=== PATIENT | female | born 1990 | race Caucasian/White ===

== ENCOUNTER → 2017-04-24 | Outpatient (REF) | payer OTHER, SELFPAY ==
[2017-04-24 17:37] LABS: FREE T4 0.83 NG/DL (0.76-1.46)
== END ==
LOC: M SFHCPLAZ 15:22
PROVIDERS: ATTEND Nurse Practitioner Family
DX: F41.8 Other specified anxiety disorders (principal); E03.9 Hypothyroidism, unspecified

== ENCOUNTER → 2017-11-07 | Outpatient (REF) | payer OTHER, SELFPAY ==
[2017-11-07 12:05] LABS: FREE T4 0.71 NG/DL (0.76-1.46)
[2017-11-08 08:26] LABS: THYROGLOBULIN ANTIBODY 42.6 U/ML (<60.0); THYROID PEROXIDASE ANTIBODY > 1300.0 U/ML (<60.0)
[2017-11-09 00:06] LABS: THYROID STIMULATING IMMUNOGLOB <0.10 IU/L (0.00-0.55)
== END ==
LOC: M SFHCPLAZ 09:37
DX: E03.9 Hypothyroidism, unspecified (principal)
CPT/HCPCS: 84443

== ENCOUNTER → 2017-12-05 | Outpatient (REF) | payer OTHER ==
[2017-12-05 11:44] LABS: BASO # 0.1 10^3/uL (0.0-0.2); BASO % 1.1 % (0.0-1.0); EOS # 0.5 10^3/uL (0.0-0.50); EOS % 10.1 % (0.0-3.0); HEMATOCRIT 34.4 % (36.0-47.0); HEMOGLOBIN 10.6 g/dl (12.0-15.5); IMMATURE GRANULOCYTE % 0.4 % (0-3.0); LYMPH # 1.3 10^3/uL (1.5-6.5); LYMPH % 24.6 % (24.0-44.0); MEAN CORPUSCULAR HEMOGLOBIN 24.7 pg (27.0-33.0); MEAN CORPUSCULAR HGB CONC 30.8 g/dl (32.0-36.5); MONO # 0.5 10^3/uL (0.0-0.8); MONO % 8.8 % (0.0-5.0); NEUTROPHILS # 2.9 10^3/uL (1.8-7.7); PLATELET COUNT, AUTOMATED 253 10^3/uL (150-450); WHITE BLOOD COUNT 5.2 10^3/uL (4.0-10.0)
[2017-12-05 12:43] LABS: CHOLESTEROL LEVEL 182 MG/DL (<200); CHOLESTEROL RISK RATIO 4.666 (<5); FERRITIN 5 NG/ML (8-252); FREE T4 0.81 NG/DL (0.76-1.46); HDL CHOLESTEROL 39 MG/DL (>40); IRON (FE) 29 UG/DL (50-170); NON-HDL-C 143 MG/DL; PERCENT SATURATION 7.7 % (13.2-45.0); TOTAL IRON BINDING CAPACITY 377 UG/DL (250-450); TRIGLYCERIDES LEVEL 95 MG/DL (<150)
[2017-12-05 14:26] LABS: ESTIMATED AVERAGE GLUCOSE 114 MG/DL (60-110); HEMOGLOBIN A1c 5.6 %
== END ==
LOC: M SFHCPLAZ 10:17
DX: D50.9 Iron deficiency anemia, unspecified (principal); E03.9 Hypothyroidism, unspecified; E66.9 Obesity, unspecified
CPT/HCPCS: 83550

== ENCOUNTER 2018-07-19 08:00 | Emergency (ER) | payer SELFPAY, OTHER ==
[2018-07-19] MEDS: ALBUTEROL SULFATE 2.5 MG/0.5 ML INH NEB SOLN INH (08:44)
== END 2018-07-19 09:27 | disposition home or self-care (01) ==
LOC: M ED 08:00
DX: J18.9 Pneumonia, unspecified organism (principal)
CPT/HCPCS: 71046

== ENCOUNTER → 2019-03-14 | Outpatient (REF) | payer OTHER ==
[~2019-03-14] MED LIST: MUCI600T37 PO; VENTAER INH; ZITHTAB PO
[2019-03-14 17:59] LABS: APPEARANCE, URINE CLEAR (CLEAR); BACTERIA, URINE AUTO NEGATIVE (NEGATIVE); BILIRUBIN, URINE AUTO NEGATIVE (NEGATIVE); BLOOD, URINE BLOOD 3+ (NEGATIVE); COLOR, URINE YELLOW (YELLOW); GLUCOSE, URINE (UA) AUTO NEGATIVE (NEGATIVE); KETONE, URINE AUTO NEGATIVE (NEGATIVE); LEUKOCYTE ESTERASE, URINE AUTO NEGATIVE (NEGATIVE); MUCUS, URINE SMALL (NEGATIVE); NITRITE, URINE AUTO NEGATIVE (NEGATIVE); PROTEIN, URINE AUTO NEGATIVE (NEGATIVE); RBC, URINE AUTO 4 /HPF (0-3); SPECIFIC GRAVITY URINE AUTO 1.021 (1.002-1.035); SQUAMOUS EPITHELIAL CELL UR AU 0 /HPF (0-6); UROBILINOGEN, URINE AUTO 0.2 mg/dL (0.0-2.0); WBC, URINE AUTO 2 /HPF (0-3)
== END ==
LOC: M SFHCPLAZ 16:49
PROVIDERS: ATTEND Physician Assistant Medical
DX: R10.9 Unspecified abdominal pain (principal)

== ENCOUNTER → 2019-04-22 | Outpatient (REF) | payer OTHER ==
[2019-04-22 13:36] LABS: APPEARANCE, URINE HAZY (CLEAR); BACTERIA, URINE AUTO NEGATIVE (NEGATIVE); BILIRUBIN, URINE AUTO NEGATIVE (NEGATIVE); BLOOD, URINE BLOOD NEGATIVE (NEGATIVE); COLOR, URINE YELLOW (YELLOW); GLUCOSE, URINE (UA) AUTO NEGATIVE (NEGATIVE); KETONE, URINE AUTO NEGATIVE (NEGATIVE); LEUKOCYTE ESTERASE, URINE AUTO NEGATIVE (NEGATIVE); MUCUS, URINE LARGE (NEGATIVE); NITRITE, URINE AUTO NEGATIVE (NEGATIVE); PROTEIN, URINE AUTO 1+ mg/dL (NEGATIVE); RBC, URINE AUTO 3 /HPF (0-3); SPECIFIC GRAVITY URINE AUTO 1.031 (1.002-1.035); SQUAMOUS EPITHELIAL CELL UR AU 6 /HPF (0-6); WBC, URINE AUTO 1 /HPF (0-3)
== END ==
LOC: M SFHCPLAZ 11:55
PROVIDERS: ATTEND Physician Assistant Medical
DX: R39.15 Urgency of urination (principal)

== ENCOUNTER → 2019-06-19 | Outpatient (REF) | payer OTHER ==
[2019-06-19 17:27] LABS: BASO # 0.1 10^3/uL (0.0-0.2); BASO % 1.2 % (0.0-1.0); EOS # 0.2 10^3/uL (0.0-0.5); EOS % 4.8 % (0.0-3.0); HEMATOCRIT 34.4 % (36.0-47.0); HEMOGLOBIN 10.6 g/dl (12.0-15.5); LYMPH # 1.2 10^3/uL (1.5-5.0); LYMPH % 24.2 % (24.0-44.0); MEAN CORPUSCULAR HEMOGLOBIN 24.9 pg (27.0-33.0); MEAN CORPUSCULAR HGB CONC 30.8 g/dl (32.0-36.5); MEAN CORPUSCULAR VOLUME 80.8 fl (80.0-96.0); MONO # 0.4 10^3/uL (0.0-0.8); MONO % 7.9 % (0.0-5.0); NEUTROPHILS # 3.1 10^3/uL (1.5-8.5); NEUTROPHILS % 61.7 % (36.0-66.0); PLATELET COUNT, AUTOMATED 327 10^3/uL (150-450); RED BLOOD COUNT 4.26 10^6/uL (4.00-5.40)
[2019-06-19 17:39] LABS: ALBUMIN 3.9 GM/DL (3.2-5.2); ALT/SGPT 23 U/L (12-78); BILIRUBIN,TOTAL 0.3 MG/DL (0.2-1.0); BLOOD UREA NITROGEN 9 MG/DL (7-18); CALCIUM LEVEL 9.7 MG/DL (8.5-10.1); CARBON DIOXIDE LEVEL 25 MEQ/L (21-32); CHLORIDE LEVEL 111 MEQ/L (98-107); CHOLESTEROL LEVEL 221 MG/DL (<200); CREATININE FOR GFR 0.89 MG/DL (0.55-1.30); FERRITIN 4 NG/ML (8-252); FREE T4 0.88 NG/DL (0.76-1.46); GLOMERULAR FILTRATION RATE > 60.0 (>60); GLUCOSE, FASTING 90 MG/DL (70-100); HDL CHOLESTEROL 41 MG/DL (>40); IRON (FE) 19 UG/DL (50-170); LDL CHOLESTEROL 156 MG/DL (<100); NON-HDL-C 180 MG/DL; PERCENT SATURATION 4.9 % (13.2-45.0); POTASSIUM SERUM 4.2 MEQ/L (3.5-5.1); SODIUM LEVEL 142 MEQ/L (136-145); TOTAL IRON BINDING CAPACITY 387 UG/DL (250-450); TOTAL PROTEIN 7.2 GM/DL (6.4-8.2); TRIGLYCERIDES LEVEL 118 MG/DL (<150)
== END ==
LOC: M SFHCPLAZ 15:13
PROVIDERS: ATTEND Physician Assistant Medical
DX: Z13.220 Encounter for screening for lipoid disorders (principal); E03.9 Hypothyroidism, unspecified; D50.9 Iron deficiency anemia, unspecified

== ENCOUNTER → 2020-08-31 | Outpatient (REF) | payer OTHER ==
[2020-08-31 18:28] LABS: BASO # 0.1 10^3/uL (0.0-0.2); BASO % 1.3 % (0.0-1.0); EOS # 0.2 10^3/uL (0.0-0.5); EOS % 3.4 % (0.0-3.0); HEMATOCRIT 31.4 % (36.0-47.0); LYMPH # 1.5 10^3/uL (1.5-5.0); LYMPH % 32.1 % (24.0-44.0); MEAN CORPUSCULAR HEMOGLOBIN 22.8 pg (27.0-33.0); MEAN CORPUSCULAR HGB CONC 28.7 g/dl (32.0-36.5); MEAN CORPUSCULAR VOLUME 79.7 fl (80.0-96.0); MONO # 0.5 10^3/uL (0.0-0.8); MONO % 11.2 % (0.0-5.0); NEUTROPHILS # 2.4 10^3/uL (1.5-8.5); NEUTROPHILS % 51.8 % (36.0-66.0); PLATELET COUNT, AUTOMATED 246 10^3/uL (150-450); RED BLOOD COUNT 3.94 10^6/uL (4.00-5.40); WHITE BLOOD COUNT 4.6 10^3/uL (4.0-10.0)
[2020-08-31 18:41] LABS: HEMOGLOBIN A1c 5.2 %
[2020-08-31 19:04] LABS: ALBUMIN 3.8 GM/DL (3.2-5.2); ALT/SGPT 39 U/L (12-78); BILIRUBIN,TOTAL 0.3 MG/DL (0.2-1.0); BLOOD UREA NITROGEN 17 MG/DL (7-18); CALCIUM LEVEL 9.1 MG/DL (8.5-10.1); CARBON DIOXIDE LEVEL 29 MEQ/L (21-32); CHLORIDE LEVEL 110 MEQ/L (98-107); CHOLESTEROL LEVEL 176 MG/DL (<200); CREATININE FOR GFR 0.83 MG/DL (0.55-1.30); FERRITIN 4 NG/ML (8-252); FREE T4 0.74 NG/DL (0.76-1.46); GLOMERULAR FILTRATION RATE > 60.0 (>60); GLUCOSE, FASTING 49 MG/DL (70-100); HDL CHOLESTEROL 80 MG/DL (>40); IRON (FE) 30 UG/DL (50-170); LDL CHOLESTEROL 78 MG/DL (<100); NON-HDL-C 96 MG/DL; POTASSIUM SERUM 3.8 MEQ/L (3.5-5.1); SODIUM LEVEL 144 MEQ/L (136-145); TOTAL 25(OH) VITAMIN D 24.2 NG/ML (30.0-100.0); TOTAL PROTEIN 6.8 GM/DL (6.4-8.2); TRIGLYCERIDES LEVEL 89 MG/DL (<150); VITAMIN B12 LEVEL > 2000 PG/ML (247-911)
== END ==
LOC: M SFHCPLAZ 14:46 → M SFHCADAM 14:48
PROVIDERS: ATTEND Physician Assistant Medical
DX: E03.9 Hypothyroidism, unspecified (principal); Z13.220 Encounter for screening for lipoid disorders; D50.9 Iron deficiency anemia, unspecified; E66.9 Obesity, unspecified; Z98.84 Bariatric surgery status

== ENCOUNTER → 2020-09-03 | Outpatient (REF) | payer OTHER ==
[~2020-09-03] MED LIST changes: +B-12100T2 PO; +BUSP5TA PO; +CALC250T PO; +FLINCHW2 PO; +LEVO50TA5 PO
[2020-09-03 18:02] LABS: BASO # 0.1 10^3/uL (0.0-0.2); BASO % 1.4 % (0.0-1.0); EOS # 0.2 10^3/uL (0.0-0.5); EOS % 3.5 % (0.0-3.0); HEMATOCRIT 32.1 % (36.0-47.0); HEMOGLOBIN 9.4 g/dl (12.0-15.5); LYMPH # 1.1 10^3/uL (1.5-5.0); LYMPH % 26.6 % (24.0-44.0); MEAN CORPUSCULAR HEMOGLOBIN 23.2 pg (27.0-33.0); MEAN CORPUSCULAR HGB CONC 29.3 g/dl (32.0-36.5); MEAN CORPUSCULAR VOLUME 79.1 fl (80.0-96.0); MONO # 0.5 10^3/uL (0.0-0.8); MONO % 10.6 % (0.0-5.0); NEUTROPHILS # 2.5 10^3/uL (1.5-8.5); NEUTROPHILS % 57.7 % (36.0-66.0); PLATELET COUNT, AUTOMATED 227 10^3/uL (150-450); RED BLOOD COUNT 4.06 10^6/uL (4.00-5.40); WHITE BLOOD COUNT 4.3 10^3/uL (4.0-10.0)
[2020-09-03 18:12] LABS: BLOOD UREA NITROGEN 15 MG/DL (7-18); CALCIUM LEVEL 9.3 MG/DL (8.5-10.1); CARBON DIOXIDE LEVEL 27 MEQ/L (21-32); CHLORIDE LEVEL 111 MEQ/L (98-107); CREATININE FOR GFR 0.78 MG/DL (0.55-1.30); FERRITIN < 3 NG/ML (8-252); GLOMERULAR FILTRATION RATE > 60.0 (>60); GLUCOSE, FASTING 96 MG/DL (70-100); IRON (FE) 10 UG/DL (50-170); MAGNESIUM LEVEL 2.4 MG/DL (1.8-2.4); POTASSIUM SERUM 4.2 MEQ/L (3.5-5.1); SODIUM LEVEL 144 MEQ/L (136-145)
== END ==
LOC: M PLALAB 14:49
PROVIDERS: ATTEND Physician Assistant Medical
DX: D50.9 Iron deficiency anemia, unspecified (principal); E03.9 Hypothyroidism, unspecified; Z98.84 Bariatric surgery status

== ENCOUNTER 2020-09-08 08:11 | Outpatient (CLI) | payer OTHER ==
[~2020-09-08] VITALS: Ht 167.6 cm; Wt 76.8 kg
[2020-09-08 08:00] VITALS: BP 124/59
[~2020-09-08 08:11] MED LIST changes: -B-12100T2 PO; -BUSP5TA PO; -CALC250T PO; -FLINCHW2 PO; +IRON SUCROSE 25 MG in NS 25 ML IV ONE; -LEVO50TA5 PO
[2020-09-08] MEDS ORDERED: FLINCHW2 PO (08:29)
[2020-09-08] MEDS ORDERED: CALC250T PO (08:29)
[2020-09-08] MEDS ORDERED: B-12100T2 PO (08:29)
[2020-09-08] MEDS ORDERED: BUSP5TA PO (08:29)
[2020-09-08] MEDS ORDERED: LEVO50TA5 PO (08:29)
[2020-09-08] MEDS ORDERED: IRON SUCROSE 225 MG in NS 225 ML IV ONE (09:00)
[2020-09-08 09:15] VITALS: BP 110/56
[2020-09-08 10:17] VITALS: BP 95/50
[2020-09-08 12:00] VITALS: BP 104/58
[2020-09-08 13:00] VITALS: BP 104/66
== END 2020-09-08 13:00 | disposition home or self-care (01) ==
LOC: M INFU 08:11
PROVIDERS: ATTEND Physician Assistant Medical
DX: D50.9 Iron deficiency anemia, unspecified (principal); Z88.1 Allergy status to other antibiotic agents
CPT/HCPCS: 96365; 96366; J1756

== ENCOUNTER 2020-09-25 13:47 | Emergency (ER) | payer OTHER ==
[~2020-09-25] VITALS: Ht 167.6 cm; Wt 79.6 kg
[~2020-09-25 13:47] MED LIST changes: +B-12100T2 PO; +BUSP5TA PO; +CALC250T PO; +FLINCHW2 PO; -IRON SUCROSE 25 MG in NS 25 ML IV ONE; +LEVO50TA5 PO
[2020-09-25] MEDS ORDERED: FERR325T3 PO (13:53)
[2020-09-25] MEDS ORDERED: NOXI1TAB PO (13:53)
[2020-09-25] MEDS ORDERED: LORazepam 2 MG/ML VIAL IV STA (14:25)
--- OUTSIDE RECORDS SUMMARY | 2020-09-25 14:27 | CCD ---
Author Author [facility] Organization [facility] Address Unknown Phone Unavailable Care Team Providers Care Sheet Tailer Name Role Phone AmaliaLuz toledo Unavailable PROBLEMS Type Condition ICD9-CM Code [id number] Code Onset Dates Condition S tatus W/U Status Risk SNOMED Code Notes Problem Acquired hypothyroidism E03.9 Active confirmed 132539485 Problem Iron deficiency anemia, unspecified iron deficiency an emia type D50.9 Active confirmed 70540614 Problem Breast cancer screening Z12.39 Active confirmed 550480402 Problem Anxiety F41.9 Active confirmed 90696448 Problem Allergic rhinitis, unspecifi ed allergic rhinitis trigger, unspecified rhinitis seasonality J30.9 Active confirmed 06295300 Problem Obesity, unspecified E66.9 Active confirmed 32943275999958 Problem Menorrhagia with regular cycle N92.0 Active confir med 864716480 Problem Cervical cancer screening Z12.4 Active confirmed 221439365 Problem Obesity, morbid E66.01 Active confirmed 2381 03496 Problem S/P gastric bypass Z98.84 Active confirmed 6 06084144 Problem Lipid screening Z13.220 Active confirmed 305 227999 ALLERGIES Allergen (clinical drug ingredient) Drug/Non Drug Allergy do cumented on EMR Reaction Allergy Type Onset Date Status amoxicillin Amoxicillin([facility] Code:[address]-16) Hives Drug Aller gy Active ENCOUNTERS from 1989 to 2020-09-04 Encounter Location Date Provider Diagnosis [address] [address] Aug, Luz Burgess IMMUNIZATIONS Vaccine Route Administration Date Status Influenza (6mo & up) Fluzone Unknown Jun 08, 2016 Ref used SOCIAL HISTORY Tobacco Use: Social History Observation Description Date Details (start date - stop date) Never Smoker Sex Assigned At : Social History Observation Description Sex Assigned At Unknown Education: Question Answer Notes Level of Education: Finished High School Judaism: Question Answer Notes Judaism 21 Yazidism Sexual Hx: Question Answer Notes Had sex in the last 12 months (vaginal, oral, or anal)? Yes LMP: 03/2017 Have you ever had an STD? No Prevention Strategies discussed: Other with Men only Use protection? No Alcohol Screening: Question Answer Notes Did you have a drink containing alcohol in the past year? Ye s Points 1 Interpretation Negative How often did you have six or more drinks on one occas ion in the past year? Never (0 points) How many drinks did you have on a typica l day when you were drinking in the past year? 1 or 2 (0 points) How often did you have a drink containing alcohol in t he past year? Monthly or less (1 point) BMI Care Goal Follow-Up Question Answer Notes Above Normal BMI Follow-Up Dietary needs education Tobacco Use: Question Answer Notes Are you a: never smoker never smoker REASON FOR REFERRAL No Information VITAL SIGNS No information MEDICATIONS Medication SIG (Take, Route, Frequency, Duration) Notes Start Da te End Date Status Loryna 3-0.02 MG 1 tablet Orally Once a day for 28 day(s) Aug, Active Levothyroxine Sodium 50 MCG 1 tablet in the morning on an empty stomach Orally Once a day for 30 day(s) Active Ferrous Fumarate 324 (106 Fe) MG 2 tablets Orally every other da y for 30 Days Active Levothyroxine Sodium 100 MCG 1 tablet in the morning o n an empty stomach Orally Once a day Jun, Not-Taking BusPIRone HCl 5 MG 1 tablet Orally Twice a day for 30 Days Aug, Active Slow Iron 160 (50 Fe) MG 1 tablet Orally Every other day Active PROCEDURES No Information RESULTS No Results REASON FOR VISIT Symptomatic anemia MEDICAL (GENERAL) HISTORY Type Description Date Medical History Pneumonia in 06/2018, bronch itis after in 08/2018, Still SOB, prod. phlegm cordero, white since Surgical History 3 ([id number]) Surgical History Tubal ligation c 3rd C section Surgical History Wisdome teeth extracted Hospitalization History vaginal of baby boy/[facility] Hospitalization History C section baby boy/Harsha 01/09/2010 Hospitalization History C section baby boy/ Mike 08/03/201 2 Hospitalization History C section baby girl/Yissel Yonny 015 Goals Section No Information Health Concerns No Information MEDICAL EQUIPMENT No Information MENTAL STATUS No Information FUNCTIONAL STATUS No Information ASSESSMENTS No Information PLAN OF TREATMENT Medication Medication Name Sig Start Date Stop Date Loryna 3-0.02 MG 1 tablet Orally Once a day for 28 day(s) Aug BusPIRone HCl 5 MG 1 tablet Orally Twice a day for 30 Days 2020 Levothyroxine Sodium 50 MCG 1 tablet in the morning on an empty stomach Orally Once a day for 30 day(s) Ferrous Fumarate 324 (106 Fe) MG 2 tablets Orally every other da y for 30 Days Next Appt Details Provider Name:Luz Herlinda Burgess, 11-30 10:45:00 AM, [facility] [place], [address], Insurance Providers Payer Name Payer Address Payer Phone Insured Name Patient Relati onship to Insured Coverage Start Date Coverage End Date [facility] COMMUNITY [facility]AN [facility] [address] [facility] [address] DHEERAJ COSTA
--- OUTSIDE RECORDS SUMMARY | 2020-09-25 14:27 | CCD ---
Author Author [facility] Organization [facility] Address Unknown Phone Unavailable Care Team Providers Care Rn Immunology Name Role Phone AmaliaLuz toledo Unavailable PROBLEMS Type Condition ICD9-CM Code [id number] Code Onset Dates Condition S tatus W/U Status Risk SNOMED Code Notes Problem Acquired hypothyroidism E03.9 Active confirmed 286825566 Problem Iron deficiency anemia, unspecified iron deficiency an emia type D50.9 Active confirmed 64526896 Problem Breast cancer screening Z12.39 Active confirmed 205354583 Problem Anxiety F41.9 Active confirmed 76798917 Problem Allergic rhinitis, unspecifi ed allergic rhinitis trigger, unspecified rhinitis seasonality J30.9 Active confirmed 23710120 Problem Obesity, unspecified E66.9 Active confirmed 87194222926391 Problem Menorrhagia with regular cycle N92.0 Active confir med 871001752 Problem Cervical cancer screening Z12.4 Active confirmed 160402780 Problem Obesity, morbid E66.01 Active confirmed 2381 88861 Problem S/P gastric bypass Z98.84 Active confirmed 6 97855126 Problem Lipid screening Z13.220 Active confirmed 305 381948 ALLERGIES Allergen (clinical drug ingredient) Drug/Non Drug Allergy do cumented on EMR Reaction Allergy Type Onset Date Status amoxicillin Amoxicillin([facility] Code:[address]-64) Hives Drug Aller gy Active ENCOUNTERS from 1989 to 2020-09-10 Encounter Location Date Provider Diagnosis [address] [address] 04 Aug, 2020 Luz Burgess Iron deficiency anemia, unspecified iron deficiency anemia type D50.9 ; Acquired hypothyroidism E03.9 ; S/P gastric bypass Z98.84 ; Lipid screening Z13.220 and Overweight (BMI 25.0-29.9) E66.3 IMMUNIZATIONS Vaccine Route Administration Date Status Influenza (6mo & up) Fluzone Unknown Jun 08, 2016 Ref used SOCIAL HISTORY Tobacco Use: Social History Observation Description Date Details (start date - stop date) Never Smoker Sex Assigned At : Social History Observation Description Sex Assigned At Unknown Education: Question Answer Notes Level of Education: Finished High School Bahai: Question Answer Notes Bahai 21 Taoism Sexual Hx: Question Answer Notes Had sex [...] REASON FOR REFERRAL No Information VITAL SIGNS Weight 176 lbs Aug, Height 67 in Aug, BMI 27.56 kg/m2 Aug, Heart Rate 115 /min Aug, Respiratory Rate 18 /min Aug, Temperature 98.2 degrees Fahrenheit Aug, Oximetry 100 Aug, Blood pressure systolic 102 mm Hg Aug, Blood pressure diastolic 64 mm Hg Aug, MEDICATIONS Medication SIG (Take, Route, Frequency, Duration) Notes Start Da te End Date Status BusPIRone HCl 5 MG 1 tablet Orally Twice a day for 30 Days Aug, Active Ferrous Fumarate 324 (106 Fe) MG 2 tablets Orally every other da y for 30 Days Active Loryna 3-0.02 MG 1 tablet Orally Once a day for 28 day(s) Aug, Active Levothyroxine Sodium 100 MCG 1 tablet in the morning o n an empty stomach Orally Once a day for 30 Days 05 Dec, 2019 Active Slow Iron 160 (50 Fe) MG 1 tablet Orally Every other day Active PROCEDURES No Information RESULTS No Results REASON FOR VISIT anemia/depression/ MEDICAL (GENERAL) HISTORY Type Description Date Medical History Pneumonia in 06/2018, bronch itis after in 08/2018, Still SOB, prod. phlegm cordero, white since Surgical History 3 ([id number]) Surgical History Tubal ligation c 3rd C section Surgical History Wisdome teeth extracted Hospitalization History vaginal of baby boy/[facility] Hospitalization History C section baby boy/Harsha 01/09/2010 Hospitalization History C section baby boy/ Mike 2 Hospitalization History C section baby girl/Yissel Blancas 015 Goals Section No Information Health Concerns No Information MEDICAL EQUIPMENT No Information MENTAL STATUS No Information FUNCTIONAL STATUS No Information ASSESSMENTS Encounter Date Diagnosis Assessment Notes Treatment Notes Treatm ent Clinical Notes Aug, Iron deficiency anemia, unsp ecified iron deficiency anemia type (ICD-10 - D50.9) Still having menorrhagia, will repeat labs. in [place], no hematochezia, melena or dizziness. Will also do 3 stool cards will mail to her. Pt. was set up for VENofer infusion @ Infusion center. Plans EGD prior to Gastric Bypass in [facility] 08/2020 10,<3, 9.432.1,227k 07/2020 30, ferr 4, 4.6, H&H 9.0 & 31.4, 246k 06/2019 iron 19, ferr 4, wbc 5.0, H&H 10.6&34.4, 327k 04 Aug, 2020 Acquired hypothyroidism (ICD-10 - E03.9) Will recheck levels ran out of med. & couldn't get back in to be seen & get refills s insur. 08/2020 [id number] qam 06/2019 levothyr 100mcg qam 08/2020 3.720, 0.90 07/2020 2.330,0.74 06/2019 TSH 4.330, FT 4 0.88 04 Aug, 2020 S/P gastric bypass (ICD-10 - Z98.84) Low vit.levels vit. D 24.2 L, b12 >2000H 08/2020 Mag. 2.4, Na 144, K3.88, bun/cr 17/0.83, gluc 49, calc. 9.1, ast 26, alt 39 04 Aug, 2020 Lipid screening (ICD-10 - Z13.220) Cont. diet rx & exer. 08/2020 LDL 78/HDL 80/TG 89 04 Aug, 2020 Overweight (BMI 25.0-29.9) (ICD-10 - E66.3) 08/2020 a1c 5.2 04 Aug, 2020 Other Warm compresses & cover to prevent friction until fully healed PLAN OF TREATMENT Medication Medication Name Sig Start Date Stop Date BusPIRone HCl 5 MG 1 tablet Orally Twice a day for 30 Days 2020 Levothyroxine Sodium 100 MCG 1 tablet in the morning o n an empty stomach Orally Once a day for 30 Days Jun, Ferrous Fumarate 324 (106 Fe) MG 2 tablets Orally every other da y for 30 Days Loryna 3-0.02 MG 1 tablet Orally Once a day for 28 day(s) Aug Treatment Notes Assessment Notes Clinical Notes Iron deficiency anemia, unspecified iron deficiency anemia t ype Still having menorrhagia, will repeat labs. in [place], no hematochezia, melena or dizziness. Will also do 3 stool cards will mail to her. Pt. was set up for VENofer infusion @ Infusion center.Plans EGD prior to Gastric Bypass in 10,<3, 9.432.1,227k1 30, ferr 4, 4.6, H&H 9.0 & 31.4, 246k108/2018 iron 19, ferr 4, wbc 5.0, H&H 10.6&34.4, 327k Acquired hypothyroidism Will recheck natalee mcpherson ran out of med. & couldn't get back in to be seen & get refills s insur.08/2020 [id number] qam108/2018 levothyr 100mcg qa 3.720, 0.9007/2020 2.330,0.7412 TSH 4.330, FT 4 0.88 S/P gastric bypass Low vit.levels08/2021 1 vit. D 24.2 L, b12 >2000H2 Mag. 2.4, Na 144, K3.88, bun/cr 17/0.83, gluc 49, calc. 9.1, ast 26, alt 39 Lipid screening Cont. diet rx & exer .08/2020 LDL 78/HDL 80/TG 89 Overweight (BMI 25.0-29.9) 08/2020 a1c 5. 2 Future Test Test Name Order Date CBC with Differential [id number] IRON (FE) [id number] FERRITIN [id number] Next Appt Details 4 Weeks c SS Reason: Provider Name:Luz Burgess, 11-30 10:45:00 AM, [address] [place], [address], Insurance Providers Payer Name Payer Address Payer Phone Insured Name Patient Relati onship to Insured Coverage Start Date Coverage End Date [facility] COMMUNITY PLAN [facility] [address] [facility] [address] [phone] DHEERAJ JAMISON self
--- OUTSIDE RECORDS SUMMARY | 2020-09-25 14:27 | CCD ---
Author Author [facility] Organization [facility] Address Unknown Phone Unavailable Care Team Providers Care Floor Worker [place] Name Role Phone JeniferChayitoan Unavailable PROBLEMS Type Condition ICD9-CM Code [id number] Code Onset Dates Condition S tatus W/U Status Risk SNOMED Code Notes Problem Allergic rhinitis, unspecifi ed allergic rhinitis trigger, unspecified rhinitis seasonality J30.9 Active confirmed 57950401 Problem Acquired hypothyroidism E03.9 Active confirmed 895434470 Problem Iron deficiency anemia, unspecified iron deficiency an emia type D50.9 Active confirmed 69953092 Problem Lipid screening Z13.220 Active confirmed 305 546744 Problem Menorrhagia with regular cycle N92.0 Active confir med 172059609 Problem Obesity, unspecified E66.9 Active confirmed 36068894896382 Problem Breast cancer screening Z12.39 Active confirmed 240854873 Problem Cervical cancer screening Z12.4 Active confirmed 678026708 Problem Obesity, morbid E66.01 Active confirmed 2381 74710 Problem S/P gastric bypass Z98.84 Active confirmed 6 98681769 ALLERGIES Allergen (clinical drug ingredient) Drug/Non Drug Allergy do cumented on EMR Reaction Allergy Type Onset Date Status amoxicillin Amoxicillin([facility] Code:[address]-80) Hives Drug Aller gy Active ENCOUNTERS from 1989 to 2020-08-31 Encounter Location Date Provider Diagnosis [facility] [place] [address] [place] [address] Aug, Luz Burgess IMMUNIZATIONS Vaccine Route Administration Date Status Influenza (6mo & up) Fluzone Unknown Jun 08, 2016 Ref used SOCIAL HISTORY Tobacco Use: Social History Observation Description Date Details (start date - stop date) Never Smoker Sex Assigned At : Social History Observation Description Sex Assigned At Unknown Education: Question Answer Notes Level of Education: Finished High School Baptism: Question Answer Notes Baptism 21 Sabianism Sexual Hx: Question Answer Notes Had sex [...] Notes Start Da te End Date Status Levothyroxine Sodium 100 MCG 1 tablet in the morning o n an empty stomach Orally Once a day Jun, Not-Taking Slow Iron 160 (50 Fe) MG 1 tablet Orally Every other day Active Levothyroxine Sodium 50 MCG 1 tablet in the morning on an empty stomach Orally Once a day for 30 day(s) Aug, Active Ferrous Fumarate 324 (106 Fe) MG 2 tablets Orally every other da y for 30 Days Active PROCEDURES No Information RESULTS No Results REASON FOR VISIT Increased HR MEDICAL (GENERAL) HISTORY Type Description Date Medical History Pneumonia in 06/2018, bronch itis after in 08/2018, Still SOB, prod. phlegm cordero, white since Surgical History 3 ([id number]) Surgical History Tubal ligation c 3rd C [...] Medication Name Sig Start Date Stop Date Ferrous Fumarate 324 (106 Fe) MG 2 tablets Orally every other da y for 30 Days Levothyroxine Sodium 50 MCG 1 tablet in the morning on an empty stomach Orally Once a day for 30 day(s) Aug, Next Appt Details Provider Name:Luz Burgess, 11-30 10:45:00 AM, [facility] [place], [address], Insurance Providers Payer Name Payer Address Payer Phone Insured Name Patient Relati onship to Insured Coverage Start Date Coverage End Date [facility] COMMUNITY PLAN [facility] [address] [facility] [phone] DHEERAJ JAMISON self
--- OUTSIDE RECORDS SUMMARY | 2020-09-25 14:27 | CCD ---
Author Author [facility] Organization [facility] Address Unknown Phone Unavailable Care Team Providers Care Horticultural Services Supervisor Name Role Phone Luz Burgess Unavailable PROBLEMS Type Condition ICD9-CM Code [id number] Code Onset Dates Condition S tatus W/U Status Risk SNOMED Code Notes Problem Acquired hypothyroidism E03.9 Active confirmed 997876574 Problem Iron deficiency anemia, unspecified iron deficiency an emia type D50.9 Active confirmed 99156876 Problem Breast cancer screening Z12.39 Active confirmed 828580927 Problem Anxiety F41.9 Active confirmed 12844232 Problem Allergic rhinitis, unspecifi ed allergic rhinitis trigger, unspecified rhinitis seasonality J30.9 Active confirmed 51320848 Problem Obesity, unspecified E66.9 Active confirmed 00742221121351 Problem Menorrhagia with regular cycle N92.0 Active confir med 566128882 Problem Cervical cancer screening Z12.4 Active confirmed 628330166 Problem Obesity, morbid E66.01 Active confirmed 2381 55021 Problem S/P gastric bypass Z98.84 Active confirmed 6 36090174 Problem Lipid screening Z13.220 Active confirmed 305 396585 ALLERGIES Allergen (clinical drug ingredient) Drug/Non Drug Allergy do cumented on EMR Reaction Allergy Type Onset Date Status amoxicillin Amoxicillin([facility] Code:[address]-44) Hives Drug Aller gy Active ENCOUNTERS from 1989 to 2020-09-05 Encounter Location Date Provider Diagnosis [address] [address] Aug, Luz Burgess Acquired hypothyroidism E03.9 ; Chronic otitis media of right ear with effusion H65.491 ; Lipid screening Z13.220 ; Obesity, unspecified E66.9 ; Iron deficiency anemia, unspecified iron deficiency anemia type D50.9 ; S/P gastric bypass Z98.84 ; Menorrhagia with regular cycle N92.0 and Anxiety F41.9 IMMUNIZATIONS Vaccine Route Administration Date Status Influenza (6mo & up) Fluzone Unknown Jun 08, 2016 Ref used SOCIAL HISTORY Tobacco Use: Social History Observation Description Date Details (start date - stop date) Never Smoker Sex Assigned At : Social History Observation Description Sex Assigned At Unknown Education: Question Answer Notes Level of Education: Finished High School Religious: Question Answer Notes Religious 21 Sikhism Sexual Hx: Question Answer Notes Had sex [...] FOR REFERRAL No Information VITAL SIGNS Weight 175 lbs Aug, Height 67 in Aug, BMI 27.41 kg/m2 Aug, Heart Rate 94 /min Aug, Respiratory Rate 18 /min Aug, Temperature 97.8 degrees Fahrenheit Aug, Oximetry 100 Aug, Blood pressure systolic 128 mm Hg Aug, Blood pressure diastolic 78 mm Hg Aug, MEDICATIONS Medication SIG (Take, [...] Once a day for 30 Days Jun, Active Slow Iron 160 (50 Fe) MG 1 tablet Orally Every other day Active PROCEDURES No Information RESULTS REASON FOR VISIT Increased HR MEDICAL (GENERAL) HISTORY Type Description Date Medical History Pneumonia in 06/2018, bronch itis after in 08/2018, Still SOB, prod. phlegm cordero, white since Surgical History 3 ([id number]) Surgical History Tubal ligation c 3rd C [...] Treatment Notes Treatm ent Clinical Notes Aug, Acquired hypothyroidism (ICD-10 - E03.9) Will recheck levels again was nl so didn't e-rx med. 06/2019 levothyr 100mcg qam 06/2019 TSH 4.330, FT 4 0.88 Aug, Chronic otitis media of right ear with e ffusion (ICD-10 - H65.491) ASymp Aug, Lipid screening (ICD-10 - Z13.220) Jeremiah risk calc. 1.6% so encouraged wt. loss 06/2019 LDL 156/hdl 41/tg 118; nl lfts 11,23 Aug, Obesity, unspecified (ICD-10 - E66.9) 175lbs. now 124lbs. down from 300 in 09/2018 Thyroid not corrected Aug, Iron deficiency anemia, unsp ecified iron deficiency anemia type (ICD-10 - D50.9) Still having menorrhagia, will repeat labs. in [place], no hematochezia, melena or dizziness. Will also do 3 stool cards will mail to her. Plans EGD prior to Gastric Bypass in [facility] 07/2020 30, ferr 4, 4.6, H&H 9.0 & 31.4, 246k 06/2019 iron 19, ferr 4, wbc 5.0, H&H 10.6&34.4, 327k Aug, S/P gastric bypass (ICD-10 - Z98.84) Low vit.levels Aug, Menorrhagia with regular cycle (ICD-10 - N92.0) Will start OCP for discomfort & heavy menses. Is s/p tubal ligation 5Y ago 2014Aug, Anxiety (ICD-10 - F41.9) Aug, Other Warm compresses & cover to prevent [...] Aug Treatment Notes Assessment Notes Clinical Notes Acquired hypothyroidism Will recheck lev els again was nl so didn't e-rx med.06/2019 levothyr 100mcg qam108/2018 TSH 4.330, FT 4 0.88 Chronic otitis media of right ear with effusion ASymp Lipid screening Jeremiah risk calc . 1.6% so encouraged wt. loss06/2019 LDL 156/hdl 41/tg 118; nl lfts 11,23 Obesity, unspecified 175lbs. now 124lbs. down from 300 in 09/2018Thyroid not corrected Iron deficiency anemia, unspecified iron deficiency anemia t ype Still having menorrhagia, will repeat labs. in [place], no hematochezia, melena or dizziness. Will also do 3 stool cards will mail to her.Plans EGD prior to Gastric Bypass in 30, ferr 4, 4.6, H&H 9.0 & 31.4, 246k108/2018 iron 19, ferr 4, wbc 5.0, H&H 10.6&34.4, 327k S/P gastric bypass Low vit.levels Menorrhagia with regular cycle Will star t OCP for discomfort & heavy menses. Is s/p tubal ligation 5Y ago 2014 Future Test Test Name Order Date FREE T4 & TSH PANEL [id number] Occult Blood, Stool, Immunoassay (iFOB) [id number] Occult Blood, Stool, Guaiac [id number] FERRITIN [id number] Next Appt Details 3 Monthsf/u c SS, Cancel Fri. Reason: Provider Name:Luz Burgess, 11-30 10:45:00 AM, [address] [place], [address], Insurance Providers Payer Name Payer Address Payer Phone Insured Name Patient Relati onship to Insured Coverage Start Date Coverage End Date [facility] COMMUNITY PLAN [facility] [address] [facility] [phone] DHEERAJ COSTA self
--- OUTSIDE RECORDS SUMMARY | 2020-09-25 14:27 | CCD ---
Author Author [facility] Organization [facility] Address Unknown Phone Unavailable Care Team Providers Care Chaser Helper Name Role Phone Luz Burgess Unavailable PROBLEMS Type Condition ICD9-CM Code [id number] Code Onset Dates Condition S tatus W/U Status Risk SNOMED Code Notes Problem Acquired hypothyroidism E03.9 Active confirmed 764015149 Problem Iron deficiency anemia, unspecified iron deficiency an emia type D50.9 Active confirmed 42644664 Problem Breast cancer screening Z12.39 Active confirmed 334916473 Problem Anxiety F41.9 Active confirmed 17638057 Problem Allergic rhinitis, unspecifi ed allergic rhinitis trigger, unspecified rhinitis seasonality J30.9 Active confirmed 36760770 Problem Obesity, unspecified E66.9 Active confirmed 80249828804052 Problem Menorrhagia with regular cycle N92.0 Active confir med 039508331 Problem Cervical cancer screening Z12.4 Active confirmed 278247569 Problem Obesity, morbid E66.01 Active confirmed 2381 35376 Problem S/P gastric bypass Z98.84 Active confirmed 6 70709554 Problem Lipid screening Z13.220 Active confirmed 305 809751 ALLERGIES Allergen (clinical drug ingredient) Drug/Non Drug Allergy do cumented on EMR Reaction Allergy Type Onset Date Status amoxicillin Amoxicillin([facility] Code:[address]-01) Hives Drug Aller gy Active ENCOUNTERS from 1989 to 2020-09-19 Encounter Location Date Provider Diagnosis [address] [address] 16 Aug, 2020 Luz Burgess Menorrhagia with regular cycle N92.0 IMMUNIZATIONS Vaccine Route Administration Date Status Influenza 6mo & up Fluzone Unknown Jun 08, 2016 Refus ed SOCIAL HISTORY Tobacco Use: Social History Observation Description Date Details (start date - stop date) Never Smoker Sex Assigned At : Social History Observation Description Sex Assigned At Unknown Education: Question Answer Notes Level of Education: Finished High School Caodaism: Question Answer Notes Caodaism 21 Hinduism Sexual Hx: Question Answer Notes Had sex [...] other da y for 30 Days Active Slow Iron 160 (50 Fe) MG 1 tablet Orally Every other day Active Norethindrone Acet-Ethinyl Est 1-20 MG-MCG 1 tablet Or ally Once a day for 21 day(s) Aug, Active Levothyroxine Sodium 100 MCG 1 tablet in the morning o n an empty stomach Orally Once a day for 30 Days Jun, Active Loryna 3-0.02 MG 1 tablet Orally Once a day for 28 day(s) Aug, Active PROCEDURES No Information RESULTS No Results REASON FOR VISIT PA Loryna 3-0.02mg tab MEDICAL (GENERAL) HISTORY Type Description Date Medical History Pneumonia in 06/2018, bronch itis after in 08/2018, Still SOB, prod. phlegm cordero, white since Surgical History 3 ([id number]) Surgical History Tubal ligation c 3rd C section Surgical History [place] teeth extracted Hospitalization History vaginal of baby boy/[facility] [id number] Hospitalization History C section baby boy/Harsha 01/09/2010 Hospitalization History C section baby boy/ Mike 2 Hospitalization History C section baby girl/Yissel Blancas 015 Goals Section No Information Health Concerns No Information MEDICAL EQUIPMENT No Information MENTAL STATUS No Information FUNCTIONAL STATUS No Information ASSESSMENTS Encounter Date Diagnosis Assessment Notes Treatment Notes Treatm ent Clinical Notes Aug, Menorrhagia with regular cycle (ICD-10 - N92.0) PLAN OF TREATMENT Medication Medication Name Sig Start Date Stop Date BusPIRone HCl 5 MG 1 tablet Orally Twice a day for 30 Days 2020 Levothyroxine Sodium 100 MCG 1 tablet in the morning o n an empty stomach Orally Once a day for 30 Days Jun, Loryna 3-0.02 MG 1 tablet Orally Once a day for 28 day(s) Aug Norethindrone Acet-Ethinyl Est 1-20 MG-MCG 1 tablet Or ally Once a day for 21 day(s) Aug, Ferrous Fumarate 324 (106 Fe) MG 2 tablets Orally every other da y for 30 Days Next Appt Details Provider Name:Luz Burgess, 11-30 10:45:00 AM, [address] [place], [address], Insurance Providers Payer Name Payer Address Payer Phone Insured Name Patient Relati onship to Insured Coverage Start Date Coverage End Date [facility] [address] [facility] [phone] DHEERAJ COSTA
--- OUTSIDE RECORDS SUMMARY | 2020-09-25 14:27 | CCD ---
Author Author [facility] Organization [facility] Address Unknown Phone Unavailable Care Team Providers Care Team Facilitator Name Role Phone AmaliaLuz toledo Unavailable PROBLEMS Type Condition ICD9-CM Code [id number] Code Onset Dates Condition S tatus W/U Status Risk SNOMED Code Notes Problem Acquired hypothyroidism E03.9 Active confirmed 328588618 Problem Iron deficiency anemia, unspecified iron deficiency an emia type D50.9 Active confirmed 47774109 Problem Breast cancer screening Z12.39 Active confirmed 826325886 Problem Anxiety F41.9 Active confirmed 46031685 Problem Allergic rhinitis, unspecifi ed allergic rhinitis trigger, unspecified rhinitis seasonality J30.9 Active confirmed 17283731 Problem Obesity, unspecified E66.9 Active confirmed 74621438354642 Problem Menorrhagia with regular cycle N92.0 Active confir med 050770127 Problem Cervical cancer screening Z12.4 Active confirmed 065329903 Problem Obesity, morbid E66.01 Active confirmed 2381 99186 Problem S/P gastric bypass Z98.84 Active confirmed 6 54901343 Problem Lipid screening Z13.220 Active confirmed 305 769509 ALLERGIES Allergen (clinical drug ingredient) Drug/Non Drug Allergy do cumented on EMR Reaction Allergy Type Onset Date Status amoxicillin Amoxicillin([facility] Code:[address]-55) Hives Drug Aller gy Active ENCOUNTERS from 1989 to 2020-09-05 Encounter Location Date Provider Diagnosis [address] [address] Aug, Luz Burgess IMMUNIZATIONS Vaccine Route Administration Date Status Influenza (6mo & up) Fluzone Unknown Jun 08, 2016 Ref used SOCIAL HISTORY Tobacco Use: Social History Observation Description Date Details (start date - stop date) Never Smoker Sex Assigned At : Social History Observation Description Sex Assigned At Unknown Education: Question Answer Notes Level of Education: Finished High School Buddhist: Question Answer Notes Buddhist 21 Hinduism Sexual Hx: Question Answer Notes [...] Information RESULTS No Results REASON FOR VISIT Low iron MEDICAL (GENERAL) HISTORY Type Description Date Medical History Pneumonia in 06/2018, bronch itis after in 08/2018, Still SOB, prod. phlegm cordero, white since Surgical History 3 ([id number]) Surgical History Tubal ligation c 3rd C section Surgical History [place] teeth extracted Hospitalization History vaginal of baby boy/[facility] 008 Hospitalization History C section baby boy/Harsha 01/09/2010 Hospitalization History C section baby boy/ Mike 08/03/ 2 Hospitalization History C section baby girl/Yissel [...] Once a day for 28 day(s) Aug Next Appt Details Provider Name:Luzmaurilio Burgess, 11-30 10:45:00 AM, [address] [place], [address], Insurance Providers Payer Name Payer Address Payer Phone Insured Name Patient Relati onship to Insured Coverage Start Date Coverage End Date [facility] COMMUNITY PLAN [facility] [address] [facility] [address] DHEERAJ COSTA self
--- OUTSIDE RECORDS SUMMARY | 2020-09-25 14:27 | CCD ---
Author Author [facility] Organization [facility] Address Unknown Phone Unavailable Care Team Providers Care And Taxi Instructor Bus Trolley Name Role Phone AmaliaLuz toledo Unavailable PROBLEMS Type Condition ICD9-CM Code [id number] Code Onset Dates Condition S tatus W/U Status Risk SNOMED Code Notes Problem Allergic rhinitis, unspecifi ed allergic rhinitis trigger, unspecified rhinitis seasonality J30.9 Active confirmed 96764779 Problem Acquired hypothyroidism E03.9 Active confirmed 976605863 Problem Iron deficiency anemia, unspecified iron deficiency an emia type D50.9 Active confirmed 09907316 Problem Lipid screening Z13.220 Active confirmed 305 217077 Problem Menorrhagia with regular cycle N92.0 Active confir med 907675638 Problem Obesity, unspecified E66.9 Active confirmed 22799577690919 Problem Breast cancer screening Z12.39 Active confirmed 471496257 Problem Cervical cancer screening Z12.4 Active confirmed 304643474 Problem Obesity, morbid E66.01 Active confirmed 2381 03488 Problem S/P gastric bypass Z98.84 Active confirmed 6 84291887 ALLERGIES Allergen (clinical drug ingredient) Drug/Non Drug Allergy do cumented on EMR Reaction Allergy Type Onset Date Status amoxicillin Amoxicillin([facility] Code:[address]-33) Hives Drug Aller gy Active ENCOUNTERS from 1989 to 2020-09-01 Encounter Location Date Provider Diagnosis [facility] Pa[place] [address] [place] [address] Aug, Luz Burgess Acquired hypothyroidism E03.9 IMMUNIZATIONS Vaccine Route Administration Date Status Influenza (6mo & up) Fluzone Unknown Jun 08, 2016 Ref used SOCIAL HISTORY Tobacco Use: Social History Observation Description Date Details (start date - stop date) Never Smoker Sex Assigned At : Social History Observation Description Sex Assigned At Unknown Education: Question Answer Notes Level of Education: Finished High School Denominational: Question Answer Notes Denominational 21 Nondenominational Sexual Hx: Question Answer Notes Had sex [...] Information RESULTS No Results REASON FOR VISIT Levothyroxine Sodium 50 MCG Tablet MEDICAL (GENERAL) HISTORY Type Description Date Medical History Pneumonia in 06/2018, bronch itis after in 08/2018, Still SOB, prod. phlegm cordero, white since Surgical History 3 ([id number]) Surgical History Tubal ligation c 3rd C [...] Notes Aug, Acquired hypothyroidism (ICD-10 - E03.9) PLAN OF TREATMENT Medication Medication Name Sig Start Date Stop Date Ferrous Fumarate 324 (106 Fe) MG 2 tablets Orally every other da y for 30 Days Levothyroxine Sodium 50 MCG 1 tablet in the morning on an empty stomach Orally Once a day for 30 day(s) Aug, Next Appt Details Provider Name:Luz Burgess, 11-30 10:45:00 AM, [address] [place], [address], Insurance Providers Payer Name Payer Address Payer Phone Insured Name Patient Relati onship to Insured Coverage Start Date Coverage End Date [facility] COMMUNITY PLAN [facility] [address] [facility] [phone] DHEERAJ JAMISON self
--- OUTSIDE RECORDS SUMMARY | 2020-09-25 14:27 | CCD ---
Author Author [facility] Organization [facility] Address Unknown Phone Unavailable Care Team Providers Care Mechanical Design Engineer Name Role Phone AmaliaLuz toledo Unavailable PROBLEMS Type Condition ICD9-CM Code [id number] Code Onset Dates Condition S tatus W/U Status Risk SNOMED Code Notes Problem Acquired hypothyroidism E03.9 Active confirmed 564224984 Problem Iron deficiency anemia, unspecified iron deficiency an emia type D50.9 Active confirmed 18221673 Problem Breast cancer screening Z12.39 Active confirmed 270541074 Problem Anxiety F41.9 Active confirmed 53747714 Problem Allergic rhinitis, unspecifi ed allergic rhinitis trigger, unspecified rhinitis seasonality J30.9 Active confirmed 07109956 Problem Obesity, unspecified E66.9 Active confirmed 80273176242044 Problem Menorrhagia with regular cycle N92.0 Active confir med 524024808 Problem Cervical cancer screening Z12.4 Active confirmed 052619079 Problem Obesity, morbid E66.01 Active confirmed 2381 47024 Problem S/P gastric bypass Z98.84 Active confirmed 6 08510160 Problem Lipid screening Z13.220 Active confirmed 305 181516 ALLERGIES Allergen (clinical drug ingredient) Drug/Non Drug Allergy do cumented on EMR Reaction Allergy Type Onset Date Status amoxicillin Amoxicillin([facility] Code:[address]-81) Hives Drug Aller gy Active ENCOUNTERS from 1989 to 2020-09-04 Encounter Location Date Provider Diagnosis [address] [address] 04 Aug, 2020 Luz Burgess IMMUNIZATIONS Vaccine Route Administration Date Status Influenza (6mo & up) Fluzone Unknown Jun 08, 2016 Ref used SOCIAL HISTORY Tobacco Use: Social History Observation Description Date Details (start date - stop date) Never Smoker Sex Assigned At : Social History Observation Description Sex Assigned At Unknown Education: Question Answer Notes Level of Education: Finished High School Jain: Question Answer Notes Jain 21 [employer] Sexual Hx: Question Answer Notes Had sex [...] Information RESULTS No Results REASON FOR VISIT anemia/depression/chest soreness MEDICAL (GENERAL) HISTORY Type Description Date Medical History Pneumonia in 06/2018, bronch itis after in 08/2018, Still SOB, prod. phlegm cordero, white since Surgical History 3 ([id number]) Surgical History Tubal ligation c 3rd C [...] 28 day(s) Aug Next Appt Details Provider Name:Luz Burgess, 2020-0 11-30 10:45:00 AM, [address] [place], [address], Insurance Providers Payer Name Payer Address Payer Phone Insured Name Patient Relati onship to Insured Coverage Start Date Coverage End Date [facility] [address] [facility] [address] DHEERAJ COSTA
--- OUTSIDE RECORDS SUMMARY | 2020-09-25 14:27 | CCD ---
Author Author [facility] Organization [facility] Address Unknown Phone Unavailable Care Team Providers Care Customer Order Clerk Name Role Phone AmaliaLuz toledo Unavailable PROBLEMS Type Condition ICD9-CM Code [id number] Code Onset Dates Condition S tatus W/U Status Risk SNOMED Code Notes Problem Acquired hypothyroidism E03.9 Active confirmed 791494269 Problem Iron deficiency anemia, unspecified iron deficiency an emia type D50.9 Active confirmed 82037825 Problem Breast cancer screening Z12.39 Active confirmed 203694242 Problem Anxiety F41.9 Active confirmed 54786408 Problem Allergic rhinitis, unspecifi ed allergic rhinitis trigger, unspecified rhinitis seasonality J30.9 Active confirmed 94321368 Problem Obesity, unspecified E66.9 Active confirmed 23014451474896 Problem Menorrhagia with regular cycle N92.0 Active confir med 038395256 Problem Cervical cancer screening Z12.4 Active confirmed 431983733 Problem Obesity, morbid E66.01 Active confirmed 2381 45202 Problem S/P gastric bypass Z98.84 Active confirmed 6 80142953 Problem Lipid screening Z13.220 Active confirmed 305 221437 ALLERGIES Allergen (clinical drug ingredient) Drug/Non Drug Allergy do cumented on EMR Reaction Allergy Type Onset Date Status amoxicillin Amoxicillin([facility] Code:[address]-96) Hives Drug Aller gy Active ENCOUNTERS from 1989 to 2020-09-07 Encounter Location Date Provider Diagnosis [address] [address] 08 Aug, 2020 Luz Burgess IMMUNIZATIONS Vaccine Route Administration Date Status Influenza (6mo & up) Fluzone Unknown Jun 08, 2016 Ref used SOCIAL HISTORY Tobacco Use: Social History Observation Description Date Details (start date - stop date) Never Smoker Sex Assigned At : Social History Observation Description Sex Assigned At Unknown Education: Question Answer Notes Level of Education: Finished High School Christianity: Question Answer Notes Christianity 21 Denominational Sexual Hx: Question Answer Notes Had sex [...] Information RESULTS No Results REASON FOR VISIT infusion tiime MEDICAL (GENERAL) HISTORY Type Description Date Medical History Pneumonia in 06/2018, bronch itis after in 08/2018, Still SOB, prod. phlegm cordero, white since Surgical History 3 ([id number]) Surgical History Tubal ligation c 3rd C [...] Aug Next Appt Details Provider Name:Luz Burgess, 03 10:45:00 AM, [address] [place], [address], Insurance Providers Payer Name Payer Address Payer Phone Insured Name Patient Relati onship to Insured Coverage Start Date Coverage End Date [facility] [address] [facility] [address] DHEERAJ COSTA self
--- OUTSIDE RECORDS SUMMARY | 2020-09-25 14:27 | CCD ---
Author Author [facility] Organization [facility] Address Unknown Phone Unavailable Care Team Providers Care Process Steward Name Role Phone Luz Burgess Unavailable PROBLEMS Type Condition ICD9-CM Code [id number] Code Onset Dates Condition S tatus W/U Status Risk SNOMED Code Notes Problem Acquired hypothyroidism E03.9 Active confirmed 598390008 Problem Iron deficiency anemia, unspecified iron deficiency an emia type D50.9 Active confirmed 84290224 Problem Breast cancer screening Z12.39 Active confirmed 578193233 Problem Anxiety F41.9 Active confirmed 90537779 Problem Allergic rhinitis, unspecifi ed allergic rhinitis trigger, unspecified rhinitis seasonality J30.9 Active confirmed 00975168 Problem Obesity, unspecified E66.9 Active confirmed 67703600441501 Problem Menorrhagia with regular cycle N92.0 Active confir med 015145803 Problem Cervical cancer screening Z12.4 Active confirmed 824462141 Problem Obesity, morbid E66.01 Active confirmed 2381 43763 Problem S/P gastric bypass Z98.84 Active confirmed 6 22644701 Problem Lipid screening Z13.220 Active confirmed 305 988713 ALLERGIES Allergen (clinical drug ingredient) Drug/Non Drug Allergy do cumented on EMR Reaction Allergy Type Onset Date Status amoxicillin Amoxicillin([facility] Code:[address]-76) Hives Drug Aller gy Active ENCOUNTERS from 1989 to 2020-09-07 Encounter Location Date Provider Diagnosis [address] [address] 05 Aug, 2020 Luz Burgess Acquired hypothyroidism E03.9 IMMUNIZATIONS Vaccine Route Administration Date Status Influenza (6mo & up) Fluzone Unknown Jun 08, 2016 Ref used SOCIAL HISTORY Tobacco Use: Social History Observation Description Date Details (start date - stop date) Never Smoker Sex Assigned At : Social History Observation Description Sex Assigned At Unknown Education: Question Answer Notes Level of Education: Finished High School Druze: Question Answer Notes Druze 21 Latter-Day Sexual Hx: Question Answer Notes Had sex [...] Information RESULTS No Results REASON FOR VISIT Venofer Infusion MEDICAL (GENERAL) HISTORY Type Description Date Medical History Pneumonia in 06/2018, bronch itis after in 08/2018, Still SOB, prod. phlegm cordero, white since Surgical History 3 ([id number]) Surgical History Tubal ligation c 3rd C [...] Aug Next Appt Details Provider Name:Luz Burgess, 11-30 10:45:00 AM, [address] [place] [address], [address], Insurance Providers Payer Name Payer Address Payer Phone Insured Name Patient Relati onship to Insured Coverage Start Date Coverage End Date [facility] [address] [facility] [id number] DHEERAJ COSTA self
--- OUTSIDE RECORDS SUMMARY | 2020-09-25 14:28 | CCD ---
Author Author [facility] Address Unknown Phone Unavailable Care Team Providers Care Police Magistrate Name Role Phone Jacqueline Jiang DO Unavailable Unavailable Jacqueline Jiang DO Unavailable Unavailable Jacqueline Jiangian DO Unavailable Unavailable Jacqueline Jiangian DO Unavailable Unavailable Jacqueline Jiangian DO Unavailable Unavailable Jacqueline Jiangian DO Unavailable Unavailable Jacqueline Jiangian DO Unavailable Unavailable Jacqueline Jiangian DO Unavailable Unavailable PREETI SCHMITZ Unavailable Unavailable Jacqueline MARCIAL Unavailable Unavailable Angie Blancas MD Unavailable Unavailable Angie Blancas MD Unavailable Unavailable Angie Blancas MD Unavailable Unavailable Angie Blancas MD Unavailable Unavailable Angie Blancas MD Unavailable Unavailable Angie Blancas MD Unavailable Unavailable Angie Blancas MD Unavailable Unavailable Angie Blancas MD Unavailable Unavailable Angie Blancas MD Unavailable Unavailable Angie Blancas MD Unavailable Unavailable Angie Blancas MD Unavailable Unavailable Angie Blancas MD Unavailable Unavailable Angie Blancas MD Unavailable Unavailable Angie Blancas MD Unavailable Unavailable Angie Blancas MD Unavailable Unavailable Angie Blancas MD Unavailable Unavailable Angie Blancas MD Unavailable Unavailable Angie Blancas MD Unavailable Unavailable Angie Blancas MD Unavailable Unavailable Angie Blancas MD Unavailable Unavailable Angie Blancas MD Unavailable Unavailable Angie Blancas MD Unavailable Unavailable Angie Blancas MD Unavailable Unavailable Angie Blancas MD Unavailable Unavailable Angie Blancas MD Unavailable Unavailable Angie Blancas MD Unavailable Unavailable Angie Blancas MD Unavailable Unavailable Angie Blancas MD Unavailable Unavailable Angie Blancas MD Unavailable Unavailable Angie Blancas MD Unavailable Unavailable Angie Blancas MD Unavailable Unavailable Angie Blancas MD Unavailable Unavailable Angie Blancas MD Unavailable Unavailable Angie Blancas MD Unavailable Unavailable Angie Blancas MD Unavailable Unavailable Angie Blancas MD Unavailable Unavailable Angie Blancas MD Unavailable Unavailable Angie Blancas MD Unavailable Unavailable Angie Blancas MD Unavailable Unavailable Angie Blancas MD Unavailable Unavailable Angie Blancas MD Unavailable Unavailable Angie Blancas MD Unavailable Unavailable Angie Blancas MD Unavailable Unavailable Angie Blancas MD Unavailable Unavailable Angie Blancas MD Unavailable Unavailable Angie Blancas MD Unavailable Unavailable Angie Blancas MD Unavailable Unavailable Angie Blancas MD Unavailable Unavailable Angie Blancas MD Unavailable Unavailable Angie Blancas MD Unavailable Unavailable Angie Blancas MD Unavailable Unavailable Angie Blancas MD Unavailable Unavailable Angie Blancas MD Unavailable Unavailable Angie Blancas MD Unavailable Unavailable Angie Blancas MD Unavailable Unavailable Angie Blancas MD Unavailable Unavailable Angie Blancas MD Unavailable Unavailable Angie Blancas MD Unavailable Unavailable Angie Blancas MD Unavailable Unavailable Angie Blancas MD Unavailable Unavailable Dille, E Alejandra DDS Unavailable Unavailable Dille, E Alejandra DDS Unavailable Unavailable Dille, E Alejandra DDS Unavailable Unavailable Dille, E Alejandra DDS Unavailable Unavailable Castaneda, Maryann Lucina PA Unavailable Unavailable Castaneda, Maryann Lucina PA Unavailable Unavailable Castaneda, Maryann Lucina PA Unavailable Unavailable Castaneda, Marynan Lucina PA Unavailable Unavailable Castaneda, Maryann Lucina PA Unavailable Unavailable Castaneda, Maryann Lucina PA Unavailable Unavailable Castaneda, Maryann Lucina PA Unavailable Unavailable Castaneda, Maryann Lucina PA Unavailable Unavailable Castaneda, Maryann Lucina PA Unavailable Unavailable Castaneda, Maryann Lucina PA Unavailable Unavailable PREETI SCHMITZ Unavailable Unavailable Re-disclosure Warning The records that you are about to access may contain information from federally-assisted alcohol or drug abuse programs. If such information is present, then the following federally mandated warning applies: This information has been disclosed to you from records protected by federal confidentiality rules (42 CFR part 2). The federal rules prohibit you from making any further disclosure of this information unless further disclosure is expressly permitted by the written consent of the person to whom it pertains or as otherwise permitted by 42 CFR part 2. A general authorization for the release of medical or other information is NOT sufficient for this purpose. The Federal rules restrict any use of the information to criminally investigate or prosecute any alcohol or drug abuse patient.The records that you are about to access may contain highly sensitive health information, the redisclosure of which is protected by Article 27-F of the [facility] Public Health law. If you continue you may have access to information: Regarding HIV / AIDS; Provided by facilities licensed or operated by the [facility] Office of Mental Health; or Provided by the [facility] Office for People With Developmental Disabilities. If such information is present, then the following [facility] mandated warning applies: This information has been disclosed to you from confidential records which are protected by state law. State law prohibits you from making any further disclosure of this information without the specific written consent of the person to whom it pertains, or as otherwise permitted by law. Any unauthorized further disclosure in violation of state law may result in a fine or long term sentence or both. A general authorization for the release of medical or other information is NOT sufficient authorization for further disc losure. Allergies and Adverse Reactions Type Description Substance Reaction Status Data Source(s ) Drug allergy amoxicillin Amoxicillin RASH/HIVES U [facility] Drug allergy Amoxicillin Amoxicillin Hives Active eCW1 ([facility]) Propensity to adverse reactions AMOXICILLIN Amoxicillin Ac tive [facility] Propensity to adverse reactions ADHESIVE TAPE Adhesive Tape Rash Low Itching Low Active [facility] Low Low Family History Family Member Name Family Member Gender Family Member Status Date o f Status Description Data Source(s) [facility] Encounters Encounter Providers Location Date Indications Data Source(s ) Unknown [address] [facility] [address] 09/15/2020 12:00:00 AM EST eCW1 ([facility]) [place] [address] [facility] [address] 09/07/2020 12:00:00 AM EST eCW1 ([facility]) [place] [address] [facility] [address] 09/04/2020 12:00:00 AM EST eCW1 ([facility]) [place] [address] [facility] [address] 09/04/2020 12:00:00 AM EST eCW1 ([facility]) Outpatient [address] [facility] [address] 09/03/2020 12:00:00 AM EST eCW1 ([facility]) Unknown [address] [facility] [address] 09/03/2020 12:00:00 AM EST eCW1 ([facility]) Unknown [address] [facility] [address] 09/01/2020 12:00:00 AM EST eCW1 ([facility]) Outpatient [address] [facility] [address] 08/31/2020 12:00:00 AM EST eCW1 ([facility]) [place] [address] [facility] [address] 08/31/2020 12:00:00 AM EST eCW1 ([facility]) Unknown [address] [facility] [address] 08/31/2020 12:00:00 AM EST eCW1 ([facility]) Emergency Attender: Froylan Jiang DO 021 05:36:00 PM EST - 08/15/2020 06:18:00 PM EST [facility] [place] uc/fever body aches [facility] uc/fever body aches Patient discharged. Outpatient Attender: Alejandra Cavazos DDS [facility] 01/07/2020 07:31:42 P M EDT [facility] [address] [facility] [address] 08/28/2019 12:00:00 AM EST eCW1 ([facility]) [facility] [place] [address] [facility] [address] 08/28/2019 12:00:00 AM EST eCW1 ([facility]) Outpatient Attender: Meir Blancas MDAdmit ter: Meir Blancas MDReferrer: MARISELA MARCIAL [id number] 08/22/2019 11:02:00 AM EST - 08/23/2019 12:24:00 PM EST [facility] Patient discharged. [facility] [place] [address] [facility] [address] 08/20/2019 12:00:00 AM EST eCW1 ([facility]) [facility] [address] [facility] [address] 08/20/2019 12:00:00 AM EST eCW1 ([facility]) Outpatient Attender: PREETI SCHMITZReferrer: PREETI BELLO [id number] 08/15/2019 11:13:14 AM EST - 08/15/2019 12:50:10 PM EST [facility] Outpatient Attender: Lucina delgado 08/14/2019 08:45:00 AM EST MEDENT ([facility] Outpatient Attender: Meir Blancas MDAdmit ter: Meir Blancas MDReferrer: Meir Blancas MD [id number] 06/25/2019 02:15:19 PM EST - 08/19/2019 12:05:00 PM EST [facility] Patient discharged. Inpatient Attender: PREETI Harrell colt: PREETI COMMEUGENIAAdmitter: PREETI SCHMITZ [id number] 06/22/2019 08:23:35 AM EST - 09/03/2019 02:58:00 PM EST [facility] Patient discharged. Medications Medication Brand Name Start Date Product Form Dose Route Admi nistrative Instructions Pharmacy Instructions Status Indications Reaction Description Data Source(s) Norethindrone Acet-Ethinyl Est 1-20 MG-MCG Norethindro ne Acet-Ethinyl Est 1-20 MG-MCG 09/16/2020 12:00:00 AM EST 1.0 {tablet} activ e Norethindrone Acet-Ethinyl Est 1-20 MG-MCG eCW1 ([facility]) Loryna 3-0.02 MG Loryna 3-0.02 MG 09/03/2020 12:00:00 AM EST 1.0 {tablet} active Loryna 3-0.02 MG eCW1 ([facility]) buspirone hydrochloride 5 MG Oral Tablet BusPIRone HCl 5 MG BusPIRone HCl 5 MG 09/03/2020 12:00:00 AM EST 1.0 {tablet} active BusPIRone HCl 5 MG eCW1 ([facility]) Loryna 3-0.02 MG Loryna 3-0.02 MG 09/03/2020 12:00:00 AM EST 1.0 {tablet} active Loryna 3-0.02 MG eCW1 ([facility]) Loryna 3-0.02 MG Loryna 3-0.02 MG 09/03/2020 12:00:00 AM EST 1.0 {tablet} active Loryna 3-0.02 MG eCW1 ([facility]) buspirone hydrochloride 5 MG Oral Tablet BusPIRone HCl 5 MG BusPIRone HCl 5 MG 09/03/2020 12:00:00 AM EST 1.0 {tablet} active BusPIRone HCl 5 MG eCW1 ([facility]) buspirone hydrochloride 5 MG Oral Tablet BusPIRone HCl 5 MG BusPIRone HCl 5 MG 09/03/2020 12:00:00 AM EST 1.0 {tablet} active BusPIRone HCl 5 MG eCW1 ([facility]) buspirone hydrochloride 5 MG Oral Tablet BusPIRone HCl 5 MG BusPIRone HCl 5 MG 09/03/2020 12:00:00 AM EST 1.0 {tablet} active BusPIRone HCl 5 MG eCW1 ([facility]) Loryna 3-0.02 MG Loryna 3-0.02 MG 09/03/2020 12:00:00 AM EST 1.0 {tablet} active Loryna 3-0.02 MG eCW1 ([facility]) Loryna 3-0.02 MG Loryna 3-0.02 MG 09/03/2020 12:00:00 AM EST 1.0 {tablet} active Loryna 3-0.02 MG eCW1 ([facility]) Loryna 3-0.02 MG Loryna 3-0.02 MG 09/03/2020 12:00:00 AM EST 1.0 {tablet} active Loryna 3-0.02 MG eCW1 ([facility]) buspirone hydrochloride 5 MG Oral Tablet BusPIRone HCl 5 MG BusPIRone HCl 5 MG 09/03/2020 12:00:00 AM EST 1.0 {tablet} active BusPIRone HCl 5 MG eCW1 ([facility]) buspirone hydrochloride 5 MG Oral Tablet BusPIRone HCl 5 MG BusPIRone HCl 5 MG 09/03/2020 12:00:00 AM EST 1.0 {tablet} active BusPIRone HCl 5 MG eCW1 ([facility]) Loryna 3-0.02 MG Loryna 3-0.02 MG 09/03/2020 12:00:00 AM EST 1.0 {tablet} active Loryna 3-0.02 MG eCW1 ([facility]) buspirone hydrochloride 5 MG Oral Tablet BusPIRone HCl 5 MG BusPIRone HCl 5 MG 09/03/2020 12:00:00 AM EST 1.0 {tablet} active BusPIRone HCl 5 MG eCW1 ([facility]) Loryna 3-0.02 MG Loryna 3-0.02 MG 09/03/2020 12:00:00 AM EST 1.0 {tablet} active Loryna 3-0.02 MG eCW1 ([facility]) buspirone hydrochloride 5 MG Oral Tablet BusPIRone HCl 5 MG BusPIRone HCl 5 MG 09/03/2020 12:00:00 AM EST 1.0 {tablet} active BusPIRone HCl 5 MG eCW1 ([facility]) Levothyroxine Sodium 0.05 MG Oral Tablet Levothyroxine Sodium 50 MCG Levothyroxine Sodium 50 MCG 08/31/2020 12:00:00 AM EST active Levothyroxine Sodium 50 MCG eCW1 ([facility]) Levothyroxine Sodium 0.05 MG Oral Tablet Levothyroxine Sodium 50 MCG Levothyroxine Sodium 50 MCG 08/31/2020 12:00:00 AM EST active Levothyroxine Sodium 50 MCG eCW1 ([facility]) 1 ML Ketorolac Tromethamine 30 MG/ML Car tridge ketorolac (TORADOL) injection 30 mg ketorolac (TORADOL) injection 30 mg 09/03/2019 01:59:22 PM EST 30 mg Intravenous completed 30 mg, Intrav enous, Once as needed, severe pain (7-10), Starting Tu09/03/19 at 1359, For 1 dose [facility] Medication administered onsite Levothyroxine Sodium 0.1 MG Oral Tablet levothyroxine (SYNTHROID, LEVOTHROID) tablet 100 mcg levothyroxine (SYNTHROID, LEVOTHROID) tablet 100 mcg 0 09/03/2019 06:00:00 AM EST 100 ug Oral active 100 mcg, Oral, Daily (0600), First dose on Mon09/03/19 at 0600
hold for 1 hour before and 1 hour after tube feeds if patient is on tube feed
[facility] Medication administered onsite ondansetron (ZOFRAN-ODT) disintegrating tablet 8 mg 09/03/2019 06:00:00 AM EST 8 mg Oral active [Order 1 Start] Name: ondansetron (ZOFRAN-ODT) disintegrating tablet 8 mg Signed Summary: 8 mg, Oral, Every 6 hours PRN, nausea, Starting Tu09/03/19 at 0600, Post-op [Order 1 End] [Order 2 Start] Name: ondansetron (ZOFRAN) injection 8 mg Signed Summary: 8 mg, Intravenous, Every 6 hours PRN, nausea, severe nausea, Starting Mon09/03/19 at 0600, Post-op [Order 2 End] [facility] Medication administered onsite Ondansetron 4 MG Disintegrating Oral Tab let ondansetron (ZOFRAN-ODT) 4 MG disintegrating tablet ondansetron (ZOFRAN-ODT) 4 MG disintegrating tablet 09/03/2019 12:00:00 AM EST 4 mg Oral active Take 1 tablet (4 mg total) by mouth every 6 (six) hours as needed for nausea [facility] Acetaminophen 325 MG Oral Tablet acetaminophen (TYLENO L) 325 MG tablet acetaminophen (TYLENOL) 325 MG tablet 09/03/2019 12:00:00 AM EST 65 0 mg Oral active Take 2 tablets (650 mg total) by mouth every 6 (six) hours as needed for pain [facility] Vitamin B 12 0.5 MG Oral Tablet cyanocob alamin ([facility] VITAMIN B-12) 500 MCG tablet cyanocobalamin ([facility] VITAMIN B-12) 500 MCG tablet 09/03/2019 12:0 0:00 AM EST 1000 ug Oral active Take 2 tablets (1,000 mc g total) by mouth daily [facility] Simethicone 80 MG Chewable Tablet simethicone (MYLICON ) 80 MG chewable tablet simethicone (MYLICON) 80 MG chewable tablet 09/03/2019 12:00:00 AM EST 80 mg Oral active Chew 1 tablet (80 mg total) every 6 (six) hours as needed for flatulence [facility] 0.4 ML Enoxaparin sodium 100 MG/ML Prefi lled Syringe enoxaparin (LOVENOX) 40 MG/0.4ML SOLN enoxaparin (LOVENOX) 40 MG/0.4ML SOLN 09/03/2019 12:00:00 AM EST 40 mg Subcutaneous active Inject 0.4 mL (40 mg total) under the skin daily for 10 days [facility] Multiple Vitamins-Minerals (MULTIVITAMIN WITH MINERALS) [place] [id number] 09/03/2019 12:00:00 AM EST 2 {tbl} Oral active Take 2 tablets by mouth daily [facility] Omeprazole 40 MG Delayed Release Oral Ca psule omeprazole (PRILOSEC) 40 MG capsule omeprazole (PRILOSEC) 40 MG capsule 09/03/2019 12:00:00 AM EST 40 mg Oral active Take 1 capsule (40 m g total) by mouth daily [facility] Acetaminophen 325 MG Oral Tablet acetaminophen (TYLENO L) 325 MG tablet 650 mg acetaminophen (TYLENOL) 325 MG tablet 650 mg 09/03/2019 12:00:00 AM EST 650 mg Oral active 650 mg, Or al, Every 4 hours PRN, mild pain (1-3), for mild pain, headache, or temperature > 101, Starting Mon09/03/19 at 0000, Post-op
To begin after routine doses of tylenol.
[facility] Medication administered onsite Metoprolol Tartrate 25 MG Oral Tablet me toprolol tartrate (LOPRESSOR) tablet 25 mg metoprolol tartrate (LOPRESSOR) tablet 25 mg 09/02/2019 09:00:00 PM EST 25 mg Oral active 25 mg, Ora l, 2 times daily, First dose on Mon09/02/19 at 2100, Post-op
Hold Lopressor for SBP < 100 mmHg or HR < 60.
[facility] Medication administered onsite heparin (porcine) injection 5,000 Units [id number] 09/02/19 06:00:00 PM EST 5000 U Subcutaneous active 5,000 Units , Subcutaneous, Every 8 hours (relative), First dose on Mon09/02/19 at 1800, Post-op
If platelet count is less than 100,000 or hematocrit is less than 25, or if there is a 5 point decrea se in hematocrit, do not give the dose and call physician/designee.
[facility] Medication administered onsite Acetaminophen 500 MG Oral Tablet acetaminophen (TYLENO L) tablet 1,000 mg acetaminophen (TYLENOL) tablet 1,000 mg 09/02/2019 03:00:00 PM EST 1000 mg Oral active 1,000 mg, Oral , Every 8 hours, First dose on Mon09/02/19 at 1500, For 48 hours, Post-op [facility] Medication administered onsite gabapentin 300 MG Oral Capsule gabapentin (NEURONTIN) capsule 300 mg gabapentin (NEURONTIN) capsule 300 mg 09/02/2019 02:00:00 PM EST 300 mg Oral active 300 mg, Oral, 3 times daily, First dose on Mon09/02/19 at 1400, Post-op [facility] Medication administered onsite normal saline flush 0.9 % injection 3 mL [id number] 09/02/2019 02:00:00 PM EST 3 mL Intravenous active 3 mL , Intravenous, QSHIFT, First dose on Mon09/02/19 at 1400, Post-op
Convert to saline lock after discontinuing D5LR IV.
[facility] Medication administered onsite Ondansetron 4 MG Disintegrating Oral Tab let ondansetron (ZOFRAN-ODT) disintegrating tablet 8 mg ondansetron (ZOFRAN-ODT) disintegrating tablet 8 mg 09/02/2019 12:00:00 PM EST 8 mg Oral completed 8 mg, Oral, Every 6 hours (scheduled), First dose on Mon09/02/19 at 1200, For 24 hours, Post-op [facility] Medication administered onsite pantoprazole 40 MG Delayed Release Oral Tablet pantoprazole (PROTONIX) EC tablet 40 mg pantoprazole (PROTONIX) EC tablet 40 mg 09/02/2019 12:00:[address] 40 mg Oral active Stress Ulcer Prophylaxis 40 mg, Oral, Daily, Indications: Stress Ulcer Prophylaxis, First dose on Mon09/02/19 at 1200, Post-op [facility] Stress Ulcer Prophylaxis Medication administered onsite Simethicone 80 MG Chewable Tablet simethicone (MYLICON ) chewable tablet 80 mg simethicone (MYLICON) chewable tablet 80 mg 09/02/2019 12:00:00 PM EST 80 mg Oral active 80 mg, Oral, E very 4 hours (scheduled), First dose on Mon09/02/19 at 1200, Post-op [facility] Medication administered onsite Insulin Lispro 100 UNT/ML Injectable Ashanti ution insulin lispro (HumaLOG) injection 4-16 Units insulin lispro (HumaLOG) injection 4-16 Units 09/02/19 12:00:00 PM EST Subcutaneous active 4-1 6 Units, Subcutaneous, Q6HSS, First dose on Mon09/02/19 at 1200, Post-op
Blood Sugar Units of [id number] 4 [id number] 6 [id number] 8 [id number] 10 units 321-370 12 units 371-420 14 units>420 16 units, Call MD
[facility] Medication administered onsite Calcium Chloride 0.001 MEQ/ML / Glucose 50 MG/ML / Potassium Chloride 0.004 MEQ/ML / Sodium Chloride 0.103 MEQ/ML / Sodium Lactate 0.028 MEQ/ML Injectable Solution dextrose 5 % in lactated ringers infusion dextrose 5 % in lactated ringers infusion 09/02/2019 12:00:00 PM EST 150 mL/h Intravenous active at 150 mL/hr, 150 mL/hr, Intravenous, Co ntinuous, Starting Mon09/02/19 at 1200, Post-op
Discontinue IV with adequate PO & convert to saline lock
[facility] Medication administered onsite 1 ML Ketorolac Tromethamine 30 MG/ML Car tridge ketorolac (TORADOL) injection 30 mg ketorolac (TORADOL) injection 30 mg 09/02/2019 11:58:00 AM EST 30 mg Intravenous completed 30 mg, Intrav enous, Every 6 hours PRN, severe pain (7-10), Starting Mon09/02/19 at 1158, For 4 doses, Post-op [facility] Medication administered onsite Prochlorperazine 10 MG Oral Tablet prochlorperazine (C OMPAZINE) tablet 10 mg prochlorperazine (COMPAZINE) tablet 10 mg 09/02/2019 11:09:15 AM EST 10 mg Oral active 10 mg, Oral, E very 6 hours PRN, nausea, not relieved by metoclopramide, Starting Mon09/02/19 at 1109, Post-op [facility] Medication administered onsite Promethazine Hydrochloride 25 MG Oral Ta blet promethazine (PHENERGAN) tablet 12.5 mg promethazine (PHENERGAN) tablet 12.5 mg 09/02/2019 11:09:[address] 12.5 mg Oral active 12.5 mg, O ral, Every 4 hours PRN, nausea, not relieved by prochlorperazine, Starting Mon09/02/19 at 1109, Post-op [facility] Medication administered onsite enalaprilat (VASOTEC) injection 1.25 mg [id number] 09/02/19 11:09:14 AM EST 1.25 mg Intravenous active 1.25 mg, Int ravenous, Every 6 hours PRN, for SBP > 140 mmHg and/or DBP > 90 mmHg, Starting Mon09/02/19 at 1109, Post-op
Mix in 50 mL NS, infuse over 30 minutes via infusion pump.For IVMB on NON-ICU units.
[facility] Medication administered onsite Clonidine Hydrochloride 0.1 MG Oral Tablet cloNIDine ( CATAPRES) tablet 0.1 mg cloNIDine (CATAPRES) tablet 0.1 mg 09/02/2019 11:09:14 AM EST 0.1 mg Oral active 0.1 mg, Oral, Every 4 hours PRN, high blood pressure, for SBP > 140 mmHg and/or DBP > 90 mmHg, Starting Mon09/02/19 at 1109, Post-op [facility] Medication administered onsite 0.4 ML Enoxaparin sodium 100 MG/ML Prefi lled Syringe enoxaparin (LOVENOX) syringe 40 mg enoxaparin (LOVENOX) syringe 40 mg 09/02/2019 11:09:14 AM EST 40 mg Subcutaneous completed 40 mg, Subcutaneous, Before Discharge, for prophylaxis, Starting Mon09/02/19 at 1109, For 1 dose, Post-op
At discharge. To be administered by patient or significant other.
[facility] Medication administered onsite Metoprolol Tartrate 25 MG Oral Tablet me toprolol tartrate (LOPRESSOR) tablet 25 mg metoprolol tartrate (LOPRESSOR) tablet 25 mg 09/02/2019 11:00:00 AM EST 25 mg Oral completed 25 mg, Ora l, Once, Mon09/02/19 at 1100, For 1 dose, PACU (only)
For 1 dose in PACU.Hold for SBP < 100 or HR < 60
[facility] Medication administered onsite metoclopramide (REGLAN) injection 10 mg 09/02/2019 10:31:5 6 AM EST 10 mg Intravenous active [Order 1 Star t] Name: metoclopramide (REGLAN) injection 10 mg Signed Summary: 10 mg, Intravenous, Every 6 hours PRN, nausea, not relieved by ondansetron, Starting Mon09/02/19 at 1031, Post-op
Once in PACU then every 6 hours PRN for nausea
[Order 1 End] [Order 2 Start] Name: metoclopramide (REGLAN) tablet 10 mg Signed Summary: 10 mg, Oral, Every 6 hours PRN, nausea, not relieved by ondansetron, Starting Mon09/02/19 at 1031, Post- op
Once in PACU then every 6 hours PRN for nausea
[Order 2 End] [facility] Medication administered onsite fentaNYL Citrate (PF) (SUBLIMAZE) injection 25 mcg [id number] 09/02/2019 10:10:16 AM EST 25 ug Intravenous aborted 25 mcg, Intravenous, Every 5 min PRN, moderate pain (4 to 6), Starting Mon09/02/19 at 1010, For 1 day, PACU (only) [facility] Medication administered onsite 4 ML Labetalol hydrochloride 5 MG/ML Car tridge labetalol (NORMODYNE,TRANDATE) injection 5-20 mg labetalol (NORMODYNE,TRANDATE) injection 5-20 mg 09/02 10:10:15 AM EST Intravenous aborted 5-20 mg, Intravenous, Every 10 min PRN, high blood pressure, Starting Mon09/02/19 at 1010, PACU (only)
For SBP 140-149 give:Initial dose: [id number] ivp over 2 minutes May repeat in 10 minutes with:Labetalol 10 mg ivp over 2 minutesMay repeat in 10 minutes with:Labetalol 20 mg ivp over 2 minutes MAXIMUM DOSE 300 MGHOLD FOR HR LESS THAN 60
[facility] Medication administered onsite Albuterol 0.83 MG/ML Inhalant Solution a lbuterol (PROVENTIL) nebulizer solution 2.5 mg albuterol (PROVENTIL) nebulizer solution 2.5 mg 2019 06:00:00 AM EST 2.5 mg completed 2.5 mg , Nebulization, scallop cutter, Mon09/02/19 at 0600, For 1 dose, Pre-op
To be started by pre-op unit
[facility] Medication administered onsite Acetaminophen 325 MG Oral Tablet acetaminophen (TYLENO L) 325 MG tablet 975 mg acetaminophen (TYLENOL) 325 MG tablet 975 mg 09/02/2019 06:00:00 AM EST 975 mg Oral completed 975 mg, Or al, scallop cutter, Mon09/02/19 at 0600, For 1 dose, Pre-op
"Maximum dose of acetaminophen is 4,000 mg from all sources in 24 hours."
[facility] Medication administered onsite Clonidine Hydrochloride 0.1 MG Oral Tablet cloNIDine ( CATAPRES) tablet 0.1 mg cloNIDine (CATAPRES) tablet 0.1 mg 09/02/2019 06:00:00 AM EST 0.1 mg Oral completed 0.1 mg, Oral, scallop cutter, Mon 0 at 0600, For 1 dose, Pre-op [facility] Medication administered onsite Alprazolam 0.25 MG Oral Tablet ALPRAZolam (XANAX) tabl et 0.25 mg ALPRAZolam (XANAX) tablet 0.25 mg 09/02/2019 06:00:00 AM EST 0.25 mg Oral completed 0.25 mg, Oral, scallop cutter, Mon09/02/19 at 06 00, For 1 dose, Pre-op [facility] Medication administered onsite Tetrahydrocannabinol 2.5 MG Oral Capsule dronabinol (M ARINOL) capsule 5 mg dronabinol (MARINOL) capsule 5 mg 09/02/2019 06:00:00 AM EST 5 mg Oral completed 5 mg, Oral, scallop cutter, Mon09/02/19 at 0600, For 1 dose, Pre-op [facility] Medication administered onsite Prochlorperazine 10 MG Oral Tablet prochlorperazine (C OMPAZINE) tablet 10 mg prochlorperazine (COMPAZINE) tablet 10 mg 09/02/2019 06:00:00 AM EST 10 mg Oral completed 10 mg, Oral, O n call, Mon09/02/19 at 0600, For 1 dose, Pre-op [facility] Medication administered onsite heparin (porcine) injection 5,000 Units [id number] 09/02/19 06:00:00 AM EST 5000 U Subcutaneous completed 5,000 Uni ts, Subcutaneous, scallop cutter, Mon09/02/19 at 0600, For 1 dose, Pre-op
If platelet count is less than 100,000 or hematocrit is less than 25, or if there is a 5 point decrease in hematocrit, do not give the dose and call physician/designee.
[facility] Medication administered onsite Calcium Chloride 0.0014 MEQ/ML / Potassi um Chloride 0.004 MEQ/ML / Sodium Chloride 0.103 MEQ/ML / Sodium Lactate 0.028 MEQ/ML Injectable Solution lactated ringers infusion lactated ringers infusion 09/02/2019 06:00:00 AM EST 100 mL/h Intravenous aborted at 100 m L/hr, 100 mL/hr, Intravenous, Continuous, Starting Mon09/02/19 at 0600, Pre-op
Please place IV on left side if able
[facility] Medication administered onsite Dexamethasone 4 MG Oral Tablet dexamethasone (DECADRON ) tablet 4 mg dexamethasone (DECADRON) tablet 4 mg 09/02/2019 06:00:00 AM EST 4 mg Oral completed 4 mg, Oral, scallop cutter, Mon09/02/19 at 0600, For 1 dose, Pre-op [facility] Medication administered onsite gabapentin 600 MG Oral Tablet gabapentin (NEURONTIN) t ablet 600 mg gabapentin (NEURONTIN) tablet 600 mg 09/02/2019 06:00:00 AM EST 600 mg Oral completed 600 mg, Oral, On darci l, Mon09/02/19 at 0600, For 1 dose, Pre-op
Hold if age greater than 70 or chronic renal failure/insufficiency
[facility] Medication administered onsite celecoxib 100 MG Oral Capsule celecoxib (CeleBREX) cap shailesh 200 mg celecoxib (CeleBREX) capsule 200 mg 09/02/2019 06:00:00 AM EST 200 mg Oral completed 200 mg, Oral, scallop cutter, Mon 0 at 0600, For 1 dose, Pre-op [facility] Medication administered onsite 72 HR Scopolamine 0.0139 MG/HR Transderm al Patch [Transderm Scop] scopolamine (TRANSDERM-SCOP) 1.5 MG (Bariatric only) 1 patch scopolamine (TRANSDERM-SCOP) 1.5 MG (Bariatric only) 1 patch 09/02/2019 05:29:27 AM EST 1 {pa tch} Transdermal aborted 1 patch, Waters sdermal, Administer over 24 Hours, Every 24 hours (relative), First dose on Mon09/02/19 at 0600, For 1 dose, Pre- op
Scopolamine patch applied behind ear. Hold for any of the followin+ yrs old, hx of glaucoma, hx of vertigo, dementia.
[facility] Medication administered onsite Magnesium Chloride 0.11865 MEQ/ML / Pota ssium Chloride 0.0497 MEQ/ML / Sodium Acetate 0.0163 MEQ/ML / Sodium Chloride 0.0899 MEQ/ML / Sodium gluconate 5.02 MG/ML Injectable Solution [Normosol-R] electrolyte-R (NORMOSOL-R/PLASMALYTE-R) solution electrolyte-R (NORMOSOL-R/PLASMALYTE-R) solution 08/23 12:00:00 PM EST Intravenous active at 1 00 mL/hr, Intravenous, Continuous, Starting Mon08/23/19 at 1200, Pre-op [facility] Medication administered onsite 72 HR Scopolamine 0.0139 MG/HR Transderm al Patch scopolamine (TRANSDERM-SCOP) 1.5 MG 1 patch scopolamine (TRANSDERM-SCOP) 1.5 MG 1 patch 08/23/2019 11:00:00 AM EST 1 {patch} Transdermal active 1 patch, Transdermal, Administer over 24 Hours, Every 72 hours, First dose on Mon08/23/19 at 1100, For 1 dose, Pre-op [facility] Medication administered onsite Magnesium Chloride 0.10812 MEQ/ML / Pota ssium Chloride 0.0497 MEQ/ML / Sodium Acetate 0.0163 MEQ/ML / Sodium Chloride 0.0899 MEQ/ML / Sodium gluconate 5.02 MG/ML Injectable Solution [Normosol-R] electrolyte-R (NORMOSOL-R/PLASMALYTE-R) solution electrolyte-R (NORMOSOL-R/PLASMALYTE-R) solution 08/23 11:00:00 AM EST Intravenous active at 1 20 mL/hr, Intravenous, Continuous, Starting Mon08/23/19 at 1100, PACU (only) [facility] Medication administered onsite 40 mg/0.4 mL 08/20/2019 12:00:00 AM EST syringe 4 INJECT 1 SYRINGE (0.4 ML) UNDER THE SKIN ONCE DAILY FOR 10 DAYS AFTER SURGERY INJECT 1 SYRINGE (0.4 ML) UNDER THE SKIN ONCE DAILY FOR 10 DAYS AFTER SURGERY SOLD: 09/03/2019 [facility] 40 mg 08/20/2019 12:00:00 AM EST capsule,delayed release (DR/EC) 30 TAKE ONE CAPSULE BY MOUTH EVERY DAY 30 MINUTES BEFORE MORNING MEAL FOR 3 MONTHS AFTER SURGERY TAKE ONE CAPSULE BY MOUTH EVERY DAY 30 M INUTES BEFORE MORNING MEAL FOR 3 MONTHS AFTER SURGERY SOLD: 10/15/2019 [facility] 4 mg 08/20/2019 12:00:00 AM EST tablet,disintegrating 2 0 DISSOLVE ONE TABLET ON THE TONGUE AND ALLOW TO DISSOLVE EVERY 6 HOURS NEEDED DISSOLVE ONE TABLET ON THE TONGUE AND ALLOW TO DISSOLVE EVERY 6 HOURS NEEDED SOLD: 09/03/2019 [facility] 40 mg 08/20/2019 12:00:00 AM EST capsule,delayed release (DR/EC) 30 TAKE ONE CAPSULE BY MOUTH EVERY DAY 30 MINUTES BEFORE MORNING MEAL FOR 3 MONTHS AFTER SURGERY TAKE ONE CAPSULE BY MOUTH EVERY DAY 30 M INUTES BEFORE MORNING MEAL FOR 3 MONTHS AFTER SURGERY SOLD: 09/03/2019 [facility] 72 HR Scopolamine 0.0139 MG/HR Transderm al Patch scopolamine (TRANSDERM-SCOP) 1.5 MG 1 patch scopolamine (TRANSDERM-SCOP) 1.5 MG 1 patch 08/19/2019 11:00:00 AM EST 1 {patch} Transdermal active 1 patch, Transdermal, Administer over 24 Hours, Every 72 hours, First dose on Mon08/19/19 at 1100, For 1 dose, Pre-op [facility] Medication administered onsite Magnesium Chloride 0.60472 MEQ/ML / Pota ssium Chloride 0.0497 MEQ/ML / Sodium Acetate 0.0163 MEQ/ML / Sodium Chloride 0.0899 MEQ/ML / Sodium gluconate 5.02 MG/ML Injectable Solution [Normosol-R] electrolyte-R (NORMOSOL-R/PLASMALYTE-R) solution electrolyte-R (NORMOSOL-R/PLASMALYTE-R) solution 08/19 11:00:00 AM EST Intravenous active at 1 00 mL/hr, Intravenous, Continuous, Starting 08/19/19 at 1100, Pre-op [facility] Medication administered onsite No Active Medications 08/14/2019 12:00:00 AM EST completed [facility] ([facility]) Albuterol 0.83 MG/ML Inhalant Solution Albuterol Sulfate 0 08/14/2019 12:00:00 AM EST active [facility] ([facility]) Prednisone 20 MG Oral Tablet Prednisone 08/14/2019 12:00:00 AM EST active [facility] ([facility]) 20 mg 08/14/2019 12:00:00 AM EST tablet 10 TAKE ONE TABLET BY MOUTH TWICE A DAY FOR 5 DAYS TAKE ONE TABLET BY MOUTH TWICE A DAY FOR 5 DAYS SOLD: 2019 [facility] 2.5 mg /3 mL (0.083 %) 08/14/2019 12:00:00 AM EST solu tion for nebulization 75 INHALE ONE AMPULE EVERY 6 HOURS NEEDE D INHALE ONE AMPULE EVERY 6 HOURS NEEDED SOLD: 09/03/2019 [facility] 100 mcg 07/04/2019 12:00:00 AM EST tablet 30 TAKE 1 TABLET BY MOUTH ON EMPTY STOMACH ONCE DAILY TAKE 1 TABLET BY MOUTH ON EMPTY STOMACH ONCE DAILY ASHANTI [facility] 100 mcg 07/04/2019 12:00:00 AM EST tablet 30 TAKE 1 TABLET BY MOUTH ON EMPTY STOMACH ONCE DAILY TAKE 1 TABLET BY MOUTH ON EMPTY STOMACH ONCE DAILY ASHANTI [facility] 324 mg (106 mg iron) 07/04/2019 12:00:00 AM EST tablet 30 TAKE TWO TABLETS BY MOUTH EVERY OTHER DAY TAKE TWO TABLETS BY MOUTH EVERY OTHER DAY SOLD: 10/15/2019 [facility] 37.5 mg 06/18/2019 12:00:00 AM EST tablet 30 TAKE ONE TABLET BY MOUTH EVERY MORNING MAXIMUM DAILY DOSE = 1 TABLET TAKE ONE TABLET BY MOUTH EVERY MORNING MAXIMUM DAILY DOSE = 1 TABLET SOLD: 09/05/2019 [facility] 37.5 mg 06/18/2019 12:00:00 AM EST tablet 30 TAKE ONE TABLET BY MOUTH EVERY MORNING MAXIMUM DAILY DOSE = 1 TABLET TAKE ONE TABLET BY MOUTH EVERY MORNING MAXIMUM DAILY DOSE = 1 TABLET SOLD: 10/15/2019 [facility] Prednisone 20 MG Oral Tablet predniSONE (DELTASONE) 20 MG tablet predniSONE (DELTASONE) 20 MG tablet 20 mg Oral aborted Take 20 mg by mouth 2 (two) times a day for 5 days [facility] Insurance Providers Payer name Policy type / Coverage type Policy ID Covered constitution party ID Covered constitution party's relationship to shell Policy Shell Plan Information FORMERLY [facility] COMMUNITY PLAN [facility] [id number] SP [id number] FORMERLY [facility] COMMUNITY PLAN [facility] [id number] SP [id number] SELF PAY [facility] COMMUNITY PLAN [id number] SP [id number] Medicaid Dental P [id number] [facility] MED[facility] [id number] Ioana [id number] [facility] MEDICAID [id number] [facility] Health Maintenance Organization ([facility]) [id number] Self [id number] O UNAVAILABLE UNAVAILA BLE SELF PAY ONLY [id number] SP [id number] SELF PAY ONLY UNAVAILABLE SP UNAV AILABLE SELF PAY ONLY - SP1 SP [facility] Health Maintenance Organization ([facility]) [id number] Self [id number] MEDICAID [id number] SP [id number] SELF PAY UNAVAILABLE SP UNAVAILA BLE [id number] SP [id number] SP [id number] INSURANCE-C O [id number] S [id number] [employer] UNHC XIX HMO -I/P [id number] 18 [id number] [employer] UNHC XIX HMO -I/P [id number] MEDICAID-I/P [id number] UNHC AMERICHOICE XIX -HMO [id number] 18 [id number] [facility] P [id number] S [id number] FORMERLY [facility] COMMUNITY PLAN [facility] [id number] [place] [id number] O BLUE [id number] SP [id number] HMO BLUE [id number] SP [id number] Problems, Conditions, and Diagnoses Code Display Name Description Problem Type Effective Dates Data Source(s) F41.9 [id number] Anxiety Problem 09/03/2020 12:00:00 AM [place] [address] ([facility]) Z13.220 [id number] Lipid screening Problem 08/31/2020 12:00:00 AM [place] [address] ([facility]) Z98.84 [id number] S/P gastric bypass Problem 08/31/2020 12:00: 00 AM [place] [address] ([facility]) E66.9 [id number] Obesity, unspecified Problem 08/31/2020 12:00:00 AM [place] [address] ([facility]) Z98.84 S/P gastric bypass S/P gastric bypass [id number] 10/2019 12:00:00 AM [facility] F41.9 Anxiety Anxiety [id number] 09/02/2019 12:00:00 AM [facility] K21.9 GERD (gastroesophageal reflux disease) G ERD (gastroesophageal reflux disease) [id number] 09/02/2019 12:00:00 AM [facility] E66.01 Morbid obesity Morbid obesity [id number] 09/02/2019 12:00: 00 AM [facility] E03.9 Hypothyroidism Hypothyroidism [id number] 09/02/2019 12:00: 00 AM [facility] E66.01 [id number] Obesity, morbid Problem 08/20/2019 12:00:00 AM [place] [address] ([facility]) E66.01 [id number] Obesity, morbid Problem 08/20/2019 12:00:00 AM [place] [address] ([facility]) R50.9 Fever, unspecified R50.9 - Fever, unspecified Diagnosi s 08/15/2020 05:36:00 PM [facility] M79.10 M79.10 - Myalgia, unspecified site M79.10 - Myal fei, unspecified site Diagnosis 08/15/2020 05:36:00 PM [facility] E66.01 Morbid (severe) obesity due to excess ca lories Morbid (severe) obesity due to excess ca Diagnosis 09/02/2019 05:21:00 AM [facility] K21.9 Gastro-esophageal reflux disease without esophagitis Gastro-esophageal reflux disease without Diagnosis 08/19/2019 09:29:00 AM [facility] Surgeries/Procedures Procedure Description Date Indications Data Source(s) GLUC BLD GLUC MNTR DEV CLEARED FDA SPEC HOME USE POCT GLUCOSE Routine 09/03/2019 12:52 PM EST 09/03/2019 05:52:00 PM EST [facility] GLUC BLD GLUC MNTR DEV CLEARED FDA SPEC HOME USE POCT GLUCOSE Routine 09/03/2019 5:51 AM EST 09/03/2019 10:51:00 AM [facility] GLUC BLD GLUC MNTR DEV CLEARED FDA SPEC HOME USE POCT GLUCOSE Routine 09/02/2019 11:52 PM EST 09/03/2019 04:52:00 AM [facility] GLUC BLD GLUC MNTR DEV CLEARED FDA SPEC HOME USE POCT GLUCOSE Routine 09/02/2019 6:26 PM EST 09/02/2019 11:26:00 PM [facility] GLUC BLD GLUC MNTR DEV CLEARED FDA SPEC HOME USE POCT GLUCOSE Routine 09/02/2019 11:50 AM EST 09/02/2019 04:50:00 PM [facility] GLUC BLD GLUC MNTR DEV CLEARED FDA SPEC HOME USE POCT GLUCOSE Routine 09/02/2019 10:12 AM EST 09/02/2019 03:12:00 PM EST [facility] LAPS GSTR RSTCV PX W/BYP DONTAE-EN-Y LIMB <150 CM CREAT ION, GASTRIC BYPASS, DONTAE-EN-Y, LAPAROSCOPIC, WITH SLEEVE GASTRECTOMY IF INDICATED, WITH LIVER BIOPSY IF INDICATED, WITH HIATAL HERNIA REPAIR IF INDICATED, WITH LAPAROTOMY IF INDICATED 09/02/2019 7:30 AM EST Morbid obesity 09/02/2019 12:30:00 PM EST - 09/02/2019 03:32:00 PM EST Morbid obesity [facility] Morbid obesity POCT I-STAT BETA HCG POCT I-STAT BETA HCG Routine 09/02/2019 6:22 AM EST 09/02/2019 11:22:00 AM EST [facility] GLUC BLD GLUC MNTR DEV CLEARED FDA SPEC HOME USE POCT GLUCOSE Routine 09/02/2019 6:20 AM EST 09/02/2019 11:20:00 AM EST [facility] POCT I-STAT BETA HCG POCT I-STAT BETA HCG Routine 08/19/2019 9:58 AM EST 08/19/2019 02:58:00 PM EST [facility] BLOOD COUNT COMPLETE AUTOMATED CBC Routine 0 12:20 PM EST Morbid obesity 08/15/2019 05:20:00 PM EST Morbid obesity [facility] Morbid obesity BLOOD TYPING ABO TYPE AND SCREEN Routine 08/15/2019 12:20 PM EST Morbid obesity 08/15/2019 05:20:00 PM EST Morbid obesity [facility] Morbid obesity THYROID STIMULATING HORMONE TSH TSH Routine 08/15/19 20 12:20 PM EST Morbid obesity 08/15/2019 05:20:00 PM EST Morbid obesity [facility] Morbid obesity HEMOGLOBIN GLYCOSYLATED A1C HEMOGLOBIN A1C Routine 08/15/2019 12:20 PM EST Morbid obesity 08/15/2019 05:20:00 PM EST Morbid obesity [facility] Morbid obesity COMPREHENSIVE METABOLIC PANEL COMPREHENSIVE METABOLIC PANEL Rou anthoyn 08/15/2019 12:20 PM EST Morbid obesity 08/15/2019 05:20:00 PM EST Morbid obesity [facility] Morbid obesity ECG ROUTINE ECG W/LEAST 12 LDS TRCG ONLY W/O I&R ECG 12-LEAD Routine 08/15/2019 12:17 PM EST Morbid obesity 08/15/2019 05:17:32 PM EST Morbid obesity [facility] Morbid obesity Results ID Date Data Source VITAMIN D 25-HYDROXY 08/31/2020 12:00:00 AM EST eCW1 ([facility]) Name Value Range Interpretation Code Description Data Carlie rce(s) Supporting Document(s) 24.2 30.0-100.0 eCW1 ([facility]) ID Date Data Source VITAMIN B12 LEVEL 08/31/2020 12:00:00 AM EST eCW1 ([facility]) Name Value Range Interpretation Code Description Data Carlie rce(s) Supporting Document(s) > 2000 757-365 eCW1 (Pending sale to [facility]) ID Date Data Source FERRITIN 08/31/2020 12:00:00 AM EST eCW1 ([facility]) Name Value Range Interpretation Code Description Data Carlie rce(s) Supporting Document(s) 4 8-252 FERRITIN eCW1 (Pending sale to [facility]) ID Date Data Source LIPID PANEL (CARDIAC RISK) 08/31/2020 12:00:00 AM EST eCW1 ( [facility]) Name Value Range Interpretation Code Description Data Carlie rce(s) Supporting Document(s) Cholesterol in HDL [Moles/volume] in Serum or Plasma 80 >40 HDL CHOLESTEROL eCW1 ([facility]) Cholesterol [Moles/volume] in Serum or Plasma 176 <200 CHOLESTEROL LEVEL eCW1 ([facility]) Triglyceride [Mass/volume] in Serum or Plasma by calculation 89 <150 TRIGLYCERIDES LEVEL eCW1 ([facility]) 2.200 <5 CHOLESTEROL RISK RATIO eCW1 (On license of [facility]) Cholesterol in LDL [Mass/volume] in Serum or Plasma by calculation 78 <100 LDL CHOLESTEROL eCW1 ([facility]) 96 NON-HDL-C eCW1 (Pending sale to [facility]) ID Date Data Source [id number] 08/31/2020 12:00:00 AM EST eCW1 ([facility]) Name Value Range Interpretation Code Description Data Carlie rce(s) Supporting Document(s) Hemoglobin A1c/Hemoglobin.total in Blood 5.2 HEMOGLOBIN A1c eCW1 ([facility]) ID Date Data Source FREE T4 & TSH PANEL 08/31/2020 12:00:00 AM EST eCW1 ([facility]) Name Value Range Interpretation Code Description Data Carlie rce(s) Supporting Document(s) 0.74 0.76-1.46 FREE T4 eCW1 (Pending sale to [facility]) 2.330 0.358-3.740 THYROID STIMULATING HORM ONE eCW1 ([facility]) ID Date Data Source IRON (FE) 08/31/2020 12:00:00 AM EST eCW1 ([facility]) Name Value Range Interpretation Code Description Data Carlie rce(s) Supporting Document(s) 30 50-170 eCW1 (Pending sale to [facility]) ID Date Data Source Comprehensive Metabolic Profile (CMP) 08/31/2020 12:00:00 AM EST eCW1 ([facility]) Name Value Range Interpretation Code Description Data Carlie rce(s) Supporting Document(s) 17 7-18 eCW1 (Pending sale to [facility]) 49 70-100 eCW1 (Pending sale to [facility]) 3.8 3.5-5.1 eCW1 (Pending sale to [facility]) 144 136-145 eCW1 (Pending sale to [facility]) > 60.0 >60 eCW1 (Pending sale to [facility]) 0.83 0.55-1.30 eCW1 (Pending sale to [facility]) 26 7-37 eCW1 (Pending sale to [facility]) 9.1 8.5-10.1 eCW1 (Pending sale to [facility]) 110 98-107 eCW1 (Pending sale to [facility]) 29 21-32 eCW1 (Pending sale to [facility]) 39 12-78 eCW1 (Pending sale to [facility]) 0.3 0.2-1.0 eCW1 (Pending sale to [facility]) 6.8 6.4-8.2 eCW1 (Pending sale to [facility]) 3.8 3.2-5.2 eCW1 (Pending sale to [facility]) 46 45-117 eCW1 (Pending sale to [facility]) 1.3 1.2-2.2 eCW1 (Pending sale to [facility]) ID Date Data Source CBC with Differential 08/31/2020 12:00:00 AM EST eCW1 ([facility]) Name Value Range Interpretation Code Description Data Carlie rce(s) Supporting Document(s) 3.94 4.00-5.40 RED BLOOD COUNT eCW1 ([facility]) 4.6 4.0-10.0 WHITE BLOOD COUNT eCW1 ([facility]) 31.4 36.0-47.0 HEMATOCRIT eCW1 ([facility]) 9.0 12.0-15.5 HEMOGLOBIN eCW1 ([facility]) 79.7 80.0-96.0 MEAN CORPUSCULAR VOLUME e CW1 ([facility]) 22.8 27.0-33.0 MEAN CORPUSCULAR HEMOGLOB IN eCW1 ([facility]) 51.8 36.0-66.0 NEUTROPHILS % eCW1 ([facility]) 32.1 24.0-44.0 LYMPH % eCW1 (Pending sale to [facility]) 246 150-450 PLATELET COUNT, AUTOMATED eCW1 ([facility]) 28.7 32.0-36.5 MEAN CORPUSCULAR HGB CONC eCW1 ([facility]) 15.9 11.5-14.5 RED CELL DISTRIBUTION WID TH eCW1 ([facility]) 11.2 0.0-5.0 MONO % eCW1 (Pending sale to [facility]) 3.4 0.0-3.0 EOS % eCW1 (Pending sale to [facility]) 2.4 1.5-8.5 NEUTROPHILS # eCW1 ([facility]) 1.3 0.0-1.0 BASO % eCW1 (Pending sale to [facility]) 0.5 0.0-0.8 MONO # eCW1 (Pending sale to [facility]) 0.2 0.0-0.5 EOS # eCW1 (Pending sale to [facility]) 1.5 1.5-5.0 LYMPH # eCW1 (Pending sale to [facility]) 0.1 0.0-0.2 BASO # eCW1 (Pending sale to [facility]) ID Date Data Source [id number] 08/15/2020 06:10:[address] [address] HEALTH INFORMATION MANAGEMENT ED/UC Physician Report : [id number] Signed Patient: Dheeraj Jamison Acct:[id number] Unit: [facility] [id number] : 1990 Arrival Date: 08/15/20 Age/Sex: 30 / F Arrival Time: 1736 Copies to: Maura Carter FUR OPERATOR General Adult HPI/ROS General Chief Complaint: Complex/Multi-System Present Stated Complaint: [facility] uc/fever body aches Stated Complaint: [facility] uc/fever body aches Source: Patient and I have reviewed available Ancillary/nursing staff documentation Mode of arrival: Ambulatory Limitations: Reports No limitations History of Present Illness Initial Comments: 30-year-old female patient presenting with complaints of fever, chills, dry cough,body aches and fatigue that started 2 days ago. Patient reports that she has intermittent nausea when she has a fever. She states that she has been taking Tylenol/Motrin as needed with mild relief of her symptoms. Denies any other alleviating measures. She denies any aggravating characteristicsfor symptoms. Denies any known exposure to COVID positive person's. Denies any sore throat, congestion, vomiting or diarrhea, loss of taste or smell. Related Data Home Medications Medication Instructions Recorded NK [No Known Home Meds] 08/15/20 Allergies amoxicillin Allergy (Verified 08/15/20 17:58) RASH/HIVES Review of Systems Review of Systems All systems: Reviewed and negative except as stated in HPI. Social History History of Smoking/Tobacco Use: Never Smoker Alcohol use: Reports None Drug use: Reports None Lives with: Reports Family PMH/PSH PMH/PSH Medical History No pertinent past medical history Surgical History History of 3 sections (Surgical) Family History Other Patient denies significant medical history Physical Exam Physical Exam General appearance: Alert and In no apparent distress ENT ENT Exam: External ear normal, Nose normal, Throat normal and Tonsil normal (+2) Nose exam: negative rhinorrhea, sinus frontal tenderness and maxillary sinus tendernes Nec k Neck: No lymphadenopathy Neck Exam: Full ROM, Supple and Trachea Midline Cardiac Cardiac: Present: Regular rate and rhythm Murmur: Present: None Heart Sounds: Present: S1 and S2; Absent: Gallops and Rubs Lung/Chest Lung/Chest Exam: Clear, Normal Exchange and No chest wall tenderness Neuro Neuro Normal: Alert, Oriented x 3, CN 2-12 normal, Fluent speech, Gait normal and Strength 5/5 all extremities Psych Psych Normal: Normal Affect Skin Skin exam: Dry, Intact, [place] and Warm Course Vital Signs Vital signs: Vital Signs 08/15/20 17:59 Temperature 99.1 F Pulse Rate 80 Respiratory Rate 18 Blood Pressure 117/73 O2 Sat by Pulse Oximetry 100 Medical Decision Making/CCT Medical Decision Making Medical Decision Makin-year-old female patient presenting with complaints of fever, chills, drycough, body aches and fatigue that started 2 days ago. Patient reports that she has intermittent nausea when she has a fever. On exam the patient has clear and equal breath sounds, dry cough, no sinus tenderness, afebrile. Will swab for COVID today due to symptoms. Patient understands that she is under strict quarantine until COVID results. Continue using gmpf-vhh-umziqsw therapies to manage her symptoms at this time. Discharge Plan Disposition Clinical Impression: COVID-19 virus test result unknown, Body aches, Viral illness, Fever and chills Provider stated Dispo: Discharged Condition: Stable Instructions: COVID-19 (Coronavirus Disease 2019) (ED) Activity Restrictions/Additional Instructions: Please self quarantine until your COVID results. Use [id number] therapies for symptom management as needed. Increase rest and fluids. [place] diet as needed for upset stomach. Tylenol/Motrin as needed for pain and fever. Prescriptions: No Action No Known Home Meds RF: 0 Referrals: Maura Carter FNP [Primary Care Provider] - Stand Alone Forms: No Work/Physical Activity, Portal Instructions Provider in triage note Vital Signs Vital Signs: Vital Signs (Last 8 Hours) Temp Pulse Resp BP Pulse Ox 08/15/20 17:59 99.1 F 80 18 117/73 100 Date/Time <<Signature on File>> Initializing User: Dalila Canales NP 08/15/201809 Signed by: Dalila Canales NP 08/15/201818 Froylan Jiang DO 08/15/20 1855 Name Value Range Interpretation Code Description Data Carlie rce(s) Supporting Document(s) ID Date Data Source [id number] 08/15/2020 11:51:00 PM EST [facility] Name Value Range Interpretation Code Description Data Carlie rce(s) Supporting Document(s) INFLUENZA A RAPID NEGATIVE NEGATIVE [facility] will be held for 1 week. If subsequent Viral Culture is requested by provider, please notify Laboratory at . Test Performed by Rapid Immunochromatographic Assay INFLUENZA B RAPID NEGATIVE NEGATIVE [facility] Specim[facility] will be held for 1 week. If subsequent Viral Culture is requested by provider, please notify Laboratory at . Test Performed by Rapid Immunochromatographic Assay ID Date Data Source [id number] 08/16/2020 07:31:00 AM EST [facility] COVID Reason UC patient Priority Name Value Range Interpretation Code Description Data Carlie rce(s) Supporting Document(s) COVID 19 (RHEONIX) NOT-DETECTED NOTDETECTED [facility] The [employer] COVID-19 MDx Assay is an en dpoint RT-PCR assay ([employer])intended for the qualitative detection of nucleic acid from SARS-CoV-2 in nasopharyngeal swabs. COVID testing using the [employer] analyzer was developed for the purpose of diagnostic testing during a declared public health emergency and has Emergency Use Authorization (EUA) from the FDA. The possibility of a false negative result should be considered if the patient's recent exposures or clinical presentation indicate that COVID-19 is likely, and diagnostic tests for other causes of illness (e.g., other respiratory illness) are negative. If COVID-19 is still suspected based on exposure history together with other clinical findings, re-testing should be considered by healthcare providers in consultation with public health authorities. ID Date Data Source [id number] 08/15/2020 06:00:00 PM EST [facility] Name Value Range Interpretation Code Description Data Carlie rce(s) Supporting Document(s) SARS-CoV-2 (COVID-19) N gene [Presence] in Nasopharynx by NANCY with probe detection NOT-DETECTED [facility] This lab was ordered by [facility] and reported by [facility]. ID Date Data Source [id number] 10/09/2019 08:07:06 PM EDT [facility] Name Value Range Interpretation Code Description Data Carlie rce(s) Supporting Document(s) WBC 3.2 10*3/uL (4.1-11.0) L [facility] RBC 4.48 10*6/uL (4.00-5.40) [facility] HGB 11.8 g/dL (12.0-16.0) L [facility] HCT 35.9 % (36.0-47.0) L [facility] MCV 80.2 fL (80.0-95.0) [facility] MCH 26.3 pg (27.0-32.0) L [facility] MCHC 32.9 g/dL (32.0-36.0) [facility] RDW 20.0 % (10.5-14.5) H [facility] PLT 152 10*3/uL (150-450) [facility] MPV 10.6 fL (7.1-10.7) [facility] NEUT % 54.1 % (35.0-75.0) [facility] LYMPH % 29.7 % (16.0-52.0) [facility] MONO % 8.8 % (0.0-8.0) H [facility] EOS % 6.5 % (0.0-5.0) H [facility] BASO % 0.9 % (0.0-4.0) [facility] NEUT # 1.7 10*3/uL (1.8-7.7) L [facility] LYMPH # 1.0 10*3/uL (1.2-4.8) L [facility] MONO # 0.3 10*3/uL (0.0-0.8) [facility] Eosinophils [#/volume] in Blood by Automated count 0.2 10*3/uL (0.0-0 .5) Laboratory [facility] BASO # 0.0 10*3/uL (0.0-0.2) [facility] ID Date Data Source [id number] 10/09/2019 08:54:09 PM EDT [facility] Name Value Range Interpretation Code Description Data Carlie rce(s) Supporting Document(s) 25 HYDROXY VIT D @ 23 ng/mL (31-100) L Laboratory [facility] A REVIEW OF THE LITERATURE SUGGESTS THEF OLLOWING RANGES FOR THE CLASSIFICATIONOF 25-OH VITAMIN D STATUS: VITAMIN D STATUS 25-OH VITAMIN D DEFICIENCY <20 NG/MLINSUFFICIENCY 20-30 NG/MLSUFFICIENCY 31 - 100 NG/MLTOXICITY > 100 NG/ML A PEDIATRIC REFERENCE RANGE HAS NOT BEENESTABLISHED USING THIS METHOD. ID Date Data Source [id number] 10/09/2019 08:58:54 PM EDT [facility] Name Value Range Interpretation Code Description Data Carlie rce(s) Supporting Document(s) VITAMIN B12 @ 950 pg/mL (193-986) [facility] ID Date Data Source [id number] 10/09/2019 08:58:54 PM EDT [facility] Name Value Range Interpretation Code Description Data Carlie rce(s) Supporting Document(s) SODIUM 144 mmol/L (136-145) Laboratory [facility] POTASSIUM 3.9 mmol/L (3.6-5.2) Laboratory [facility] CHLORIDE 110 mmol/L (100-108) H Laboratory [facility] CO2 25 mmol/L (22-31) Laboratory [facility] ANION GAP 9 mmol/L (7-16) Laboratory [facility] UREA NITROGEN 12 mg/dL (7-24) [facility] CREATININE 0.64 mg/dL (0.60-1.00) [facility] BUN/CREAT RATIO 18.8 RATIO (10.0-20.0) [facility] [employer] [facility] GLUCOSE 65 mg/dL (70-99) L [facility] [employer] - [facility] CALCIUM 9.0 mg/dL (8.4-10.2) [facility] [employer] [facility] TOTAL PROTEIN 6.6 g/dL (6.4-8.2) Laboratory [facility] [employer] - C[facility] ALBUMIN 3.7 g/dL (3.5-4.6) [facility] [employer] - C[facility] GLOBULIN 2.9 g/dL (2.7-4.3) [facility] [employer] - CORE ALB/GLOB RATIO 1.3 RATIO Laboratory [facility] [employer] [facility] ALKALINE PHOSPHATASE 50 U/L (45-117) Laborator [facility] [employer] - [facility] BILIRUBIN,TOTAL 0.4 mg/dL (0.0-1.0) Laboratory [facility] [employer] PLEASE NOTE:Total bilirubin results may be falselyelevated in patients taking Eltrombopag. AST (SGOT) 10 U/L (11-39) L [facility] [employer] - [facility] ALT (SGPT) 21 U/L (12-78) [facility] [employer] [facility] GFR >60 ml/min/1.73m2 (>59) Laboratory [facility] [employer] - 5 CUPS and some sugar GFR ( AMER) >60 ml/min/1.73m2 (>59) [facility] [employer] - 5 CUPS and some sugar GFR INTERPRETATION [facility] [employer] CORE --NORMAL KIDNEY FUNCTION OR MILD DISEASE - GFR >OR= 60CHRONIC KIDNEY DISEASE - GFR 15 - 59RENAL FAILURE - GFR <15 Est. GFR calculation based on the MDRDstudy equation, which assumes a steadystate for creatinine. Est. GFR should notbe used for medication dosing. ID Date Data Source [id number] 10/09/2019 08:58:54 PM EDT [facility] Name Value Range Interpretation Code Description Data Carlie rce(s) Supporting Document(s) FERRITIN @ 23 ng/mL (8-252) [facility] ID Date Data Source [id number] 10/09/2019 08:58:54 PM EDT [facility] Name Value Range Interpretation Code Description Data Carlie rce(s) Supporting Document(s) MAGNESIUM 2.1 mg/dL (1.7-2.4) [facility] ID Date Data Source [id number] 10/09/2019 08:58:54 PM EDT [facility] Name Value Range Interpretation Code Description Data Carlie rce(s) Supporting Document(s) IRON,TOTAL @ 70 ug/dL (35-150) [facility] UIBC @ 198 ug/dL (130-375) [facility] TIBC @ 268 ug/dL (250-450) [facility] % SATURATION 26 % (12-50) [facility] ID Date Data Source [id number] 10/09/2019 08:58:54 PM EDT [facility] Name Value Range Interpretation Code Description Data Carlie rce(s) Supporting Document(s) PHOSPHORUS 2.9 mg/dL (2.5-4.5) [facility] Date Data Source [id number] 10/09/2019 09:19:52 PM EDT [facility] Name Value Range Interpretation Code Description Data Carlie rce(s) Supporting Document(s) HEMOGLOBIN A1C @ 5.3 % (4.0-6.0) [facility] Performed using [employer] [place] immunoassa y.Care must be taken when interpreting [id number] in patients with a hemoglobin variantor decreased erythrocyte lifespan. Values 5.7 - 6.4% suggest prediabetes.Values >=6.5% are diagnostic for diabetes.REFERENCE: DIABETES CARE 2018: 41(S13-S27). EST AVERAGE GLUCOSE 105 mg/dL [facility] ID Date Data Source [id number] 10/11/2019 10:54:51 PM EDT [facility] Name Value Range Interpretation Code Description Data Carlie rce(s) Supporting Document(s) SR HCT 35.9 % [facility] FOLATE RBC 740 ng/mL [facility] Reference range: >=366 Performed by [facility], [address] [place] [id number] www.[employer], Yobany Salinas MD, Lab. Director ID Date Data Source [id number] 10/13/2019 08:41:06 PM EDT [facility] Name Value Range Interpretation Code Description Data Carlie rce(s) Supporting Document(s) VITAMIN B1 63 nmol/L L [facility] Reference range: 70 to 180 INTERPRETIVE INFORMATION: Vitamin B1, Whole Blood This assay measures the concentration of thiamine diphosphate (TDP), the primary active form of vitamin B1. Approximately 90 percent of vitamin B1 present in whole blood is TDP. Thiamine and thiamine monophosphate, which comprise the remaining 10 percent, are not measured. Test developed and characteristics determined by [facility]. See Compliance Statement B: [employer]/ Performed by [facility], [address] [place] [id number] www[employer], Yobany Salinas MD, Lab. Director ID Date Data Source [id number] 09/03/2019 12:57:57 PM EST [facility] Name Value Range Interpretation Code Description Data Carlie rce(s) Supporting Document(s) POC NOVA GLU 84 mg/dL (70-99) [facility] [place] PERFORMED BY [facility] CLINICAL STAFF ID Date Data Source [id number] 09/03/2019 05:53:00 AM EST [facility] Name Value Range Interpretation Code Description Data Carlie rce(s) Supporting Document(s) POC NOVA GLU 89 mg/dL (70-99) [facility] [place] PERFOR[facility] BY [facility] CLINICAL STAFF ID Date Data Source [id number] 09/02/2019 11:53:38 PM EST [facility] Name Value Range Interpretation Code Description Data Carlie rce(s) Supporting Document(s) POC NOVA GLU 117 mg/dL (70-99) H [facility] [place] [facility]FOR[facility] CLINICAL STAFF ID Date Data Source [id number] 09/02/2019 06:28:34 PM EST Lab [facility] Name Value Range Interpretation Code Description Data Carlie rce(s) Supporting Document(s) POC NOVA GLU 155 mg/dL (70-99) H Lab [facility] PERFORMED BY [facility] CLINICAL STAFF ID Date Data Source [id number] 09/05/2019 08:04:37 PM EST Madonna Shepard [facility] [place] [address]Oxi# Surgical Pathology ReportAccession #:[id number](s) ReceivedA: Liver biopsyClinical Diagnosis and HistoryMorbid obesity DIAGNOSISLIVER, WEDGE BIOPSY: MINIMAL STEATOSIS. SEE COMMENT. CommentsThe biopsy consists of a wedge of hepatocellular parenchyma with preservedlobular architecture. Scattered small foci of macrovesicular steatosisare present. The portal areas contain a mild infiltrate of chronicinflammatory cells. Bile ducts appear preserved. Cholestasis is notseen. A trichrome stain does not show fibrosis. A reticulin stain showsa preserved reticulin framework. No Ashlyn bodies or granulomas areidentified. An iron stain is negative. A PAS stain is unremarkable. Gross DescriptionReceived in formalin labeled "liver biopsy" is a 2.5 x 1.2 x 0.5 cmtan-red wedge shaped fragment of liver tissue. Serially sectioned andentirely submitted as A1. Modified liver biopsy protocol. Processed at [facility], Histopathology, [address] [place] [address], [id number].[email or web address] Reported: 09/05/2019Electronically Signed Out By Elijah Ordoñez MD [facility]emg This report may include immunohistochemical or in-situ hybridizationresults. Testing was developed and the performance characteristicsdetermined by [facility] as required by CLIA '88. The FDAhas determined that approval for specific use is not necessary forclinical use. The quality of Hematoxylin and Eosin stains and asapplicable, for all immunohistochemical and/or special stains, includingpositive and negative controls, were reviewed and considered appropriate.ICD codes E66.01CPT codesA: 89708E, 56766R, 89053V, 48075J, 70881O Name Value Range Interpretation Code Description Data Carlie rce(s) Supporting Document(s) ID Date Data Source [id number] 09/02/2019 11:51:09 AM EST [facility] Name Value Range Interpretation Code Description Data Carlie rce(s) Supporting Document(s) POC NOVA GLU 120 mg/dL (70-99) H [facility] [place] [facility] [place] [facility]FOR[facility] CLINICAL STAFF ID Date Data Source [id number] 09/02/2019 10:18:55 AM EST [facility] CorporationPATIE NT INFORMATIONPatient MRN Name Date of Age Gend*PT [id number] Dheeraj Jamison 1990 29 years F IPPT Location Admission Date/Time [facility] --- Preeti Schmitz MD([id number]) EPI ID CSN Admitting Provider [id number] Preeti Schmitz MD([id number])CREATION, GASTRIC BYPASS, DONTAE-EN-Y, LAPAROSCOPIC, WITH LIVER BIOPSYESOPHAGOGOGASTROJEJUNOSCOPY Procedure NoteFelicia Igor CSN:[id number]/3/2020Surgeon(s):CHLOE Kasperurgical Assist: Ludmila Ramiresaff:OR Tugboat Operator: PATRICIA Johnsonurgical Assist: CARLIE Ramires Relief Tugboat Operator: Lucille Hayden RNOR Scrub Person: Madisyn SuarezProcedure(s):CREATION, GASTRIC BYPASS, DONTAE-EN-Y, LAPAROSCOPIC, WITH LIVER BIOPSYESOPHAGOGOGASTROJEJUNOSCOPYLaparoscopic Dontae Y Gastric Bypass, antecolic, antegastric, 50 cm PancreaticoBiliary Limb, 150 cm Dontae Limb,Wedge liver biopsyEsophagogastrojejunoscopyAnesthesia: GeneralPre-op Diagnosis:Morbid obesity [E66.01]Post-Op Diagnosis Codes: * Morbid obesity [E66.01]Drains: NoneGrafts/Implants:NoneSpecimens:ID Type Source Tests Collected by [facility] : Liver Biopsy Tissue Tissue SURGICAL PATHOLOGY EXAM Preeti Schmitz MD09/02/2019 0812Estimated Blood Loss: less than 50 mLBlood Administered: See Anesthesia RecordComplications: NoneFindings: Consistent with the Operative Diagnosis , central visceral obesity,fatty liver, delayed JJ enterotomy closure, negative leak test, umbilical portsite fascial closure.Indication for Procedure(s):Dheeraj Jamison is a 29 years year old female who suffers from severe obesity.Dheeraj Jamison has attempted multiple diets over the years, and has been ableto lose modest amounts of weight, however the weight loss has never beensustained. She is 66 in, 265lb and BMI of 42.77. Her weight impacts heractivities of daily living. Her associated comorbidities include joint pain andhypothyroidism. She meets the criteria for bariatric surgery as defined in theNIH consensus statement, surgery is medically necessary. We explained theoperation, potential complications, what can be expected after surgery, and whatto expect for the rest of their life. An informed consent discussion was held.The operations I offer and their potential complications were discussed. Afterdiscussion, patient and I agreed to proceed with a laparoscopic Qicm-ru-YYykejsj Bypass, possible Sleeve Gastrectomy if hostile abdomen is encountered.Botox education given to patient. This may include repair of a Hiatal Hernia iffound and a Wedge Liver Biopsy if there is a fatty liver. We coveredcomplications including: , IL, DVT, PE, leaks, sepsis, gallbladder disease,anastomotic ulcers, bleeding, failure of weight loss, malnutrition, need foropen surgery, internal and external hernias, and the need for repeat surgery,among others.DESCRIPTION OF PROCEDURE: The patient was taken to the operating room and placedon the operating table in supine position. Next, general anesthesia was inducedand patient was intubated. The abdomen was prepped and draped in the usualsterile fashion. A time-out was performed with all OR personnel inparticipation. The patient's identity, procedure, preoperative antibiotics,subcutaneous heparin and SCDs were all confirmed.Access into the intraabdominal cavity was gained through a 12- mm RUQ incisionusing a 12-mm Optiview port with a 10-mm 0- degree scope. Once inside,pneumoperitoneum was established and additional ports were placed in thefollowing configuration: one 12-mm in supraumbilical area and one 12-mm rightlower quadrant port, two 12-mm left sided flank ports and one 5-mm epigastricport. Next, the liver was evaluated, which looked fatty infiltrated, and a wedgeliver biopsy was taken from the left lobe with Harmonic device. Afterwards, theroot of the mesentery was identified by retracting the mesocolon and transversecolon in a cephalad d irection. A 3-0 V-Loc suture was placed at the root of themesentery. This would be used later for closure of the Retro-Dontae space. Theligament of Treitz was identified and the small bowel was ran distally 50 cm forthe pancreaticobiliary limb and this was pushed to the patient's left. Anadditional 150 cm was measured distally for the Dontae limb. The small bowel wastransected with a blue load on a power [place] stapler at the 50 cm point. Thebiliopancreatic limb and the Dontae limb were positioned [id number]-hknf. Theintermesenteric defect between the two limbs was closed with a running 3-0 V-Locsuture. Once this was closed, an enterotomy was made in the biliopancreatic limband then in the Dontae limb. The 60-mm [place] stapler with a blue load wasinserted into both enterotomies and fired creating the jejunojejunostomy. Next,the greater omentum was transected with the Harmonic device from the colon up tothe stomach. Attention was re- directed at the jejunojejunostomy to perform adelayed closure. The internal staple line of the jejunojejunostomy wasinspectedwith wavy graspers; Hemostasis was achieved with bipolar cauter. Next,the remaining enterotomy defect was closed with a 3-0 V-loc suture in a standardrunning fashion and double-layer closure technique was done. The proximal end ofthe Dontae limb was anchored to the stomach using a 3-0 silk suture.The patient was then placed in steep reverse Trendelenburg and the NG tube wasremoved. The scope was changed to a long bariatric 45 degree scope. The angle ofHis was dissected out with a [place] grasper behind the hiatus, exposing theleft andre. There was no significant hiatal hernia appreciatedThe gastric pouch was then created. Using the wavy graspers and Harmonic device,a perigastric dissection was performed 10 cm distal to the GE junction along thelesser curvature. Once inside the lesser sac, a 60- mm stapler with the greenload cartridge was fired transversely across the lesser curve 50 mm. A 30-Frenchbougie was used up to help size the pouch. The pouch was completed usingmultiple firings of green loads up towards the angle of His and parallel to thelesser curve. Afterwards, a gastrotomy was made at the distal end of the pouch.The silk suture anchoring the Dontae to the stomach was removed. An enterotomywas made at the 11 o'clock position. The linear stapler with a blue loadcartridge was inserted at 40 mm into the gastrotomy and enterotomy and firedcreating the gastrojejunostomy. An anti-tension stitch was placed at the crotchof the anastomosis using a 3-0 V-Loc suture. 3-0 silk anchoring sutures wereplaced at the proximal and distal end of the gastrojejunostomy opening. Theremaining defect of the anastomosis was closed with a 3-0 V-loc suture in arunning fashion. A double-layer closure technique was performed. The staplelines of the pouch and remnant stomach were inspected for bleeding. Hemostasiswas obtained with bipolar cautery.Next, the patient was laid flat. The retro-Dontae space was closed with thepreviously placed 3-0 V- Loc suture. After this was done, the anastomosis wastested for leaks. My dental assistant instructor clamped across the Dontae limb with the bowel clampwhile I passed the endoscope into the esophagus, into the pouch, and into theRoux limb. I insufflated with air and my dental assistant instructor irrigated over theanastomosis with normal saline. There were no bubbles seen emanating from theanastomosis; therefore, the test was negative and complete. The insufflated airwas evacuated and the scope was retrieved. Next, all staple lines werereinspected and hemostasis was obtained with bipolar cautery. All port siteswere inspected for bleeding and hemostasis was excellent. Umbilical port sitefascial closure was done. The pneumoperitoneum was evacuated and the skinincisions were closed with 4-0 Vicryl. 0.25% Marcaine was used to infiltrate theskin incisions and dermabond was applied. Sponge, needle, and instrument countswere accurate at the end of the case.The patient tolerated the procedure well. They were extubated and taken torecovery room in stable condition.All significant tasks completed under the direction of the primary surgeon withthe exception of:RAMONITA Madisonate: 09/02/2019 Time: 10:11 AM Name Value Range Interpretation Code Description Data Carlie rce(s) Supporting Document(s) ID Date Data Source [id number] 09/02/2019 10:14:16 AM EST [facility] Name Value Range Interpretation Code Description Data Carlie rce(s) Supporting Document(s) POC NOVA GLU 140 mg/dL (70-99) H [facility] [facility] [place] [facility]FOR[facility] CLINICAL STAFF ID Date Data Source [id number] 09/02/2019 08:18:56 AM EST [facility] CorporationPATIE NT INFORMATIONPatient MRN Name Date of Age Gend*PT [id number] Dheeraj Jamison 1990 29 years F IPPT Location Admission Date/Time Visit ID Attending Provider --- --- --- --- EPI ID CSN Admitting Provider [id number] ---AirwayPatient location during procedure: ORUrgency: electiveDifficult airway: noAdvanced airway equipment used: noStaffingPerformed by: Greg Sahni CRNAAnesthesiologist: Joey Milan MDIndications and Patient ConditionIndications for airway management: anesthesiaPreoxygenated: yesPatient position: supineIn-line stabilization: noMask ventilation: 1 - vent by maskFinal Airway/ApproachesFinal airway type: ETTNumber of attempts at final approach: 1Number of other approaches attempted: 0Final Airway DetailsFinal ETT airway: ETT - singleCuffed: yesTechnique used for successful ETT placement: direct laryngoscopyCricoid pressure: noRSI: noInsertion site: oralBlade type/size: MAC 4ETT size: 7.5 mmMeasured from: lipsETT to lips: 20 cmPlacement verified by: chest auscultation and + [id number]: equal breath sounds bilateralGrade view: grade I - full view of glottis Name Value Range Interpretation Code Description Data Carlie rce(s) Supporting Document(s) ID Date Data Source [id number] 09/02/2019 07:07:25 AM EST [facility] CorporationPATIE NT INFORMATIONPatient MRN Name Date of Age Gend*PT [id number] Dheeraj Jamison 1990 29 years F IPPT Location Admission Date/[facility] --- Preeti Schmitz MD([id number]) EPI ID CSN Admitting Provider [id number] Preeti Schmitz MD([id number])H&P reviewed. The patient was examined and there are no changes to the H&P. TheH&P was brought in for scanningPreeti Schmitz MD7:06 AM Name Value Range Interpretation Code Description Data Carlie rce(s) Supporting Document(s) ID Date Data Source [id number] 09/02/2019 06:37:34 AM EST [facility] Name Value Range Interpretation Code Description Data Carlie rce(s) Supporting Document(s) POC BHCG [facility] <5.0 IU/L [facility] [place] INTERPRETATION:<5.0 NEGATIVE5.0- 25.0 INDETERMINATE>25.0 POSITIVELEVELS BETWEEN 5 AND 25 IU/L MAY INDICATEEARLY AND SHOULD BE REPEATED CASSIDY BLOOD SAMPLE AFTER 48 HOURS.PERFORMED BY [facility] CLINICAL STAFF ID Date Data Source [id number] 09/02/2019 06:23:23 AM EST [facility] Name Value Range Interpretation Code Description Data Carlie rce(s) Supporting Document(s) POC NOVA GLU 97 mg/dL (70-99) [facility] [place] PERFORMED BY [facility] CLINICAL STAFF ID Date Data Source [id number] 08/28/2019 01:20:48 PM EST [facility] [address]Fzv# Surgical Pathology ReportAccession #:[id number](s) ReceivedA: Antral rest focus on metaplasia from prior bxB: Antrum random bxC: Gastric body bxsD: Cardia bxsClinical Diagnosis and HistoryGastric intestinal metaplasia DIAGNOSISA. STOMACH, ANTRAL REST, BIOPSY: CHEMICAL/REACTIVE GASTROPATHY. NO INTESTINAL METAPLASIA SEEN.B. STOMACH, ANTRUM, BIOPSY: CHRONIC INACTIVE GASTRITIS. NEGATIVE H. PYLORI IMMUNOSTAIN.C. STOMACH, BODY, BIOPSY: OXYNTIC MUCOSA WITH NO PATHOLOGIC DIAGNOSIS.D. ESOPHAGUS, CARDIA, BIOPSY: OXYNTIC MUCOSA WITH NO PATHOLOGIC DIAGNOSIS. NO INTESTINAL METAPLASIA SEEN. Gross DescriptionPart A. Received in formalin labeled "antral rest focus on metaplasia fromprior biopsy" are three belle-pink irregular fragments of tissue measuring0.4 cm each. Entirely submitted as A1, (4 levels). Part B. Received in formalin labeled "antrum random" are multiple belle-pinkirregular fragments of tissue ranging from 0.3 to 0.5 cm. Entirelysubmitted as B1, 1 + 1. Part C. Received in formalin labeled "gastric body biopsies" are multipletan-pink irregular fragments of tissue ranging from 0.3 to 0.7 cm.Entirely submitted as C1, 1 + 1. Part D. Received in formalin labeled "cardia biopsies" are two belle-pinkirregular fragments of tissue measuring 0.4 cm each. Entirely submitted asD1, (4 levels). Processed at [facility], Histopathology, [address] [place] [address], [id number].jgllmr/gmm Reported: 08/28/2019Electronically Signed Out By Howard Hernandez M.D. [facility] [place] This report may include immunohistochemical or in-situ hybridizationresults. Sabrina ting was developed and the performance characteristicsdetermined by [facility] as required by CLIA '88. The FDAhas determined that approval for specific use is not necessary forclinical use. The quality of Hematoxylin and Eosin stains and asapplicable, for all immunohistochemical and/or special stains, includingpositive and negative controls, were reviewed and considered appropriate.ICD codes K31.9 K29.30CPT codesA: 29979SA: 26272P, 45273yW: 80093CC: 82480Q Name Value Range Interpretation Code Description Data Carlie rce(s) Supporting Document(s) ID Date Data Source [id number] 08/23/2019 12:04:55 PM EST [facility] CorporationPATIE NT INFORMATIONPatient MRN Name Date of Age Gend*PT [id number] Dheeraj Jamison 1990 29 years F OPPT Location Admission Date/Time Visit ID [facility] [place] 08[facility] 1014 --- Meri Blancas MD([id number]) EPI ID CSN Admitting Provider [id number] Meir Blancas MD([id number])Endoscopic Gastroduodenoscopy Procedure NotePatient: Dheeraj Kaufmanurgery Date: August 23, 2019Surgeon(s):LUDIVINA Georgere-Operative Diagnosis:Gastric intestinal metaplasiaRefluxPost-Operative Diagnosis:Gastric intestinal metaplasiaRefluxPancreatic RestRecommendations:1. Will send biopsy results to Dr. Ordoñez's officeSedation: Monitored Anesthesia Care (MAC) (see anesthesia report).ASA Class: IIIOther Equipment Type Equipment Setting Setting Low Setting High Applied By Endoscope Meir Blancas MD Endoscope Pediatric (ENDO)Indications: Esophageal reflux [K21.9], gastric intestinal metaplasiaConsent:After obtaining history and performing the physical examination, the procedure,indications, potential complications, including but not limited to bleeding,perforation, infection, adverse medication reaction, and alternatives wereexplained to the patient. Patient appeared to understand the benefits and risksof this procedure. Informed consent was obtained from the patient afterproviding opportunity for questions.Procedure Details:The patient was placed in the left lateral decubitus position and monitored perendoscopy protocol. The gastroscope was inserted into the mouth and advancedunder direct visualization to Duodenum 3rd portion. A careful inspection wasmade as the gastroscope was withdrawn, including a retroflexed view of theproximal stomach; findings and interventions are described below. Aftercompletion of the examination, the patient was transferred to the recovery room.* No implants in log *Findings:Oropharynx: NormalEsophagus: NormalEG Junction: Normal at 39 cmCardia: Normal. Biopsy.Fundus: NormalBody: Normal. Biopsy.Antrum: 5mm submucosal lesion further biopsy taken given concern for intestinalmetaplasia. 10 sets of biopsy taken of random antrum.Pylorus: NormalDuodenum Bulb: NormalDuodenum 2nd Portion: NormalDuodenum 3rd Portion: NormalSpecimens:ID Type Source Tests Collected by Time DestinationA : antral rest focus on metaplasia from prior bx Tissue Biopsy SURGICALPATHOLOGY EXAM Meir Blancas MD 08/23/2019 1113B : antrum random bxs Tissue Biopsy SURGICAL PATHOLOGY EXAM Meir Blancas MD08/23/2019 1113C : gastric body bxs Tissue Biopsy SURGICAL PATHOLOGY EXAM Meir Blancas MD08/23/2019 1114D : cardia bxs Tissue Biopsy SURGICAL PATHOLOGY EXAM Meir Blancas MD 08/23/20191116E : Tissue Biopsy SURGICAL PATHOLOGY EXAM Meir Blancas MD 08/23/2019 1117Complications: None; patient tolerated the procedure well.Estimated Blood Loss: minimalThraegan Blancas MD08/23/201912:01 PM Name Value Range Interpretation Code Description Data [facility] rce(s) Supporting Document(s) ID Date Data Source [id number] 08/23/2019 10:50:50 AM EST [facility] NT INFORMATIONPatient MRN Name Date of Age Gend*PT [id number] Dheeraj Jamison 1990 29 years F OPPT Location Admission Date/Time Visit [facility] --- Meir Blancas MD([id number]) EPI ID CSN Admitting Provider [id number] Meir Blancas MD([id number])H&P reviewed. The patient was examined and there are no changes to the H&P.Meir Blancas MD10:50 AM Name Value Range Interpretation Code Description Data Herrick Campuse(s) Supporting Document(s) ID Date Data Source [id number] 08/23/2019 10:50:39 AM EST [facility] NT INFORMATIONPatient MRN Name Date of Age Gend*PT [id number] Dheeraj Jamison 1990 29 years F OPPT Location Admission Date/Time Visit ID [facility] --- Meir Blancas MD([id number]) EPI ID CSN Admitting Provider [id number] Meir Blancas MD([id number])Pre-Procedure History and Physical:Past Medical History:Diagnosis Date Anemia Anxiety GERD (gastroesophageal reflux disease) Hypothyroidism Morbid obesity Panic disorder depressionPast Surgical History:Procedure Laterality Date SECTION x3 PANENDOSCOPY N/A 08/19/2019 Procedure: ENDOSCOPY, UPPER GASTROINTESTINAL (GI) TRACT W BIOPSY ANDANESTHESIA; Surgeon: Meir Blancas MD; Laterality: N/A; TUBAL LIGATIONAllergiesAllergen Reactions Amoxil [Amoxicillin] Hives and Other (See Comments) Fever Adhesive Tape Itching and RashMedications Prior to AdmissionMedication Sig Dispense Refill Last Dose ferrous sulfate 325 (65 FE) MG tablet Take 650 mg by mouth every other day08/22/2019 at Unknown time levothyroxine (SYNTHROID, LEVOTHROID) 100 MCG tablet Take 100 mcg by mouthdaily 08/22/2019 at Unknown timeBP 137/82 (BP Location: Left upper arm, Patient Position: Sitting) | Pulse 85| Temp 97.6 F (Tympanic) | Resp 18 | Ht 1.676 m (5' 6") | Wt (!) 116.6 kg(257 lb) | LMP 08/05/2019 (Exact Date) | SpO2 97% | BMI 41.48 kg/m The scanned [02/13/19] history and physical were reviewed and the patient wasexamined.The following changes were noted: - EGD 08/19/19 showed a antral sub mucosallesion with biopsy showing pancreatic rest but also focus of intestinalmetaplasia. Will require further biopsies.Meir Blancas MD08/23/19 10:49 AM Name Value Range Interpretation Code Description Data Carlie rce(s) Supporting Document(s) ID Date Data Source [id number] 08/21/2019 06:34:34 AM EST [facility] [place], [place] [address]Tel# Surgical Pathology ReportAccession #:[id number](s) ReceivedA: Antral submucosal nodule - STATB: Antrum random - STATClinical Diagnosis and HistoryReflux DIAGNOSISA. STOMACH, BIOPSIES: FOCAL CHANGES CONSISTENT WITH PANCREATIC REST MILD CHRONIC GASTRITIS WITH FOCAL INTESTINAL METAPLASIA NO EVIDENCE OF DYSPLASIA OR MALIGNANCYB. STOMACH, BIOPSIES: CONGESTION AND MILD CHRONIC INFLAMMATION IMMUNOHISTOCHEMICAL STAIN FOR HELICOBACTER PYLORI IS NEGATIVECommentsAccording to the Hospital Information System, the patient was found tohave a 5 mm submucosal lesion: polyp vs a pancreatic rest.In the specimen submitted as "submucosal nodule", focal changes consistentwith a pancreatic rest are identified within the mucosa. This isconsistent with a nodule, however, submucosal tissue is not identified toevaluate for a submucosal nodule. There is also focal intestinalmetaplasia. There is no evidence of dysplasia or malignancy. Slides arereviewed by one other pathologist who concurs with this impression. Gross DescriptionPart A. Received in formalin labeled "antral submucosal nodule STAT" aremultiple belle-pink to red irregular fragments of tissue ranging from 0.1 to0.4 cm. Entirely submitted as A1. 1 + 1. Additional levels times two.Part B. Received in formalin labeled "antrum random STAT" are twotan-pink irregular fragments of tissue measuring 0.4 and 0.6 cm. Entirelysubmitted as B1. 1 + 1. Note that the specimen is designated as STAT per the clinician. Processed at [facility], Histopathology, [address] [place] [address], [id number].jgllmr/pms Reported: 08/21/2019Electronically Signed Out By Kristin Mercedes M.D. [facility] This report may include immunohistochemical or in-situ hybridizationresults. Testing was developed and the performance characteristicsdetermined by [facility] as required by CLIA '88. The FDAhas determined that approval for specific use is not necessary forclinical use. The quality of Hematoxylin and Eosin stains and asapplicable, for all immunohistochemical and/or special stains, includingpositive and negative controls, were reviewed and considered appropriate.ICD codes K21.9CPT codesA: 75202IV: 06754I, 73993t Name Value Range Interpretation Code Description Data Carlie rce(s) Supporting Document(s) ID Date Data Source [id number] 08/19/2019 10:52:01 AM EST [facility] CorporationPATIE NT INFORMATIONPatient MRN Name Date of Age Gend*PT [id number] Dheeraj Jamison 1990 29 years F OPPT Location Admission Date/Time Visit ID Attending [facility] [place] 08/19/19 0929 --- Meir Blancas MD([id number]) EPI ID [facility] Admitting Provider [id number] Meir Blancas MD([id number])Endoscopic Gastroduodenoscopy Procedure NotePatient: Dhereaj Kaufmanurgery Date: August 19, 2019Surgeon(s):LUDIVINA Georgere-Operative Diagnosis:Esophageal reflux [K21.9],Post-Operative Diagnosis:Esophageal reflux [K21.9],Antral submucosal lesionRecommendations:1. Will send biopsy results to Dr. Ordoñez's officeSedation: Monitored Anesthesia Care (MAC) (see anesthesia report).ASA Class: IIIOther Equipment Type Equipment Setting Setting Low Setting High Applied By Endoscope Meir Blancas MD Endoscope Pediatric (ENDO)Indications: Esophageal reflux [K21.9],Consent:After obtaining history and performing the physical examination, the procedure,indications, potential complications, including but not limited to bleeding,perforation, infection, adverse medication reaction, and alternatives wereexplained to the patient. Patient appeared to understand the benefits and risksof this procedure. Informed consent was obtained from the patient afterproviding opportunity for questions.Procedure Details:The patient was placed in the left lateral decubitus position and monitored perendoscopy protoco l. The gastroscope was inserted into the mouth and advancedunder direct visualization to Duodenum 3rd portion. A careful inspection wasmade as the gastroscope was withdrawn, including a retroflexed view of theproximal stomach; findings and interventions are described below. Aftercompletion of the examination, the patient was transferred to the recovery room.* No implants in log *Findings:Oropharynx: NormalEsophagus: NormalEG Junction: Normal at 39 cmCardia: NormalFundus: NormalBody: NormalAntrum: 5mm submucosal lesion- polyp vs pancreatic rest- biopsy taken. Biopsyfor H pylori taken.Pylorus: Normal Duodenum Bulb: NormalDuodenum 2nd Portion: NormalDuodenum 3rd Portion: NormalSpecimens:ID Type Source Tests Collected by Time DestinationA : antral submucosal nodule STAT Tissue Biopsy SURGICAL PATHOLOGY EXAM Meir Higgins MD 08/19/2019 1048B : antrum random Tissue Biopsy SURGICAL PATHOLOGY EXAM Meir Blancas MD08/19/2019 1048Complications: None; patient tolerated the procedure well.Estimated Blood Loss: minimalThomas Angie Blancas MD08/19/201910:50 AM Name Value Range Interpretation Code Description Data Carlie rce(s) Supporting Document(s) ID Date Data Source [id number] 08/19/2019 10:13:51 AM EST [facility] [place] Name Value Range Interpretation Code Description Data Carlie rce(s) Supporting Document(s) POC BHCG [facility] <5.0 IU/L [facility] [place] INTERPRETATION:<5.0 NEGATIVE5.0- 25.0 INDETERMINATE>25.0 POSITIVELEVELS BETWEEN 5 AND 25 IU/L MAY INDICATEEARLY AND SHOULD BE REPEATED CASSIDY BLOOD SAMPLE AFTER 48 HOURS.PERFORMED BY [facility] CLINICAL STAFF ID Date Data Source [id number] 08/19/2019 09:53:55 AM EST [facility] NT INFORMATIONPatient MRN Name Date of Age Gend*PT [id number] Dheeraj Jamison 1990 29 years F OPPT Location Admission Date/Time Visit ID Attending [facility] 08/19/19928 --- Meir Blancas MD([id number]) EPI ID CSN Admitting Provider [id number] Meir Blancas MD([id number])H&P reviewed. The patient was examined and there are no changes to the H&P.Meir Blancas MD9:53 AM Name Value Range Interpretation Code Description Data Carlie rce(s) Supporting Document(s) ID Date Data Source [id number] 08/19/2019 09:53:49 AM EST [facility] NT INFORMATIONPatient MRN Name Date of Age Gend*PT [id number] Dheeraj Jamison 1990 29 years F OPPT Location Admission Date/Time Visit ID Attending [facility] 08/19/19928 --- Meir Blancas MD([id number]) EPI ID CSN Admitting Provider [id number] Meir Blancas MD([id number])Pre-Procedure History and Physical:Past Medical History:Diagnosis Date Anemia Anxiety GERD (gastroesophageal reflux disease) Hypothyroidism Morbid obesity Panic disorder depressionPast Surgical History:Procedure Laterality Date SECTION x3 TUBAL LIGATIONAllergiesAllergen Reactions Amoxil [Amoxicillin] Hives and Other (See Comments) Fever Adhesive Tape Itching and RashMedications Prior to AdmissionMedication Sig Dispense Refill Last Dose ferrous sulfate 325 (65 FE) MG tablet Take 650 mg by mouth every other day08/18/2019 at Unknown time levothyroxine (SYNTHROID, LEVOTHROID) 100 MCG tablet Take 100 mcg by mouthdaily 08/18/2019 at Unknown timeBP (!) 135/92 (BP Location: Left lower arm, Patient Position: Sitting) | Pulse79 | Temp 98.6 F (Oral) | Resp 18 | Ht 1.676 m (5' 6") | Wt (!) 116.6 kg(257 lb) | LMP 08/05/2019 (Exact Date) | SpO2 99% | No | BMI41.48 kg/m The scanned [02/13/19] history and physical were reviewed and the patient wasexamined.There are no changes to the H&P.Meir Blancas MD08/19/19 9:53 AM Name Value Range Interpretation Code Description Data Carlie rce(s) Supporting Document(s) ID Date Data Source [id number] 08/15/2019 01:00:42 PM EST [facility] Name Value Range Interpretation Code Description Data Carlie rce(s) Supporting Document(s) EKG [facility] MCUUIb9uEpLIIaAhc2HpIqSwOBDeZB2bpyd1W3O3cSReV2XdjWUop5kbJ5VfW9SdWAWpTHITYB5SdZWn jb2 [file] +8jgPIC1q3kz+p/Gry1hWRt+iLKr2H13oXk53 /fLhh330nXjg8buQaSdrNisDmGl9V5ZanxuT71U3dWJqkCBxgIJl+T7pY9fQeK1WKRfMj7jJnHun+8 [file] RBB+ffs0yY09neN9zJw9u7LY8lx798XjK/Matt/WqP9 uvm0KwGxF8ay/XDsaq64NyyW1vtpQ7oopV92pvVE7Gt7Ohhb4nlIeJ3tmP/0UyiqbMVTJ+nN7KnY25Hu zsfl257/+fd4/wChWkYGiSxJ0M/ai5Qf333eDp6aYk7nMa/q75aH7/Vq8iy9gY+1VvtzVuqrnPfV+9C1 Qq5kj1h1VP1xyB2m0V7RJm374vTUWkHeqQ/H/Ka+Kl tV900ecTN6XUqw1N2HY/ztK9p+QpuAArBelUcVg7YgVczYzaub1IyId4x/1p+1i0952ytYiruvnlAdzJ 22yrd77p+rail technician/20kwfwHS4ik//HSG281kunh2kja4a3u6IAS0f+3V+x01sqEpL16N422wndq7zpQ4/66K vTd3ZNb4lmc2KC+JDEtlngbW7ZE5P/st8Arg4c8/7Y F1ob7cAxG9hArXl5GWan3+LEhev1p+m2ri36LX9ks3v+yjFJfbXz7+3F6vVM546g2Llu+0HH+aDjfNBx PuhzgXbQ/e704HaB91jCFK107Em42fE7/KhF81JSp72xXavzN0c00ov/C77aX+dAw1hVH/dCO9cb8Nk+ zM7O5mMl6636L1eQY1yDi3k23qCvIUuZUn/s0B238j [file] w4UlLpYWibCIMFWr== ID Date Data Source [id number] 08/15/2019 10:00:07 PM EST [facility] Name Value Range Interpretation Code Description Data Carlie rce(s) Supporting Document(s) TSH,ULTRASENSITIVE @ 2.910 mIU/L (0.360-4.170) [facility] ID Date Data Source [id number] 08/15/2019 10:00:07 PM EST [facility] Name Value Range Interpretation Code Description Data Carlie rce(s) Supporting Document(s) SODIUM 144 mmol/L (136-145) [facility] POTASSIUM 4.6 mmol/L (3.6-5.2) [facility] CHLORIDE 112 mmol/L (100-108) H [facility] CO2 26 mmol/L (22-31) [facility] ANION GAP 6 mmol/L (7-16) L [facility] UREA NITROGEN 8 mg/dL (7-24) [facility] CREATININE 0.71 mg/dL (0.60-1.00) [facility] BUN/CREAT RATIO 11.3 RATIO (10.0-20.0) [facility] GLUCOSE 90 mg/dL (70-99) [facility] CALCIUM 9.0 mg/dL (8.4-10.2) [facility] TOTAL PROTEIN 6.8 g/dL (6.4-8.2) [facility] ALBUMIN 3.5 g/dL (3.5-4.6) [facility] GLOBULIN 3.3 g/dL (2.7-4.3) [facility] ALB/GLOB RATIO 1.1 RATIO [facility] ALKALINE PHOSPHATASE 70 U/L (45-117) [facility] BILIRUBIN,TOTAL 0.3 mg/dL (0.0-1.0) [facility] AST (SGOT) 15 U/L (11-39) [facility] ALT (SGPT) 33 U/L (12-78) [facility] GFR >60 ml/min/1.73m2 (>59) [facility] GFR ( AMER) >60 ml/min/1.73m2 (>59) [facility] GFR INTERPRETATION [facility] --NORMAL KIDNEY FUNCTION OR MILD DISEASE - GFR >OR= 60CHRONIC KIDNEY DISEASE - GFR 15 - 59RENAL FAILURE - GFR <15 Est. GFR calculation based on the MDRDstudy equation, which assumes a steadystate for creatinine. Est. GFR should notbe used for medication dosing. ID Date Data Source [id number] 08/15/2019 09:55:02 PM EST [facility] Name Value Range Interpretation Code Description Data Carlie rce(s) Supporting Document(s) HEMOGLOBIN A1C @ 5.5 % (4.0-6.0) [facility] Performed using [employer] y.Care must be taken when interpreting TsI3bmettssd in patients with a hemoglobin variantor decreased erythrocyte lifespan. Values 5.7 - 6.4% suggest prediabetes.Values >=6.5% are diagnostic for diabetes.REFERENCE: DIABETES CARE 2018: 41(S13-S27). EST AVERAGE GLUCOSE 111 mg/dL [facility] ID Date Data Source [id number] 08/15/2019 09:23:57 PM EST [facility] Name Value Range Interpretation Code Description Data Carlie rce(s) Supporting Document(s) WBC 4.1 10*3/uL (4.1-11.0) [facility] [place] RBC 4.46 10*6/uL (4.00-5.40) [facility] HGB 11.2 g/dL (12.0-16.0) L [facility] HCT 35.3 % (36.0-47.0) L [facility] MCV 79.0 fL (80.0-95.0) L [facility] MCH 25.1 pg (27.0-32.0) L [facility] MCHC 31.8 g/dL (32.0-36.0) L [facility] RDW 21.4 % (10.5-14.5) H [facility] PLT 252 10*3/uL (150-450) [facility] MPV 9.3 fL (7.1-10.7) [facility] ID Date Data Source [id number] 08/15/2019 08:29:21 PM EST [facility] SPEC EXP DATE 09/03/2019PATI ENT ABO/Rh A POSITIVEANTIBODY SCREEN NEGATIVETESTING SITE PERFORMED AT [address] [place] [address] Name Value Range Interpretation Code Description Data Carlie rce(s) Supporting Document(s) TYPE AND SCREEN [facility] ANTIBODY SCREEN NEGATIVE ID Date Data Source [id number] 08/15/2019 12:18:31 PM EST [facility] CorporationPAT[facility] NT INFORMATIONPatient MRN Name Date of Age Gend*PT [id number] Dheeraj Jamison 1990 29 years F OPPT Location Admission Date/Time Visit ID Attending Provider --- --- --- Preeti Schmitz MD([id number]) EPI ID CSN Admitting Provider [id number] ---HISTORY PHYSICALName: Dheeraj Jamison : 1990 Sex: female Care Provider: No primary care provider on file.Attending Physician: Dr. SchmitzInformant: The patient who is reliable.Chief Complaint: OverweightHISTORY OF PRESENT ILLNESS: 29 years old white female with a history of beingoverweight all her life that has been more significant over the last 4 year. Shehas tried multiple weight loss methods but has been unable to lose significantweight or sustain the weight loss. She is now ready for surgical intervention.The patient met with Dr. Schmitz, options were discussed and they have elected tounder go laparoscopic gastric Dontae-en-Y bypass, possible gastrectomy sleeve,possible hiatal hernia repair, possible liver wedge biopsy, possible laparotomyon 09/02/19.PAST MEDICAL HISTORY:Past Medical History:Diagnosis Date Anemia Anxiety GERD (gastroesophageal reflux disease) Hypothyroidism Morbid obesity Panic disorder depressionPAST SURGICAL HISTORY:Past Surgical History:Procedure L aterality Date SECTION x3 TUBAL LIGATIONALLERGIES:AllergiesAllergen Reactions Amoxil [Amoxicillin] Hives and Other (See Comments) Fever Adhesive Tape Itching and RashMEDICATIONS:Prior to Admission medicationsMedication Sig Start Date End Date Taking? Authorizing Providerferrous sulfate 325 (65 FE) MG tablet Take 650 mg by mouth every other dayHistorical Provider, MDlevothyroxine (SYNTHROID, LEVOTHROID) 100 MCG tablet Take 100 mcg by mouth dailyHistorical Provider, MDpredniSONE (DELTASONE) 20 MG tablet Take 20 mg by mouth 2 (two) times a day for5 days 08/15/19 Historical Provider, MDSocial HistoryTobacco Use Smoking status: Never Smoker Smokeless tobacco: Never UsedSubstance Use Topics Alcohol use: Yes Comment: 2/year Drug use: NeverFamily HistoryProblem Relation Age of Onset Malig Hyperthermia Neg HxREVIEW OF SYSTEMS:Constitution: Weight stable, Denies fatigue, fever or chills. Caffeine intake: 2cups/day.HEENT: Denies any blurred vision, double vision, dizziness, tinnitus, dysphagiaor headaches.Respiratory: Denies any shortness of breath, cough, yellow sputum production orwheezing.Cardiovascular: Denies any chest pain, pressure or tightness. Denies anyproximal nocturnal dyspnea or orthopnea.Muscle/Skeletal System: Denies any muscle ache, joint ache or weakness.Neurologic: Denies any numbness, tingling, tremors or syncope.GI: Denies any nausea, vomiting, diarrhea, constipation or melena.: Denies any dysuria, hematuria or nocturia. She has heavy bleeding withperiods that started following her last .Endocrine: Denies polyuria, polydipsia or polyphagia. Denies any heat or coldintolerance, fatigue or night sweats.Hematology: Denies any bleeding or bruising tendencies.CSHA Frailty Scale :: 3/10 Managing Well (medical problems are well controlled,but are not regularly active beyond routine walking).Stop Bang Questionnaire - Total Score:Anesthesia complications: NoneSteroid use: She denies any oral steroid therapy for three weeks or greaterwithin the last 3 months.DNR Status: Full Code per the patient.HCP: None per patient.PHYSICAL EXAM:General: She is a 29 years old, pleasant white female, in no acute distress attime of examination. Vitals on arrival to the office are BP 118/76 (BP Location:Left upper arm, Patient Position: Sitting) | Pulse 71 | Ht 1.676 m (5' 6") |Wt (!) 121.6 kg (268 lb) | SpO2 99% | BMI 43.26 kg/m Body mass index is43.26 kg/m ..Skin is pink warm and dry.HEENT: She is normocephalic, atraumatic. [place] conjunctivae. Anicteric sclerae.Pupils are equal, round, reactive to light and accommodation. Extraocularmovements are intact. Ears: Without drainage or lesion. Mouth: Dentition is ingood repair. She has a grade 1 airway. Neck is supple midline without cervicaladenopathy. There is no tonsillo pharyngeal congestion. Mucous membranes aremoist. There are no oral lesions. No jugular distention. No carotid bruit.CHEST/BREAST: A/P less than transverse. Breast exam declined.LUNGS: Clear to auscultation. No wheezes, rhonchi or crackles.HEART: Rate rhythm regular. S1, S2. No murmur, rub or gallop.ABDOMEN: Bowel sounds positive times four. Soft, non tender. No reboundtenderness. No hepatosplenomegaly. Negative CVAT.GENITAL/RECTAL: Deferred.MUSCLE/SKELETAL: Strength is 5/5. [employer] are equal.NEUROLOGICALLY: Cranial nerves II through XII are grossly intact.VASCULAR: Pulses are symmetrical. No edema.IMPRESSION:1. Morbid obesity .2. Medical co morbidities as listed above.3. ALLERGIES:Amoxil [amoxicillin] and Adhesive tapePLAN:1. Surgery as per Dr. Schmitz.2. Anticipated length of stay as per guidelines, barring any operativecomplications or exacerbations of medical co morbidities.3. Discharge plan is to return home with the assistance of family.4. Instructions for Surgery:- You may take Tylenol (Acetaminophen) for pain as needed the morning of surgery *STOP*Stop all Multivitamins and all Herbal drugs including Green Teas and Fish OilNSAID's - which include Ibuprofen (i.e. Motrin, Advil), Naproxen (i.e. Aleve)Seven days prior to surgery.Instructions for patient's medicationsCurrent Outpatient MedicationsMedication Instructions ferrous sulfate 325 (65 FE) MG tablet CONTINUE as prescribed levothyroxine (SYNTHROID, LEVOTHROID) 100 MCG tablet CONTINUE as prescribedNo current facility-administered medications for this visit.08/15/2019 12:18 PMMarsushma Smith NP*This document or parts of this document, were dictated using [employer] speaking software. A reasonable attempt at proofreading has beenmade to minimize errors. Please call with any questions or corrections. Name Value Range Interpretation Code Description Data Carlie rce(s) Supporting Document(s) Procedure Social History Code Duration Value Status Description Data Source(s ) Smoking 09/03/2020 12:00:00 AM EST Never Smoker completed Never S moker eCW1 ([facility]) Smoking 09/03/2020 12:00:00 AM EST Never Smoker completed Never S moker eCW1 ([facility]) Smoking 09/03/2020 12:00:00 AM EST Never Smoker completed Never S moker eCW1 ([facility]) Smoking 09/03/2020 12:00:00 AM EST Never Smoker completed Never S moker eCW1 ([facility]) Smoking 09/03/2020 12:00:00 AM EST Never Smoker completed Never S moker eCW1 ([facility]) Smoking 09/03/2020 12:00:00 AM EST Never Smoker completed Never S moker eCW1 ([facility]) Smoking 09/03/2020 12:00:00 AM EST Never Smoker completed Never S moker eCW1 ([facility]) Smoking 09/03/2020 12:00:00 AM EST Never Smoker completed Never S moker eCW1 ([facility]) Smoking 08/31/2020 12:00:00 AM EST Never Smoker completed Never S moker eCW1 ([facility]) Smoking 08/31/2020 12:00:00 AM EST Never Smoker completed Never S moker eCW1 ([facility]) 08/15/2020 06:12:08 PM EST Never Smoker completed Never S moker [facility] Smoking 08/15/2020 06:12:00 PM EST Never smoked tobacco (findi ng) completed Never smoked tobacco (finding) [facility] Alcohol intake 09/03/2019 12:00:00 AM EST Yes completed [facility] Smoking 09/03/2019 12:00:00 AM EST Never smoker completed Never s moker [facility] Alcohol intake 08/23/2019 12:00:00 AM EST Yes completed [facility] Smoking 08/23/2019 12:00:00 AM EST Never smoker completed Never s moker [facility] Alcohol intake 08/19/2019 12:00:00 AM EST Yes completed [facility] Smoking 08/19/2019 12:00:00 AM EST Never smoker completed Never s moker [facility] Alcohol intake 08/15/2019 12:00:00 AM EST Yes completed [facility] Smoking 08/15/2019 12:00:00 AM EST Never smoker completed Never s moker [facility] Vital Signs ID Date Data Source UNK Name Value Range Interpretation Code Description Data Source(s) Diastolic blood pressure 64 mm[Hg] 64 mm[Hg] eCW1 ([facility]) Systolic blood pressure 102 mm[Hg] 102 mm[Hg] e CW1 ([facility]) Body temperature 98.2 [degF] 98.2 [degF] eCW1 ( [facility]) Respiratory rate 18 /min 18 /min eCW1 ([facility]) Heart rate 115 /min 115 /min eCW1 ([facility]) Body mass index (BMI) [Ratio] 27.56 kg/m2 27.56 kg/m2 eCW1 ([facility]) Body height 67 [in_i] 67 [in_i] eCW1 ([facility]) Body weight 176 [lb_av] 176 [lb_av] eCW1 ([facility]) Diastolic blood pressure 78 mm[Hg] 78 mm[Hg] eCW1 ([facility]) Systolic blood pressure 128 mm[Hg] 128 mm[Hg] e CW1 ([facility]) Body temperature 97.8 [degF] 97.8 [degF] eCW1 ( [facility]) Respiratory rate 18 /min 18 /min eCW1 ([facility]) Heart rate 94 /min 94 /min eCW1 ([facility]) Body mass index (BMI) [Ratio] 27.41 kg/m2 27.41 kg/m2 eCW1 ([facility]) Body height 67 [in_i] 67 [in_i] eCW1 ([facility]) Body weight 175 [lb_av] 175 [lb_av] eCW1 ([facility]) Body temperature 99.1 [degF] 99.1 [degF] [facility] Heart rate 80 /min 80 /min [facility] Respiratory rate 18 /min 18 /min [facility] Oxygen saturation in Arterial blood by Pulse oximetry 100 % 100 % [facility] Systolic blood pressure 117 mm[Hg] 117 mm[Hg] [facility] Diastolic blood pressure 73 mm[Hg] 73 mm[Hg] [facility] Oxygen saturation in Arterial blood by Pulse oximetry 98 % 98 % [facility] Respiratory rate 18 /min 18 /min [facility] Body temperature 36.67 Lucero 36.67 Lucero [facility] Heart rate 67 /min 67 /min [facility] Diastolic blood pressure 76 mm[Hg] 76 mm[Hg] [facility] Systolic blood pressure 109 mm[Hg] 109 mm[Hg] [facility] Body mass index (BMI) [Ratio] 40.75 kg/m2 40.75 kg/m2 [facility] Body weight 114.533 kg 114.533 kg [facility] Body height 167.6 cm 167.6 cm [facility] Oxygen saturation in Arterial blood by Pulse oximetry 98 % 98 % [facility] Respiratory rate 16 /min 16 /min [facility] Diastolic blood pressure 79 mm[Hg] 79 mm[Hg] [facility] Systolic blood pressure 126 mm[Hg] 126 mm[Hg] [facility] Heart rate 78 /min 78 /min [facility] Body temperature 36.33 Lucero 36.33 Lucero [facility] Body mass index (BMI) [Ratio] 41.48 kg/m2 41.48 kg/m2 [facility] Body weight 116.574 kg 116.574 kg [facility] Body height 167.6 cm 167.6 cm [facility] Diastolic blood pressure 72 mm[Hg] 72 mm[Hg] eCW1 ([facility]) Systolic blood pressure 130 mm[Hg] 130 mm[Hg] e CW1 ([facility]) Body temperature 97.7 [degF] 97.7 [degF] eCW1 ( [facility]) Respiratory rate 18 /min 18 /min eCW1 ([facility]) Heart rate 99 /min 99 /min eCW1 ([facility]) Body mass index (BMI) [Ratio] 41.22 kg/m2 41.22 kg/m2 [facility] ([facility]) Body height 67 [in_us] 67 [in_us] eCW1 ([facility]) Body weight Measured 263.2 [lb_av] 263.2 [lb_av ] eCW1 ([facility]) Oxygen saturation in Arterial blood by Pulse oximetry 99 % 99 % [facility] Respiratory rate 16 /min 16 /min [facility] Body temperature 36.5 Lucero 36.5 Lucero [facility] Heart rate 65 /min 65 /min [facility] Diastolic blood pressure 64 mm[Hg] 64 mm[Hg] [facility] Systolic blood pressure 109 mm[Hg] 109 mm[Hg] [facility] Body mass index (BMI) [Ratio] 41.48 kg/m2 41.48 kg/m2 [facility] Body weight 116.574 kg 116.574 kg [facility] Body height 167.6 cm 167.6 cm [facility] Oxygen saturation in Arterial blood by Pulse oximetry 99 % 99 % [facility] Body mass index (BMI) [Ratio] 43.26 kg/m2 43.26 kg/m2 [facility] Body weight 121.564 kg 121.564 kg [facility] Body height 167.6 cm 167.6 cm [facility] Heart rate 71 /min 71 /min [facility] Diastolic blood pressure 76 mm[Hg] 76 mm[Hg] [facility] Systolic blood pressure 118 mm[Hg] 118 mm[Hg] [facility] Body mass index (BMI) [Ratio] 42.3 kg/m2 42.3 k g/m2 [facility] ([facility]) Body height 67 [in_i] 67 [in_i] [facility] ([facility]) 5'7" Body weight 270.00 [lb_av] 270.00 [lb_av] MEDEN T ([facility]) Body temperature 98.7 [degF] 98.7 [degF] [facility] ([facility]) Oxygen saturation in Arterial blood by Pulse oximetry 99 % 99 % [facility] ([facility]) Respiratory rate 20 /min 20 /min [facility] ( [facility]) Heart rate 100 /min 100 /min [facility] ([facility]) Diastolic blood pressure 74 mm[Hg] 74 mm[Hg] [facility] ([facility]) Systolic blood pressure 120 mm[Hg] 120 mm[Hg] M EDENT ([facility], [facility]) Patient Treatment Plan of Care Planned Activity Planned Date Details Description Data Source (s) Norethindrone Acet-Ethinyl Est 1-20 MG-MCG 09/16/2020 12:00:[address] eCW1 ([facility]) Loryna 3-0.02 MG 09/03/2020 12:00:00 AM EST eCW1 ([facility]) buspirone hydrochloride 5 MG Oral Tablet 09/03/2020 12:00:00 AM EST eCW1 ([facility]) Loryna 3-0.02 MG 09/03/2020 12:00:00 AM EST eCW1 ([facility]) buspirone hydrochloride 5 MG Oral Tablet 09/03/2020 12:00:00 AM EST eCW1 ([facility]) Loryna 3-0.02 MG 09/03/2020 12:00:00 AM EST eCW1 ([facility]) buspirone hydrochloride 5 MG Oral Tablet 09/03/2020 12:00:00 AM EST eCW1 ([facility]) Loryna 3-0.02 MG 09/03/2020 12:00:00 AM EST eCW1 ([facility]) buspirone hydrochloride 5 MG Oral Tablet 09/03/2020 12:00:00 AM EST eCW1 ([facility]) Loryna 3-0.02 MG 09/03/2020 12:00:00 AM EST eCW1 ([facility]) buspirone hydrochloride 5 MG Oral Tablet 09/03/2020 12:00:00 AM EST eCW1 ([facility]) Loryna 3-0.02 MG 09/03/2020 12:00:00 AM EST eCW1 ([facility]) buspirone hydrochloride 5 MG Oral Tablet 09/03/2020 12:00:00 AM EST eCW1 ([facility]) Loryna 3-0.02 MG 09/03/2020 12:00:00 AM EST eCW1 ([facility]) buspirone hydrochloride 5 MG Oral Tablet 09/03/2020 12:00:00 AM EST eCW1 ([facility]) buspirone hydrochloride 5 MG Oral Tablet 09/03/2020 12:00:00 AM EST eCW1 ([facility]) Loryna 3-0.02 MG 09/03/2020 12:00:00 AM EST eCW1 ([facility]) Levothyroxine Sodium 0.05 MG Oral Tablet 08/31/2020 12:00:00 AM EST eCW1 ([facility]) Levothyroxine Sodium 0.05 MG Oral Tablet 08/31/2020 12:00:00 AM EST eCW1 ([facility]) Ondansetron 4 MG Disintegrating Oral Tablet 09/03/2019 12:00:00 AM EST [facility] Acetaminophen 325 MG Oral Tablet 09/03/2019 12:00:00 AM [facility] Omeprazole 40 MG Delayed Release Oral Capsule 09/03/2019 12:00:00 A M [facility] Multiple Vitamins-Minerals (MULTIVITAMIN WITH MINERALS ) tablet 09/03/2019 12:00:00 AM EST [facility] 0.4 ML Enoxaparin sodium 100 MG/ML Prefilled Syringe 020 12:00:00 AM EST [facility] Simethicone 80 MG Chewable Tablet 09/03/2019 12:00:00 AM EST [facility] Vitamin B 12 0.5 MG Oral Tablet 09/03/2019 12:00:00 AM EST [facility] Prednisone 20 MG Oral Tablet [facility]
--- NOTE | 2020-09-25 14:40 | REP ---
INDICATION: chest tightness. COMPARISON: 07/19/2018, 10/09/2015. TECHNIQUE: Two views FINDINGS: The lung howard are well inflated. There is no pleural effusion or acute infiltrate. There is a stable nodular density overlying the anterior 5th intercostal space peripherally and unchanged for several years. The heart, mediastinal hilar contours are normal. The aorta and airway were intact. No free air under the diaphragm. No pneumothorax or pneumomediastinum. Lateral view shows increased AP diameter of the chest as before. No acute bony finding. IMPRESSION: 1. No acute cardiopulmonary change. Stable chest. <Electronically signed by Killian Roberts > 09/25/20 [id number]
--- OUTSIDE RECORDS SUMMARY | 2020-09-25 14:54 | CCD ---
Author Author [facility] Organization [facility] Address Unknown Phone Unavailable Care Team Providers Care Military Administrative Technician Name Role Phone Jacqueline Jiang DO Unavailable [...] is protected by Article 27-F of the [facility] Public Health law. If you continue you may have access to information: Regarding HIV / AIDS; Provided by facilities licensed or operated by the [facility] Office of Mental Health; or Provided by the [facility] Office for People With Developmental Disabilities. If such information is present, then the following [facility] mandated warning applies: This information has [...] law may result in a fine or long-term sentence or both. A general authorization for the release of medical or other information is NOT sufficient authorization for further disc losure. Allergies and Adverse Reactions Type Description Substance Reaction Status Data Source(s ) Drug allergy amoxicillin Amoxicillin RASH/HIVES U [facility] Drug allergy Amoxicillin Amoxicillin Hives Active eCW1 ([facility]) Propensity to adverse reactions AMOXICILLIN Amoxicillin Ac tive [facility] Propensity to adverse reactions ADHESIVE TAPE Adhesive Tape Rash Low Itching Low Active [facility] Low Low Family History Family Member Name Family Member Gender Family Member Status Date o f Status Description Data Source(s) [facility] Problem MED[facility] ([facility] Encounters Encounter Providers Location Date Indications Data Source(s ) [place] [address] [facility] [address] 09/15/2020 12:00:00 AM EST eCW1 ([facility]) [place] [address] [facility] [address] 09/07/2020 12:00:00 AM EST eCW1 ([facility]) [place] [address] [facility] [address] 09/04/2020 12:00:00 AM EST eCW1 ([facility]) [place] [address] [facility] [address] 09/04/2020 12:00:00 AM EST eCW1 ([facility]) Out[place] [address] [facility] [address] 09/03/2020 12:00:00 AM EST eCW1 ([facility]) [place] [address] [facility] [address] 09/03/2020 12:00:00 AM EST eCW1 ([facility]) Unknown [address] [facility] [address] 09/01/2020 12:00:00 AM EST eCW1 ([facility]) [place] [address] [facility] [address] 08/31/2020 12:00:00 AM EST eCW1 ([facility]) [place] [address] [facility] [address] 08/31/2020 12:00:00 AM EST eCW1 ([facility]) [place] [address] [facility] [address] 08/31/2020 12:00:00 AM EST eCW1 ([facility]) Emergency Attender: Froylan Jiang DO 021 05:36:00 PM EST - 08/15/2020 06:18:00 PM EST [facility] uc/fever body aches [facility] uc/fever body aches Patient discharged. Outpatient Attender: Alejandra Cavazos DDS [facility] 01/07/2020 07:31:42 P M EDT [facility] [address] [facility] [address] 08/28/2019 12:00:00 AM EST eCW1 ([facility]) [facility] [address] [facility] [address] 08/28/2019 12:00:00 AM EST eCW1 ([facility]) Outpatient Attender: Meir Blancas MDAdmit ter: Meir Blancas MDReferrer: MARISELA MARCIAL [id number] 08/22/2019 11:02:00 AM EST - 08/23/2019 12:24:00 PM EST [facility] Patient discharged. [facility] [address] [facility] [address] 08/20/2019 12:00:00 AM EST eCW1 ([facility]) [facility] [address] [facility] [address] 08/20/2019 12:00:00 AM EST eCW1 ([facility]) Outpatient Attender: PREETI SCHMITZReferrer: PREETI BELLO [email or web address] 08/15/2019 11:13:14 AM EST - 08/15/2019 12:50:10 PM EST [facility] Outpatient Attender: Lucina delgado 08/14/2019 08:45:00 AM EST MEDENT ([facility]) Outpatient Attender: Meir Blancas MDAdmit ter: Meir Blancas MDReferrer: Meir Blancas MD [id number] 06/25/2019 02:15:19 PM EST - 08/19/2019 12:05:00 PM EST [facility] Patient discharged. Inpatient Attender: PREETI Harrell colt: PREETI SCHMITZAdmitter: PREETI SCHMITZ [id number] 06/22/2019 08:23:35 AM EST - 09/03/2019 02:58:00 PM EST [facility] Patient discharged. Medications Medication Brand Name Start Date Product Form Dose Route Admi nistrative Instructions Pharmacy Instructions Status Indications Reaction Description Data Source(s) Norethindrone Acet-Ethinyl Est 1-20 MG-MCG Norethindro ne Acet-Ethinyl Est 1-20 MG-MCG 09/16/2020 12:00:00 AM EST 1.0 {tablet} activ e Norethindrone Acet-Ethinyl Est 1-20 MG-MCG eCW1 ([facility]) Loryna 3-0.02 MG Loryna 3-0.02 MG 09/03/2020 12:00:00 AM EST 1.0 {tablet} active Loryna 3-0.02 MG eCW1 ([facility]) buspirone hydrochloride 5 MG Oral Tablet BusPIRone HCl 5 MG BusPIRone HCl 5 MG 09/03/2020 12:00:00 AM EST 1.0 {tablet} active BusPIRone HCl 5 MG eCW1 ([facility]) Loryna 3-0.02 MG Loryna 3-0.02 MG 09/03/2020 12:00:00 AM EST 1.0 {tablet} active Loryna 3-0.02 MG eCW1 ([facility]) Loryna 3-0.02 MG Loryna 3-0.02 MG 09/03/2020 12:00:00 AM EST 1.0 {tablet} active Loryna 3-0.02 MG eCW1 ([facility]) buspirone hydrochloride 5 MG Oral Tablet BusPIRone HCl 5 MG BusPIRone HCl 5 MG 09/03/2020 12:00:00 AM EST 1.0 {tablet} active BusPIRone HCl 5 MG eCW1 ([facility]) buspirone hydrochloride 5 MG Oral Tablet BusPIRone HCl 5 MG BusPIRone HCl 5 MG 09/03/2020 12:00:00 AM EST 1.0 {tablet} active BusPIRone HCl 5 MG eCW1 ([facility]) buspirone hydrochloride 5 MG Oral Tablet BusPIRone HCl 5 MG BusPIRone HCl 5 MG 09/03/2020 12:00:00 AM EST 1.0 {tablet} active BusPIRone HCl 5 MG eCW1 ([facility]) Loryna 3-0.02 MG Loryna 3-0.02 MG 09/03/2020 12:00:00 AM EST 1.0 {tablet} active Loryna 3-0.02 MG eCW1 ([facility]) Loryna 3-0.02 MG Loryna 3-0.02 MG 09/03/2020 12:00:00 AM EST 1.0 {tablet} active Loryna 3-0.02 MG eCW1 ([facility]) Loryna 3-0.02 MG Loryna 3-0.02 MG 09/03/2020 12:00:00 AM EST 1.0 {tablet} active Loryna 3-0.02 MG eCW1 ([facility]) buspirone hydrochloride 5 MG Oral Tablet BusPIRone HCl 5 MG BusPIRone HCl 5 MG 09/03/2020 12:00:00 AM EST 1.0 {tablet} active BusPIRone HCl 5 MG eCW1 ([facility]) buspirone hydrochloride 5 MG Oral Tablet BusPIRone HCl 5 MG BusPIRone HCl 5 MG 09/03/2020 12:00:00 AM EST 1.0 {tablet} active BusPIRone HCl 5 MG eCW1 ([facility]) Loryna 3-0.02 MG Loryna 3-0.02 MG 09/03/2020 12:00:00 AM EST 1.0 {tablet} active Loryna 3-0.02 MG eCW1 ([facility]) buspirone hydrochloride 5 MG Oral Tablet BusPIRone HCl 5 MG BusPIRone HCl 5 MG 09/03/2020 12:00:00 AM EST 1.0 {tablet} active BusPIRone HCl 5 MG eCW1 ([facility]) Loryna 3-0.02 MG Loryna 3-0.02 MG 09/03/2020 12:00:00 AM EST 1.0 {tablet} active Loryna 3-0.02 MG eCW1 ([facility]) buspirone hydrochloride 5 MG Oral Tablet BusPIRone HCl 5 MG BusPIRone HCl 5 MG 09/03/2020 12:00:00 AM EST 1.0 {tablet} active BusPIRone HCl 5 MG eCW1 ([facility]) Levothyroxine Sodium 0.05 MG Oral Tablet Levothyroxine Sodium 50 MCG Levothyroxine Sodium 50 MCG 08/31/2020 12:00:00 AM EST active Levothyroxine Sodium 50 MCG eCW1 ([facility]) Levothyroxine Sodium 0.05 MG Oral Tablet Levothyroxine Sodium 50 MCG Levothyroxine Sodium 50 MCG 08/31/2020 12:00:00 AM EST active Levothyroxine Sodium 50 MCG eCW1 ([facility]) 1 ML Ketorolac Tromethamine 30 MG/ML Car tridge ketorolac (TORADOL) injection 30 mg ketorolac (TORADOL) injection 30 mg 09/03/2019 01:59:22 PM EST 30 mg Intravenous completed 30 mg, Intrav enous, Once as needed, severe pain (7-10), Starting 09/03/19 at 1359, For 1 dose [facility] Medication administered onsite Levothyroxine Sodium 0.1 MG Oral Tablet levothyroxine (SYNTHROID, LEVOTHROID) tablet 100 mcg levothyroxine (SYNTHROID, LEVOTHROID) tablet 100 mcg 0 09/03/2019 06:00:00 AM EST 100 ug Oral active 100 mcg, Oral, Daily (0600), First dose on Mon09/03/19 at 0600
hold for 1 hour before and 1 hour after tube feeds if patient is on tube feed
[facility] Medication administered onsite ondansetron (ZOFRAN-ODT) disintegrating tablet 8 mg 09/03/2019 06:00:00 AM EST 8 mg Oral active [Order 1 Start] Name: ondansetron (ZOFRAN-ODT) disintegrating tablet 8 mg Signed Summary: 8 mg, Oral, Every 6 hours PRN, nausea, Starting 09/03/19 at 0600, Post-op [Order 1 End] [Order 2 Start] Name: ondansetron (ZOFRAN) injection 8 mg Signed Summary: 8 mg, Intravenous, Every 6 hours PRN, nausea, severe nausea, Starting 09/03/19 at 0600, Post-op [Order 2 End] [facility] Medication administered onsite Ondansetron 4 MG Disintegrating Oral Tab let ondansetron (ZOFRAN-ODT) 4 MG disintegrating tablet ondansetron (ZOFRAN-ODT) 4 MG disintegrating tablet 09/03/2019 12:00:00 AM EST 4 mg Oral active Take 1 tablet (4 mg total) by mouth every 6 (six) hours as needed for nausea [facility] Acetaminophen 325 MG Oral Tablet acetaminophen (TYLENO L) 325 MG tablet acetaminophen (TYLENOL) 325 MG tablet 09/03/2019 12:00:00 AM EST 65 0 mg Oral active Take 2 tablets (650 mg total) by mouth every 6 (six) hours as needed for pain [facility] Vitamin B 12 0.5 MG Oral Tablet cyanocob alamin ([facility] VITAMIN B-12) 500 MCG tablet cyanocobalamin ([facility] VITAMIN B-12) 500 MCG tablet 09/03/2019 12:0 0:00 AM EST 1000 ug Oral active Take 2 tablets (1,000 mc g total) by mouth daily [facility] Simethicone 80 MG Chewable Tablet simethicone (MYLICON ) 80 MG chewable tablet simethicone (MYLICON) 80 MG chewable tablet 09/03/2019 12:00:00 AM EST 80 mg Oral active Chew 1 tablet (80 mg total) every 6 (six) hours as needed for flatulence [facility] 0.4 ML Enoxaparin sodium 100 MG/ML Prefi lled Syringe enoxaparin (LOVENOX) 40 MG/0.4ML SOLN enoxaparin (LOVENOX) 40 MG/0.4ML SOLN 09/03/2019 12:00:00 AM EST 40 mg Subcutaneous active Inject 0.4 mL (40 mg total) under the skin daily for 10 days [facility] Multiple Vitamins-Minerals (MULTIVITAMIN WITH MINERALS) tabl [place] [id number] 09/03/2019 12:00:00 AM EST 2 {tbl} Oral active Take 2 tablets by mouth daily [facility] Omeprazole 40 MG Delayed Release Oral Ca psule omeprazole (PRILOSEC) 40 MG capsule omeprazole (PRILOSEC) 40 MG capsule 09/03/2019 12:00:00 AM EST 40 mg Oral active Take 1 capsule (40 m g total) by mouth daily [facility] Acetaminophen 325 MG Oral Tablet acetaminophen (TYLENO L) 325 MG tablet 650 mg acetaminophen (TYLENOL) 325 MG tablet 650 mg 09/03/2019 12:00:00 AM EST 650 mg Oral active 650 mg, Or al, Every 4 hours PRN, mild pain (1-3), for mild pain, headache, or temperature > 101, Starting Mon09/03/19 at 0000, Post-op
To begin after routine doses of tylenol.
[facility] Medication administered onsite Metoprolol Tartrate 25 MG Oral Tablet me toprolol tartrate (LOPRESSOR) tablet 25 mg metoprolol tartrate (LOPRESSOR) tablet 25 mg 09/02/2019 09:00:00 PM EST 25 mg Oral active 25 mg, Ora l, 2 times daily, First dose on Mon09/02/19 at 2100, Post-op
Hold Lopressor for SBP < 100 mmHg or HR < 60.
[facility] Medication administered onsite heparin (porcine) injection 5,000 Units [id number] 09/02/19 06:00:00 PM EST 5000 U Subcutaneous active 5,000 Units , Subcutaneous, Every 8 hours (relative), First dose on Mon09/02/19 at 1800, Post-op
If platelet count is less than 100,000 or hematocrit is less than 25, or if there is a 5 point decrea se in hematocrit, do not give the dose and call physician/designee.
[facility] Medication administered onsite Acetaminophen 500 MG Oral Tablet acetaminophen (TYLENO L) tablet 1,000 mg acetaminophen (TYLENOL) tablet 1,000 mg 09/02/2019 03:00:00 PM EST 1000 mg Oral active 1,000 mg, Oral , Every 8 hours, First dose on Mon09/02/19 at 1500, For 48 hours, Post-op [facility] Medication administered onsite gabapentin 300 MG Oral Capsule gabapentin (NEURONTIN) capsule 300 mg gabapentin (NEURONTIN) capsule 300 mg 09/02/2019 02:00:00 PM EST 300 mg Oral active 300 mg, Oral, 3 times daily, First dose on Mon09/02/19 at 1400, Post-op [facility] Medication administered onsite normal saline flush 0.9 % injection 3 mL [id number] 09/02/2019 02:00:00 PM EST 3 mL Intravenous active 3 mL , Intravenous, QSHIFT, First dose on Mon09/02/19 at 1400, Post-op
Convert to saline lock after discontinuing D5LR IV.
[facility] Medication administered onsite Ondansetron 4 MG Disintegrating Oral Tab let ondansetron (ZOFRAN-ODT) disintegrating tablet 8 mg ondansetron (ZOFRAN-ODT) disintegrating tablet 8 mg 09/02/2019 12:00:00 PM EST 8 mg Oral completed 8 mg, Oral, Every 6 hours (scheduled), First dose on Mon09/02/19 at 1200, For 24 hours, Post-op [facility] Medication administered onsite pantoprazole 40 MG Delayed Release Oral Tablet pantoprazole (PROTONIX) EC tablet 40 mg pantoprazole (PROTONIX) EC tablet 40 mg 09/02/2019 12:00:[address] 40 mg Oral active Stress Ulcer Prophylaxis 40 mg, Oral, Daily, Indications: Stress Ulcer Prophylaxis, First dose on Mon09/02/19 at 1200, Post-op [facility] Stress Ulcer Prophylaxis Medication administered onsite Simethicone 80 MG Chewable Tablet simethicone (MYLICON ) chewable tablet 80 mg simethicone (MYLICON) chewable tablet 80 mg 09/02/2019 12:00:00 PM EST 80 mg Oral active 80 mg, Oral, E very 4 hours (scheduled), First dose on Mon09/02/19 at 1200, Post-op [facility] Medication administered onsite Insulin Lispro 100 UNT/ML Injectable Ashanti ution insulin lispro (HumaLOG) injection 4-16 Units insulin lispro (HumaLOG) injection 4-16 Units 09/02/19 12:00:00 PM EST Subcutaneous active 4-1 6 Units, Subcutaneous, Q6HSS, First dose on Mon09/02/19 at 1200, Post-op
Blood Sugar Units of [id number] 4 [id number] 8 [id number] 10 units 321-370 12 units 371-420 14 units>420 16 units, Call MD
[facility] Medication administered onsite Calcium Chloride 0.001 [...] adequate PO & convert to saline lock
[facility] Medication administered onsite 1 ML Ketorolac Tromethamine 30 MG/ML Car tridge ketorolac (TORADOL) injection 30 mg ketorolac (TORADOL) injection 30 mg 09/02/2019 11:58:00 AM EST 30 mg Intravenous completed 30 mg, Intrav enous, Every 6 hours PRN, severe pain (7-10), Starting Mon09/02/19 at 1158, For 4 doses, Post-op [facility] Medication administered onsite Prochlorperazine 10 MG Oral Tablet prochlorperazine (C OMPAZINE) tablet 10 mg prochlorperazine (COMPAZINE) tablet 10 mg 09/02/2019 11:09:15 AM EST 10 mg Oral active 10 mg, Oral, E very 6 hours PRN, nausea, not relieved by metoclopramide, Starting Mon09/02/19 at 1109, Post-op [facility] Medication administered onsite Promethazine Hydrochloride 25 MG Oral Ta blet promethazine (PHENERGAN) tablet 12.5 mg promethazine (PHENERGAN) tablet 12.5 mg 09/02/2019 11:09:[address] 12.5 mg Oral active 12.5 mg, O ral, Every 4 hours PRN, nausea, not relieved by prochlorperazine, Starting Mon09/02/19 at 1109, Post-op [facility] Medication administered onsite enalaprilat (VASOTEC) injection 1.25 mg [id number] 09/02/19 11:09:14 AM EST 1.25 mg Intravenous active 1.25 mg, Int ravenous, Every 6 hours PRN, for SBP > 140 mmHg and/or DBP > 90 mmHg, Starting Mon09/02/19 at 1109, Post-op
Mix in 50 mL NS, infuse over 30 minutes via infusion pump.For IVMB on NON-ICU units.
[facility] Medication administered onsite Clonidine Hydrochloride 0.1 MG Oral Tablet cloNIDine ( CATAPRES) tablet 0.1 mg cloNIDine (CATAPRES) tablet 0.1 mg 09/02/2019 11:09:14 AM EST 0.1 mg Oral active 0.1 mg, Oral, Every 4 hours PRN, high blood pressure, for SBP > 140 mmHg and/or DBP > 90 mmHg, Starting Mon09/02/19 at 1109, Post-op [facility] Medication administered onsite 0.4 ML Enoxaparin sodium 100 MG/ML Prefi lled Syringe enoxaparin (LOVENOX) syringe 40 mg enoxaparin (LOVENOX) syringe 40 mg 09/02/2019 11:09:14 AM EST 40 mg Subcutaneous completed 40 mg, Subcutaneous, Before Discharge, for prophylaxis, Starting Mon09/02/19 at 1109, For 1 dose, Post-op
At discharge. To be administered by patient or significant other.
[facility] Medication administered onsite Metoprolol Tartrate 25 MG Oral Tablet me toprolol tartrate (LOPRESSOR) tablet 25 mg metoprolol tartrate (LOPRESSOR) tablet 25 mg 09/02/2019 11:00:00 AM EST 25 mg Oral completed 25 mg, Ora l, Once, Mon09/02/19 at 1100, For 1 dose, PACU (only)
For 1 dose in PACU.Hold for SBP < 100 or HR < 60
[facility] Medication administered onsite metoclopramide (REGLAN) injection [...] hours PRN for nausea
[Order 2 End] [facility] Medication administered onsite fentaNYL Citrate (PF) (SUBLIMAZE) injection 25 mcg [id number] 09/02/2019 10:10:16 AM EST 25 ug Intravenous aborted 25 mcg, Intravenous, Every 5 min PRN, moderate pain (4 to 6), Starting Mon09/02/19 at 1010, For 1 day, PACU (only) [facility] Medication administered onsite 4 ML Labetalol hydrochloride 5 MG/ML Car tridge labetalol (NORMODYNE,TRANDATE) injection 5-20 mg labetalol (NORMODYNE,TRANDATE) injection 5-20 mg 09/02 10:10:15 AM EST Intravenous aborted 5-20 mg, Intravenous, Every 10 min PRN, high blood pressure, Starting Mon09/02/19 at 1010, PACU (only)
For SBP 140-149 give:Initial dose: [id number] ivp over 2 minutes May repeat in 10 minutes with:Labetalol 10 mg ivp over 2 minutesMay repeat in 10 minutes with:Labetalol 20 mg ivp over 2 minutes MAXIMUM DOSE 300 MGHOLD FOR HR LESS THAN 60
[facility] Medication administered onsite Albuterol 0.83 MG/ML Inhalant Solution a lbuterol (PROVENTIL) nebulizer solution 2.5 mg albuterol (PROVENTIL) nebulizer solution 2.5 mg 2019 06:00:00 AM EST 2.5 mg completed 2.5 mg , Nebulization, toll transmission worker, Mon09/02/19 at 0600, For 1 dose, Pre-op
To be started by pre-op unit
[facility] Medication administered onsite Acetaminophen 325 MG Oral Tablet acetaminophen (TYLENO L) 325 MG tablet 975 mg acetaminophen (TYLENOL) 325 MG tablet 975 mg 09/02/2019 06:00:00 AM EST 975 mg Oral completed 975 mg, Or al, toll transmission worker, Mon09/02/19 at 0600, For 1 dose, Pre-op
"Maximum dose of acetaminophen is 4,000 mg from all sources in 24 hours."
[facility] Medication administered onsite Clonidine Hydrochloride 0.1 MG Oral Tablet cloNIDine ( CATAPRES) tablet 0.1 mg cloNIDine (CATAPRES) tablet 0.1 mg 09/02/2019 06:00:00 AM EST 0.1 mg Oral completed 0.1 mg, Oral, toll transmission worker, Mon 0 at 0600, For 1 dose, Pre-op [facility] Medication administered onsite Alprazolam 0.25 MG Oral Tablet ALPRAZolam (XANAX) tabl et 0.25 mg ALPRAZolam (XANAX) tablet 0.25 mg 09/02/2019 06:00:00 AM EST 0.25 mg Oral completed 0.25 mg, Oral, toll transmission worker, Mon09/02/19 at 06 00, For 1 dose, Pre-op [facility] Medication administered onsite Tetrahydrocannabinol 2.5 MG Oral Capsule dronabinol (M ARINOL) capsule 5 mg dronabinol (MARINOL) capsule 5 mg 09/02/2019 06:00:00 AM EST 5 mg Oral completed 5 mg, Oral, toll transmission worker, Mon09/02/19 at 0600, For 1 dose, Pre-op [facility] Medication administered onsite Prochlorperazine 10 MG Oral Tablet prochlorperazine (C OMPAZINE) tablet 10 mg prochlorperazine (COMPAZINE) tablet 10 mg 09/02/2019 06:00:00 AM EST 10 mg Oral completed 10 mg, Oral, O n call, Mon09/02/19 at 0600, For 1 dose, Pre-op [facility] Medication administered onsite heparin (porcine) injection 5,000 Units [id number] 09/02/19 06:00:00 AM EST 5000 U Subcutaneous completed 5,000 Uni ts, Subcutaneous, toll transmission worker, Mon09/02/19 at 0600, For 1 dose, Pre-op
If platelet count is less than 100,000 or hematocrit is less than 25, or if there is a 5 point decrease in hematocrit, do not give the dose and call physician/designee.
[facility] Medication administered onsite Calcium Chloride 0.0014 MEQ/ML / Potassi um Chloride 0.004 MEQ/ML / Sodium Chloride 0.103 MEQ/ML / Sodium Lactate 0.028 MEQ/ML Injectable Solution lactated ringers infusion lactated ringers infusion 09/02/2019 06:00:00 AM EST 100 mL/h Intravenous aborted at 100 m L/hr, 100 mL/hr, Intravenous, Continuous, Starting Mon09/02/19 at 0600, Pre-op
Please place IV on left side if able
[facility] Medication administered onsite Dexamethasone 4 MG Oral Tablet dexamethasone (DECADRON ) tablet 4 mg dexamethasone (DECADRON) tablet 4 mg 09/02/2019 06:00:00 AM EST 4 mg Oral completed 4 mg, Oral, toll transmission worker, Mon09/02/19 at 0600, For 1 dose, Pre-op [facility] Medication administered onsite gabapentin 600 MG Oral Tablet gabapentin (NEURONTIN) t ablet 600 mg gabapentin (NEURONTIN) tablet 600 mg 09/02/2019 06:00:00 AM EST 600 mg Oral completed 600 mg, Oral, On darci l, Mon09/02/19 at 0600, For 1 dose, Pre-op
Hold if age greater than 70 or chronic renal failure/insufficiency
[facility] Medication administered onsite celecoxib 100 MG Oral Capsule celecoxib (CeleBREX) cap shailesh 200 mg celecoxib (CeleBREX) capsule 200 mg 09/02/2019 06:00:00 AM EST 200 mg Oral completed 200 mg, Oral, toll transmission worker, Mon 0 at 0600, For 1 dose, Pre-op [facility] Medication administered onsite 72 HR Scopolamine [...] hx of glaucoma, hx of vertigo, dementia.
[facility] Medication administered onsite Magnesium Chloride 0.09076 MEQ/ML / Pota ssium Chloride 0.0497 MEQ/ML / Sodium Acetate 0.0163 MEQ/ML / Sodium Chloride 0.0899 MEQ/ML / Sodium gluconate 5.02 MG/ML Injectable Solution [Normosol-R] electrolyte-R (NORMOSOL-R/PLASMALYTE-R) solution electrolyte-R (NORMOSOL-R/PLASMALYTE-R) solution 08/23 12:00:00 PM EST Intravenous active at 1 00 mL/hr, Intravenous, Continuous, Starting Mon08/23/19 at 1200, Pre-op [facility] Medication administered onsite 72 HR Scopolamine 0.0139 MG/HR Transderm al Patch scopolamine (TRANSDERM-SCOP) 1.5 MG 1 patch scopolamine (TRANSDERM-SCOP) 1.5 MG 1 patch 08/23/2019 11:00:00 AM EST 1 {patch} Transdermal active 1 patch, Transdermal, Administer over 24 Hours, Every 72 hours, First dose on Mon08/23/19 at 1100, For 1 dose, Pre-op [facility] Medication administered onsite Magnesium Chloride 0.99414 MEQ/ML / Pota ssium Chloride 0.0497 MEQ/ML / Sodium Acetate 0.0163 MEQ/ML / Sodium Chloride 0.0899 MEQ/ML / Sodium gluconate 5.02 MG/ML Injectable Solution [Normosol-R] electrolyte-R (NORMOSOL-R/PLASMALYTE-R) solution electrolyte-R (NORMOSOL-R/PLASMALYTE-R) solution 08/23 11:00:00 AM EST Intravenous active at 1 20 mL/hr, Intravenous, Continuous, Starting Mon08/23/19 at 1100, PACU (only) [facility] Medication administered onsite 40 mg/0.4 mL [...] Mon08/19/19 at 1100, For 1 dose, Pre-op [facility] Medication administered onsite Magnesium Chloride 0.69539 MEQ/ML / Pota ssium Chloride 0.0497 MEQ/ML / Sodium Acetate 0.0163 MEQ/ML / Sodium Chloride 0.0899 MEQ/ML / Sodium gluconate 5.02 MG/ML Injectable Solution [Normosol-R] electrolyte-R (NORMOSOL-R/PLASMALYTE-R) solution electrolyte-R (NORMOSOL-R/PLASMALYTE-R) solution 08/19 11:00:00 AM EST Intravenous active at 1 00 mL/hr, Intravenous, Continuous, Starting 08/19/19 at 1100, Pre-op [facility] Medication administered onsite No Active Medications 08/14/2019 12:00:00 AM EST completed [facility] ([facility], [facility]) Albuterol 0.83 MG/ML Inhalant Solution Albuterol Sulfate 0 08/14/2019 12:00:00 AM EST active [facility]ENT ([facility], [facility]) Prednisone 20 MG Oral Tablet Prednisone 08/14/2019 12:00:00 AM EST active [facility] ([facility]) 20 mg 08/14/2019 12:00:00 AM EST tablet [...] (two) times a day for 5 days [facility] Insurance Providers Payer name Policy type / Coverage type Policy ID Covered alliance party ID Covered alliance party's relationship to shell Policy Shell Plan Information [facility] [employer] [facility] [id number] SP [id number] [employer] [facility] [id number] SP [id number] SELF PAY [facility] COMMUNITY PLAN [id number] SP [id number] Medicaid Dental P [id number] S [id number] [facility] MEDICAID [id number] Ioana [id number] [facility] MEDICAID [id number] [facility] Health Maintenance Organization ([facility]) [id number] Self [id number] O UNAVAILABLE UNAVAILA BLE SELF PAY ONLY [id number] SP [id number] SELF PAY ONLY UNAVAILABLE SP UNAV AILABLE SELF PAY ONLY - [id number] SP [facility] Health Maintenance Organization ([facility]) [id number] Self [id number] MEDICAID [id number] SP [id number] SELF PAY UNAVAILABLE SP UNAVAILA BLE [id number] SP [id number] SP [id number] INSURANCE-C O [id number] S [id number] AMERIC[employer]ICE UNHC XIX HMO -I/P [id number] 18 [id number] [employer] UNHC XIX HMO -I/P [id number] 18 [id number] MEDICAID-I/P [id number] UNHC AMERICHOICE XIX -HMO [id number] 18 [id number] [facility] P [id number] S [id number] [facility] [id number] SP [id number] HMO BLUE [id number] SP [id number] HMO BLUE [id number] SP [id number] Problems, Conditions, and Diagnoses Code Display Name Description Problem Type Effective Dates Data Source(s) F41.9 [id number] Anxiety Problem 09/03/2020 12:00:00 AM [place] [address] ([facility]) Z13.220 [id number] Lipid screening Problem 08/31/2020 12:00:00 AM [place] [address] ([facility]) Z98.84 [id number] S/P gastric bypass Problem 08/31/2020 12:00: 00 AM [place] [address] ([facility]) E66.9 [id number] Obesity, unspecified Problem 08/31/2020 12:00:00 AM [place] [address] ([facility]) Z98.84 S/P gastric bypass S/P gastric bypass [id number] 10/2019 12:00:00 AM [facility] F41.9 Anxiety Anxiety [id number] 09/02/2019 12:00:00 AM [facility] K21.9 GERD (gastroesophageal reflux disease) G ERD (gastroesophageal reflux disease) [id number] 09/02/2019 12:00:00 AM [facility] E66.01 Morbid obesity Morbid obesity [id number] 09/02/2019 12:00: 00 AM [facility] E03.9 Hypothyroidism Hypothyroidism [id number] 09/02/2019 12:00: 00 AM [facility] E66.01 [id number] Obesity, morbid Problem 08/20/2019 12:00:00 AM [place] [address] ([facility]) E66.01 [id number] Obesity, morbid Problem 08/20/2019 12:00:00 AM [place] [address] ([facility]) R50.9 Fever, unspecified R50.9 - Fever, unspecified Diagnosi s 08/15/2020 05:36:00 PM [facility] M79.10 M79.10 - Myalgia, unspecified site M79.10 - Myal fei, unspecified site Diagnosis 08/15/2020 05:36:00 PM [facility] E66.01 Morbid (severe) obesity due to excess ca lories Morbid (severe) obesity due to excess ca Diagnosis 09/02/2019 05:21:00 AM EST [facility] K21.9 Gastro-esophageal reflux disease without esophagitis Gastro-esophageal reflux disease without Diagnosis 08/19/2019 09:29:00 AM [facility] Surgeries/Procedures Procedure Description Date Indications Data Source(s) GLUC BLD GLUC MNTR DEV CLEARED FDA SPEC HOME USE POCT GLUCOSE Routine 09/03/2019 12:52 PM EST 09/03/2019 05:52:00 PM EST [facility] GLUC BLD GLUC MNTR DEV CLEARED FDA SPEC HOME USE POCT GLUCOSE Routine 09/03/2019 5:51 AM EST 09/03/2019 10:51:00 AM [facility] GLUC BLD GLUC MNTR DEV CLEARED FDA SPEC HOME USE POCT GLUCOSE Routine 09/02/2019 11:52 PM EST 09/03/2019 04:52:00 AM [facility] GLUC BLD GLUC MNTR DEV CLEARED FDA SPEC HOME USE POCT GLUCOSE Routine 09/02/2019 6:26 PM EST 09/02/2019 11:26:00 PM [facility] GLUC BLD GLUC MNTR DEV CLEARED FDA SPEC HOME USE POCT GLUCOSE Routine 09/02/2019 11:50 AM EST 09/02/2019 04:50:00 PM [facility] GLUC BLD GLUC MNTR DEV CLEARED FDA SPEC HOME USE POCT GLUCOSE Routine 09/02/2019 10:12 AM EST 09/02/2019 03:12:00 PM EST [facility] LAPS GSTR RSTCV PX W/BYP DONTAE-EN-Y LIMB <150 CM CREAT ION, GASTRIC BYPASS, DNOTAE-EN-Y, LAPAROSCOPIC, WITH SLEEVE GASTRECTOMY IF INDICATED, WITH LIVER BIOPSY IF INDICATED, WITH HIATAL HERNIA REPAIR IF INDICATED, WITH LAPAROTOMY IF INDICATED 09/02/2019 7:30 AM EST Morbid obesity 09/02/2019 12:30:00 PM EST - 09/02/2019 03:32:00 PM EST Morbid obesity [facility] Morbid obesity POCT I-STAT BETA HCG POCT I-STAT BETA HCG Routine 09/02/2019 6:22 AM EST 09/02/2019 11:22:00 AM EST [facility] GLUC BLD GLUC MNTR DEV CLEARED FDA SPEC HOME USE POCT GLUCOSE Routine 09/02/2019 6:20 AM EST 09/02/2019 11:20:00 AM EST [facility] POCT I-STAT BETA HCG POCT I-STAT BETA HCG Routine 08/19/2019 9:58 AM EST 08/19/2019 02:58:00 PM EST [facility] BLOOD COUNT COMPLETE AUTOMATED CBC Routine 0 12:20 PM EST Morbid obesity 08/15/2019 05:20:00 PM EST Morbid obesity [facility] Morbid obesity BLOOD TYPING ABO TYPE AND SCREEN Routine 08/15/2019 12:20 PM EST Morbid obesity 08/15/2019 05:20:00 PM EST Morbid obesity [facility] Morbid obesity THYROID STIMULATING HORMONE TSH TSH Routine 08/15/19 12:20 PM EST Morbid obesity 08/15/2019 05:20:00 PM EST Morbid obesity [facility] Morbid obesity HEMOGLOBIN GLYCOSYLATED A1C HEMOGLOBIN A1C Routine 08/15/2019 12:20 PM EST Morbid obesity 08/15/2019 05:20:00 PM EST Morbid obesity [facility] Morbid obesity COMPREHENSIVE METABOLIC PANEL COMPREHENSIVE METABOLIC PANEL Rou anthony 08/15/2019 12:20 PM EST Morbid obesity 08/15/2019 05:20:00 PM EST Morbid obesity [facility] Morbid obesity ECG ROUTINE ECG W/LEAST 12 LDS TRCG ONLY W/O I&R ECG 12-LEAD Routine 08/15/2019 12:17 PM EST Morbid obesity 08/15/2019 05:17:32 PM EST Morbid obesity [facility] Morbid obesity Results ID Date Data Source VITAMIN D 25-HYDROXY 08/31/2020 12:00:00 AM EST eCW1 ([facility]) Name Value Range Interpretation Code Description Data Carlie rce(s) Supporting Document(s) 24.2 30.0-100.0 eCW1 ([facility]) ID Date Data Source VITAMIN B12 LEVEL 08/31/2020 12:00:00 AM EST eCW1 ([facility]) Name Value Range Interpretation Code Description Data Carlie rce(s) Supporting Document(s) > 2000 878-597 eCW1 ([facility]) ID Date Data Source FERRITIN 08/31/2020 12:00:00 AM EST eCW1 ([facility]) Name Value Range Interpretation Code Description Data Carlie rce(s) Supporting Document(s) 4 8-252 FERRITIN eCW1 ([facility], [facility]) ID Date Data Source LIPID PANEL (CARDIAC RISK) 08/31/2020 12:00:00 AM EST eCW1 ( [facility]) Name Value Range Interpretation Code Description Data Carlie rce(s) Supporting Document(s) Cholesterol in HDL [Moles/volume] in Serum or Plasma 80 >40 HDL CHOLESTEROL eCW1 ([facility]) Cholesterol [Moles/volume] in Serum or Plasma 176 <200 CHOLESTEROL LEVEL eCW1 ([facility]) Triglyceride [Mass/volume] in Serum or Plasma by calculation 89 <150 TRIGLYCERIDES LEVEL eCW1 ([facility]) 2.200 <5 CHOLESTEROL RISK RATIO eCW1 ([facility]) Cholesterol in LDL [Mass/volume] in Serum or Plasma by calculation 78 <100 LDL CHOLESTEROL eCW1 ([facility]) 96 NON-HDL-C eCW1 ([facility], [facility]) ID Date Data Source [id number] 08/31/2020 12:00:00 AM EST eCW1 ([facility]) Name Value Range Interpretation Code Description Data Carlie rce(s) Supporting Document(s) Hemoglobin A1c/Hemoglobin.total in Blood 5.2 HEMOGLOBIN A1c eCW1 ([facility]) ID Date Data Source FREE T4 & TSH PANEL 08/31/2020 12:00:00 AM EST eCW1 ([facility]) Name Value Range Interpretation Code Description Data Carlie rce(s) Supporting Document(s) 0.74 0.76-1.46 FREE T4 eCW1 ([facility]) 2.330 0.358-3.740 THYROID STIMULATING HORM ONE eCW1 ([facility]) ID Date Data Source IRON (FE) 08/31/2020 12:00:00 AM EST eCW1 ([facility]) Name Value Range Interpretation Code Description Data Carlie rce(s) Supporting Document(s) 30 50-170 eCW1 ([facility]) ID Date Data Source Comprehensive Metabolic Profile (CMP) 08/31/2020 12:00:00 AM EST eCW1 ([facility]) Name Value Range Interpretation Code Description Data Carlie rce(s) Supporting Document(s) 17 7-18 eCW1 ([facility]) 49 70-100 eCW1 ([facility]) 3.8 3.5-5.1 eCW1 ([facility], [facility]) 144 136-145 eCW1 ([facility]) > 60.0 >60 eCW1 ([facility]) 0.83 0.55-1.30 eCW1 ([facility]) 26 7-37 eCW1 ([facility]) 9.1 8.5-10.1 eCW1 ([facility], [facility]) 110 98-107 eCW1 ([facility]) 29 21-32 eCW1 ([facility]) 39 12-78 eCW1 ([facility]) 0.3 0.2-1.0 eCW1 ([facility], [facility]) 6.8 6.4-8.2 eCW1 ([facility], [facility]) 3.8 3.2-5.2 eCW1 ([facility], [facility]) 46 45-117 eCW1 ([facility]) 1.3 1.2-2.2 eCW1 ([facility], [facility]) ID Date Data Source CBC with Differential 08/31/2020 12:00:00 AM EST eCW1 ([facility]) Name Value Range Interpretation Code Description Data Carlie rce(s) Supporting Document(s) 3.94 4.00-5.40 RED BLOOD COUNT eCW1 ([facility]) 4.6 4.0-10.0 WHITE BLOOD COUNT eCW1 ([facility]) 31.4 36.0-47.0 HEMATOCRIT eCW1 ([facility]) 9.0 12.0-15.5 HEMOGLOBIN eCW1 ([facility]) 79.7 80.0-96.0 MEAN CORPUSCULAR VOLUME e CW1 ([facility]) 22.8 27.0-33.0 MEAN CORPUSCULAR HEMOGLOB IN eCW1 ([facility]) 51.8 36.0-66.0 NEUTROPHILS % eCW1 ([facility]) 32.1 24.0-44.0 LYMPH % eCW1 ([facility]) 246 150-450 PLATELET COUNT, AUTOMATED eCW1 ([facility]) 28.7 32.0-36.5 MEAN CORPUSCULAR HGB CONC eCW1 ([facility]) 15.9 11.5-14.5 RED CELL DISTRIBUTION WID TH eCW1 ([facility]) 11.2 0.0-5.0 MONO % eCW1 ([facility]) 3.4 0.0-3.0 EOS % eCW1 ([facility]) 2.4 1.5-8.5 NEUTROPHILS # eCW1 ([facility]) 1.3 0.0-1.0 BASO % eCW1 ([facility], [facility]) 0.5 0.0-0.8 MONO # eCW1 ([facility], [facility]) 0.2 0.0-0.5 EOS # eCW1 ([facility]) 1.5 1.5-5.0 LYMPH # eCW1 ([facility]) 0.1 0.0-0.2 BASO # eCW1 ([facility], [facility]) ID Date Data Source [id number] 08/15/2020 06:10:[address] [address] HEALTH INFORMATION MANAGEMENT ED/UC Physician Report : [id number] Signed Patient: Dheeraj Jamison Acct:[id number] Unit: [facility] [id number] : 1990 Arrival Date: 08/15/20 Age/Sex: 30 / F Arrival Time: 1736 Copies to: Maura Carter ANIMAL TECHNICIAN General Adult HPI/ROS General Chief Complaint: Complex/Multi-System [...] Normal Affect Skin Skin exam: Dry, Intact, [place] and Warm Course Vital Signs Vital signs: [...] strict quarantine until COVID results. Continue using vohx-bpd-egabfon therapies to manage her symptoms at this time. Discharge Plan Disposition Clinical Impression: COVID-19 virus test result unknown, Body aches, Viral illness, Fever and chills Provider stated Dispo: Discharged Condition: Stable Instructions: COVID-19 (Coronavirus Disease 2019) (ED) Activity Restrictions/Additional Instructions: Please self quarantine until your COVID results. Use rejo-oci-edonaaz therapies for symptom management as needed. Increase rest and fluids. Gray diet as needed for upset stomach. Tylenol/Motrin [...] rce(s) Supporting Document(s) ID Date Data Source [id number] 08/15/2020 11:51:00 PM EST [facility] Name Value Range Interpretation Code Description Data Carlie rce(s) Supporting Document(s) INFLUENZA A RAPID NEGATIVE NEGATIVE [facility] for 1 week. If subsequent Viral Culture is requested by provider, please notify Laboratory at . Test Performed by Rapid Immunochromatographic Assay INFLUENZA B RAPID NEGATIVE NEGATIVE [facility] Specimens will be held for 1 week. If subsequent Viral Culture is requested by provider, please notify Laboratory at . Test Performed by Rapid Immunochromatographic Assay ID Date Data Source [id number] 08/16/2020 07:31:00 AM EST [facility] COVID Reason UC patient Priority Name Value Range Interpretation Code Description Data Carlie rce(s) Supporting Document(s) COVID 19 (RHEONIX) NOT-DETECTED NOTDETECTED [facility] The [employer] COVID-19 MDx Assay is an en dpoint RT-PCR assay ([email or web address])intended for the qualitative detection of nucleic acid from SARS-CoV-2 in nasopharyngeal swabs. COVID testing using the [employer] analyzer was developed for the purpose of [...] public health authorities. ID Date Data Source [id number] 08/15/2020 06:00:00 PM EST [facility] Name Value Range Interpretation Code Description Data Carlie rce(s) Supporting Document(s) SARS-CoV-2 (COVID-19) N gene [Presence] in Nasopharynx by NANCY with probe detection NOT-DETECTED [facility] This lab was ordered by [facility] and reported by [facility]. ID Date Data Source [id number] 10/09/2019 08:07:06 PM EDT Laboratory Al li[facility] [...] - CORE MPV 10.6 fL (7.1-10.7) Laboratory [place] [facility] [place] - CORE NEUT % 54.1 % (35.0-75.0) [facility] - [facility] LYMPH % 29.7 % (16.0-52.0) [facility] - CORE MONO % 8.8 % (0.0-8.0) H [facility] [place] [facility] - CORE EOS % 6.5 % (0.0-5.0) H [facility] [place] [facility] - CORE BASO % 0.9 % (0.0-4.0) [facility] [place] [facility] - CORE NEUT # 1.7 10*3/uL (1.8-7.7) L [facility] - CORE LYMPH # 1.0 10*3/uL (1.2-4.8) L [facility] - CORE MONO # 0.3 10*3/uL (0.0-0.8) [facility] [facility] CORE Eosinophils [#/volume] in Blood by Automated count 0.2 10*3/uL (0.0-0 .5) Laboratory [facility] BASO # 0.0 10*3/uL (0.0-0.2) [facility] ID Date Data Source [id number] 10/09/2019 08:54:09 PM EDT Laboratory [facility] Name Value Range Interpretation Code Description Data Carlie rce(s) Supporting Document(s) 25 HYDROXY VIT D @ 23 ng/mL (31-100) L Laboratory [facility] A REVIEW OF THE LITERATURE SUGGESTS THEF OLLOWING RANGES FOR THE CLASSIFICATIONOF 25-OH VITAMIN D STATUS: VITAMIN D STATUS 25-OH VITAMIN D DEFICIENCY <20 NG/MLINSUFFICIENCY 20-30 NG/MLSUFFICIENCY 31 - 100 NG/MLTOXICITY > 100 NG/ML A PEDIATRIC REFERENCE RANGE HAS NOT BEENESTABLISHED USING THIS METHOD. ID Date Data Source [id number] 10/09/2019 08:58:54 PM EDT Laboratory [facility] Name Value Range Interpretation Code Description Data Carlie rce(s) Supporting Document(s) VITAMIN B12 @ 950 pg/mL (193-986) [facility] ID Date Data Source [id number] 10/09/2019 08:58:54 PM EDT Laboratory [facility] Name Value Range Interpretation Code Description Data Carlie rce(s) Supporting Document(s) SODIUM 144 mmol/L (136-145) Laboratory [facility] POTASSIUM 3.9 mmol/L (3.6-5.2) Laboratory [facility] CHLORIDE 110 mmol/L (100-108) H Laboratory [facility] CO2 25 mmol/L (22-31) Laboratory [facility] ANION GAP 9 mmol/L (7-16) Laboratory [facility] UREA NITROGEN 12 mg/dL (7-24) [facility] CREATININE 0.64 mg/dL (0.60-1.00) [facility] [place] - CORE BUN/CREAT RATIO 18.8 RATIO (10.0-20.0) Laboratory [place] [facility] - CORE GLUCOSE 65 mg/dL (70-99) L Laboratory [place] [facility] - CORE CALCIUM 9.0 mg/dL (8.4-10.2) Laboratory [place] [facility] - CORE TOTAL PROTEIN 6.6 g/dL (6.4-8.2) Laboratory [facility] - CORE ALBUMIN 3.7 g/dL (3.5-4.6) Laboratory [place] [facility] - CORE GLOBULIN 2.9 g/dL (2.7-4.3) Laboratory [place] [facility] [employer] - CORE ALB/GLOB RATIO 1.3 RATIO Laboratory [facility] [employer] ALKALINE PHOSPHATASE 50 U/L (45-117) Laborator y [place] [facility] [employer] - CORE BILIRUBIN,TOTAL 0.4 mg/dL (0.0-1.0) Laboratory [facility] PLEASE NOTE:Total bilirubin results may be falselyelevated in patients taking Elt[employer]. AST (SGOT) 10 U/L (11-39) L Laboratory [place] [facility] [employer] [facility] [employer] ALT (SGPT) 21 U/L (12-78) Laboratory [place] [facility] [employer] - CORE GFR >60 ml/min/1.73m2 (>59) Laboratory [facility] [employer] [employer] GFR ( AMER) >60 ml/min/1.73m2 (>59) Laboratory [place] [facility] [employer] [facility] [employer] GFR INTERPRETATION Laboratory [place] [facility] --NORMAL KIDNEY FUNCTION OR MILD DISEASE - GFR >OR= 60CHRONIC KIDNEY DISEASE - GFR 15 - 59RENAL FAILURE - GFR <15 Est. GFR calculation based on the MDRDstudy equation, which assumes a steadystate for creatinine. Est. GFR should notbe used for medication dosing. ID Date Data Source [id number] 10/09/2019 08:58:54 PM EDT [facility] Name Value Range Interpretation Code Description Data Carlie rce(s) Supporting Document(s) FERRITIN @ 23 ng/mL (8-252) Laboratory [place] [facility] ID Date Data Source [id number] 10/09/2019 08:58:54 PM EDT [facility] Name Value Range Interpretation Code Description Data Carlie rce(s) Supporting Document(s) MAGNESIUM 2.1 mg/dL (1.7-2.4) Laboratory [place] [facility] ID Date Data Source [id number] 10/09/2019 08:58:54 PM EDT [facility] Name Value Range Interpretation Code Description Data Carlie rce(s) Supporting Document(s) IRON,TOTAL @ 70 ug/dL (35-150) [facility] - CORE UIBC @ 198 ug/dL (130-375) Laboratory [place] [facility] [employer] - CORE TIBC @ 268 ug/dL (250-450) Laboratory [place] [facility] [employer] - CORE % SATURATION 26 % (12-50) [facility] ID Date Data Source [id number] 10/09/2019 08:58:54 PM EDT [facility] Name Value Range Interpretation Code Description Data Carlie rce(s) Supporting Document(s) PHOSPHORUS 2.9 mg/dL (2.5-4.5) Laboratory [place] [facility] [place] - CORE Date Data Source [id number] 10/09/2019 09:19:52 PM EDT [facility] Name Value Range Interpretation Code Description Data Carlie rce(s) Supporting Document(s) HEMOGLOBIN A1C @ 5.3 % (4.0-6.0) [facility] [facility] Performed using Siemens Jeffers immunoassa y.Care must be taken when interpreting CdJ5gfewpoep in patients with a hemoglobin variantor decreased erythrocyte lifespan. Values 5.7 - 6.4% suggest prediabetes.Values >=6.5% are diagnostic for diabetes.REFERENCE: DIABETES CARE 2018: 41(S13-S27). EST AVERAGE GLUCOSE 105 mg/dL Laboratory [place] [facility] - CORE ID Date Data Source [id number] 10/11/2019 10:54:51 PM EDT [facility] Name Value Range Interpretation Code Description Data Carlie rce(s) Supporting Document(s) SR HCT 35.9 % Laboratory [place] [facility] FOLATE RBC 740 ng/mL Laboratory [place] [facility] Reference range: >=366 Performed by [employer], [address] [place] [id number] [email or web address], Yobany Salinas MD, Lab. Director ID Date Data Source [id number] 10/13/2019 08:41:06 PM EDT [facility] Name Value Range Interpretation Code Description Data Carlie rce(s) Supporting Document(s) VITAMIN B1 63 nmol/L L Laboratory [place] [facility] Reference range: 70 to 180 INTERPRETIVE INFORMATION: Vitamin B1, Whole Blood This assay measures the concentration of thiamine diphosphate (TDP), the primary active form of vitamin B1. Approximately 90 percent of vitamin B1 present in whole blood is TDP. Thiamine and thiamine monophosphate, which comprise the remaining 10 percent, are not measured. Test developed and characteristics determined by [employer]. See Compliance Statement B: [employer]/ Performed by [employer], [address] [place] [id number] [email or web address], Yobany Salinas MD, Lab. Director ID Date Data Source [id number] 09/03/2019 12:57:57 PM EST Lab [place] [facility] Name Value Range Interpretation Code Description Data Carlie rce(s) Supporting Document(s) POC NOVA GLU 84 mg/dL (70-99) Lab [place] [facility] [place] PERFORMED BY [facility] CLINICAL STAFF ID Date Data Source [id number] 09/03/2019 05:53:00 AM EST Lab [place] [facility] Name Value Range Interpretation Code Description Data Carlie rce(s) Supporting Document(s) POC NOVA GLU 89 mg/dL (70-99) Lab [place] [facility] [place] PERFORMED BY [facility] CLINICAL STAFF ID Date Data Source [id number] 09/02/2019 11:53:38 PM EST [facility] [place] [facility] [place] Name Value Range Interpretation Code Description Data Carlie rce(s) Supporting Document(s) POC NOVA GLU 117 mg/dL (70-99) H [facility] [place] [facility] [place] PERFORMED BY [facility] CLINICAL STAFF ID Date Data Source [id number] 09/02/2019 06:28:34 PM EST Lab [facility] Name Value Range Interpretation Code Description Data Carlie rce(s) Supporting Document(s) POC NOVA GLU 155 mg/dL (70-99) H Lab [facility] MAN[place] PERFORMED BY [facility] CLINICAL STAFF ID Date Data Source [id number] 09/05/2019 08:04:37 PM EST Madonna Shepard [facility] [place] [address]Svk# Surgical Pathology ReportAccession #:[id number](s) ReceivedA: Liver [...] A1. Modified liver biopsy protocol. Processed at [facility], Histopathology, [address] [place] [address], [id number].jgllmr/mwg Reported: 09/05/2019Electronically Signed Out By Elijah Ordoñez MD [facility]emg This report may include immunohistochemical or in-situ hybridizationresults. Testing was developed and the performance characteristicsdetermined by [facility] as required by CLIA '88. The FDAhas determined that approval for specific use is not necessary forclinical use. The quality of Hematoxylin and Eosin stains and asapplicable, for all immunohistochemical and/or special stains, includingpositive and negative controls, were reviewed and considered appropriate.ICD codes E66.01CPT codesA: 20802G, 00006Y, 31120N, 23230E, 21147X Name Value Range Interpretation Code Description Data Carlie rce(s) Supporting Document(s) ID Date Data Source [id number] 09/02/2019 11:51:09 AM EST [facility] [place] [facility] [place] Name Value Range Interpretation Code Description Data Carlie rce(s) Supporting Document(s) POC NOVA GLU 120 mg/dL (70-99) H [facility] [place] [facility] [place] [facility] CLINICAL STAFF ID Date Data Source [id number] 09/02/2019 10:18:55 AM EST [facility] NT INFORMATIONPatient MRN Name Date of Age Gend*PT [id number] Dheeraj Jamison 1990 29 years F IPPT Location Admission Date/Time [facility] --- Preeti Schmitz MD([id number]) EPI ID CSN Admitting Provider [id number] Preeti Schmitz MD([id number])CREATION, GASTRIC BYPASS, DONTAE-EN-Y, LAPAROSCOPIC, WITH LIVER BIOPSYESOPHAGOGOGASTROJEJUNOSCOPY Procedure NoteFelicia Igor CSN:[id number]/3/2020Surgeon(s):CHLOE Kasperurgical Assist: Ludmila Ramiresaff:OR Climatology Professor: PATRICIA Johnsonurgical Assist: CARLIE Ramires Relief Climatology Professor: Lucille Hayden RNOR Scrub Person: Madisyn SuarezProcedure(s):CREATION, [...] I agreed to proceed with a laparoscopic Csvh-ta-ZChfqgen Bypass, possible Sleeve Gastrectomy if hostile abdomen is encountered.Botox education given to patient. This may include repair of a Hiatal Hernia iffound and a Wedge Liver Biopsy if there is a fatty liver. We coveredcomplications including: , GA, DVT, PE, leaks, sepsis, gallbladder disease,anastomotic ulcers, [...] with a blue load on a power [place] stapler at the 50 cm point. Thebiliopancreatic limb and the Dontae limb were positioned jwdh-cl-snva. Theintermesenteric defect between the two limbs was closed with a running 3-0 V-Locsuture. Once this was closed, an enterotomy was made in the biliopancreatic limband then in the Dontae limb. The 60-mm [place] stapler with a blue load wasinserted into [...] angle ofHis was dissected out with a Satya grasper behind the hiatus, exposing theleft andre. [...] done, the anastomosis wastested for leaks. My assistant professor of biology clamped across the Dontae limb with the bowel clampwhile I passed the endoscope into the esophagus, into the pouch, and into theRoux limb. I insufflated with air and my assistant professor of biology irrigated over theanastomosis with normal saline. There [...] rce(s) Supporting Document(s) ID Date Data Source [id number] 09/02/2019 10:14:16 AM EST [facility] [place] [facility] [place] Name Value Range Interpretation Code Description Data Carlie rce(s) Supporting Document(s) POC NOVA GLU 140 mg/dL (70-99) H [facility] [place] [facility] CLINICAL STAFF ID Date Data Source [id number] 09/02/2019 08:18:56 AM EST [facility] NT INFORMATIONPatient MRN Name Date of Age Gend*PT [id number] Dheeraj Jamison 1990 29 years F IPPT Location Admission Date/Time Visit ID Attending Provider --- --- --- --- EPI ID CSN Admitting Provider [id number] ---AirwayPatient location during procedure: ORUrgency: electiveDifficult airway: [...] cmPlacement verified by: chest auscultation and + [id number]: equal breath sounds bilateralGrade view: grade I - full view of glottis Name Value Range Interpretation Code Description Data Carlie rce(s) Supporting Document(s) ID Date Data Source [id number] 09/02/2019 07:07:25 AM EST [facility] NT INFORMATIONPatient MRN Name Date of Age Gend*PT [id number] Dheeraj Jamison 1990 29 years F IPPT Location Admission Date/Time Visit ID [facility] --- Preeti Schmitz MD([id number]) EPI ID CSN Admitting Provider [id number] Preeti Schmitz MD([id number])H&P reviewed. The patient was examined and there are no changes to the H&P. TheH&P was brought in for scanningPreeti Schmitz MD7:06 AM Name Value Range Interpretation Code Description Data Carlie rce(s) Supporting Document(s) ID Date Data Source [id number] 09/02/2019 06:37:34 AM EST [facility] [place] [facility] [place] Name Value Range Interpretation Code Description Data Carlie rce(s) Supporting Document(s) POC BHCG [facility] <5.0 IU/L [facility] [place] [facility] [place] INTERPRETATION:<5.0 NEGATIVE5.0- 25.0 INDETERMINATE>25.0 POSITIVELEVELS BETWEEN 5 AND 25 IU/L MAY INDICATEEARLY AND SHOULD BE REPEATED CASSIDY BLOOD SAMPLE AFTER 48 HOURS.PERFORMED BY [facility] CLINICAL STAFF ID Date Data Source [id number] 09/02/2019 06:23:23 AM EST [facility] [place] [facility] [place] Name Value Range Interpretation Code Description Data Carlie rce(s) Supporting Document(s) POC NOVA GLU 97 mg/dL (70-99) [facility] [place] [facility] [place] [facility] CLINICAL STAFF ID Date Data Source [id number] 08/28/2019 01:20:48 PM EST [facility] [place] [facility] [place] [facility] [place] [address]Jyu# Surgical Pathology ReportAccession #:[id number](s) ReceivedA: Antral [...] Entirely submitted asD1, (4 levels). Processed at [facility], Histopathology, [address] [place] [address], [id number].jgllmr/gmm Reported: 08/28/2019Electronically Signed Out By Howard Hernandez M.D. [facility] This report may include immunohistochemical or in-situ hybridizationresults. Sabrina ting was developed and the performance characteristicsdetermined by [facility] as required by CLIA '88. The FDAhas determined that approval for specific use is not necessary forclinical use. The quality of Hematoxylin and Eosin stains and asapplicable, for all immunohistochemical and/or special stains, includingpositive and negative controls, were reviewed and considered appropriate.ICD codes K31.9 K29.30CPT codesA: 51219MR: 21686W, 75283eR: 56677WZ: 17232F Name Value Range Interpretation Code Description Data Carlie rce(s) Supporting Document(s) ID Date Data Source [id number] 08/23/2019 12:04:55 PM EST [facility] NT INFORMATIONPatient MRN Name Date of Age Gend*PT [id number] Dheeraj Jamison 1990 29 years F OPPT Location Admission Date/Time Visit ID [facility] [place] [facility] 1014 --- Meir Blancas MD([id number]) EPI ID CSN Admitting Provider [id number] Meir Blancas MD([id number])Endoscopic Gastroduodenoscopy Procedure NotePatient: Dheeraj Kaufmanurgery Date: August [...] rce(s) Supporting Document(s) ID Date Data Source [id number] 08/23/2019 10:50:50 AM EST [facility] NT INFORMATIONPatient MRN Name Date of Age Gend*PT [id number] Dheeraj Jamison 1990 29 years F OPPT Location Admission Date/Time Visit ID [facility] --- Meir Blancas MD([id number]) EPI ID CSN Admitting Provider [id number] Meir Blancas MD([id number])H&P reviewed. The patient was examined and there are no changes to the H&P.Meir Blancas MD10:50 AM Name Value Range Interpretation Code Description Data [facility] Supporting Document(s) ID Date Data Source [id number] 08/23/2019 10:50:39 AM EST [facility] NT INFORMATIONPatient MRN Name Date of Age Gend*PT [id number] Dheeraj Jamison 1990 29 years F OPPT Location Admission Date/Time Visit ID [facility] [place] 08/23[facility]19 1014 --- Meir Blancas MD([id number]) EPI ID CSN Admitting Provider [id number] Meir Blancas MD([id number])Pre-Procedure History and Physical:Past Medical History:Diagnosis Date Anemia [...] rce(s) Supporting Document(s) ID Date Data Source [id number] 08/21/2019 06:34:34 AM EST [facility] [place] [facility] [place], [place] [address]Tel# Surgical Pathology ReportAccession #:[id number](s) ReceivedA: Antral [...] as STAT per the clinician. Processed at [facility], Histopathology, [address] [place] [address], [id number].jgllmr/pms Reported: 08/21/2019Electronically Signed Out By Kristin Mercedes M.D. [facility] This report may include immunohistochemical or in-situ hybridizationresults. Testing was developed and the performance characteristicsdetermined by [facility] as required by CLIA '88. The FDAhas determined that approval for specific use is not necessary forclinical use. The quality of Hematoxylin and Eosin stains and asapplicable, for all immunohistochemical and/or special stains, includingpositive and negative controls, were reviewed and considered appropriate.ICD codes K21.9CPT codesA: 39773ZA: 97343A, 86513u Name Value Range Interpretation Code Description Data Carlie rce(s) Supporting Document(s) ID Date Data Source [id number] 08/19/2019 10:52:01 AM EST [facility] NT INFORMATIONPatient MRN Name Date of Age Gend*PT [id number] Dheeraj Jamison 1990 29 years F OPPT Location Admission Date/Time Visit ID [facility] [place] [facility]/19[facility]19 0929 --- Meir Blancas MD([id number]) EPI ID [facility] Admitting Provider [id number] Meir Blancas MD([id number])Endoscopic Gastroduodenoscopy Procedure NotePatient: Dheeraj Kaufmanurgery Date: August 19, 2019Surgeon(s):LUDIVINA Georgere-Operative Diagnosis:Esophageal [...] rce(s) Supporting Document(s) ID Date Data Source [id number] 08/19/2019 10:13:51 AM EST [facility] [place] [facility] [place] Name Value Range Interpretation Code Description Data Acrlie rce(s) Supporting Document(s) POC BHCG [facility] <5.0 IU/L [facility] [place] MAN[place] INTERPRETATION:<5.0 NEGATIVE5.0- 25.0 INDETERMINATE>25.0 POSITIVELEVELS BETWEEN 5 AND 25 IU/L MAY INDICATEEARLY AND SHOULD BE REPEATED CASSIDY BLOOD SAMPLE AFTER 48 HOURS.PERFORMED BY [facility] CLINICAL STAFF ID Date Data Source [id number] 08/19/2019 09:53:55 AM EST [facility] NT INFORMATIONPatient MRN Name Date of Age Gend*PT [id number] Dheeraj Jamison 1990 29 years F OPPT Location Admission Date/Time Visit ID Attending [facility] 08/19/19928 --- Meir Blancas MD([id number]) EPI ID CSN Admitting Provider [id number] Meir Blancas MD([id number])H&P reviewed. The patient was examined and there are no changes to the H&P.Meir Blancas MD9:53 AM Name Value Range Interpretation Code Description Data Carlie rce(s) Supporting Document(s) ID Date Data Source [id number] 08/19/2019 09:53:49 AM EST [facility] NT INFORMATIONPatient MRN Name Date of Age Gend*PT [id number] Dheeraj Jamison 1990 29 years F OPPT Location Admission Date/Time Visit ID Attending [facility] 08/19/19928 --- Meir Blancas MD([id number]) EPI ID CSN Admitting Provider [id number] Meir Blancas MD([id number])Pre-Procedure History and Physical:Past Medical History:Diagnosis Date Anemia [...] rce(s) Supporting Document(s) ID Date Data Source [id number] 08/15/2019 01:00:42 PM EST [facility] Name Value Range Interpretation Code Description Data Carlie rce(s) Supporting Document(s) EKG [facility] NFUCFp7bUjBSJoPii3JdTiWdSEGnLF9kpow5T5V1cNFuH6RkmGQxw5smF0CyF8OsEWCrYLTJLL6AiIPm jb2 [file] +2dlNIE2t6wp+p/Nyx5iKAz+qEEo8Z23lWr52 /iMmx214vKpg4vsBfSufVkuFpZg8R3PooqwJ62U3gNEziCBurRWs+Z9hL3fHnD6ACLhCg2eFqHhs+8 [file] RBB+fmx2pI17xrA0tKv5h6OI3zl782DtO/Matt/WqP9 fzv8KdHvO0om/CTzpb42WxxO9judE1exzR87wgOF8Mh0Qssi5liNwR6mnX/0UyiqbMVTJ+sE0RmW95Wn wvos940/+fd4/lUeVtZJiDaL5J/sz1Xa995rJf0hYf6jSs/q75aH7/Es8wt1gA+1VvtzVuqrnPfV+9C1 Ne6qg7i7FQ7lhA2q4O8ITu228tQRPjPioL/H/Ka+Kl sW232ncQT7BQhe5I5IJ/ztK9p+HtzUVeRztAvNk2TxNetBtpij5TtDz7z/1p+4n4216jmFpcyjbvOdmA 99obd28f+strategic accounts manager/63yjomVC5iv//MYW613pdmb4bgz6u0c2UIA0w+3V+f05yeWlA21P303voec8llI3/66K uIx1QWp4vry2MY+DXVcqtqrC2QY2T/lo2Gbn0d2/7Y T3uc9qFqH0qDpRl4YHnf8+TKtix5z+i3gi59AH2dz5v+yjFJfbXz7+4J2tLY518a6Krk+0HH+aDjfNBx PuhzgXbQ/t909WnZ31kODF490Yh82tN7/HiD75JZy98cDcbnW4v22kx/C77aX+iEe8dEI/yXN7vm8Dy+ yC0T0dZc2451D8hMD4eCp5b45rMuENeSRk/y1O913h [file] x1IcNoCTbrDBGANb== ID Date Data Source [id number] 08/15/2019 10:00:07 PM EST [facility] [place] [facility] [place] Name Value Range Interpretation Code Description Data Carlie rce(s) Supporting Document(s) TSH,ULTRASENSITIVE @ 2.910 mIU/L (0.360-4.170) [facility] [place] [facility] [place] ID Date Data Source [id number] 08/15/2019 10:00:07 PM EST [facility] [place] [facility] [place] Name Value Range Interpretation Code Description Data Carlie rce(s) Supporting Document(s) SODIUM 144 mmol/L (136-145) [facility] [place] [facility] [place] POTASSIUM 4.6 mmol/L (3.6-5.2) [facility] [place] [facility] [place] CHLORIDE 112 mmol/L (100-108) H [facility] [place] [facility] [place] CO2 26 mmol/L (22-31) [facility] [place] [facility] [place] ANION GAP 6 mmol/L (7-16) L [facility] [place] [facility] [place] UREA NITROGEN 8 mg/dL (7-24) [facility] [place] [facility] [place] CREATININE 0.71 mg/dL (0.60-1.00) [facility] [place] [facility] [place] BUN/CREAT RATIO 11.3 RATIO (10.0-20.0) [facility] [place] [facility] [place] GLUCOSE 90 mg/dL (70-99) [facility] [place] [facility] [place] CALCIUM 9.0 mg/dL (8.4-10.2) [facility] [place] [facility] [place] TOTAL PROTEIN 6.8 g/dL (6.4-8.2) [facility] [place] [facility] [place] ALBUMIN 3.5 g/dL (3.5-4.6) [facility] [place] [facility] [place] GLOBULIN 3.3 g/dL (2.7-4.3) [facility] [place] [facility] [place] ALB/GLOB RATIO 1.1 RATIO [facility] [place] [facility] [place] ALKALINE PHOSPHATASE 70 U/L (45-117) [facility] [place] [facility] [place] BILIRUBIN,TOTAL 0.3 mg/dL (0.0-1.0) [facility] [place] [facility] [place] AST (SGOT) 15 U/L (11-39) [facility] [place] [facility] [place] ALT (SGPT) 33 U/L (12-78) [facility] [place] [facility] [place] GFR >60 ml/min/1.73m2 (>59) [facility] [place] [facility] [place] GFR ( AMER) >60 ml/min/1.73m2 (>59) [facility] [place] [facility] [place] GFR INTERPRETATION [facility] [place] [facility] [place] --NORMAL KIDNEY FUNCTION OR MILD DISEASE - GFR >OR= 60CHRONIC KIDNEY DISEASE - GFR 15 - 59RENAL FAILURE - GFR <15 Est. GFR calculation based on the MDRDstudy equation, which assumes a steadystate for creatinine. Est. GFR should notbe used for medication dosing. ID Date Data Source [id number] 08/15/2019 09:55:02 PM EST [facility] [place] [facility] [place] Name Value Range Interpretation Code Description Data Carlie rce(s) Supporting Document(s) HEMOGLOBIN A1C @ 5.5 % (4.0-6.0) [facility] [place] [facility] [place] Performed using Conjectassa y.Care must be taken when interpreting AkE0tskdpece in patients with a hemoglobin variantor decreased erythrocyte lifespan. Values 5.7 - 6.4% suggest prediabetes.Values >=6.5% are diagnostic for diabetes.REFERENCE: DIABETES CARE 2018: 41(S13-S27). EST AVERAGE GLUCOSE 111 mg/dL [facility] [place] [facility] [place] ID Date Data Source [id number] 08/15/2019 09:23:57 PM EST [facility] [place] [facility] [place] Name Value Range Interpretation Code Description Data Carlie rce(s) Supporting Document(s) WBC 4.1 10*3/uL (4.1-11.0) [facility] [place] [facility] [place] RBC 4.46 10*6/uL (4.00-5.40) [facility] [place] [facility] [place] HGB 11.2 g/dL (12.0-16.0) L [facility] [place] [facility] [place] HCT 35.3 % (36.0-47.0) L [facility] [place] [facility] [place] MCV 79.0 fL (80.0-95.0) L [facility] [place] [facility] [place] MCH 25.1 pg (27.0-32.0) L [facility] [place] [facility] [place] MCHC 31.8 g/dL (32.0-36.0) L [facility] [place] [facility] [place] RDW 21.4 % (10.5-14.5) H [facility] [place] [facility] [place] PLT 252 10*3/uL (150-450) [facility] [place] [facility] [place] MPV 9.3 fL (7.1-10.7) [facility] [place] [facility] [place] ID Date Data Source [id number] 08/15/2019 08:29:21 PM EST [facility] [place] [facility] [place] SPEC EXP DATE 09/03/2019PATI ENT ABO/Rh A POSITIVEANTIBODY SCREEN NEGATIVETESTING SITE PERFORMED AT [address] [address] Name Value Range Interpretation Code Description Data Carlie rce(s) Supporting Document(s) TYPE AND SCREEN [facility] [place] [facility] [place] ANTIBODY SCREEN NEGATIVE ID Date Data Source [id number] 08/15/2019 12:18:31 PM EST [facility] NT INFORMATIONPatient MRN Name Date of Age Gend*PT [id number] Dheeraj Jamison 1990 29 years F OPPT Location Admission Date/Time Visit ID Attending Provider --- --- --- Preeti Schmitz MD([id number]) EPI ID CSN Admitting Provider [id number] ---HISTORY PHYSICALName: Dheeraj Jamison : 1990 Sex: [...] mg by mouth every other dayHistorical Provider, levothyroxine (SYNTHROID, LEVOTHROID) 100 MCG tablet Take [...] warm and dry.HEENT: She is normocephalic, atraumatic. [place] conjunctivae. Anicteric sclerae.Pupils are equal, round, reactive [...] hepatosplenomegaly. Negative CVAT.GENITAL/RECTAL: Deferred.MUSCLE/SKELETAL: Strength is 5/5. Food Taster are equal.NEUROLOGICALLY: Cranial nerves II through XII [...] current facility-administered medications for this visit.08/15/2019 12:18 PMMark MARY Smith*This document or parts of this document, were dictated using [employer] speaking software. A reasonable attempt at proofreading has beenmade to minimize errors. Please call with any questions or corrections. Name Value Range Interpretation Code Description Data Carlie rce(s) Supporting Document(s) Procedure Social History Code Duration Value Status Description Data Source(s ) Smoking 09/03/2020 12:00:00 AM EST Never Smoker completed Never S moker eCW1 ([facility]) Smoking 09/03/2020 12:00:00 AM EST Never Smoker completed Never S moker eCW1 ([facility]) Smoking 09/03/2020 12:00:00 AM EST Never Smoker completed Never S moker eCW1 ([facility]) Smoking 09/03/2020 12:00:00 AM EST Never Smoker completed Never S moker eCW1 ([facility]) Smoking 09/03/2020 12:00:00 AM EST Never Smoker completed Never S moker eCW1 ([facility]) Smoking 09/03/2020 12:00:00 AM EST Never Smoker completed Never S moker eCW1 ([facility]) Smoking 09/03/2020 12:00:00 AM EST Never Smoker completed Never S moker eCW1 ([facility]) Smoking 09/03/2020 12:00:00 AM EST Never Smoker completed Never S moker eCW1 ([facility]) Smoking 08/31/2020 12:00:00 AM EST Never Smoker completed Never S moker eCW1 ([facility]) Smoking 08/31/2020 12:00:00 AM EST Never Smoker completed Never S moker eCW1 ([facility]) 08/15/2020 06:12:08 PM EST Never Smoker completed Never S moker [facility] Smoking 08/15/2020 06:12:00 PM EST Never smoked tobacco (findi ng) completed Never smoked tobacco (finding) [facility] Alcohol intake 09/03/2019 12:00:00 AM EST Yes completed [facility] Smoking 09/03/2019 12:00:00 AM EST Never smoker completed Never s moker [facility] Alcohol intake 08/23/2019 12:00:00 AM EST Yes completed [facility] Smoking 08/23/2019 12:00:00 AM EST Never smoker completed Never s moker [facility] Alcohol intake 08/19/2019 12:00:00 AM EST Yes completed [facility] Smoking 08/19/2019 12:00:00 AM EST Never smoker completed Never s moker [facility] Alcohol intake 08/15/2019 12:00:00 AM EST Yes completed [facility] Smoking 08/15/2019 12:00:00 AM EST Never smoker completed Never s moker [facility] Vital Signs ID Date Data Source UNK Name Value Range Interpretation Code Description Data Source(s) Diastolic blood pressure 64 mm[Hg] 64 mm[Hg] eCW1 ([facility]) Systolic blood pressure 102 mm[Hg] 102 mm[Hg] e CW1 ([facility]) Body temperature 98.2 [degF] 98.2 [degF] eCW1 ( [facility]) Respiratory rate 18 /min 18 /min eCW1 ([facility]) Heart rate 115 /min 115 /min eCW1 ([facility]) Body mass index (BMI) [Ratio] 27.56 kg/m2 27.56 kg/m2 eCW1 ([facility]) Body height 67 [in_i] 67 [in_i] eCW1 ([facility]) Body weight 176 [lb_av] 176 [lb_av] eCW1 ([facility]) Diastolic blood pressure 78 mm[Hg] 78 mm[Hg] eCW1 ([facility]) Systolic blood pressure 128 mm[Hg] 128 mm[Hg] e CW1 ([facility]) Body temperature 97.8 [degF] 97.8 [degF] eCW1 ( [facility]) Respiratory rate 18 /min 18 /min eCW1 ([facility]) Heart rate 94 /min 94 /min eCW1 ([facility]) Body mass index (BMI) [Ratio] 27.41 kg/m2 27.41 kg/m2 eCW1 ([facility]) Body height 67 [in_i] 67 [in_i] eCW1 ([facility]) Body weight 175 [lb_av] 175 [lb_av] eCW1 ([facility]) Body temperature 99.1 [degF] 99.1 [degF] [facility] Heart rate 80 /min 80 /min [facility] Respiratory rate 18 /min 18 /min [facility] Oxygen saturation in Arterial blood by Pulse oximetry 100 % 100 % [facility] Systolic blood pressure 117 mm[Hg] 117 mm[Hg] [facility] Diastolic blood pressure 73 mm[Hg] 73 mm[Hg] [facility] Oxygen saturation in Arterial blood by Pulse oximetry 98 % 98 % [facility] Respiratory rate 18 /min 18 /min [facility] Body temperature 36.67 [place] 36.67 [place]ero [facility] Heart rate 67 /min 67 /min [facility] Diastolic blood pressure 76 mm[Hg] 76 mm[Hg] [facility] Systolic blood pressure 109 mm[Hg] 109 mm[Hg] [facility] Body mass index (BMI) [Ratio] 40.75 kg/m2 40.75 kg/m2 [facility] Body weight 114.533 kg 114.533 kg [facility] Body height 167.6 cm 167.6 cm [facility] Oxygen saturation in Arterial blood by Pulse oximetry 98 % 98 % [facility] Respiratory rate 16 /min 16 /min [facility] Diastolic blood pressure 79 mm[Hg] 79 mm[Hg] [facility] Systolic blood pressure 126 mm[Hg] 126 mm[Hg] [facility] Heart rate 78 /min 78 /min [facility] Body temperature 36.33 [place] 36.33 [place]ero [facility] Body mass index (BMI) [Ratio] 41.48 kg/m2 41.48 kg/m2 [facility] Body weight 116.574 kg 116.574 kg [facility] Body height 167.6 cm 167.6 cm [facility] Diastolic blood pressure 72 mm[Hg] 72 mm[Hg] eCW1 ([facility]) Systolic blood pressure 130 mm[Hg] 130 mm[Hg] e CW1 ([facility]) Body temperature 97.7 [degF] 97.7 [degF] eCW1 ( [facility]) Respiratory rate 18 /min 18 /min eCW1 ([facility]) Heart rate 99 /min 99 /min eCW1 ([facility]) Body mass index (BMI) [Ratio] 41.22 kg/m2 41.22 kg/m2 [facility] ([facility]) Body height 67 [in_us] 67 [in_us] eCW1 ([facility]) Body weight Measured 263.2 [lb_av] 263.2 [lb_av ] eCW1 ([facility]) Oxygen saturation in Arterial blood by Pulse oximetry 99 % 99 % [facility] Respiratory rate 16 /min 16 /min [facility] Body temperature 36.5 Lucero 36.5 Lucero [facility] Heart rate 65 /min 65 /min [facility] Diastolic blood pressure 64 mm[Hg] 64 mm[Hg] [facility] Systolic blood pressure 109 mm[Hg] 109 mm[Hg] [facility] Body mass index (BMI) [Ratio] 41.48 kg/m2 41.48 kg/m2 [facility] Body weight 116.574 kg 116.574 kg [facility] Body height 167.6 cm 167.6 cm [facility] Oxygen saturation in Arterial blood by Pulse oximetry 99 % 99 % [facility] Body mass index (BMI) [Ratio] 43.26 kg/m2 43.26 kg/m2 [facility] Body weight 121.564 kg 121.564 kg [facility] Body height 167.6 cm 167.6 cm [facility] Heart rate 71 /min 71 /min [facility] Diastolic blood pressure 76 mm[Hg] 76 mm[Hg] [facility] Systolic blood pressure 118 mm[Hg] 118 mm[Hg] [facility] Body mass index (BMI) [Ratio] 42.3 kg/m2 42.3 k g/m2 [facility] ([facility]) Body height 67 [in_i] 67 [in_i] [facility] ([facility], [facility]) 5'7" Body weight 270.00 [lb_av] 270.00 [lb_av] MEDEN T ([facility], [facility]) Body temperature 98.7 [degF] 98.7 [degF] [facility] ([facility], [facility]) Oxygen saturation in Arterial blood by Pulse oximetry 99 % 99 % [facility] ([facility], [facility]) Respiratory rate 20 /min 20 /min [facility] ( [facility], [facility]) Heart rate 100 /min 100 /min [facility] ([facility], [facility]) Diastolic blood pressure 74 mm[Hg] 74 mm[Hg] [facility] ([facility], [facility]) Systolic blood pressure 120 mm[Hg] 120 mm[Hg] M EDENT ([facility], [facility]) Patient Treatment Plan of Care Planned Activity Planned Date Details Description Data Source (s) Norethindrone Acet-Ethinyl Est 1-20 MG-MCG 09/16/2020 12:00:[address] eCW1 ([facility]) Loryna 3-0.02 MG 09/03/2020 12:00:00 AM EST eCW1 ([facility]) buspirone hydrochloride 5 MG Oral Tablet 09/03/2020 12:00:00 AM EST eCW1 ([facility]) Loryna 3-0.02 MG 09/03/2020 12:00:00 AM EST eCW1 ([facility]) buspirone hydrochloride 5 MG Oral Tablet 09/03/2020 12:00:00 AM EST eCW1 ([facility]) Loryna 3-0.02 MG 09/03/2020 12:00:00 AM EST eCW1 ([facility]) buspirone hydrochloride 5 MG Oral Tablet 09/03/2020 12:00:00 AM EST eCW1 ([facility]) Loryna 3-0.02 MG 09/03/2020 12:00:00 AM EST eCW1 ([facility]) buspirone hydrochloride 5 MG Oral Tablet 09/03/2020 12:00:00 AM EST eCW1 ([facility]) Loryna 3-0.02 MG 09/03/2020 12:00:00 AM EST eCW1 ([facility]) buspirone hydrochloride 5 MG Oral Tablet 09/03/2020 12:00:00 AM EST eCW1 ([facility]) Loryna 3-0.02 MG 09/03/2020 12:00:00 AM EST eCW1 ([facility]) buspirone hydrochloride 5 MG Oral Tablet 09/03/2020 12:00:00 AM EST eCW1 ([facility]) Loryna 3-0.02 MG 09/03/2020 12:00:00 AM EST eCW1 ([facility]) buspirone hydrochloride 5 MG Oral Tablet 09/03/2020 12:00:00 AM EST eCW1 ([facility]) buspirone hydrochloride 5 MG Oral Tablet 09/03/2020 12:00:00 AM EST eCW1 ([facility]) Loryna 3-0.02 MG 09/03/2020 12:00:00 AM EST eCW1 ([facility]) Levothyroxine Sodium 0.05 MG Oral Tablet 08/31/2020 12:00:00 AM EST eCW1 ([facility]) Levothyroxine Sodium 0.05 MG Oral Tablet 08/31/2020 12:00:00 AM EST eCW1 ([facility]) Ondansetron 4 MG Disintegrating Oral Tablet 09/03/2019 12:00:00 AM EST [facility] Acetaminophen 325 MG Oral Tablet 09/03/2019 12:00:00 AM [facility] Omeprazole 40 MG Delayed Release Oral Capsule 09/03/2019 12:00:00 A M EST [facility] Multiple Vitamins-Minerals (MULTIVITAMIN WITH MINERALS ) tablet 09/03/2019 12:00:00 AM EST [facility] 0.4 ML Enoxaparin sodium 100 MG/ML Prefilled Syringe 020 12:00:00 AM EST [facility] Simethicone 80 MG Chewable Tablet 09/03/2019 12:00:00 AM EST [facility] Vitamin B 12 0.5 MG Oral Tablet 09/03/2019 12:00:00 AM EST [facility] Prednisone 20 MG Oral Tablet [facility]
[2020-09-25 15:21] LABS: BASO # 0.1 10^3/uL (0.0-0.2); BASO % 1.3 % (0.0-1.0); EOS # 0.1 10^3/uL (0.0-0.5); EOS % 3.4 % (0.0-3.0); HEMATOCRIT 33.4 % (36.0-47.0); HEMOGLOBIN 9.4 g/dl (12.0-15.5); LYMPH # 0.8 10^3/uL (1.5-5.0); LYMPH % 21.4 % (24.0-44.0); MEAN CORPUSCULAR HEMOGLOBIN 22.8 pg (27.0-33.0); MEAN CORPUSCULAR HGB CONC 28.1 g/dl (32.0-36.5); MEAN CORPUSCULAR VOLUME 80.9 fl (80.0-96.0); MONO # 0.3 10^3/uL (0.0-0.8); MONO % 8.2 % (2.0-8.0); NEUTROPHILS # 2.5 10^3/uL (1.5-8.5); NEUTROPHILS % 65.4 % (36.0-66.0); PLATELET COUNT, AUTOMATED 277 10^3/uL (150-450); RED BLOOD COUNT 4.13 10^6/uL (4.00-5.40); WHITE BLOOD COUNT 3.8 10^3/uL (4.0-10.0)
[2020-09-25 15:48] LABS: ALBUMIN 3.8 GM/DL (3.2-5.2); ALT/SGPT 30 U/L (12-78); BILIRUBIN,DIRECT 0.1 MG/DL (0.0-0.2); BILIRUBIN,TOTAL 0.3 MG/DL (0.2-1.0); BLOOD UREA NITROGEN 14 MG/DL (7-18); CALCIUM LEVEL 9.1 MG/DL (8.5-10.1); CARBON DIOXIDE LEVEL 28 MEQ/L (21-32); CHLORIDE LEVEL 111 MEQ/L (98-107); CK-MB VALUE MASS < 1.0 NG/ML (<3.6); CPK CREATINE PHOSPHOKINASE 61 U/L (26-192); CREATININE FOR GFR 0.65 MG/DL (0.55-1.30); FREE T4 1.31 NG/DL (0.76-1.46); GLOMERULAR FILTRATION RATE > 60.0 (>60); GLUCOSE, FASTING 86 MG/DL (70-100); MB/CK RELATIVE INDEX 1.64 (< OR =4); SODIUM LEVEL 142 MEQ/L (136-145); THYROID STIMULATING HORMONE 0.735 uIU/ML (0.358-3.740); TOTAL PROTEIN 6.7 GM/DL (6.4-8.2); TROPONIN I < 0.02 NG/ML (< 0.10); VITAMIN B12 LEVEL 881 PG/ML (247-911)
[2020-09-25 16:04] LABS: FERRITIN 14 NG/ML (8-252); IRON (FE) 93 UG/DL (50-170); PERCENT SATURATION 24.2 % (13.2-45.0); TOTAL IRON BINDING CAPACITY 385 UG/DL (250-450)
[2020-09-25 16:12] LABS: FOLATE > 24.0 NG/ML (>5.4)
[2020-09-25] MEDS ORDERED: KETOROLAC 30 MG/ML 1ML VIAL IM ONE (17:05)
[2020-09-25] MEDS ORDERED: NS 1,000 ML IV ONE (17:05)
[2020-09-25] MEDS ORDERED: METOCLOPRAMIDE INJ 10MG/2ML VIAL (J2765 PER 1) IV ONE (17:05)
[2020-09-25] MEDS ORDERED: SUMAtriptan SUCCINATE 6 MG/0.5 ML VIAL SC ONE (17:05)
[2020-09-25] MEDS ORDERED: diphenhydrAMINE 50MG/ML VIAL (J1200) IV ONE (17:05)
--- NOTE | 2020-09-25 17:19 | ECGEPIP ---
[facility] - ED Test Date: 2020-09-25 Pat Name: DHEERAJ JAMISON Department: Room: - Gender: Female Telesales Consultant: : 1990 Requested By: FAWAD LOPEZ PA-C Order Number: [id number] Reading MD: Ricardo Wang Measurements Intervals [place] Rate: 79 P: 48 IL: 136 QRS: 33 QRSD: 86 T: 2 QT: 372 QTc: 426 Interpretive Statements Normal sinus rhythm Similar to tracing done 10-09-15 Electronically Signed on 09-25-2020 17:19:34 EST by Ricardo Wang
[2020-09-25] MEDS ORDERED: KETOROLAC 30 MG/ML 1ML VIAL IV ONE (17:45)
[2020-09-25] MEDS ORDERED: HYDR-3363 PO (18:14)
[2020-09-25 18:38] VITALS: BP 136/86
== END 2020-09-25 18:48 | disposition home or self-care (01) ==
LOC: M ED 13:47
DX: F41.9 Anxiety disorder, unspecified (principal); R51.9 Headache, unspecified; E03.9 Hypothyroidism, unspecified; D50.9 Iron deficiency anemia, unspecified; Z79.899 Other long term (current) drug therapy; Z79.890 Hormone replacement therapy; Z88.0 Allergy status to penicillin
CPT/HCPCS: 71046; 80048; 80076; 82550; 82553; 82607; 82728; 82746; 83550; 84439; 84443; 85025; 93005; 96361; 96374; 96375; 99284; J1200; J1885; J2060; J2765

== ENCOUNTER → 2020-10-12 | Outpatient (REF) | payer OTHER ==
[~2020-10-12] MED LIST changes: +FERR325T3 PO; +HYDR-3363 PO; +NOXI1TAB PO
[2020-10-12 19:28] LABS: EOS # 0.1 10^3/uL (0.0-0.5); EOS % 2.2 % (0.0-3.0); HEMATOCRIT 36.6 % (36.0-47.0); HEMOGLOBIN 10.7 g/dl (12.0-15.5); LYMPH # 1.1 10^3/uL (1.5-5.0); LYMPH % 25.9 % (24.0-44.0); MEAN CORPUSCULAR HEMOGLOBIN 24.6 pg (27.0-33.0); MEAN CORPUSCULAR HGB CONC 29.2 g/dl (32.0-36.5); MEAN CORPUSCULAR VOLUME 84.1 fl (80.0-96.0); MONO # 0.2 10^3/uL (0.0-0.8); MONO % 5.1 % (2.0-8.0); NEUTROPHILS # 2.7 10^3/uL (1.5-8.5); NEUTROPHILS % 65.6 % (36.0-66.0); PLATELET COUNT, AUTOMATED 279 10^3/uL (150-450); RED BLOOD COUNT 4.35 10^6/uL (4.00-5.40); WHITE BLOOD COUNT 4.1 10^3/uL (4.0-10.0)
[2020-10-12 19:52] LABS: FERRITIN 20 NG/ML (8-252); IRON (FE) 33 UG/DL (50-170)
== END ==
LOC: M SFHCADAM 13:54
PROVIDERS: ATTEND Physician Assistant Medical
DX: D50.9 Iron deficiency anemia, unspecified (principal)

== ENCOUNTER → 2020-10-14 | Outpatient (REF) | payer OTHER ==
[2020-10-14 16:03] LABS: FREE T4 1.24 NG/DL (0.76-1.46); THYROID STIMULATING HORMONE 1.17 uIU/ML (0.358-3.740)
== END ==
LOC: M SFHCPLAZ 12:24
PROVIDERS: ATTEND Nurse Practitioner Family
DX: E03.9 Hypothyroidism, unspecified (principal)

== ENCOUNTER → 2020-11-02 | Outpatient (REF) | payer OTHER ==
[2020-11-02 11:44] LABS: BASO # 0.1 10^3/uL (0.0-0.2); BASO % 1.5 % (0.0-1.0); EOS # 0.1 10^3/uL (0.0-0.5); EOS % 2.8 % (0.0-3.0); HEMATOCRIT 40.9 % (36.0-47.0); HEMOGLOBIN 12.4 g/dl (12.0-15.5); LYMPH % 31.8 % (24.0-44.0); MEAN CORPUSCULAR HEMOGLOBIN 25.6 pg (27.0-33.0); MEAN CORPUSCULAR HGB CONC 30.3 g/dl (32.0-36.5); MEAN CORPUSCULAR VOLUME 84.5 fl (80.0-96.0); MONO # 0.3 10^3/uL (0.0-0.8); NEUTROPHILS # 1.8 10^3/uL (1.5-8.5); NEUTROPHILS % 54.6 % (36.0-66.0); PLATELET COUNT, AUTOMATED 233 10^3/uL (150-450); RED BLOOD COUNT 4.84 10^6/uL (4.00-5.40); WHITE BLOOD COUNT 3.2 10^3/uL (4.0-10.0)
[2020-11-02 12:29] LABS: FREE T4 1.43 NG/DL (0.76-1.46); THYROID STIMULATING HORMONE 1.27 uIU/ML (0.358-3.740)
== END ==
LOC: M SFHCADAM 08:59
PROVIDERS: ATTEND Physician Assistant Medical
DX: E03.9 Hypothyroidism, unspecified (principal); D50.9 Iron deficiency anemia, unspecified

== ENCOUNTER → 2020-11-03 | Outpatient (CLI) | payer OTHER ==
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
== END ==
LOC: M RAD 13:13
PROVIDERS: ATTEND Physician Assistant Medical
DX: S06.0X1D Concussion with loss of consciousness of 30 minutes or less, subsequent encounter (principal); R00.0 Tachycardia, unspecified; V49.60XD Unspecified car occupant injured in collision with unspecified motor vehicles in traffic accident, subsequent encounter; Y92.410 Unspecified street and highway as the place of occurrence of the external cause

== ENCOUNTER → 2020-11-03 | Outpatient (CLI) | payer SELFPAY | LOC: M LABSMTC 14:06 | PROVIDERS: ATTEND Pediatrics | DX: Z20.822 Contact with and (suspected) exposure to COVID-19 (principal) ==

== ENCOUNTER → 2021-04-29 | Outpatient (CLI) | payer OTHER ==
[2021-04-29 16:16] LABS: BLOOD UREA NITROGEN 14 MG/DL (7-18); CALCIUM LEVEL 8.8 MG/DL (8.5-10.1); CARBON DIOXIDE LEVEL 26 MEQ/L (21-32); CHLORIDE LEVEL 110 MEQ/L (98-107); CREATININE FOR GFR 0.75 MG/DL (0.55-1.30); GLOMERULAR FILTRATION RATE > 60.0 (>60); GLUCOSE, FASTING 73 MG/DL (70-100); POTASSIUM SERUM 4.4 MEQ/L (3.5-5.1); SODIUM LEVEL 140 MEQ/L (136-145)
== END ==
LOC: M PLALAB 14:24
PROVIDERS: ATTEND Nurse Practitioner Adult Health
DX: R35.0 Frequency of micturition (principal)

== ENCOUNTER → 2021-05-19 | Outpatient (REF) | payer OTHER ==
[2021-05-19 13:38] LABS: BASO % 1.6 % (0.0-1.0); EOS # 0.2 10^3/uL (0.0-0.5); EOS % 8.8 % (0.0-3.0); HEMATOCRIT 26.4 % (36.0-47.0); HEMOGLOBIN 7.2 g/dl (12.0-15.5); LYMPH # 0.9 10^3/uL (1.5-5.0); LYMPH % 34.5 % (24.0-44.0); MEAN CORPUSCULAR HEMOGLOBIN 19.5 pg (27.0-33.0); MEAN CORPUSCULAR HGB CONC 27.3 g/dl (32.0-36.5); MEAN CORPUSCULAR VOLUME 71.5 fl (80.0-96.0); MONO # 0.4 10^3/uL (0.0-0.8); MONO % 15.7 % (2.0-8.0); NEUTROPHILS % 39.4 % (36.0-66.0); PLATELET COUNT, AUTOMATED 154 10^3/uL (150-450); RED BLOOD COUNT 3.69 10^6/uL (4.00-5.40); WHITE BLOOD COUNT 2.5 10^3/uL (4.0-10.0)
[2021-05-19 14:11] LABS: ALBUMIN 3.6 GM/DL (3.2-5.2); ALT/SGPT 20 U/L (12-78); BILIRUBIN,TOTAL 0.2 MG/DL (0.2-1.0); BLOOD UREA NITROGEN 13 MG/DL (7-18); CALCIUM LEVEL 8.9 MG/DL (8.5-10.1); CARBON DIOXIDE LEVEL 25 MEQ/L (21-32); CHLORIDE LEVEL 114 MEQ/L (98-107); CREATININE FOR GFR 0.65 MG/DL (0.55-1.30); FERRITIN < 3 NG/ML (8-252); FREE T4 1.05 NG/DL (0.76-1.46); GLOMERULAR FILTRATION RATE > 60.0 (>60); GLUCOSE, FASTING 81 MG/DL (70-100); IRON (FE) 12 UG/DL (50-170); POTASSIUM SERUM 4.1 MEQ/L (3.5-5.1); SODIUM LEVEL 142 MEQ/L (136-145); THYROID STIMULATING HORMONE 0.566 uIU/ML (0.358-3.740); TOTAL PROTEIN 6.5 GM/DL (6.4-8.2)
[2021-05-19 14:16] LABS: PTH INTACT 41.8 PG/ML (18.5-88.0); TOTAL 25(OH) VITAMIN D 25.9 NG/ML (30.0-100.0); VITAMIN B12 LEVEL 417 PG/ML (247-911)
== END ==
LOC: M SFHCPLAZ 10:37 → M SFHCADAM 10:39
PROVIDERS: ATTEND Physician Assistant Medical
DX: E03.9 Hypothyroidism, unspecified (principal); D50.9 Iron deficiency anemia, unspecified; Z98.84 Bariatric surgery status

== ENCOUNTER → 2021-05-24 | Outpatient (CLI) | payer OTHER | LOC: M LAB 16:02 | PROVIDERS: ATTEND Physician Assistant Medical | DX: D50.9 Iron deficiency anemia, unspecified (principal) ==

== ENCOUNTER 2021-05-25 07:58 | Outpatient (CLI) | payer OTHER ==
[~2021-05-25] VITALS: Ht 167.6 cm; Wt 76.8 kg
[2021-05-25] VITALS (8 sets, daily range): BP systolic 109–121; BP diastolic 55–71
[~2021-05-25 07:58] MED LIST changes: +diphenhydrAMINE 25MG CAP PO SCH
[2021-05-25] MEDS ORDERED: ACETAMINOPHEN 325 MG TAB PO ONE (08:35)
== END 2021-05-25 11:45 | disposition home or self-care (01) ==
LOC: M INFU 07:58
PROVIDERS: ATTEND Physician Assistant Medical
DX: D64.9 Anemia, unspecified (principal); Z88.1 Allergy status to other antibiotic agents
CPT/HCPCS: 36430; P9016

== ENCOUNTER → 2021-06-08 | Outpatient (CLI) | payer OTHER ==
[~2021-06-08] MED LIST changes: -diphenhydrAMINE 25MG CAP PO SCH
[2021-06-08 15:04] LABS: APPEARANCE, URINE CLEAR (CLEAR); BACTERIA, URINE AUTO NEGATIVE (NEGATIVE); BILIRUBIN, URINE AUTO NEGATIVE (NEGATIVE); BLOOD, URINE BLOOD NEGATIVE (NEGATIVE); COLOR, URINE YELLOW (YELLOW); GLUCOSE, URINE (UA) AUTO NEGATIVE (NEGATIVE); KETONE, URINE AUTO NEGATIVE (NEGATIVE); LEUKOCYTE ESTERASE, URINE AUTO NEGATIVE (NEGATIVE); NITRITE, URINE AUTO NEGATIVE (NEGATIVE); PROTEIN, URINE AUTO NEGATIVE (NEGATIVE); RBC, URINE AUTO 0 /HPF (0-3); SPECIFIC GRAVITY URINE AUTO 1.005 (1.002-1.035); SQUAMOUS EPITHELIAL CELL UR AU 1 /HPF (0-6); WBC, URINE AUTO 0 /HPF (0-3)
[2021-06-08 15:09] LABS: BASO # 0.1 10^3/uL (0.0-0.2); BASO % 2.2 % (0.0-1.0); EOS # 0.5 10^3/uL (0.0-0.5); EOS % 10.5 % (0.0-3.0); HEMATOCRIT 33.7 % (36.0-47.0); HEMOGLOBIN 9.6 g/dl (12.0-15.5); LYMPH # 1.8 10^3/uL (1.5-5.0); LYMPH % 39.7 % (24.0-44.0); MEAN CORPUSCULAR HEMOGLOBIN 21.2 pg (27.0-33.0); MEAN CORPUSCULAR HGB CONC 28.5 g/dl (32.0-36.5); MEAN CORPUSCULAR VOLUME 74.4 fl (80.0-96.0); MONO # 0.4 10^3/uL (0.0-0.8); MONO % 9.4 % (2.0-8.0); NEUTROPHILS # 1.7 10^3/uL (1.5-8.5); PLATELET COUNT, AUTOMATED 242 10^3/uL (150-450); RED BLOOD COUNT 4.53 10^6/uL (4.00-5.40); WHITE BLOOD COUNT 4.6 10^3/uL (4.0-10.0)
== END ==
LOC: M LAB 14:24
PROVIDERS: ATTEND Physician Assistant Medical
DX: R35.0 Frequency of micturition (principal); D50.9 Iron deficiency anemia, unspecified

== ENCOUNTER 2021-06-22 14:36 | Emergency (ER) | payer OTHER ==
[~2021-06-22] VITALS: Ht 170.2 cm; Wt 82.2 kg
[2021-06-22 14:37] VITALS: BP 108/79
[2021-06-22] MEDS ORDERED: LEXA1TAB (14:58)
[2021-06-22] MEDS ORDERED: NS 1,000 ML IV ONE (17:30)
[2021-06-22 17:59] LABS: BASO # 0.1 10^3/uL (0.0-0.2); BASO % 2.3 % (0.0-1.0); EOS # 0.4 10^3/uL (0.0-0.5); EOS % 11.2 % (0.0-3.0); HEMATOCRIT 30.8 % (36.0-47.0); HEMOGLOBIN 8.8 g/dl (12.0-15.5); LYMPH # 1.5 10^3/uL (1.5-5.0); LYMPH % 39.7 % (24.0-44.0); MEAN CORPUSCULAR HEMOGLOBIN 21.5 pg (27.0-33.0); MEAN CORPUSCULAR HGB CONC 28.6 g/dl (32.0-36.5); MEAN CORPUSCULAR VOLUME 75.3 fl (80.0-96.0); MONO # 0.3 10^3/uL (0.0-0.8); MONO % 8.9 % (2.0-8.0); NEUTROPHILS # 1.4 10^3/uL (1.5-8.5); NEUTROPHILS % 37.6 % (36.0-66.0); PLATELET COUNT, AUTOMATED 266 10^3/uL (150-450); RED BLOOD COUNT 4.09 10^6/uL (4.00-5.40); WHITE BLOOD COUNT 3.8 10^3/uL (4.0-10.0)
[2021-06-22 18:13] LABS: INR 0.94
[2021-06-22 18:14] LABS: PARTIAL THROMBOPLASTIN TIME 30.8 SECONDS (25.9-37.0)
[2021-06-22 18:51] LABS: CK-MB VALUE MASS < 1.0 NG/ML (<3.6); CPK CREATINE PHOSPHOKINASE 88 U/L (26-192)
[2021-06-22 18:52] LABS: ALBUMIN 3.7 GM/DL (3.2-5.2); ALT/SGPT 23 U/L (12-78); BILIRUBIN,DIRECT < 0.1 MG/DL (0.0-0.2); BILIRUBIN,TOTAL 0.3 MG/DL (0.2-1.0); BLOOD UREA NITROGEN 12 MG/DL (7-18); CARBON DIOXIDE LEVEL 29 MEQ/L (21-32); CHLORIDE LEVEL 109 MEQ/L (98-107); CREATININE FOR GFR 0.75 MG/DL (0.55-1.30); FERRITIN 5 NG/ML (8-252); GLOMERULAR FILTRATION RATE > 60.0 (>60); GLUCOSE, FASTING 67 MG/DL (70-100); IRON (FE) 15 UG/DL (50-170); PERCENT SATURATION 3.8 % (13.2-45.0); POTASSIUM SERUM 4.1 MEQ/L (3.5-5.1); SODIUM LEVEL 140 MEQ/L (136-145); TOTAL IRON BINDING CAPACITY 396 UG/DL (250-450); TOTAL PROTEIN 6.8 GM/DL (6.4-8.2)
--- OUTSIDE RECORDS SUMMARY | 2021-06-22 19:43 | CCD ---
Author Author [facility] Organization [facility] Address Unknown Phone Unavailable Care Team Providers Care Airframe Design Engineer Name Role Phone Luz Burgess Unavailable PROBLEMS Type Condition ICD9-CM Code [id number] Code Onset Dates Condition S tatus W/U Status Risk SNOMED Code Notes Problem Menorrhagia with regular cycle N92.0 Active confir med 128506863 Problem Acquired hypothyroidism E03.9 Active confirmed 680893350 Problem Allergic rhinitis, unspecifi ed allergic rhinitis trigger, unspecified rhinitis seasonality J30.9 Active confirmed 03722050 Problem Breast cancer screening Z12.39 Active confirmed 543264960 Problem Iron deficiency anemia, unspecified iron deficiency an emia type D50.9 Active confirmed 12520582 Problem Obesity, unspecified E66.9 Active confirmed 40785260035471 Problem Lipid screening Z13.220 Active confirmed 305 947143 Problem Anxiety F41.9 Active confirmed 72537227 Problem Anxiety disorder, unspecified F41.9 Active confirm ed 633874212 Problem Obesity, morbid E66.01 Active confirmed 2381 31619 Problem Vitamin D deficiency E55.9 Active confirmed 75508129 Problem Cervical cancer screening Z12.4 Active confirmed 888074337 Problem S/P gastric bypass Z98.84 Active confirmed 6 57153854 Problem Menorrhagia with irregular cycle N92.1 Active conf irmed 331676798 Problem Prolonged menstrual cycle N92.1 Active confirmed 858773985 Problem Anxiety with depression F41.8 Active confirmed 470798454 ALLERGIES Allergen (clinical drug ingredient) Drug/Non Drug Allergy do cumented on EMR Reaction Allergy Type Onset Date Status amoxicillin Amoxicillin([facility] Code:[address]-15) Hives Drug Aller gy Active ENCOUNTERS from 1990 to 2021-06-10 Encounter Location Date Provider Diagnosis [facility] Paolo [address] [facility] [phone] [place] [address] May, Luz Burgess IMMUNIZATIONS Vaccine Route Administration Date Status Influenza 6mo & up Fluzone Unknown Jun 08, 2016 Refus ed SOCIAL HISTORY Tobacco Use: Social History Observation Description Date Details (start date - stop date) Never Smoker Sex Assigned At : Social History Observation Description Sex Assigned At Unknown Education: Question Answer Notes Level of Education: Finished High School Audit Question Answer Notes Total Score: 0 Interpretation: Alcohol Education Hoahaoism: Question Answer Notes Hoahaoism 21 Sikh Sexual Hx: Question Answer Notes Had sex in the last 12 months (vaginal, oral, or anal)? Yes LMP: 03/2017 Have you ever had an STD? No Prevention Strategies discussed: Other with Men only Use protection? No Drug and Alcohol Question Answer Notes Total Score: 0 Interpretation: No problems reported Alcohol Screening: Question Answer Notes Did you [...] Da te End Date Status Levothyroxine Sodium 88 MCG 1 tablet in the morning on an empty stomach Orally Once a day for 30 day(s) Active Ferrous Gluconate 324 (38 Fe) MG 2 tablet with water o r juice between meals Orally Every other day for 30 day(s) Apr, Active Escitalopram Oxalate 10 MG 1/2 tablet Orally Once a day for 30 day(s) Active PROCEDURES No Information RESULTS No Results REASON FOR VISIT chest xray MEDICAL (GENERAL) HISTORY Type Description Date Medical History Pneumonia in 06/2018, bronch itis after in 08/2018, Still SOB, prod. phlegm cordero, white since Medical History Hypothyroidism Surgical History 3 ([id number]) Surgical History Tubal ligation c 3rd C section Surgical History [place] teeth extracted Surgical History gastric bypass Hospitalization History vaginal of baby boy/[facility] Hospitalization [...] Medication Name Sig Start Date Stop Date Escitalopram Oxalate 10 MG 1/2 tablet Orally Once a day for 30 d ay(s) Next Appt Details Provider Name:Luz Burgess, 2020-07 01:45:00 PM, [address] [place] [id number], [place], [address], Provider Name:Brennon Montes, 2021-06-28 11:45:00 AM, [address] [place], [place] [id number], [place], [address], Provider Name:Brennon Montes, 2021-07-14 03:00:00 PM, [address] [place], [place] [id number], [place], [address], Provider Name:Brennon Montes, 2021-08-06 10:30:00 AM, [address] [place] [address], , [place], [address], Provider Name:Brennon Montes 2021-08-26 11:30:00 AM, [address] [place], [place] [address], [place], [address], Insurance Providers Payer Name Payer Address Payer Phone Insured Name Patient Relati onship to Insured Coverage Start Date Coverage End Date [facility] COMMUNITY PLAN [facility] [address] [facility] [phone] DHEERAJ JAMISON
--- OUTSIDE RECORDS SUMMARY | 2021-06-22 19:43 | CCD ---
Author Author [facility] Organization [facility] Address Unknown Phone Unavailable Care Team Providers Care Cutting Machine Operator Helper Name Role Phone Luz Burgess Unavailable PROBLEMS Type Condition ICD9-CM Code [id number] Code Onset Dates Condition S tatus W/U Status Risk SNOMED Code Notes Problem Menorrhagia with regular cycle N92.0 Active confir med 642969032 Problem Acquired hypothyroidism E03.9 Active confirmed 651983784 Problem Allergic rhinitis, unspecifi ed allergic rhinitis trigger, unspecified rhinitis seasonality J30.9 Active confirmed 32806302 Problem Breast cancer screening Z12.39 Active confirmed 852798368 Problem Iron deficiency anemia, unspecified iron deficiency an emia type D50.9 Active confirmed 76463623 Problem Obesity, unspecified E66.9 Active confirmed 01607833711117 Problem Lipid screening Z13.220 Active confirmed 305 428237 Problem Anxiety F41.9 Active confirmed 54967155 Problem Anxiety disorder, unspecified F41.9 Active confirm ed 258590425 Problem Obesity, morbid E66.01 Active confirmed 2381 53561 Problem Vitamin D deficiency E55.9 Active confirmed 95575074 Problem Cervical cancer screening Z12.4 Active confirmed 634679844 Problem S/P gastric bypass Z98.84 Active confirmed 6 11027736 Problem Menorrhagia with irregular cycle N92.1 Active conf irmed 305009946 Problem Prolonged menstrual cycle N92.1 Active confirmed 185392180 Problem Anxiety with depression F41.8 Active confirmed 390855230 ALLERGIES Allergen (clinical drug ingredient) Drug/Non Drug Allergy do cumented on EMR Reaction Allergy Type Onset Date Status amoxicillin Amoxicillin([facility] Code:[address]-95) Hives Drug Aller gy Active ENCOUNTERS from 1990 to 2021-05-25 Encounter Location Date Provider Diagnosis [facility] Paolo [address] [facility] [phone] [place] [address] Apr, Luz Burgess Acquired hypothyroidism E03. 9 IMMUNIZATIONS Vaccine Route Administration Date Status Influenza [...] Notes Total Score: 0 Interpretation: Alcohol Education Islam: Question Answer Notes Islam 21 Episcopalian Sexual Hx: Question Answer Notes Had sex [...] Once a day for 30 day(s) Active Levothyroxine Sodium 88 MCG 1 tablet in the morning on an empty stomach Orally Once a day for 90 day(s) Active Escitalopram Oxalate 10 MG 1/2 tablet Orally Once a day for 30 day(s) Active Ferrous Gluconate 324 (38 Fe) MG 2 tablet with water o r juice between meals Orally Every other day for 30 day(s) Apr, Active PROCEDURES No Information RESULTS No Results REASON FOR VISIT Refill - Levothyroxine MEDICAL (GENERAL) HISTORY Type Description Date Medical History Pneumonia in 06/2018, bronch itis after in 08/2018, Still SOB, prod. phlegm cordero, white since Medical History Hypothyroidism Surgical History 3 ([id number]) Surgical History Tubal ligation c 3rd C section Surgical History [place] teeth extracted Surgical History gastric bypass Hospitalization History vaginal of baby boy/[facility] 008 Hospitalization History C section baby boy/Harsha 01/09/2010 Hospitalization History C section baby boy/ Mike 08/03/ 2 Hospitalization History C section baby girl/Yissel Blancas 015 Goals Section No Information Health Concerns No Information MEDICAL EQUIPMENT No Information MENTAL STATUS No Information FUNCTIONAL STATUS No Information ASSESSMENTS Encounter Date Diagnosis Assessment Notes Treatment Notes Treatm ent Clinical Notes Apr, Acquired hypothyroidism (ICD-10 - E03.9) PLAN OF TREATMENT Medication Medication Name Sig Start Date Stop Date Levothyroxine Sodium 88 MCG 1 tablet in the morning on an empty stomach Orally Once a day for 90 day(s) Escitalopram Oxalate 10 MG 1/2 tablet Orally Once a day for 30 d ay(s) Ferrous Gluconate 324 (38 Fe) MG 2 tablet with water o r juice between meals Orally Every other day for 30 day(s) Apr, Insurance Providers Payer Name Payer Address Payer Phone Insured Name Patient Relati onship to Insured Coverage Start Date Coverage End Date [facility] COMMUNITY PLAN [facility] [address] [facility] [phone] DHEERAJ COSTA
--- OUTSIDE RECORDS SUMMARY | 2021-06-22 19:43 | CCD ---
Author Author [facility] Organization [facility] Address Unknown Phone Unavailable Care Team Providers Care Soft Water Mechanic Name Role Phone Luz Burgess Unavailable PROBLEMS Type Condition ICD9-CM Code [id number] Code Onset Dates Condition S tatus W/U Status Risk SNOMED Code Notes Problem Menorrhagia with regular cycle N92.0 Active confir med 450868614 Problem Acquired hypothyroidism E03.9 Active confirmed 055044203 Problem Allergic rhinitis, unspecifi ed allergic rhinitis trigger, unspecified rhinitis seasonality J30.9 Active confirmed 20344237 Problem Breast cancer screening Z12.39 Active confirmed 565061075 Problem Iron deficiency anemia, unspecified iron deficiency an emia type D50.9 Active confirmed 87050351 Problem Obesity, unspecified E66.9 Active confirmed 31489871610780 Problem Lipid screening Z13.220 Active confirmed 305 644204 Problem Anxiety F41.9 Active confirmed 00763301 Problem Anxiety disorder, unspecified F41.9 Active confirm ed 907091202 Problem Obesity, morbid E66.01 Active confirmed 2381 87867 Problem Vitamin D deficiency E55.9 Active confirmed 23400902 Problem Cervical cancer screening Z12.4 Active confirmed 586806568 Problem S/P gastric bypass Z98.84 Active confirmed 6 96740373 Problem Menorrhagia with irregular cycle N92.1 Active conf irmed 143465303 Problem Prolonged menstrual cycle N92.1 Active confirmed 178899535 Problem Anxiety with depression F41.8 Active confirmed 685450132 ALLERGIES Allergen (clinical drug ingredient) Drug/Non Drug Allergy do cumented on EMR Reaction Allergy Type Onset Date Status amoxicillin Amoxicillin([facility] Code:[address]-78) Hives Drug Aller gy Active ENCOUNTERS from 1990 to 2021-05-20 Encounter Location Date Provider Diagnosis [facility] [address] [facility] [phone] [place] [address] Apr, Luz Jenifer IMMUNIZATIONS Vaccine Route Administration Date Status Influenza [...] Notes Total Score: 0 Interpretation: Alcohol Education Christianity: Question Answer Notes Christianity 21 Bahai Sexual Hx: Question Answer Notes Had sex [...] Notes Start Da te End Date Status Escitalopram Oxalate 10 MG 1/2 tablet Orally Once a day for 30 day(s) Active Levothyroxine Sodium 88 MCG 1 tablet in the morning on an empty stomach Orally Once a day for 30 day(s) Active Levothyroxine Sodium 88 MCG 1 tablet in the morning on an empty stomach Orally Once a day Active Ferrous Gluconate 324 (38 Fe) MG 2 tablet with water o r juice between meals Orally Every other day for 30 day(s) Apr, Active PROCEDURES No Information RESULTS No Results REASON FOR VISIT call back MEDICAL (GENERAL) HISTORY Type Description Date Medical History Pneumonia in 06/2018, bronch itis after in 08/2018, Still SOB, prod. phlegm cordero, white since Medical History Hypothyroidism Surgical History 3 ([id number]) Surgical History Tubal ligation c 3rd C [...] Once a day for 30 d ay(s) Levothyroxine Sodium 88 MCG 1 tablet in the morning on an empty stomach Orally Once a day Ferrous Gluconate 324 (38 Fe) MG 2 tablet with water o r juice between meals Orally Every other day for 30 day(s) Apr, Insurance Providers Payer Name Payer Address Payer Phone Insured Name Patient Relati onship to Insured Coverage Start Date Coverage End Date [facility] COMMUN[facility] PLAN [facility] [address] [facility] [address] DHEERAJ JAMISON self
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
--- OUTSIDE RECORDS SUMMARY | 2021-06-22 19:43 | CCD ---
Author Author [facility] Organization [facility] Address Unknown Phone Unavailable Care Team Providers Care Flight Engineer Helicopter Name Role Phone Luz Burgess Unavailable PROBLEMS Type Condition ICD9-CM Code SLM52-OD Code Onset Dates Condition S tatus W/U Status Risk SNOMED Code Notes Problem Menorrhagia with regular cycle N92.0 Active confir med 067618673 Problem Acquired hypothyroidism E03.9 Active confirmed 640859527 Problem Allergic rhinitis, unspecifi ed allergic rhinitis trigger, unspecified rhinitis seasonality J30.9 Active confirmed 34980933 Problem Breast cancer screening Z12.39 Active confirmed 182273346 Problem Iron deficiency anemia, unspecified iron deficiency an emia type D50.9 Active confirmed 64402427 Problem Obesity, unspecified E66.9 Active confirmed 10921879567907 Problem Lipid screening Z13.220 Active confirmed 305 539660 Problem Anxiety F41.9 Active confirmed 83655228 Problem Anxiety disorder, unspecified F41.9 Active confirm ed 913418722 Problem Obesity, morbid E66.01 Active confirmed 2381 77860 Problem Vitamin D deficiency E55.9 Active confirmed 00170084 Problem Cervical cancer screening Z12.4 Active confirmed 101911753 Problem S/P gastric bypass Z98.84 Active confirmed 6 00741806 Problem Menorrhagia with irregular cycle N92.1 Active conf irmed 911606148 Problem Prolonged menstrual cycle N92.1 Active confirmed 187656437 Problem Anxiety with depression F41.8 Active confirmed 604431090 ALLERGIES Allergen (clinical drug ingredient) Drug/Non Drug Allergy do cumented on EMR Reaction Allergy Type Onset Date Status amoxicillin Amoxicillin([facility] Code:[address]-86) Hives Drug Aller gy Active ENCOUNTERS from 1989 to 2021-06-16 Encounter Location Date Provider Diagnosis [facility] Paolo [address] [facility] [phone] [place] [address] 12 May, 2021 Luz Burgess IMMUNIZATIONS Vaccine Route Administration Date [...] Notes Total Score: 0 Interpretation: Alcohol Education Roman Catholic: Question Answer Notes Roman Catholic 21 Hindu Sexual Hx: Question Answer Notes Had sex [...] Information RESULTS No Results REASON FOR VISIT no show discharge MEDICAL (GENERAL) HISTORY Type Description Date Medical History Pneumonia in 06/2018, bronch itis after in 08/2018, Still SOB, prod. phlegm cordero, white since Medical History Hypothyroidism Surgical History 3 ([id number]) Surgical History Tubal ligation c 3rd C [...] 30 d ay(s) Next Appt Details Provider Name:Brennon Montes, 2021-06-28 11:45:00 AM, [address] [place], [place] [id number], [place], [address], Provider Name:Brennon Montes 2021-07-14 03:00:00 PM, [address] [place], [place] [address], [place], [address], Provider Name:Brennno Montes 2021-08-06 10:30:00 AM, [address] [place], [place] [id number], [place], [address], Provider Name:Brennon Montes 2021-08-26 11:30:00 AM, [address] [place], [place] [address], [place], [address], Insurance Providers Payer Name Payer Address Payer Phone Insured Name Patient Relati onship to Insured Coverage Start Date Coverage End Date [facility] COMMUNITY PLAN [facility] [address] [facility] [address] DHEERAJ JAMISON self
--- OUTSIDE RECORDS SUMMARY | 2021-06-22 19:43 | CCD ---
Author Author [facility] Organization [facility] Address Unknown Phone Unavailable Care Team Providers Care Bootmaker Hand Name Role Phone Luz Burgess Unavailable PROBLEMS Type Condition ICD9-CM Code KTL64-UT Code Onset Dates Condition S tatus W/U Status Risk SNOMED Code Notes Problem Menorrhagia with regular cycle N92.0 Active confir med 534262416 Problem Acquired hypothyroidism E03.9 Active confirmed 306802658 Problem Allergic rhinitis, unspecifi ed allergic rhinitis trigger, unspecified rhinitis seasonality J30.9 Active confirmed 27498820 Problem Breast cancer screening Z12.39 Active confirmed 616633941 Problem Iron deficiency anemia, unspecified iron deficiency an emia type D50.9 Active confirmed 72563609 Problem Obesity, unspecified E66.9 Active confirmed 96289956425907 Problem Lipid screening Z13.220 Active confirmed 305 412354 Problem Anxiety F41.9 Active confirmed 30540918 Problem Anxiety disorder, unspecified F41.9 Active confirm ed 529258836 Problem Obesity, morbid E66.01 Active confirmed 2381 27498 Problem Vitamin D deficiency E55.9 Active confirmed 55163295 Problem Cervical cancer screening Z12.4 Active confirmed 475524194 Problem S/P gastric bypass Z98.84 Active confirmed 6 62196820 Problem Menorrhagia with irregular cycle N92.1 Active conf irmed 326810568 Problem Prolonged menstrual cycle N92.1 Active confirmed 515257823 Problem Anxiety with depression F41.8 Active confirmed 285103953 ALLERGIES Allergen (clinical drug ingredient) Drug/Non Drug Allergy do cumented on EMR Reaction Allergy Type Onset Date Status amoxicillin Amoxicillin([facility] Code:[address]-57) Hives Drug Aller gy Active ENCOUNTERS from 1989 to 2021-05-25 Encounter [facility] Date [facility] [address] [facility] [phone] [place] [address] Apr, Luz Burgess IMMUNIZATIONS Vaccine Route Administration Date [...] Notes Total Score: 0 Interpretation: Alcohol Education Rastafarian: Question Answer Notes Rastafarian 21 Taoism Sexual Hx: Question Answer Notes [...] Information RESULTS No Results REASON FOR VISIT Increased/New symptoms MEDICAL (GENERAL) HISTORY Type Description Date Medical History Pneumonia in 06/2018, bronch itis after in 08/2018, Still SOB, prod. phlegm cordero, white since Medical History Hypothyroidism Surgical History 3 ([id number]) Surgical History Tubal ligation c 3rd C [...] Insured Coverage Start Date Coverage End Date [facility] PLAN [facility] [address] [facility] [phone] DHEERAJ JAMISON self
--- OUTSIDE RECORDS SUMMARY | 2021-06-22 19:44 | CCD ---
Author Author [facility] Organization [facility] Address Unknown Phone Unavailable Care Team Providers Care Sonography Technician Name Role Phone Salena Silveira Unavailable PROBLEMS Type Condition ICD9-CM Code KLB88-PS Code Onset Dates Condition S tatus W/U Status Risk SNOMED Code Notes Problem Allergic rhinitis, unspecifi ed allergic rhinitis trigger, unspecified rhinitis seasonality J30.9 Active confirmed 82969258 Problem Menorrhagia with regular cycle N92.0 Active confir med 534804245 Problem Iron deficiency anemia, unspecified iron deficiency an emia type D50.9 Active confirmed 98203521 Problem Acquired hypothyroidism E03.9 Active confirmed 408739325 Problem Obesity, morbid E66.01 Active confirmed 2381 88532 Problem Obesity, unspecified E66.9 Active confirmed 79493024710164 Problem Lipid screening Z13.220 Active confirmed 305 381386 Problem Anxiety with depression F41.8 Active confirmed 757070012 Problem Cervical cancer screening Z12.4 Active confirmed 970999338 Problem Anxiety disorder, unspecified F41.9 Active confirm ed 527958652 Problem Breast cancer screening Z12.39 Active confirmed 011027572 Problem Anxiety F41.9 Active confirmed 10608372 Problem S/P gastric bypass Z98.84 Active confirmed 6 62757790 Problem Prolonged menstrual cycle N92.1 Active confirmed 711715421 Problem Menorrhagia with irregular cycle N92.1 Active conf irmed 071130408 ALLERGIES Allergen (clinical drug ingredient) Drug/Non Drug Allergy do cumented on EMR Reaction Allergy Type Onset Date Status amoxicillin Amoxicillin([facility] Code:[address]-62) Hives Drug Aller gy Active ENCOUNTERS from 1989 to 2021-05-03 Encounter Location Date Provider Diagnosis [facility] Paolo [address] [facility] [phone] [place] [address] Mar, Salena Silveira Urinary frequency R35.0 IMMUNIZATIONS Vaccine Route Administration Date Status Influenza 6mo & up Fluzone Unknown Jun 08, 2016 Refus ed SOCIAL HISTORY Tobacco Use: Social History Observation Description Date Details (start date - stop date) Never Smoker Sex Assigned At : Social History Observation Description Sex Assigned At Unknown Education: Question Answer Notes Level of Education: Finished High School Mormon: Question Answer Notes Mormon 21 Alevism Sexual Hx: Question Answer Notes Had sex [...] FOR REFERRAL No Information VITAL SIGNS Weight 183.2 lbs Mar, Weight-kg 83.1 kg Mar, Height 67 in Mar, BMI 28.69 kg/m2 Mar, Heart Rate 90 /min Mar, Respiratory Rate 18 /min Mar, Temperature 97.5 degrees Fahrenheit Mar, Oximetry 96 Mar, Blood pressure systolic 134 mm Hg Mar, Blood pressure diastolic 72 mm Hg Mar, MEDICATIONS Medication SIG (Take, Route, Frequency, Duration) Notes Start Da te End Date Status Escitalopram Oxalate 10 MG 1 tablet Orally Once a day for 30 day(s) Active Fluconazole 150 MG 1 tablet Orally as directed 1 today and 1 in 7days for 2 days Mar, Active Macrodantin 100 MG 1 capsule at bedtime with fo od or milk Orally bid for 7 day(s) Mar, Active Levothyroxine Sodium 88 MCG 1 tablet in the morning on an empty stomach Orally Once a day for 30 day(s) Active Pyridium 200 MG 1 tablet after meals Orally Three times a day fo r 2 day(s) Mar, Active Propranolol HCl 10 MG 1 tablet Orally Once a day for 30 day(s) Not-Taking PROCEDURES No Information RESULTS Component Value Reference Range Urinalysis, no Micro Reviewed date:04/29/2021 14:47:03 Interpretation: Performing Lab:[facility], ,[place] [address] Spec gravity pH Leukocyte Nitrate Protein Glucose Ketones Urobili Bilirubin Blood Internal QC Acceptable (Y/N) REASON FOR VISIT ? UTI MEDICAL (GENERAL) HISTORY Type Description Date Medical History Pneumonia in 06/2018, bronch itis after in 08/2018, Still SOB, prod. phlegm cordero, white since Medical History Hypothyroidism Surgical History 3 ([id number]) Surgical History Tubal ligation c 3rd C [...] Notes Treatment Notes Treatm ent Clinical Notes Mar, Urinary frequency (ICD-10 - R35.0) Leukocytes positive, blood positive, will treat as symptomatic UTI with Macrodantin and Diflucan for yeast infection purposes, Pyridium for the burning discussed risk of medications with patient advised patient should this pain get worse and no improvement to go to the emergency room, question kidney stone, will obtain BMP to assess kidney status Mar, Other Patient has a r outine visit with Luz May 06 already scheduled PLAN OF TREATMENT Medication Medication Name Sig Start Date Stop Date Macrodantin 100 MG 1 capsule at bedtime with fo od or milk Orally bid for 7 day(s) Mar, Pyridium 200 MG 1 tablet after meals Orally Three times a day for 2 day(s) Mar, Fluconazole 150 MG 1 tablet Orally as directed 1 today and 1 in 7days for 2 days Mar, Treatment Notes Assessment Notes Clinical Notes Urinary frequency Leukocytes positive, blood positive, will treat as symptomatic UTI with Macrodantin and Diflucan for yeast infection purposes, Pyridium for the burning discussed risk of medications with patient advised patient should this pain get worse and no improvement to go to the emergency room, question kidney stone, will obtain BMP to assess kidney status Treatment Notes Test Name Order Date URINE CULTURE 2021-04-29 Basic Metabolic Profile (BMP) 2021-04-29 Next Appt Details Jaylon eleno scheduked 05/06/21 Reason: Provider Name:Luz Burgess, 2020-07 0-07 03:00:00 PM, [address] [facility], , [place], [address], Insurance Providers Payer Name Payer Address Payer Phone Insured Name Patient Relati onship to Insured Coverage Start Date Coverage End Date [facility] COMM[facility]AN [facility] [address] [facility] [phone] DHEERAJ COSTA self
--- OUTSIDE RECORDS SUMMARY | 2021-06-22 19:44 | CCD ---
Author Author [facility] Organization [facility] Address Unknown Phone Unavailable Care Team Providers Care Regulatory Scientist Name Role Phone Luz Burgess Unavailable PROBLEMS Type Condition ICD9-CM Code [id number] Code Onset Dates Condition S tatus W/U Status Risk SNOMED Code Notes Problem Allergic rhinitis, unspecifi ed allergic rhinitis trigger, unspecified rhinitis seasonality J30.9 Active confirmed 52319057 Problem Menorrhagia with regular cycle N92.0 Active confir med 653437725 Problem Iron deficiency anemia, unspecified iron deficiency an emia type D50.9 Active confirmed 98501446 Problem Acquired hypothyroidism E03.9 Active confirmed 876697156 Problem Obesity, morbid E66.01 Active confirmed 2381 36988 Problem Obesity, unspecified E66.9 Active confirmed 37491961840188 Problem Lipid screening Z13.220 Active confirmed 305 843992 Problem Anxiety with depression F41.8 Active confirmed 526301284 Problem Cervical cancer screening Z12.4 Active confirmed 275010431 Problem Anxiety disorder, unspecified F41.9 Active confirm ed 865538201 Problem Breast cancer screening Z12.39 Active confirmed 606074259 Problem Anxiety F41.9 Active confirmed 68267737 Problem S/P gastric bypass Z98.84 Active confirmed 6 32452026 Problem Prolonged menstrual cycle N92.1 Active confirmed 874935182 Problem Menorrhagia with irregular cycle N92.1 Active conf irmed 533070224 ALLERGIES Allergen (clinical drug ingredient) Drug/Non Drug Allergy do cumented on EMR Reaction Allergy Type Onset Date Status amoxicillin Amoxicillin([facility] Code:[address]-23) Hives Drug Aller gy Active ENCOUNTERS from 1989 to 2021-04-29 Encounter Location Date Provider Diagnosis [facility] Paolo [address] [facility] [phone] [place] [address] Mar, Luz Burgess IMMUNIZATIONS Vaccine Route Administration Date Status Influenza 6mo & up Fluzone Unknown Jun 08, 2016 Refus ed SOCIAL HISTORY Tobacco Use: Social History Observation Description Date Details (start date - stop date) Never Smoker Sex Assigned At : Social History Observation Description Sex Assigned At Unknown Education: Question Answer Notes Level of Education: Finished High School Zoroastrian: Question Answer Notes Zoroastrian 20 Yazidism Sexual Hx: Question Answer Notes [...] 30 day(s) Not-Taking PROCEDURES No Information RESULTS No Results REASON FOR VISIT ?uti MEDICAL (GENERAL) HISTORY Type Description Date Medical History Pneumonia in 06/2018, bronch itis after in 08/2018, Still SOB, prod. phlegm cordero, white since Medical History Hypothyroidism Surgical History 3 ([id number]) Surgical History Tubal ligation c 3rd C [...] 1 in 7days for 2 days Mar, Next Appt Details Provider Name:Luz Burgess, 2020-07 0-07 03:00:00 PM, [address], , [place], [address], Insurance Providers Payer Name Payer Address Payer Phone Insured Name Patient Relati onship to Insured Coverage Start Date Coverage End Date [facility] [address] [facility] [phone] DHEERAJ COSTA
--- OUTSIDE RECORDS SUMMARY | 2021-06-22 19:44 | CCD ---
Author Author [facility] Organization [facility] Address Unknown Phone Unavailable Care Team Providers Care Custodial Worker Name Role Phone Luz Burgess Unavailable PROBLEMS Type Condition ICD9-CM Code ZAE78-[id number] Code Onset Dates Condition S tatus W/U Status Risk SNOMED Code Notes Problem Allergic rhinitis, unspecifi ed allergic rhinitis trigger, unspecified rhinitis seasonality J30.9 Active confirmed 43386773 Problem Menorrhagia with regular cycle N92.0 Active confir med 064132830 Problem Iron deficiency anemia, unspecified iron deficiency an emia type D50.9 Active confirmed 19606726 Problem Acquired hypothyroidism E03.9 Active confirmed 437178485 Problem Obesity, morbid E66.01 Active confirmed 2381 68074 Problem Obesity, unspecified E66.9 Active confirmed 27886578415488 Problem Lipid screening Z13.220 Active confirmed 305 322601 Problem Anxiety with depression F41.8 Active confirmed 538603137 Problem Cervical cancer screening Z12.4 Active confirmed 857242716 Problem Anxiety disorder, unspecified F41.9 Active confirm ed 978123213 Problem Breast cancer screening Z12.39 Active confirmed 523417337 Problem Anxiety F41.9 Active confirmed 55476982 Problem S/P gastric bypass Z98.84 Active confirmed 6 95079828 Problem Prolonged menstrual cycle N92.1 Active confirmed 705632689 Problem Menorrhagia with irregular cycle N92.1 Active conf irmed 623207811 ALLERGIES Allergen (clinical drug ingredient) Drug/Non Drug Allergy do cumented on EMR Reaction Allergy Type Onset Date Status amoxicillin Amoxicillin([facility] Code:[address]-04) Hives Drug Aller gy Active ENCOUNTERS from 1989 to 2021-04-28 Encounter Location Date Provider Diagnosis [facility] Paolo [address] [facility] [phone] [place] [address] Mar, Luz Burgess Anxiety with depression F41. 8 IMMUNIZATIONS Vaccine Route Administration Date Status Influenza 6mo & up Fluzone Unknown Jun 08, 2016 Refus ed SOCIAL HISTORY Tobacco Use: Social History Observation Description Date Details (start date - stop date) Never Smoker Sex Assigned At : Social History Observation Description Sex Assigned At Unknown Education: Question Answer Notes Level of Education: Finished High School Quaker: Question Answer Notes Quaker 21 Alevism Sexual Hx: Question Answer Notes [...] Notes Start Da te End Date Status Propranolol HCl 10 MG 1 tablet Orally Once a day for 30 day(s) Active Escitalopram Oxalate 10 MG 1 tablet Orally Once a day for 30 day(s) Active PROCEDURES No Information RESULTS No Results REASON FOR VISIT refill MEDICAL (GENERAL) HISTORY Type Description Date Medical History Pneumonia in 06/2018, bronch itis after in 08/2018, Still SOB, prod. phlegm cordero, white since Medical History Hypothyroidism Surgical History 3 ([id number]) Surgical History Tubal ligation c 3rd C [...] Treatment Notes Treatm ent Clinical Notes Mar, Anxiety with depression (ICD-10 - F41.8) PLAN OF TREATMENT Medication Medication Name Sig Start Date Stop Date Propranolol HCl 10 MG 1 tablet Orally Once a day for 30 day(s) Escitalopram Oxalate 10 MG 1 tablet Orally Once a day for 30 day (s) Next Appt Details Provider Name:Luz Burgess, 2020-07 0-07 03:00:00 PM, [address] [facility], , [place], [address], Insurance Providers Payer Name Payer Address Payer Phone Insured Name Patient Relati onship to Insured Coverage Start Date Coverage End Date [facility] [employer] [address] [facility] [phone] DHEERAJ COSTA self
--- OUTSIDE RECORDS SUMMARY | 2021-06-22 19:44 | CCD ---
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 U/8OSe4A6v/4u1XoI9q+CJ/18kEhG3uqZn9hit1lJaozs3zaM7NpK3TCoX+m1l/GlO4Vb1/mP4+p/XDq g2H2I4b7a48cJ5Pb71pPSkyL9kvy/Tm6NBF/svQs50a/Q8fk0RxEi7pTP+dc0h+dy/ojnPevifzXlP+j 7yv/R9dK/o+up/wf43P/Ab83X91/+T/6jeT/CHv9Ja z11zle+mNca+JW8/jeEg/jIAv0wkdkUsBsG2ZM6Se/Ta2/vBuqR9dP5XxTX1Iob+bK+9d0/Zq0rjNVgM z1lUuFmVEw/nSuXL/Akvq2Bo5pTtAi46c9j+sj/VPjdA0iA997Il6SK+petroleum production engineer+c8x9Y4y0LVBxOAAY/EEVv fN552VS4+KA3MTX3/O+0h//Hj/dGYh/bjV7k1M/OfY /9I5t1ob5UBfVZa1x+vx+NYUKzJ+uJz/Zt4851F+ayH/taQ/U3h/75qKY201kR69x/SnCrcvFrSkP/ou yL8v5d+PDi/l34fw/uIbS/Ef42M/535xdp/mMwomBgRmKbsxu2pC9/7d7Lrk6Zh/y94czK8z2z+M8/61 5P/j6mh4P7/muZexP3yv88c3o+q1ZYxlgE2T/izhoz /raNTZa+e3pBA89pu/Dh9Tv/kuhq1pAoX/DSdj5iI/x+Nrj/0073uetxrS9Xz9V2vixpjdi3ATlrXQb6 nM4BMpxxF4Y0lfwa6epFqBeN2XD/DRH+GKjTeJ86trI76F+qPHpT/Iv130CypF5bZu1HUBJX8zMs4wfz 9ZG/aD+M9G/Gcj/rPt/7R/DvN69Kzm/s+G/7Of9J+3 8Kc4u8s517tHpu5XO3C7Bqi+z7b/Iyz/p/7zmFr/Gmm5ls6/C2P0orZ/bPg/W/iZ0Pg2Et6r+dON+POO XL/hEYT8eq/pihguinra141011b+6PHxadFG/c+W/ui7S3+EpT/G5fMVt/TH+CmXm3bRg625fOU+9mO8 pPjUA8gHY+HMKHawOe935zj9K2+h5/1ra/7q33kkv0 q1/jIuwAGc/s/W+dg9g6IFpAGw/7ECtq22/J8N/2fD/9nwf/gU8fowIZ+25wDO+OFG/n3D/9nIv++V9W R9Rh8TPn7000m6LiNNiSNHjJ7H+5H+PXtk2Ci8s11Q+dDZd9kcs+H/bMV/ZM+K/5NRor1WzqhcK6vAAO 1FTD4ao4QbK1zOfu6ti2erH5oVuY2z61ihK5eYdp8E ltNLxaEsN1pdnnt0RkdeDq6CCRupGK3wv7lgWO57HkM0WrcwnQZSdly1kocVpRPFLSEsyOxXoqRToK7x FBgTutBFZJumi6Ne4Kau66jUinvbu75CQd4lutoYuKfPis76+c7gQkeyd60zrihJs44m/p5IYv7XkvSm 3IH55Lsf29zEZa11lA7NbExulJpLqZi7WwyX+xEJVj XpVNcvhuBZBVOzpOsISHD3RgWNqFpbiDIwGzHwhwZmC/iwI1/YwquGZcHPgxlXJO3XA3lVeYxOyCfhQy ageT2PaYoAxqnaycCWqlu2lRCm4oHUmM4q3e8ipUGl9FQbJCi0OjMS2zil+3FZCTU5FVu7wZYBtW6uju hVXox6slsWFcml3otHtNU4+XAwE2fHl9h2zlqH+EIl BsG716uUkqtbJ0ylyBo1qyATE+MeBaf8R9O1AytMWV345P6gci2EfQ14TNnr6R+tBZ+/l7W4e3oFbsoc VYRUm1Rzz8zM7lNp994y5t9xpD3XJYEXUe/feztj3AR/3kjzSGaJ92ko07cwG8fzgBv0tIAGucIDIPto fKU7VCBG1cSHLZiODNHE4afSSoM66Fn0gxDWEOXVVX auGyoDikuzLwmSY2+TLMWNJ3qd/5nIH8KR7xWd7OnP1Zabmwo4zkDELDKX+Sm4oRuN+50HlZIaU/t9U+ AoUVk2Ajqr6mlHWzWrrDG979fShjbfTiDrl2LxHzp+uapm+qGE3w183osL9Fy8XFfa+029Zq3AE8m8AE W7U88t6x30508u9Y1mZB7R8yPU/7uD7pDFFSwJEdO0 [file] z9Xj5MjMipKRB3Ws0OmyMoKAAlIWNOMj6Yi269DU [facility]SC[facility]+AuulwAWjoUwiIGFMDLEnTSRXYMKNM3J= ID Date Data Source [id number] 09/27/2020 06:09:59 PM EST [facility] NT INFORMATIONPatient MRN Name Date of Age Gend*PT [id number] Dheeraj Jamison 1990 30 years F EDPT Location Admission Date/Time Visit ID Attending [id number] 09/27/20 1026 --- Natali Ramirez MD([id number]) EPI ID CSN Admitting Provider [id number] ---Trying to see people who are here now I can put the orders at mild to scant togo to write notes to see patients cyst provider in Triage NotesNo notes on fileHistory of Present IllnessChief ComplaintPatient presents with Palpitations i have been having palpitations for over a month i can feel it in my chest andin my stomach. i had a iron infusion 3 weeks ago because i am anemic and for thelast two weeks i have been vaginal bleeding and yesterday i started rectalbleeding and i feel burning in my stomaach Rectal BleedingThiclary is a 30-year-old female who was in the emergency department forpalpitations, not feeling well menorrhagia of 2 weeks. The pat sarah has ahistory of menorrhagia since 2014. She also so has had gastric bypass done.The patient is concerned because if she presses hard enough around herbellybutton she can feel the pulsation of her stomach. She has no abdominalpain. She started her menstrual. 2 weeks ago and is still having vaginalbleeding. The patient thinks whenever she is having a bowel movement there isblood that is coating her stool-as of coming from the rectum. She has beenanemic for a long time according to her. When she had a iron infusion a fewweeks ago she felt great according to her. She regularly menstruates and has a7-day course of menstrual period.The patient is 4 para 4. She felt a few weeks ago that she may be.The palpitations are worse when she ambulates. She was told that she may beanxious. She is tired of her primary care doctor trying to push anxietymedications onto her. She does not have a headache, chest pain, back pain. Nohistory of GI bleeds in the past.HistoryPast Medical History:Diagnosis Date Anemia Anxiety GERD (gastroesophageal reflux disease) Hypothyroidism Morbid obesity Panic disorder depressionPast Surgical History:Procedure Laterality Date SECTION x3 GASTRIC BYPASS N/A 09/02/2019 Procedure: CREATION, GASTRIC BYPASS, DONTAE-EN-Y, LAPAROSCOPIC, WITH LIVERBIOPSY ESOPHAGOGOGASTROJEJUNOSCOPY; Surgeon: Jcarlos Hayes MD; Laterality:N/A; PANENDOSCOPY N/A 08/19/2019 Procedure: ENDOSCOPY, UPPER GASTROINTESTINAL (GI) TRACT W BIOPSY ANDANESTHESIA; Surgeon: Meir Blancas MD; Laterality: N/A; PANENDOSCOPY N/A 08/23/2019 Procedure: ENDOSCOPY, UPPER GASTROINTESTINAL (GI) TRACT W BIOPSIES; Surgeon:Meir Blancas MD; Laterality: N/A; TUBAL LIGATIONFamily HistoryProblem Relation Age of Onset Malig Hyperthermia Neg HxSocial HistoryTobacco Use Smoking status: Never Smoker Smokeless tobacco: Never UsedSubstance Use Topics Alcohol use: Yes Comment: 2/year Drug use: NeverROSReview of SystemsAll other systems reviewed and are negative.Physical ExamBP 114/69 (BP Location: Left upper arm, Patient Position: Sitting) | Pulse 68| Temp 98.1 F (Oral) | Resp 20 | Ht 66" | Wt 81.2 kg | LMP 09/13/2020 |SpO2 100% | BMI 28.89 kg/m Physical ExamConstitutional: She is oriented to person, place, and time. She appearswell-developed and well-nourished. No distress.HENT:Head: Normocephalic and atraumatic.Nose: Nose normal.Mouth/Throat: Oropharynx is clear and moist. No oropharyngeal exudate.Eyes: Pupils are equal, round, and reactive to light. Conjunctivae and EOM arenormal. Right eye exhibits no discharge. Left eye exhibits no discharge. Noscleral icterus.Neck: Normal range of motion. Neck supple. No JVD present. No tracheal deviationpresent.Cardiovascular: Normal rate, regular rhythm, normal heart sounds and intactdistal pulses.No murmur heard.Pulmonary/Chest: Effort normal. No stridor. No respiratory distress. She has nowheezes. She has no rales.Abdominal: Soft. She exhibits no distension and no mass. There is no tenderness.There is no rebound and no guarding.Soft nontender no rebound or guarding.-Repeat abdominal exam later on when I did the pelvic exam with Ms. Aman reynosomy cigarette book maker. It was still nontender on exam.Genitourinary:Genitourinary Comments: The patient's pelvic exam chaperoned by Ms. Aman WORLEY.Patient has blood within the vaginal vault. It is there is no menorrhagia withclots. Her os is closed. The patient has no bilateral adnexal tenderness topalpation. There is small ulceration noted on the left labia majora where thepatient informed me that she cut herself when she was shaving.Musculoskeletal: Normal range of motion. She exhibits no edema, tenderness ordeformity.Neurological: She is alert and oriented to person, place, and time. She hasnormal reflexes. No cranial nerve deficit or sensory deficit. She exhibitsnormal muscle tone. Coordination normal.Skin: Skin is warm and dry. No rash noted. She is not diaphoretic. No erythema.No pallor.Psychiatric: She has a normal mood and affect. Her behavior is normal. Judgmentand thought content normal.Nursing note and vitals reviewed.ED CourseECG 12 leadDate/Time: 09/27/2020 1:06 PMPerformed by: Natali Ramirez MDAuthorized by: Natali Ramirez MDInterpretation: Interpretation: normalRate: ECG rate: 74 ECG rate assessment: normalRhythm: Rhythm: sinus rhythmQRS: QRS axis: Normal QRS intervals: NormalConduction: Conduction: normalST segments: ST segments: NormalMDMNumber of Diagnoses or Management OptionsDizziness:Menorrhagia with regular cycle:Palpitations:Diagnosis management comments: Ddx: Electrolyte Abnormalities, Anemia,Dehydration, Thyroid Causes, Adverse Drug Reactions, Pulmonary Embolism,Arrhythmia, HypoxemiaPlan: Lab Work, Imaging, EKG, Reassessment-It is my assessment that this patient is having menorrhagia and that whenevershe strains to have a bowel movement there is blood coming from the vagina thatis coating the stool. The patient's beta hCG is elevated. The patient informedme that sheHad her tubes tied. I am going to go ahead and get an ultrasound done on thispatient immediately.-The patient had ultrasound done. The ultrasound did not show any evidence ofpregnancy. Her beta hCG level is over 2000. I did a pelvic exam on the patientand she was nontender on my exam. I am repeating the patient's blood workagain.-Call placed out to LPN INSTRUCTOR as well. Awaiting call from LPN INSTRUCTOR at 4:[address] Pablo at 5;07 PM; [phone].The LPN INSTRUCTOR stated that immediately to the ultrasound and let me know what hefinds. I also did discuss putting the patient control pills. Hesuggested Provera. She can follow-up with a local LPN INSTRUCTOR. [facility].-The patient's repeat hCG is negative. I would ensure by getting her third isCGS. Patient aware that the patient will be going home. The next ED providerwill get involved.If this hCG comes back positive onlyThis was electronically signed by Natali Ramirez MD, 09/27/20 12:31 PM.Natali Ramirez MD09/27/20 1809 Name Value Range Interpretation Code Description Data Carlie rce(s) Supporting Document(s) ID Date Data Source [id number] 09/27/2020 07:27:10 PM EST [facility] Name Value Range Interpretation Code Description Data Carlie rce(s) Supporting Document(s) HCG,QUANT PREG <1 mU/mL [facility] INTERPRETATION:LESS THAN 6 NEGATIVE 6 - 10 BORDERLINE (SUGGEST REPEAT IN 48 HOURS) APPROX HCG RANGE WEEKS POST LMP 11 - 130 3 - 4 WEEKS 75 - 2600 4 - 5 WEEKS 850 - 55831 5 - 6 WEEKS 4000 - 180079 6 - 7 [id number] - [id number] 7 - 12 [id number] - [id number] 12 - 16 WEEKS 1400 - 17570 16 - 29 WEEKS 940 - 96810 29 - 41 WEEKS ID Date Data Source [id number] 09/27/2020 05:25:55 PM EST [facility] Name Value Range Interpretation Code Description Data Carlie rce(s) Supporting Document(s) HCG,QUANT PREG <1 mU/mL [facility] INTERPRETATION:LESS THAN 6 NEGATIVE 6 - 10 BORDERLINE (SUGGEST REPEAT IN 48 HOURS) APPROX HCG RANGE WEEKS POST LMP 11 - 130 3 - 4 WEEKS 75 - 2600 4 - 5 WEEKS 850 - 08267 5 - 6 WEEKS 4000 - 163236 6 - 7 [id number] - [id number] 7 - 12 [id number] - [id number] 12 - 16 WEEKS 1400 - 10152 16 - 29 WEEKS 940 - 73188 29 - 41 WEEKS ID Date Data Source [id number] 09/27/2020 02:34:46 PM EST [address] [id number] Name: DHEERAJ ALEJANDROB: 1990Sex: FOrdering Provider: NATALI RAMIREZAuthorizing Prov: NATALI HELLERReferring Provider: Procedure Performed: US OB TRANSVAGINALExam Date: 09/27/2020 13:57MRN: [id number] Number: [id number] Class: EmergencyAccount #: [id number] for Exam: menorraghia/elevated hcg quantTechnique: Transvaginal sonographic images were obtained.Comparison: NoneFindings: The uterus measures 8.9 x 5.4 x 4.0 cm. The cervix measures 3.2 cm. Endometrial echo complex measures 3 mm. There is no intrauterine gestation. The right ovary measures 4.4 cm. There is a 2.4 cm right ovarian involuting cyst. There is a 2 cm right paraovarian cyst. The left ovary measures 3.3 cm. Fluid is seen in the cul-de-sac. There is no intrauterine gestation. Nabothian cysts are noted.IMPRESSION: There is no intrauterine gestation. In setting of elevated hCG, ectopic cannot be excluded.Report electronically signed by: LA GABRIEL On 09/27/2020 2:34 PMWorkstation ID: [id number] - [id number] Name Value Range Interpretation Code Description Data Carlie rce(s) Supporting Document(s) ID Date Data Source [id number] 09/27/2020 12:05:[address] [facility] Name Value Range Interpretation Code Description Data Carlie rce(s) Supporting Document(s) EKG [facility] UMXGFn1nUxOHGlFnt8YvFnPxKFKhHT7sbgn1W2F3mSAmX0WpgTWif3csL0PuM3YuLYSqGKFCWO7DgFTi jb2 [file] w3/yT/zTl/IclSUvEQ/yQ/xDl/zM3klkXsU/AHdkt6l/6pf+K/Ucco7IpMp/NETWORKS SOFTWARE CONSULTANT/Df/xH/zT/w3/8R/80 /8N/9k/EW5r9V1nlhoSNUC8Xx/Sf2dk7qt+Ze90p9Uv/PG8xR1C/lv/kn+m3/iv/kn+uaf6Jt/om/+ib 75J/rmn/RP/RP/zT/x3/wT/80/8d/8k/c8OENvNwG1 SROhEbcmb9FI1cJ3ugljtHK5tbjxdEY7U8Dcb3MyIAgV8Fn0VkyAUwDlmrWq9cfaMdyXhfpmD7Tz/kYi +oehk7d4PmrfQzh4hueebgnams+ly7BIUx1eOgszNSvmkTrVRoAsUYirDSyO/qmb9E/dpH/qJvkhbtI/ dZP+pFk8H34eL8gPG4Lcy+D3o1IGF3L6ViST8g+4zl 9wnb/Andre/Bdf6C6/wF1/cYxaDUTGjqoB4bwO3/4Di3lY2O3+sm+w3g6voi7u+4zl9wk/tKF9pGpMM7DV fVN52/4Cb+m3P+jjCqjM2SpCgOnumMmJOLLjFeX4Wo+NaiLaYJUerQbkL8SDDxXxkQzDO7dNnBuXXn52 Ol4adzlCoSyrrDNcFyX8obSYCJ3zXt7VIX+Ndi3yxk 7g20ar1a2VrldV1qINKN5QzJ9/yFPEHVMXDOXyCR+QpCyfxTv8r/xwHu5Rvdl0VnwAzN8eH/Kv/NOX8h Z1cY7t0Wj504w+1oSdm86G/dpX/skY9siGwNi8zL/6Mm9fep1M/j/SBb6L35a/6pu/RP/u9C0R5lo+4y gtva58wi4t11t/lZ7tI/dZf+qXP+AtsNSyWyrbFWIk nJ5qimZZKKsASXXJOPvg1HG+Q6rkd2Cmn48JSV1jGlGG83nVMmy2IqE+CyGLXCPJAlSxMqQ25ffPj1cZ toeP8u4WC5oQcIB5Qzb3sJ2egl/+bSP3WX/qm79E+g3yv1IOn/HQZw9N05k/6pu/SAhlQK2f+mksond8 2hEHSuN836M8quLCOyZsavZgqgiRNbfc+FVVkws7aJ dEg8YomS/s/C9py/sSKnDZKWDDF0P5zVZisk8pu5QgjMe8OFbg9P/CxvMj/SMW5sG2rxlATny7AcwDiE kZiSGq/0Pqn8mpbCIEWTTuFcYJNmYPTw4If72vM+lDeD8xjp3gsWgJwEx6VSWdw9L/HfmoyfepPxU2+y +ag3Oy4DLQ5aTKwu/DQ8miMHrbsyy0yg0A/DHvpvJO K/UQrjmL6kwK8nHS9miIKHxM0fZ9JbRHePqH/yJvOzvGn/tGn/tGn/jQz7WB7aJ6ptbL4bsj+AVnH+Qh YD7uhO4xq/HrpvRrCqzmTYuW6nN4DEyHge/YNCVvJ6Db6sNZS488iJ6oXbDT8Z3E5dCDnS6m+b9k+b9k +b9k+b9k+b9k+b9k+b9k+b9k+b9k+b9k+bxN+8af+0 af+0af+0af+6ge5U8m+4zl/wnL+qRItH4Jj9puHPHnA7jO3JXWgtQqN9GounNHb/wXX+vcewm6TGR/Bc Nk1qBfI84rW/8YcN70kA25z3I3oGM6sfk+3tSm1StPi1h/eVrktLr7g3Zqiiwsjtr7CwLrA+TFd90/kL ionDJQbFPsq5MIVHy9MAo+bmE3V8f240Nmwhb/kyzv qGoQLmy84N88N7KJjF/2wlRwjjbySmxI+OpsQkdYYPnyXOqwdCsxV75RulbqRL69m86sP9sLwTp6GVE6 HOEE1VAiKsTjpK6iKVScO7FVV6MR/fnXwdk4Mz/Y3KO+ihpMSwnfgN2vk6MxFiNCzZHP/tG5n2ImuBr8 cW0o4Pf/Fi00H5y/wQ5/yIAWFA3uq8KFayDyddx0BD gIYB9knWw5R9Yk2P8tnXc+D1MldYIvgh+OTI6xzOzgxSsN/xPfKoHrA18Km/ZRdAo8eva/mQ/Dcfkv/m S5QMlnb4lG7yBckqurhoetgqamqvf3U5glb+DY2/0zqNEtejDoyb2FNsEejIzIC9tT518Q8qEn/L+Qsg uYaf7hb/TOXcGI9nD5faLYzGho+Gxt+G+k9Lo0db/A Xn/LHAUe0LLmgINO/1IeuH+ZIFcC4W/FPn/BTqAu0p/Xlh5uyj1q+Aaa7ntqg7DT2u/9SH5L/3xCl8Ya q+GLgt66S5k8drZ+8tdo1ioqC+QhK1N/XfhvpvQ/38ny9yggCEx21ni9wpsJHGrtXoeaV5cD/Xtf5dF/ t3nb/gnL+RWLW8Mb/TGT4pkrslBbbohh+S/+ZD8t+c 4yxZxPCBs8SMT9jf+jYk/14S9Kl6xFlLE9Pw6aIrX7hkmi3Vpsr2pI0zh9pz7Dh1QL3wqb2X1F9P/4bC 63uc8a16gXi5j3x2Sid/HAgtvjcvexOBQej5zdpZ9aiz2X7eUi1nR8t/+E0LS4Go/oweT3um/ZNN2Pbt gmFLMV7yNJcv+J366ZaU+rjT0n0nba9/6/thbJ+Cf7 q98TH7Tn+hy/SkjzdhK0iH+7kql/d/RS5/49W4/O5C4iUFauYYo/7HjwddxwfF95nMyENFp5cz8Pipql mt47/0ur1Crhk+6xb/W8hxo5zru5H4eOJxmzcFBjhMEcy8uZwukvMgJ/ES/DOvh0/wS7PAq7RGPTXW4Y WH/SJCmFrjxge1Wos9QlnXNuwaTd7+BqhUa4wCT06N e1eMX23Il0Q06pY56hv+8wfx7Ba8Cx42MY6Mh+CwH+JT+IitC1cGq/5t5G5fEqj3tzw0Na7D9IxL/Zyy nxgleNgEl/6QJCCRQjGMxN7MINo1BM9ubZoz10IFaFvS/cS1oD/EsB/gKXj1+t89Cp/JYbzFRqPuPv09 7GcAh/3Eu+/HH9Dbw1koUQNqPHb+bPZqK9h+jDgG+o P6FaDBRDPn8WdysxToCPQQc166twawQ8RPPUHergg8X0FT1AXhTSqR6dU2+gWHZ4ruMrfHtI3xM2xcx/ AWHPbzxfHQH+KwHxwT+rNPDBqE/iTugq/1WG1Uc42IveFL/eCc1B+UnTV/7XD15+d+x2+8+vO7Hrb/7O fnjsWzu/xn1cwpMp/+HRh6RZyDxhbSWzD/+6i2zrvi c8Lj+IJjmvN7u+i2sao7p/OL/kR4/1d4mrTAahVTrZe/Em/Up2Rkk17jM7D/G/cQ+aWluvxPF69Zy1E2 fgm++wV4BM729TTrDtK0d97jqD23lck+6cG8Mk57j8wXOrvpH3N0R7vkdU/isJ/10VQIw1u+9on4/cNh UydwCQ269TIcA7nw9IVjhJ5I6c6W24/+FE35yxzFe/ 7kMVd/YMMN+hM23KA/Bhz2E+9dg/44tof+PCvH9uyQ6xN/fHMBsjAFc6i0DqA/Aft8BWD9+otEq3gyZO ie/m1J7twnPWp/TWud6d37+D8H2+A5TNjEv/023C4b3K/OD/3BdaE/gNznR5doj/7g/qE/xKE/HRjfr2 bL6V4n4RahYw+BrJcpBc7AK/+nif/MkW3u9z573R8U /we4vl+N/z8jbE6xb/B/zXhB3Lf/B78R/g+7b5Kad9du2fm6y9kP/qA94f+gneH/4JnC/6UyjS8PXEjK Y05h+D94jvB/8Kzh/eS9bhSvCP2F8Qk+rRCt3MwVpFvkwu3Bj8SO9FiyEynQyqIjHgc7oFa0b+MRZieO LHjFDilI3DsgoD0+T/yWDv/rYQf6iaNk/6DMJfwflL +E/1Triu7j+l9R1hP+D3HYD/SJeWy8l9nI4FfT/wH6ZO5jk+h/4Xeh/6GMWv7bEp8XiW6p/onb7Y09wR g/oXsd/r31FjBLZqo4LcXspost8E0c8e9Zfp54/G7e0Rh0k8giaM4pRHEsd1K5jZo70aLU+9Z08fJp2Q 8ieE7/KmLn+Xw63H8t4Qh9QxlWg/DcoT/A0B/YAPSH RKLBUWUInH36uqDO/hCH/kK6QtZo8A+udfWH/tEKkaCBqNP2RdjajqqtraPI+D8LbRX+D3Ssw/85+N/w fzq2w/2IRbter6OuP/wftj/4Oodgcc2wO9Hx3Wq8H/SqQ3+Ip+B1Cm/RmiX8E6N+7OzPo6Ys7J/i0B/c J/THgEN/TyDmd1M/8H+A4f/AfuD/LODwfyZw+D8DOP wfvCPwf/uRjv6bjLe7+D/OG6R8BnqcO/2Vzgs3lVcKezE/cWwP/6cBh//CjZl4BkW5/J+4twH/J57LEP 6baU3vtD9N1h5B5W2Q/J+D7aE/5t9L8P6i1M+084D+NGvn557K5E3pE9n+z4D/g/PA/+U1jI4fLcAH/R Db797f9Y+A4f+EzYzmgtF/xzHVfx/wf+IbPeD/dGwP +xnA+8V8BuM/sR3+B3K4TD6k/aw2G0I9+UID/g//N/wfnB/+H6noSudN++4P6A+bOK68hkYUJ1mB+oN7 oP4Ah/7z3C8aqbRAlp4P7O8N6+uKIziyjt6SOS655UxgjBxrC1dypM5svWw0bSrO3TjgKSzf28YR/Yn3 NyLYP+QIcdiGh3IDt2zMPr1rxfkb7t7ITc1Q1/fL8K yv/ujqaWoYo5P0dh+hsRG3/mFsj+9IgUw9bM0W3sqED78nFCw1J28N+D/03qN2Ft66/E07YuGmng8x/B /+9vB/6Cdnx5SLQaqx1PTG/4d4Cw7/J9p5wv+Jd3/C/Kyler/4e4nTq+B32osrWx05iYVR/w3kK3gO47OK cfju9X/LFXWqbUPEtG4W+PhXXYPrGuDtszltUJEWKZ Zcf0D4Bdf/C0/8ok8attlshLYs8BUx9008XrtxJWrI4T8O2oDL/7yeOv/bgDX/mZzK4YAwb/9sNrwf/B /cD/wX3C/8H9w//B74L/EzYw6f/Eb4f/g/YR/2fC/0Ebhv+MYUaZ6Xy+f5UV6am54FXmKf6Ktgh+D2yg r5Lf2UVvqbS1lTWtyu7i/peTVnrsnzv5iRCtvl7S7K Nz4FvklmUdHmPisuD4PgkM+QkYyste+2n4jfB/aJ4Hxsj5h/3gd0F/VmCr5o9A0Mka/OeJ/ahgGg5lKS z9r8n+I8xS0fu8Ete/T/g/dD5Hh49AH7T6sC+hpM2a89+4Vvk/E/4PcXy/RdyOlguT1lX/Z70ytQ/P16 eY8H/Cn5yIP+T8LH7VxBay2eEjZ8TKCJ5z2no+4f1C /Jm4+l9T+l9T+l+T/a+7fUF/4juyoD/EoT/ETXB/8dUF/VxQneIE33imlYe+nI2J1fhcI2m9s/g9iqVv 2EeIlW/1jXcRy813/scytfxOLYx/ES/Z1i7jVL43p3zB+YkfVN7q4P7JB//a1VmpFSlnhTC/Ojh+ncLR /+XcqhKgt0zmet+E40n6W1kwvk4e/rwYfwau+POS+P Ve0J1dtzsyWe1N0X6qMmS/WeL/LPo/eRMFmhhHalocA0s+Xixowf/Bdvg/1I3vpAcK/wR3vvFX6zwGs3 J3Dm28q8NskmIdR5xScbnnW6EPE/Us4yIz5zo/WjL+jQK8w1D5O20m+BewCfZVuAmG/rAeXT7x0nC1I3 D0v4Cr/7DSbK9L0ItPWOw+4BlBf/DsoD/EU/Dy1Ni1 a/l7GA2gO0Ye0Hn2IJTAJHK/iLvgMQtPwWE/bGcQ9VxPynPgOD9zcqfl4wd/FucVsN8Wi6YQ/1wTqg08 1BcAyohc2kDnKgyk74p+APgzhoy91uJt1zzy+CHoZqa9O7fpcYCRv5hm/D2Ru3WsSk80zhTpzU/7iee1 4p6eDukPzXmhQdv7O7JQb6GY5rUiKrk7Z9yL9k+b8W fgJXi3+t+ta31IvdtWmzpeBj5elpW/TS1x2x83wyDLm/8zuP1+vzBOFAvP/IkSiFPLf52EFtzw30uB03 1HA42rVFEXXy5BguV0J/gkseQM/zgIiPioJlmUgJ3V8H/cM/tfwNX/2uh/EZvgsB/ZTqJLdfO8W/uE/h XNFensbMcTPmKxE2DkReqTsM3hsl+Eb8rN6Mw0Sd7e 0RB6Ffr/i78x+l+01eh/Es3OP32oj49xssZMvUVI+SHqTEr6C00IpR/xHiH+PQyub338E4Y2wsflYh3h cPg/fZS8V4PF/B/i8H/Heq83u2UmFHMVOG+Y8oH+hD4c6M/Z2sZvdL3M/Qk/5EB/iMN+No4J/CARLOS/Tk4 NpUaIQe1bBzT/dd0RT52L4Yy9B7dbEgDXI+M80B/cH 74P7hP+D+4f4k/H/g/aB/m/wCH/zFM5sY1NqjK/wnbOPB/wpYO/O8D16vz4OUbS2V3Sa35WbaKy0H/fG T864j+cZ4wrbN/h1f12KTC8/frwP/w4l5tk6Hf+3VGfb/OqO/Sqt4J3FY0jPZ/PvB/gOdK9zPw/OLMGr 941M1WXie9+74f6M/Q7xHmba1edSAv7E64TMbmykNh w/5XbJf+14H+QJmyc398O2g+O3V2b02camglUN6gt/5XnJ/6W6WHHC6r5Mh6X+LhhafgJTjsh/gUhv9D gFH49hp+Y0XMAWrcZvt976GEjq5c/NqXiL1xBnj6vFoLf/gvH15hZbAYMKCfcbGKR/grsOx0AFoUoU73 a6vh1yg3EYXz7U2DlrgG5kleU+IVtbE30sIQnz4aaO pgR3pKqsSYlLJGkL4pzcVsBNjuLNiPcCr4qfY1XmvWe8LX8qcZV1cBrMC+N5TjMFL4wkwuzaXbWL154M AHytS+42XNQGKwryvVtMt9IZedDeahZMZnKJ8WgJVnW13plE+703m2+7ZsiVSVY4DjCtnj6Uha5MOuI3 Yijk4gjOQdDT2lx97YFdOp2/rUBGlndcrrst5D0Fug ml563g1647ZTyVYcuz5JSoVnP9DP3pWIIGC4CyGJPtLZCcgRs9CauSomgZoyFkGJJiPX8OSUFdVKahyy MR2e5V3Gp1CHJoFCpNmiWBDWOMlsN5Dft6SC29M8htW6ahybXkYZysyTCXGp+M4T2eLlTeKaw8NQoO26 t+0eCQWGgu86SWB+Op7SllKwbeVuB6rmSvpyI6481O 2O7aZ8ZPVsw6ihdcV0ScgA70DWPcO8mg3GFxZpNQyDrgOweZZT5EkR7aykLI3oR0V+jIT6He4Gdupp5h bLNv47k1oPu1yfOySOyiYv9yHO3Z8tw3oK4uK4SNF+DMjMMRaR9j7T7PkRUPanmDAnOC3KogxtY14wDV mYwhYzRU6rDkdsZOGGyxK4HCzPnnA1PSptO86elmYX dvXjIt3BEacmEgmnuu3jgOGxc0pI8M4tkm7CadKxLvOLMugHiMsm2e9SxaCZByvuew1jOMH+JXFpRMmX REwfHwEcx0WlfL+AE2ooiTHV1hoBeN2jSQ5Tf3B6ip3ZRoFZY5vBvit8rw6G3B4L6xIkGgU7834qOefS bUmsw1NCEHS6IdAW1ptDqpCriOodRX0AUE0JM6Pbi5 ZOE2TEai/dayS6LzmtZ0RSmN9LlApM4QH9G5gusqJ3U78eXSDqvvRUfIMN/Den/1K7m3sh6Jop++UZoE liuqv5QforLnK3nIvpr3K0ObF2jugqT/sB2VKVVOcBYXWpuHkS2syAb1JKI28jI4kCaNbLz5NhC++Amd 44G/QCnbae49wgnhOlD2H47alA6/dAaH2EKl14YBUV J4C+AdwKYl36Bfmqdi3qrXkgrZiPXvm/vfeexg1u49/jCUYXMpUsJeK/Jv37rR0+O4pbZc2HwiS817K5 MCIpDvpOCE2olkwBSWUN01VzQEkwsp3wuBlOYLZA5yZ2INCrmqFbiHTLHYOslwojyoKZzwStek+7wJ4p 28GyM0fQLzsQWlfLDFsjKtGaFLIbdnHeqD5u9f8Kyy mP50IWMxcZh2wBJlOStfiyP9obewNQ2XffHR2Sd6vbRNxruFbMcQsL7bX+MAmlIzI8Oq7YAeIsx3aauh R4fWWSJs+kKRF7Q+L4I+io2XRlTgA5CHccHCC78kE/S+JK4L+IoOVX87sh92UfNqnbgxv+W1P/rfXKw0 PH9lT5yhL8GtWdHMRc1jrwedC4hxIZpGtMRBbJ+04A ucLsuT5CywZhvDHliQGtO5AmIMX+6Nsxs769vq1AzaMF8jdd01Xigf+C7ykPk+8pUsyTQN+IjL3M36p1 1bem+oxA6zm9kKBwLvLhFFug+UPf+QUv6FXK2Yo1OqX3yfTUymFyiheEp0cVyGr10/Y+Kl6JsPAr0cnS 9M0RgF943Jdxkpd6EvwE56WjAzFz5b/55GT+C8rUMo kTZWqL+Tz5NFle3tEuML8HZSKI8XaxhWKdNdhUyflPSXeYhLJ44Bzv26i5mn9jwgs/lwnpnKhqldGHMr W/gwizocA994OeZXLDPcR72hv+sUztmPk/s1jEbiKN40FDkxE1+Dq507U9fkCjo0uww0fj7Hv7cw63wd A6GFxTTukMH8R+Pycu4DR6ll4p4G9+G2DlS2DpLDj4 bW2Sa2+HfFFO2q190aBMy8ay3GOy2Oip/k/t9bAe1DkmO2ot9xBgiitkUqFX711u8UwtJ8rI1WadMnTd EQ/Un589UbQJTClh6FhtdCZ7Y20+lyBDHTeeZoe4fT2M+auINK7UZ0472jU01FhwGupSxgW1sqnM/dPO PWpv6J/yLWH/FHat/SEaxNJKa1c5auOU1y7XmRVL8J 6o8CtNaz27w9L/PdyD+BveU+cbqj1vIJNGjBDcWcL2EVndW+/3FAvPUv7bMGq8d3cW1z33uchrU/ndmO VhBAUaeCvQf0jzZWC9PuXsEeqyNf2p5IA4HvIWs8h6u9rT0z1seoLqmty8hqWPbs1U1T5/A/1l40Y86Y bhvyUJe+Mvhf+WJOyNDQL/YjgOZd6L8euG6jg84OrF vXa1yUsCr2HOsUR9vR4r27rsvyDdCa2l/SclONjYnMUV2wVjEvwUyqE6b3bbNksgbT/WwVUeUG02jaDu 7S8LOXR/LYkpcWk3+P0EykI7pjlK3qSz30cs1V/4/Jenise+BiR04pgXlSXvCNitXtUufgEnLKVd8jIPFuTF DAoacHQi4EBnAXu/uXpQwbqq4a7p3bLPhZnUDe4fgB 4lN3bqmip7qM3GyOTsOL+ZmJTl3c6QyxG4e6U1doUyfcop8A8HkhO0UDfKyeHZz6tMR+eerntqFg/K1G iXIkRgOAU1yaZnBCj8XS7SbsDCCVw1ls+8NTru+YGO94NP//8u2euqGF51lwvmo64r8PD9vY0xjDn42/ +jl0cND1Pn6U63sdOrqtYJ1iuEtBgs4hg40fdpJJK7 +hSRXV/Ev+iaAQ06da1p3jey368D+vWRY1/o0zufZor0Y2OH/JxszyA0bsAmJhckvnqtRLe1QUpB+G+8 a/hvSUxJ+G/8H/hvScR/m+q/SpGbUx08EclLrG034g/hf9R/m/Df+OSmfE+Rfp9PG/pGc4G+dFNj1Q4m LzVOujx3gP8Q3A8vF6uc3x6HD7DSe1KMDZX/IuMLU8 gVMqiYfKl1E+GSIWrFNTAyG2ouosvUdH/Gw8R/m/TfeNhSIuMLk+ML+AnUN/g17zs25Tt1Dz+Uif8aXM FVDV49PyY3flfC+vbIKRIJ+vlMI0O/iB8hYW+b/5ZqhN1d/UMkd3RjD2vVFDfYznPKz9jUUi2qeTek0J /eNeLkRb22YnLiMoU/yBGi/erg6V7d8p+W6ttS/21R 25ohunB5FKhKVDS/DadW/23RfyPpSsR/W+q/RmsexJl6A1nnIuO+EfJY2ljcbbxQ2u80v86hnFjQYZU3 ignzzK0n80KAcedsUykBUAJu+RIrcfYAYwWIUXTmfyFnuXa0a7fDg9eGrWL+CUnfwKt9vLUjAZ9G1kR+ YY/q2+I2MJkn7KVx/Kkui/khJDK+eRE3VBk3wnn+8B rHwfy8DW2QdB8yPhg7Q+Qe3AYGV4E+c8/SPRF/+0utKn4dME70GwP0/jhZeAZlal+DyNRrlKlNgUTy/9 wQ0bQo21sC+v2k1n182dVn+u4rLHFBBNrGq/vk3w0DJEy0TetK1dfB7OSsLmyP1PjRNm1MSMlgT/+KJC bzY+eCneK0B6IndkIVkHtwEZKfnVdZXUAxW/NKpwSg LL5JMFwFK6g1aPUPIlX1qtG0nGqoZeyfQ5ENwS4wJ90cxVts3Rsc0SjiuK4G+ylxSni702DSfjOJVfK/ bTtSiBUZM4D1KN9NZ38bazkp0R1VIywOnEAjHAJzlkNuHJa/DV9FItXzPZ9C6lvlrIZzWOqOnJr+bOgb 1g01zwFGhUAIjiiQ/JCt+SRVP7HYRTlJYu4vJEAFpW 1f1AtJ7M0mHNJVAOyQfCbA9LWN24xc7Lr/dCW/Qvo5ysvMGg6E4BNS9jEMxwhfvHgE4rm+sDm+wD1TyX I4QXIkqdcPwe3S+x0s32t6ZslXv9ev7soIN2mWyh+Francia+Vuh2gf123Za96OUi7gyRVkmAMAP598JwT/+ bL0sqvEqlhBsfkW+5B/Z2SWVJbFv8N1it6E1IEtwah jVoozZ7KXPssuTQnIBrdUoQD6/Q3DnT9YQCNnEsjXePnht7B+nlgyUt2Ll28TJgmMC7D2LwPtk3jJI62 NY0cWIU3iQ+Wsm4zQU91Vu35vRe97Pcd3bilyUyNyfJpGFoMcOumdDnnKfBQqTKDO7Q1Y+UfF3TrQVHr 09LuZmGizcNpNywWuKhgMmI0X07o1kSVcw+LOQq5B/ 5bEom/YUkUM96SlX+Z0rsv5fweaW1ObMveiBLAghJnF0AYlzuxZECU2jgYK9qtgwKY/GwTTcKFkvV2LX 8hiSsJfXP+sq3hHeUPoJHBYobC6N8r6LGXfu8qbf5MMdq7ISCJqcpxu/AFYCfa321JHHdxTMznB51SrJ BQppY+QcrGDuH7JSSNZx9fzXy0O8ZbtONCwZg9DjfH 7dbWiuknmSO3Ml3YUoLN0vOvkJjS0ptYhG3qcbYGM0MutEYcXR2aJB5fCcpglE+S5EyukvV/KSZYYUHU DytcoHRDzF/IpTpj/vNtTSTqFFhMSLOxbAzqwU5RC4efXw6L3uA36c/ydjIKGzlK1qRQPbY91giDMkDE D/eBwfKhoss4eDIZ5lxbitUFVnB2G7iT/qlz/gJWbe U1oOX7jbUru5M2YDtHSAF6S856pvPpR4DA9sVOD5sf18KskeGiuqjvmNOXqKK4T8zKy8MzoWrz2aBWBV XbtjIVf3t7icm2owlaCe/qsNC3/MSiy17UFfIjbPNhiqVG8w73MwJ/4FW3SY2Afyl8YHA/1qYJ1GBSvI NgZGZo1vUtFH7bw4FxoO4M+0id4eSAKlpT2ZJCi+K/ pPrsbaJhr5ZfJW0/TroAp3Hv8e2YwwgomIdj5qkrPU04lTrY4VJwBQ2C3ufSvL+0Qor1ghGbsY5f0Xp9 COYvsKkwfwGREpSpzbbG/AU+PVK9V3yXSveV8irhwUnulQUG2tjaS8kzvJ0j/qNn21KMygFLBWgN0Qut L3CPxN+v4aqxvquj+Jtz/kL+d2nLNQB4GwStB+cvJD fQxRA4OGcpIXceyctuV7rykjx3bAFhkEgnuP+WjWMCRyL5H5i/bLt1pZt/IclSsoeQIwT+FwII3qVT7G c+WqathTZEF2fROTsjV5TJbs3l7zVEsGq5/9C3iQW/EX5r8oxJ96sYyM24PcvfNiQq1cKW9nvsQMAz5E 9D5l591msQxSN/Pv7j7N0HQjyREw38c9vW7zasZ9nE e0R9Vta2+QaHvk2+6JElz9p8dmELcSxODofiHPJCddRGbff7GOoyvUelrhwa5KroYxwU5fgOm2Q8tjkf xhfgBWD+ikWh2bofOUTPe/RbtOeDp983Kv/D2KCkDUw4bnBwu/bONEFKH1o56KwdLT/2WInRG0MhS8Dl ycnvn1S5ETlY9FP+AwwtqbJhy2Tcvrlfv5mXP/rG1o G+yMNn6E7LkJ+NmRx7X9CIdW3jJCRjgwlknx83FLvq2g1chgf7qeTCV4zR04pK+Kgb641VzbIS5BPTaH xfiJyVfyxTOya+ZjF/IR3NmL/UfFUUzG1cc/TH/DRq4wvoji1dNTlL7/rsp3tqvjqGxrE8OnhoMuBrvk QlowuZSsJ/4x3Af+O7sZ7zz6E/Y6PJze0KsmP6BM6H 6FuSsDc+RvhvSbaSIwT+G20H/wpFhobo2toS3rzj88W200nk4D/6Iyh4DiLWYMqeqH4oFx9G+pYtGvqW cO9o62yS59g2R3a1KB9FZtspO8EuFG/puahK6VZgIc/gZfRwPLKf3yZ8X5zqHD+BstEk/1658H9etFew s5YE/JwdVjKgpm0iqQbXuxF+de6p+Js39d+45D0+bZ i/LEeF3apn14t/lPMXkkj/tGn/tGn/lPMXklS+pXP+Au8a/COMMERCIAL CONSTRUCTION ESTIMATOR+Hi5kkxcE47pXdnpxsDi4YNi1R8oL9/ [file] P7Z5+Kzb3+zqaz8o2osgPl56303e5qth1K7CV6Z97x Lf23SSi099Gwch3jg3oFs43rPdZkSPCo4Qc6dazJf8ENyjkd28142ZGq3awQhcu+ySE89p8/nrAra+uL naHp+2Ebxliuym4JCygiw07ZmuVc7Mny99b3jd/6EG3y045eCZBdkbfn71u3f6kjuHS17pXM5sH2j3J8 cDzXky4yJQwxCxkn2l/op5z5KNv17lOBIWf1/P9ulp sqyV45ox97MN6nMzT5zbbn231+ot3N26Iyc83ccxTprw1cS67n5/391+6H77u/ship ceiler/yrrBi281r50k/9j [file] vJQ5RBVbFqbOFc0Zl3AuybF6mtJwBvR0PKf0SxHwXA8A ID Date Data Source [id number] 09/27/2020 01:28:00 PM EST [facility] SPEC EXP DATE 09/30/2020ATI ENT ABO/Rh A POSITIVEANTIBODY SCREEN NEGATIVETESTING SITE PERFORMED AT [address] [place] [address] [id number] BANK COMMENT BLOOD TYPE CONFIRMED. Name Value Range Interpretation Code Description Data Carlie rce(s) Supporting Document(s) TYPE AND SCREEN [facility] ID Date Data Source [id number] 09/27/2020 11:47:13 AM EST [facility] Name Value Range Interpretation Code Description Data Carlie rce(s) Supporting Document(s) WBC 3.9 10*3/uL (4.1-11.0) L [facility] RBC 4.08 10*6/uL (4.00-5.40) [facility] HGB 9.9 g/dL (12.0-16.0) L [facility] HCT 30.9 % (36.0-47.0) L [facility] MCV 75.7 fL (80.0-95.0) L [facility] MCH 24.3 pg (27.0-32.0) L [facility] MCHC 32.1 g/dL (32.0-36.0) [facility] RDW 19.0 % (10.5-14.5) H [facility] PLT 224 10*3/uL (150-450) [facility] MPV 8.5 fL (7.1-10.7) [facility] NEUT % 67.0 % (35.0-75.0) [facility] LYMPH % 22.6 % (16.0-52.0) [facility] MONO % 7.5 % (0.0-8.0) [facility] EOS % 1.4 % (0.0-5.0) [facility] BASO % 1.5 % (0.0-4.0) [facility] NEUT # 2.6 10*3/uL (1.8-7.7) [facility] LYMPH # 0.9 10*3/uL (1.2-4.8) L [facility] MONO # 0.3 10*3/uL (0.0-0.8) [facility] Eosinophils [#/volume] in Blood by Automated count 0.1 10*3/uL (0.0-0 .5) [facility] BASO # 0.1 10*3/uL (0.0-0.2) [facility] ID Date Data Source [id number] 09/27/2020 11:34:41 AM EST [facility] Name Value Range Interpretation Code Description Data Carlie rce(s) Supporting Document(s) MAGNESIUM 2.1 mg/dL (1.7-2.4) [facility] ID Date Data Source [id number] 09/27/2020 11:37:57 AM EST [facility] Name Value Range Interpretation Code Description Data Carlie rce(s) Supporting Document(s) HCG,QUANT PREG 2331 mU/mL [facility] INTERPRETATION:LESS THAN 6 NEGATIVE 6 - 10 BORDERLINE (SUGGEST REPEAT IN 48 HOURS) APPROX HCG RANGE WEEKS POST LMP 11 - 130 3 - 4 WEEKS 75 - 2600 4 - 5 WEEKS 850 - 21271 5 - 6 WEEKS 4000 - 686007 6 - 7 [id number] - 747221 7 - 12 [id number] - [id number] 12 - 16 WEEKS 1400 - 69697 16 - 29 WEEKS 940 - 29272 29 - 41 WEEKS ID Date Data Source [id number] 09/27/2020 11:32:51 AM EST [facility] Name Value Range Interpretation Code Description Data Carlie rce(s) Supporting Document(s) APTT 26.5 s (22.0-34.3) [facility] ID Date Data Source [id number] 09/27/2020 11:34:41 AM EST [facility] Name Value Range Interpretation Code Description Data Carlie rce(s) Supporting Document(s) SODIUM 142 mmol/L (136-145) [facility] POTASSIUM 4.0 mmol/L (3.6-5.2) [facility] CHLORIDE 110 mmol/L (100-108) H [facility] CO2 26 mmol/L (22-31) [facility] ANION GAP 6 mmol/L (7-16) L [facility] UREA NITROGEN 19 mg/dL (7-24) [facility] CREATININE 0.70 mg/dL (0.60-1.00) [facility] BUN/CREAT RATIO 27.1 RATIO (10.0-20.0) H [facility] GLUCOSE 86 mg/dL (70-99) [facility] CALCIUM 8.7 mg/dL (8.4-10.2) [facility] GFR >60 ml/min/1.73m2 (>59) [facility] GFR ( AMER) >60 ml/min/1.73m2 (>59) Lab [facility] GFR INTERPRETATION [facility] --NORMAL KIDNEY FUNCTION OR MILD DISEASE - GFR >OR= 60CHRONIC KIDNEY DISEASE - GFR 15 - 59RENAL FAILURE - GFR <15 Est. GFR calculation based on the MDRDstudy equation, which assumes a steadystate for creatinine. Est. GFR should notbe used for medication dosing. ID Date Data Source [id number] 09/27/2020 11:32:51 AM EST [facility] Name Value Range Interpretation Code Description Data Carlie rce(s) Supporting Document(s) PT 10.9 s (9.2-11.9) [facility] INR 1.04 Lab [facility] SUGGESTED THERAPEUTIC RANGES USING INR F ORSTABILIZED ANTICOAGULATED PATIENTS:STANDARD DOSE THERAPY INR 2.0-3.0 DVT, PE, PREVENT DVT OR EMBOLISMHIGH DOSE THERAPY INR 2.5-3.5 PREVENT EMBOLISM FROM MECHANICAL HEART VALVE ID Date Data Source [id number] 09/25/2020 10:30:43 PM EST [facility]FORMATIONPatient MRN Name Date of Age Gend*PT [id number] Dheeraj Jamison 1990 30 years F IPPT Location Admission Date/Time Visit ID Attending [id number] 09/02/19 0521 --- --- EPI ID CSN Admitting Provider [id number] Jcarlos Hayes MD([id number])Discharge SummaryDheeraj Jamison date: 09/02/2019 5:21 AM Primary Care Provider: Luz BurgessAdmitting Physician: Vazquez Kasper Diagnosis: Post-Op Diagnosis Codes: * Morbid obesity [E66.01]Secondary Diagnoses:Past Medical History:Diagnosis Date Anemia Anxiety GERD (gastroesophageal reflux disease) Hypothyroidism Morbid obesity Panic disorder depressionSurgical Procedures performed on 09/02/2019 by LUDIVINA Kasperrocedure(s):CREATION, GASTRIC BYPASS, DONTAE-EN-Y, LAPAROSCOPIC, WITH LIVER BIOPSYESOPHAGOGOGASTROJEJUNOSCOPYLaparoscopic Dontae Y Gastric Bypass, ante colic, antegastric, 50 cm PancreaticoBiliary Limb, 150 cm Dontae Limb,Wedge liver biopsyEsophagogastrojejunoscopySecondary Procedures:None.Indication for Admission: Dheeraj Jamison is a 29 years year old female whosuffers from severe obesity. Dheeraj Jamison has attempted multiple diets overthe years, and has been able to lose modest amounts of weight, however theweight loss has never been sustained. She is 66 in, 265lb and BMI of 42.77. Herweight impacts her activities of daily living. Her associated comorbiditiesinclude joint pain and hypothyroidism. She meets the criteria for bariatricsurgery as defined in the NIH consensus statement, surgery is medicallynecessary. We explained the operation, potential complications, what can beexpected after surgery, and what to expect for the rest of their life. Aninformed consent discussion was held. The operations I offer and their potentialcomplications were discussed. After discussion, patient and I agreed to proceedwith a laparoscopic Dontae-en-Y Gastric Bypass, possible Sleeve Gastrectomy ifhostile abdomen is encountered. Botox education given to patient. This mayinclude repair of a Hiatal Hernia if found and a Wedge Liver Biopsy if there yenni fatty liver. We covered complications including: , NH, DVT, PE, leaks,sepsis, gallbladder disease, anastomotic ulcers, bleeding, failure of weightloss, malnutrition, need for open surgery, internal and external hernias, andthe need for repeat surgery, among others.Her current weight and height are :Wt Readings from Last 1 Encounters:09/02/19 (!) 114.5 kg (252 lb 8 oz)Ht Readings from Last 1 Encounters:09/02/19 1.676 m (5' 6")Giving her a Body mass index is 40.75 kg/m .; therefore, Dheeraj Jamison met thecriteria for weight loss surgery as defined in the NIH consensus statement, andsurgery was medically necessary.Hospital Course: The patient underwent above listed procedure on 09/02/[address]Ransford Hayes. There were no intraoperative complications and postoperativelyShe was transferred to the floor in stable condition. There were nopostoperative issues. Up on the floor She was given sips of water and dilutejuice to drink. She also ambulated and used the incentive spirometerappropriately. She had no difficulties voiding. She had adequate pain controlas well with simethicone and tylenol. At the time of discharge, Accuchecks andblood pressure were normal. She was tolerating 4 oz of fluid consistentlywithout nausea. Patient was deemed appropriate for discharge home per MD.Patient was given post-op instructions and expressed understanding. They weregiven warning signs and symptoms to call the office with.She received extensive education on medications to take at home as well as dieteducation. She showed very good understanding and agreement with the dischargeplan.Most recent glucose:Glucose, POCDate Value Ref Range Momaiv4109/03/2019 84 70 - 99 mg/dL Final Comment: PERFORMED BY [facility] CLINICAL STAFFDischarge instructions were reviewed in person and provided to the patient inprinted form as well. Dheeraj Jamison knows to call is there are any problemsDischarge Exam:Vitals: Temp: [98 F-99.1 F] 98 FHeart Rate: [67-90] 67Resp: [17-18] 18BP: (108-135)/(69-84) 109/76General: Laying in bed comfortably, in NADHeart: RRRLungs: Non-laboredAbd: Soft, non- distended, appropriately tender, incisions C/D/IExt: Calves non-tender to palpationDischarged Condition:goodDisposition: Home or Self CareFollow- up:Jcarlos Hayes MD as scheduled in the office.Medications: Mya Jamison Medication Instructions JAMIE:[id number] Printed on:09/03/19 1348Medication Informationacetaminophen (TYLENOL) 325 MG tabletTake 2 tablets (650 mg total) by mouth every 6 (six) hours as needed for paincyanocobalamin ([employer] VITAMIN B-12) 500 MCG tabletTake 2 tablets (1,000 mcg total) by mouth dailyenoxaparin (LOVENOX) 40 MG/0.4ML SOLNInject 0.4 mL (40 mg total) under the skin daily for 10 daysferrous sulfate 325 (65 FE) MG tabletTake 650 mg by mouth every other daylevothyroxine (SYNTHROID, LEVOTHROID) 100 MCG tabletTake 100 mcg by mouth dailyMultiple Vitamins-Minerals (MULTIVITAMIN WITH MINERALS) tabletTake 2 tablets by mouth dailyomeprazole (PRILOSEC) 40 MG capsuleTake 1 capsule (40 mg total) by mouth dailyondansetron (ZOFRAN-ODT) 4 MG disintegrating tabletTake 1 tablet (4 mg total) by mouth every 6 (six) hours as needed for nauseasimethicone (MYLICON) 80 MG chewable tabletChew 1 tablet (80 mg total) every 6 (six) hours as needed for flatulence Angi Moyer, PA:48 PM Name Value Range Interpretation Code Description Data Carlie rce(s) Supporting Document(s) ID Date Data Source LIPID PANEL (CARDIAC RISK) 08/31/2020 12:00:00 AM EST eCW1 ( [facility]) Name Value Range Interpretation Code Description Data Carlie rce(s) Supporting Document(s) Cholesterol in HDL [Moles/volume] in Serum or Plasma 80 >40 HDL CHOLESTEROL W1 ([facility]) Cholesterol [Moles/volume] in Serum or Plasma 176 <200 CHOLESTEROL LEVEL eCW1 ([facility]) Triglyceride [Mass/volume] in Serum or Plasma by calculation 89 <150 TRIGLYCERIDES LEVEL [facility] ([facility]) 2.200 <5 CHOLESTEROL RISK RATIO eCW1 ([facility]) Cholesterol in LDL [Mass/volume] in Serum or Plasma by calculation 78 <100 LDL CHOLESTEROL [facility] ([facility]) 96 NON-HDL-C eCW1 (Count includes the [facility]) ID Date Data Source [id number] 08/31/2020 12:00:00 AM EST eCW1 ([facility]) Name Value Range Interpretation Code Description Data Carlie rce(s) Supporting Document(s) Hemoglobin A1c/Hemoglobin.total in Blood 5.2 HEMOGLOBIN A1c eCW1 ([facility]) ID Date Data Source [id number] 08/15/2020 06:10:[address] [address] HEALTH INFORMATION MANAGEMENT ED/UC Physician Report : [id number] Signed Patient: Dheeraj Jamison Acct:[id number] Unit: [facility] [id number] : 1990 Arrival Date: 08/15/20 Age/Sex: 30 / F Arrival Time: 1736 Copies to: Maura Carter [employer] ADMINISTRATOR General Adult HPI/ROS General Chief Complaint: Complex/Multi-System Present Stated Complaint: [facility] uc/fever body aches Stated Complaint: [facility] uc/fever body aches Source: Patient and I [...] Normal Affect Skin Skin exam: Dry, Intact, [place] and Warm Course Vital Signs Vital signs: [...] strict quarantine until COVID results. Continue using wfvz-udc-cxckrbh therapies to manage her symptoms at this time. Discharge Plan Disposition Clinical Impression: COVID-19 virus test result unknown, Body aches, Viral illness, Fever and chills Provider stated Dispo: Discharged Condition: Stable Instructions: COVID-19 (Coronavirus Disease 2019) (ED) Activity Restrictions/Additional Instructions: Please self quarantine until your COVID results. Use mrkm-ckc-djtolgc therapies for symptom management as needed. Increase rest and fluids. [place] diet as needed for upset stomach. Tylenol/Motrin [...] <<Signature on File>> Initializing User: Dalila Canales MARY 08/15/201809 Signed by: Dalila Canales MARY 08/15/201818 ApolinarFroylan Phillips 08/15/20 0959 Name Value Range Interpretation Code Description Data Carlie rce(s) Supporting Document(s) ID Date Data Source [id number] 08/15/2020 11:51:00 PM [facility] Name Value Range Interpretation Code Description Data Carlie rce(s) Supporting Document(s) INFLUENZA A RAPID NEGATIVE NEGATIVE [facility] will be held for 1 week. If subsequent Viral Culture is requested by provider, please notify Laboratory at . Test Performed by Rapid Immunochromatographic Assay INFLUENZA B RAPID NEGATIVE NEGATIVE [facility] will be held for 1 week. If subsequent Viral Culture is requested by provider, please notify Laboratory at . Test Performed by Rapid Immunochromatographic Assay ID Date Data Source [id number] 08/16/2020 07:31:00 AM EST [facility] COVID Reason UC patient Priority Name Value Range Interpretation Code Description Data Carlie rce(s) Supporting Document(s) COVID 19 (RHEONIX) NOT-DETECTED NOTDETECTED [facility] The [employer] COVID-19 MDx Assay is an en dpoint RT-PCR assay ([employer])intended for the qualitative detection of nucleic acid from SARS-CoV-2 in nasopharyngeal swabs. COVID testing using the [employer] analyzer was developed for the purpose of [...] public health authorities. ID Date Data Source [id number] 08/15/2020 06:00:00 PM EST [facility] Name Value Range Interpretation Code Description Data Carlie rce(s) Supporting Document(s) SARS-CoV-2 (COVID-19) N gene [Presence] in Nasopharynx by NANCY with probe detection NOT-DETECTED [facility] This lab was ordered by [facility] and reported by [facility]. Procedure Social History Code Duration Value Status Description Data Source(s ) Smoking 06/16/2021 12:00:00 AM EST Never Smoker completed Never S moker eCW1 ([facility]) Smoking 05/25/2021 12:00:00 AM EDT Never Smoker completed Never S moker eCW1 ([facility]) Smoking 05/25/2021 12:00:00 AM EDT Never Smoker completed Never S moker eCW1 ([facility]) Smoking 05/25/2021 12:00:00 AM EDT Never Smoker completed Never S moker eCW1 ([facility]) Smoking 05/06/2021 12:00:00 AM EDT Never Smoker completed Never S moker eCW1 ([facility]) Smoking 05/06/2021 12:00:00 AM EDT Never Smoker completed Never S moker eCW1 ([facility]) Smoking 05/06/2021 12:00:00 AM EDT Never Smoker completed Never S moker eCW1 ([facility]) Smoking 05/06/2021 12:00:00 AM EDT Never Smoker completed Never S moker eCW1 ([facility]) Smoking 04/29/2021 12:00:00 AM EDT Never Smoker completed Never S moker eCW1 ([facility]) Smoking 04/29/2021 12:00:00 AM EDT Never Smoker completed Never S moker eCW1 ([facility]) Smoking 01/21/2021 12:00:00 AM EDT Never Smoker completed Never S moker eCW1 ([facility]) Smoking 01/21/2021 12:00:00 AM EDT Never Smoker completed Never S moker eCW1 ([facility]) Smoking 01/21/2021 12:00:00 AM EDT Never Smoker completed Never S moker eCW1 ([facility]) Smoking 11/02/2020 12:00:00 AM EDT Never Smoker completed Never S moker eCW1 ([facility]) Smoking 11/02/2020 12:00:00 AM EDT Never Smoker completed Never S moker eCW1 ([facility]) Smoking 11/02/2020 12:00:00 AM EDT Never Smoker completed Never S moker eCW1 ([facility]) Smoking 11/02/2020 12:00:00 AM EDT Never Smoker completed Never S moker eCW1 ([facility]) Smoking 11/02/2020 12:00:00 AM EDT Never Smoker completed Never S moker eCW1 ([facility]) Smoking 11/02/2020 12:00:00 AM EDT Never Smoker completed Never S moker eCW1 ([facility]) Smoking 10/14/2020 12:00:00 AM EDT Never Smoker completed Never S moker eCW1 ([facility]) Smoking 10/14/2020 12:00:00 AM EDT Never Smoker completed Never S moker eCW1 ([facility]) Smoking 10/14/2020 12:00:00 AM EDT Never Smoker completed Never S moker eCW1 ([facility]) 10/08/2020 11:35:28 PM EST Never Smoker completed Never S moker [facility] 10/08/2020 11:35:28 PM EST [facility]08/2020 11:35:00 PM EST Never smoked tobacco (findi ng) completed [facility] 10/08/2020 11:35:00 PM EST Never smoked tobacco (findi ng) completed [facility] 10/08/2020 12:00:00 AM EST Never Smoker completed Never S moker eCW1 ([facility]) Smoking 10/08/2020 12:00:00 AM EST Never Smoker completed Never S moker eCW1 ([facility]) Smoking 09/28/2020 12:00:00 AM EST Never Smoker completed Never S moker eCW1 ([facility]) Smoking 09/03/2020 12:00:00 AM EST Never Smoker completed Never S moker eCW1 ([facility]) Smoking 09/03/2020 12:00:00 AM EST Never Smoker completed Never S moker eCW1 ([facility]) Smoking 09/03/2020 12:00:00 AM EST Never Smoker completed Never S moker eCW1 ([facility]) Smoking 09/03/2020 12:00:00 AM EST Never Smoker completed Never S moker eCW1 ([facility]) Smoking 09/03/2020 12:00:00 AM EST Never Smoker completed Never S moker eCW1 ([facility]) Smoking 09/03/2020 12:00:00 AM EST Never Smoker completed Never S moker eCW1 ([facility]) Smoking 09/03/2020 12:00:00 AM EST Never Smoker completed Never S moker eCW1 ([facility]) Smoking 09/03/2020 12:00:00 AM EST Never Smoker completed Never S moker eCW1 ([facility]) Smoking 08/31/2020 12:00:00 AM EST Never Smoker completed Never S moker eCW1 ([facility]) Smoking 08/31/2020 12:00:00 AM EST Never Smoker completed Never S moker eCW1 ([facility]) 08/15/2020 06:12:08 PM EST Never Smoker completed Never [facility] Smoking 08/15/2020 06:12:00 PM EST Never smoked tobacco (findi ng) completed Never smoked tobacco (finding) [facility] Vital Signs ID Date Data Source UNK Name Value Range Interpretation Code Description Data Source(s) Body weight 182.8 [lb_av] 182.8 [lb_av] eCW1 ([facility]) Body height 67 [in_i] 67 [in_i] eCW1 ([facility]) Body mass index (BMI) [Ratio] 28.63 kg/m2 28.63 kg/m2 eCW1 ([facility]) Systolic blood pressure 118 mm[Hg] 118 mm[Hg] e CW1 ([facility]) Diastolic blood pressure 72 mm[Hg] 72 mm[Hg] eCW1 ([facility]) Body weight 180 [lb_av] 180 [lb_av] eCW1 ([facility]) Body weight 81.65 kg 81.65 kg eCW1 ([facility]) Body height 67 [in_i] 67 [in_i] eCW1 ([facility]) Body mass index (BMI) [Ratio] 28.19 kg/m2 28.19 kg/m2 eCW1 ([facility]) Heart rate 104 /min 104 /min eCW1 ([facility]ly [facility]) Respiratory rate 18 /min 18 /min eCW1 ([facility]) Body temperature 97.5 [degF] 97.5 [degF] eCW1 ( [facility]) Systolic blood pressure 112 mm[Hg] 112 mm[Hg] e CW1 ([facility]) Diastolic blood pressure 74 mm[Hg] 74 mm[Hg] eCW1 ([facility]) Body weight 183.2 [lb_av] 183.2 [lb_av] eCW1 (Formerly [facility]) Body weight 83.1 kg 83.1 kg eCW1 ([facility]) Body height 67 [in_i] 67 [in_i] eCW1 ([facility]) Body mass index (BMI) [Ratio] 28.69 kg/m2 28.69 kg/m2 eCW1 ([facility]) Heart rate 90 /min 90 /min eCW1 ([facility]) Respiratory rate 18 /min 18 /min eCW1 ([facility]) Body temperature 97.5 [degF] 97.5 [degF] eCW1 ( [facility]) Systolic blood pressure 134 mm[Hg] 134 mm[Hg] e CW1 ([facility]) Diastolic blood pressure 72 mm[Hg] 72 mm[Hg] eCW1 ([facility]) Body mass index (BMI) [Ratio] 26.31 kg/m2 26.31 kg/m2 eCW1 ([facility]) Body weight 168 [lb_av] 168 [lb_av] eCW1 ([facility]) Heart rate 115 /min 115 /min eCW1 ([facility]) Respiratory rate 18 /min 18 /min eCW1 ([facility]) Body temperature 97.7 [degF] 97.7 [degF] eCW1 ( [facility]) Systolic blood pressure 110 mm[Hg] 110 mm[Hg] e CW1 ([facility]) Diastolic blood pressure 70 mm[Hg] 70 mm[Hg] eCW1 ([facility]) Body height 67 [in_i] 67 [in_i] eCW1 ([facility]) Body weight 176 [lb_av] 176 [lb_av] eCW1 ([facility]) Body height 67 [in_i] 67 [in_i] eCW1 ([facility]) Body mass index (BMI) [Ratio] 27.56 kg/m2 27.56 kg/m2 eCW1 ([facility]) Heart rate 107 /min 107 /min eCW1 ([facility]) Respiratory rate 18 /min 18 /min eCW1 ([facility]) Body temperature 97.6 [degF] 97.6 [degF] eCW1 ( [facility]) Systolic blood pressure 110 mm[Hg] 110 mm[Hg] e CW1 ([facility]) Diastolic blood pressure 64 mm[Hg] 64 mm[Hg] eCW1 ([facility]) Heart rate 90 /min 90 /min [facility] Respiratory rate 16 /min 16 /min [facility] Diastolic blood pressure 64 mm[Hg] 64 mm[Hg] [facility] in Arterial blood by Pulse oximetry 100 % 100 % [facility] Systolic blood pressure 111 mm[Hg] 111 mm[Hg] O [facility] Heart rate 90 /min 90 /min [facility] Respiratory rate 16 /min 16 /min [facility] Oxygen saturation in Arterial blood by Pulse oximetry 100 % 100 % [facility] Systolic blood pressure 111 mm[Hg] 111 mm[Hg] O [facility] Diastolic blood pressure 64 mm[Hg] 64 mm[Hg] [facility] Body height 170.18 cm 170.18 cm [facility] Body weight 81.00 kg 81.00 kg [facility] Body temperature 98.4 [degF] 98.4 [degF] [facility] Body height 170.18 cm 170.18 cm [facility] Body weight 81.00 kg 81.00 kg [facility] Body temperature 98.4 [degF] 98.4 [degF] [facility] Body weight 173 [lb_av] 173 [lb_av] eCW1 ([facility]) Body weight 78.47 kg 78.47 kg W1 ([facility]) Body height 67 [in_i] 67 [in_i] eCW1 ([facility]) Body mass index (BMI) [Ratio] 27.09 kg/m2 27.09 kg/m2 eCW1 ([facility]) Systolic blood pressure 130 mm[Hg] 130 mm[Hg] e CW1 ([facility]) Diastolic blood pressure 70 mm[Hg] 70 mm[Hg] eCW1 ([facility]) Body weight 175 [lb_av] 175 [lb_av] eCW1 ([facility]) Body height 67 [in_i] 67 [in_i] eCW1 ([facility]) Body mass index (BMI) [Ratio] 27.41 kg/m2 27.41 kg/m2 eCW1 ([facility]) Heart rate 75 /min 75 /min eCW1 ([facility]) Respiratory rate 18 /min 18 /min eCW1 ([facility]) Body temperature 98.1 [degF] 98.1 [degF] eCW1 ( [facility]) Systolic blood pressure 102 mm[Hg] 102 mm[Hg] e CW1 ([facility]) Diastolic blood pressure 60 mm[Hg] 60 mm[Hg] eCW1 ([facility]) Heart rate 68 /min 68 /min [facility] Systolic blood pressure 113 mm[Hg] 113 mm[Hg] [facility] Diastolic blood pressure 69 mm[Hg] 69 mm[Hg] [facility] Oxygen saturation in Arterial blood by Pulse oximetry 98 % 98 % [facility] Respiratory rate 16 /min 16 /min [facility] Body temperature 36.94 [place] 36.94 [place] [facility] Body height 167.[address] [facility] Body weight 81.[address] [facility] Body mass index (BMI) [Ratio] 28.89 kg/m2 28.89 kg/m2 [facility] Body weight 176 [lb_av] 176 [lb_av] eCW1 ([facility]) Body height 67 [in_i] 67 [in_i] eCW1 ([facility]) Body mass index (BMI) [Ratio] 27.56 kg/m2 27.56 kg/m2 eCW1 ([facility]) Heart rate 115 /min 115 /min eCW1 ([facility]) Respiratory rate 18 /min 18 /min eCW1 ([facility]) Body temperature 98.2 [degF] 98.2 [degF] eCW1 ( [facility]) Systolic blood pressure 102 mm[Hg] 102 mm[Hg] e CW1 ([facility]) Diastolic blood pressure 64 mm[Hg] 64 mm[Hg] eCW1 ([facility]) Body weight 175 [lb_av] 175 [lb_av] eCW1 ([facility]) Body height 67 [in_i] 67 [in_i] eCW1 ([facility]) Body mass index (BMI) [Ratio] 27.41 kg/m2 27.41 kg/m2 W1 ([facility]) Heart rate 94 /min 94 /min eCW1 ([facility]) Respiratory rate 18 /min 18 /min eCW1 ([facility]) Body temperature 97.8 [degF] 97.8 [degF] eCW1 ( [facility]) Systolic blood pressure 128 mm[Hg] 128 mm[Hg] e CW1 ([facility]) Diastolic blood pressure 78 mm[Hg] 78 mm[Hg] eCW1 ([facility]) Diastolic blood pressure 73 mm[Hg] 73 mm[Hg] [facility] Systolic blood pressure 117 mm[Hg] 117 mm[Hg] O [facility] Oxygen saturation in Arterial blood by Pulse oximetry 100 % 100 % [facility] Respiratory rate 18 /min 18 /min [facility] Heart rate 80 /min 80 /min [facility] Body temperature 99.1 [degF] 99.1 [degF] [facility] Patient Treatment Plan of Care Planned Activity Planned Date Details Description Data Source (s) ferrous gluconate 324 MG Oral Tablet 05/19/2021 12:00:00 AM EDT eCW1 ([facility]) ferrous gluconate 324 MG Oral Tablet 05/19/2021 12:00:00 AM EDT eCW1 ([facility]) ferrous gluconate 324 MG Oral Tablet 05/19/2021 12:00:00 AM EDT eCW1 ([facility]) ferrous gluconate 324 MG Oral Tablet 05/19/2021 12:00:00 AM EDT eCW1 ([facility]) Phenazopyridine hydrochloride 200 MG Oral Tablet [Pyri dium] 04/29/2021 12:00:00 AM EDT eCW1 (Count includes the [facility]) NITROFURANTOIN, MACROCRYSTALS 100 MG Oral Capsule [Mac rodantin] 04/29/2021 12:00:00 AM EDT eCW1 (Count includes the [facility]) Fluconazole 150 MG Oral Tablet 04/29/2021 12:00:00 AM EDT eCW1 ([facility]) Phenazopyridine hydrochloride 200 MG Oral Tablet [Pyri dium] 04/29/2021 12:00:00 AM EDT eCW1 (Count includes the [facility]) NITROFURANTOIN, MACROCRYSTALS 100 MG Oral Capsule [Mac rodantin] 04/29/2021 12:00:00 AM EDT eCW1 (Count includes the [facility]) Fluconazole 150 MG Oral Tablet 04/29/2021 12:00:00 AM EDT eCW1 ([facility]) Propranolol Hydrochloride 10 MG Oral Tablet 10/14/2020 12:00:00 AM EDT eCW1 ([facility]) Escitalopram 10 MG Oral Tablet 10/14/2020 12:00:00 AM EDT eCW1 ([facility]) Propranolol Hydrochloride 10 MG Oral Tablet 10/14/2020 12:00:00 AM EDT eCW1 ([facility]) Escitalopram 10 MG Oral Tablet 10/14/2020 12:00:00 AM EDT eCW1 ([facility]) Propranolol Hydrochloride 10 MG Oral Tablet 10/14/2020 12:00:00 AM EDT eCW1 ([facility]) Escitalopram 10 MG Oral Tablet 10/14/2020 12:00:00 AM EDT eCW1 ([facility]) Levothyroxine Sodium 0.088 MG Oral Tablet 09/28/2020 12:00:00 AM ES T eCW1 ([facility]) Levothyroxine Sodium 0.088 MG Oral Tablet 09/28/2020 12:00:00 AM ES T eCW1 ([facility]) Levothyroxine Sodium 0.088 MG Oral Tablet 09/28/2020 12:00:00 AM ES T eCW1 ([facility]) Levothyroxine Sodium 0.088 MG Oral Tablet 09/28/2020 12:00:00 AM ES T eCW1 ([facility]) Levothyroxine Sodium 0.088 MG Oral Tablet 09/28/2020 12:00:00 AM ES T eCW1 ([facility]) buspirone hydrochloride 7.5 MG Oral Tablet 09/28/2020 12:00:[address] eCW1 ([facility]) Levothyroxine Sodium 0.088 MG Oral Tablet 09/28/2020 12:00:00 AM ES T eCW1 ([facility]) medroxyprogesterone acetate 5 MG Oral Tablet 09/27/2020 12:00:[address] [facility] medroxyprogesterone acetate 5 MG Oral Tablet 09/27/2020 12:00:[address] [facility] Norethindrone Acet-Ethinyl Est 1-20 MG-MCG 09/16/2020 12:00:[address] eCW1 ([facility]) Loryna 3-0.02 MG 09/03/2020 12:00:00 AM EST eCW1 ([facility]) buspirone hydrochloride 5 MG Oral Tablet 09/03/2020 12:00:00 AM EST eCW1 ([facility]) Loryna 3-0.02 MG 09/03/2020 12:00:00 AM EST eCW1 ([facility]) buspirone hydrochloride 5 MG Oral Tablet 09/03/2020 12:00:00 AM EST eCW1 ([facility]) Loryna 3-0.02 MG 09/03/2020 12:00:00 AM EST eCW1 ([facility]) buspirone hydrochloride 5 MG Oral Tablet 09/03/2020 12:00:00 AM EST eCW1 ([facility]) Loryna 3-0.02 MG 09/03/2020 12:00:00 AM EST eCW1 ([facility]) buspirone hydrochloride 5 MG Oral Tablet 09/03/2020 12:00:00 AM EST eCW1 ([facility]) Loryna 3-0.02 MG 09/03/2020 12:00:00 AM EST eCW1 ([facility]) buspirone hydrochloride 5 MG Oral Tablet 09/03/2020 12:00:00 AM EST eCW1 ([facility]) Loryna 3-0.02 MG 09/03/2020 12:00:00 AM EST eCW1 ([facility]) buspirone hydrochloride 5 MG Oral Tablet 09/03/2020 12:00:00 AM EST eCW1 ([facility]) Loryna 3-0.02 MG 09/03/2020 12:00:00 AM EST eCW1 ([facility]) buspirone hydrochloride 5 MG Oral Tablet 09/03/2020 12:00:00 AM EST eCW1 ([facility]) buspirone hydrochloride 5 MG Oral Tablet 09/03/2020 12:00:00 AM EST eCW1 ([facility]) Loryna 3-0.02 MG 09/03/2020 12:00:00 AM EST eCW1 ([facility]) Levothyroxine Sodium 0.05 MG Oral Tablet 08/31/2020 12:00:00 AM EST eCW1 ([facility]) Levothyroxine Sodium 0.05 MG Oral Tablet 08/31/2020 12:00:00 AM EST eCW1 ([facility]) Multiple Vitamins-Minerals (MULTIVITAMIN WITH MINERALS ) tablet 09/03/2019 12:00:00 AM EST [facility] Vitamin B 12 0.5 MG Oral Tablet 09/03/2019 12:00:[address] [facility]
[2021-06-22 21:10] LABS: HCG, SERUM QUALITATIVE NEGATIVE (NEGATIVE)
[2021-06-22 21:12] LABS: VITAMIN B12 LEVEL 346 PG/ML (247-911)
[2021-06-23 09:46] LABS: FOLATE 13.6 NG/ML (>5.4)
--- NOTE | 2021-06-23 16:51 | ECGEPIP ---
[facility] - ED Test Date: 2021-06-22 Pat Name: DHEERAJ JAMISON Department: Room: - Gender: Female Owner Consulting Engineer: GERSON : 1990 Requested By: FAWAD LOPEZ PA-C Order Number: [id number] Reading MD: Sarah Nelson Measurements Intervals [place] Rate: 53 P: 57 RI: 132 QRS: 55 QRSD: 86 T: 24 QT: 406 QTc: 380 Interpretive Statements Sinus bradycardia with sinus arrhythmia decreased rate 09/25/20 Electronically Signed on 06-23-2021 16:50:33 EST by Sarah Nelson
== END 2021-06-22 20:42 | disposition left against medical advice (07) ==
LOC: M ED 14:36
DX: N93.9 Abnormal uterine and vaginal bleeding, unspecified (principal); R07.9 Chest pain, unspecified; Z53.20 Procedure and treatment not carried out because of patient's decision for unspecified reasons; R51.9 Headache, unspecified; R42 Dizziness and giddiness; E03.9 Hypothyroidism, unspecified; Z98.84 Bariatric surgery status; Z88.1 Allergy status to other antibiotic agents; Z79.899 Other long term (current) drug therapy; Z79.890 Hormone replacement therapy

== ENCOUNTER → 2021-06-29 | Outpatient (CLI) | payer OTHER ==
[~2021-06-29] MED LIST changes: +IBUP-1022 PO; +LEVO88TA3; +LEXA1TAB; +LEXA5TAB13; +OXYC1TAB23 PO
== END ==
LOC: M RAD 16:12
PROVIDERS: ATTEND Physician Assistant Medical
DX: R06.02 Shortness of breath (principal)

== ENCOUNTER 2021-06-30 11:43 | Outpatient (CLI) | payer OTHER ==
[~2021-06-30] VITALS: Ht 170.2 cm; Wt 81.4 kg
[~2021-06-30 11:43] MED LIST changes: -IBUP-1022 PO; -LEVO88TA3; -LEXA5TAB13; -OXYC1TAB23 PO
[2021-06-30] MEDS ORDERED: LEXA5TAB13 (13:05)
[2021-06-30] MEDS ORDERED: LEVO88TA3 (13:05)
[2021-06-30 14:25] VITALS: BP 124/73
[2021-06-30 15:10] VITALS: BP 118/69
[2021-06-30 16:10] VITALS: BP 109/75
[2021-06-30 17:00] VITALS: BP 133/87
[2021-06-30 18:28] VITALS: BP 120/66
== END 2021-06-30 18:30 | disposition home or self-care (01) ==
LOC: M INFU 11:43
PROVIDERS: ATTEND Physician Assistant Medical
DX: D64.9 Anemia, unspecified (principal); Z88.1 Allergy status to other antibiotic agents
CPT/HCPCS: 36430; P9016

== ENCOUNTER → 2021-07-09 | Outpatient (CLI) | payer OTHER ==
[~2021-07-09] MED LIST changes: +LEVO88TA3; +LEXA5TAB13
== END ==
LOC: M LABSMTC 11:05
PROVIDERS: ATTEND Anesthesiology
DX: Z01.812 Encounter for preprocedural laboratory examination (principal); Z20.822 Contact with and (suspected) exposure to COVID-19

== ENCOUNTER 2021-07-14 12:37 | Day surgery (SDC) | payer OTHER ==
[2021-07-14] VITALS (7 sets, daily range): BP systolic 91–115; BP diastolic 62–71
[~2021-07-14] VITALS: Ht 170.2 cm; Wt 81.2 kg
[~2021-07-14 12:37] MED LIST changes: +LIDOCAINE 2% 100MG/5ML SDV (FOR ANES.) As Ordered ONE; +LR 1,000 ML IV ONE; +MIDAZOLAM INJ 2MG/2ML VIAL (J2250 PER 1MG) As Ordered ONE; +ROCURONIUM BROMIDE 50 MG/5 ML VIAL As Ordered ONE; +ceFAZolin SOD 2 GM in IV 1 EA IV ONE; +fentaNYL 250 MCG/5 ML INJECTION As Ordered ONE; +propofoL 200 MG/20 ML VIAL As Ordered ONE
[2021-07-14 13:24] LABS: HEMATOCRIT 41.9 % (36.0-47.0); HEMOGLOBIN 12.4 g/dl (12.0-15.5); MEAN CORPUSCULAR HEMOGLOBIN 23.4 pg (27.0-33.0); MEAN CORPUSCULAR HGB CONC 29.6 g/dl (32.0-36.5); MEAN CORPUSCULAR VOLUME 78.9 fl (80.0-96.0); PLATELET COUNT, AUTOMATED 244 10^3/uL (150-450); RED BLOOD COUNT 5.31 10^6/uL (4.00-5.40); WHITE BLOOD COUNT 4.5 10^3/uL (4.0-10.0)
[2021-07-14] MEDS ORDERED: dexameTHASONE 4 MG/ML 1ML VIAL (J1100 PER 1MG) As Ordered ONE (13:29)
[2021-07-14] MEDS ORDERED: LACRILUBE (AKWA TEARS) OPHTH OINT 3.5 GM As Ordered ONE (13:46)
[2021-07-14] MEDS ORDERED: BUPIVACAINE HCL 0.25% 10ML VIAL As Ordered ONE (13:56)
[2021-07-14] MEDS ORDERED: METOCLOPRAMIDE INJ 10MG/2ML VIAL (J2765 PER 1) As Ordered ONE (13:57)
[2021-07-14] MEDS ORDERED: SUGAMMADEX SODIUM 500 MG/5 ML VIAL (BRIDION) As Ordered ONE (13:57)
[2021-07-14] MEDS ORDERED: KETOROLAC 60MG 2ML VIAL As Ordered ONE (13:57)
[2021-07-14] MEDS ORDERED: ONDANSETRON 4MG/2ML VIAL As Ordered ONE (13:57)
[2021-07-14] MEDS ORDERED: ACETAMINOPHEN 1000MG 100ML IV BTL (OFIRMEV) (J0131 PER 10MG) As Ordered ONE (13:58)
[2021-07-14] MEDS ORDERED: HYDROmorphone HCL 2MG/ML 1ML VIAL As Ordered ONE (14:01)
[2021-07-14] MEDS ORDERED: OXYC1TAB23 PO (14:56)
[2021-07-14] MEDS ORDERED: IBUP-1022 PO (14:57)
[2021-07-14] MEDS ORDERED: PERCOCET 5MG/325MG TAB PO PRN (15:00)
[2021-07-14] MEDS ORDERED: LR 1,000 ML IV SCH ×2 (15:00)
[2021-07-14] MEDS ORDERED: oxyCODONE 5MG TAB PO PRN (15:00)
[2021-07-14] MEDS ORDERED: fentaNYL 100 MCG/2 ML INJECTION IV PRN (15:00)
[2021-07-14] MEDS ORDERED: ONDANSETRON 4MG/2ML VIAL IV PRN ×2 (15:00)
[2021-07-14 16:59] LABS: CALCIUM LEVEL 9.9 MG/DL (8.5-10.1)
[2021-07-14 17:14] LABS: PTH INTACT 30.9 PG/ML (18.5-88.0)
[2021-07-14 18:14] LABS: HEPATITIS C VIRUS ABY INDEX 0.1 INDEX (<0.8)
[2021-07-14] MEDS: DOCUSATE SODIUM 100MG CAPSULE PO SCH (20:11)
[2021-07-14] MEDS: KETOROLAC 30 MG/ML 1ML VIAL IV PRN (20:12)
[2021-07-15] MEDS: KETOROLAC 30 MG/ML 1ML VIAL IV PRN ×2 (04:06→10:02)
[2021-07-15 06:00] VITALS: BP 115/63
[2021-07-15] MEDS: DOCUSATE SODIUM 100MG CAPSULE PO SCH (10:01)
== END 2021-07-15 14:10 | disposition home or self-care (01) ==
LOC: M SDC 12:37 → M MS5PR 15:40 → M SDC 07-15 14:10
PROVIDERS: ATTEND Specialist
DX: N93.9 Abnormal uterine and vaginal bleeding, unspecified (principal); D64.9 Anemia, unspecified; N72 Inflammatory disease of cervix uteri; E03.9 Hypothyroidism, unspecified; Z88.0 Allergy status to penicillin; F41.9 Anxiety disorder, unspecified; F32.9 Major depressive disorder, single episode, unspecified; Z79.899 Other long term (current) drug therapy
CPT/HCPCS: 36415; 58571; 82310; 83970; 85027; 86803; 86850; 86900; 86901; 87389; 88307; 96374; 96376; J0131; J0690; J1100; J1170; J1885; J2250; J2405; J2765; J3010; S2900; U0002

== ENCOUNTER → 2021-11-18 | Outpatient (REF) ==
[~2021-11-18] MED LIST changes: +IBUP-1022 PO; -LIDOCAINE 2% 100MG/5ML SDV (FOR ANES.) As Ordered ONE; -LR 1,000 ML IV ONE; -MIDAZOLAM INJ 2MG/2ML VIAL (J2250 PER 1MG) As Ordered ONE; +OXYC1TAB23 PO; -ROCURONIUM BROMIDE 50 MG/5 ML VIAL As Ordered ONE; -ceFAZolin SOD 2 GM in IV 1 EA IV ONE; -fentaNYL 250 MCG/5 ML INJECTION As Ordered ONE; -propofoL 200 MG/20 ML VIAL As Ordered ONE
== END ==
LOC: M LABSMTC 11:24
PROVIDERS: ATTEND Family Medicine
DX: Z20.822 Contact with and (suspected) exposure to COVID-19 (principal)

== ENCOUNTER → 2022-01-22 | Outpatient (REF) | payer OTHER | LOC: M LAB REF 14:40 | PROVIDERS: ATTEND Physician Assistant Medical | DX: R50.9 Fever, unspecified (principal) ==

== ENCOUNTER → 2022-02-04 | Outpatient (REF) | payer OTHER | LOC: M LAB REF 19:17 | PROVIDERS: ATTEND Physician Assistant | DX: N39.0 Urinary tract infection, site not specified (principal) ==

== ENCOUNTER → 2022-05-13 | Outpatient (REF) | payer OTHER | LOC: M PLALAB 11:58 | PROVIDERS: ATTEND Nurse Practitioner Family | DX: Z11.3 Encounter for screening for infections with a predominantly sexual mode of transmission (principal) ==

== ENCOUNTER → 2022-05-13 | Outpatient (CLI) | payer OTHER ==
[2022-05-13 15:51] LABS: HEPATITIS B CORE ANTIBODY IGM NEGATIVE (NEGATIVE); HEPATITIS B SURFACE ANTIGEN NEGATIVE (NEGATIVE); HEPATITIS C VIRUS ABY INDEX < 0.0 INDEX (<0.8); HIV 1&2 SCREEN CENTAUR NEGATIVE (NEGATIVE)
== END ==
LOC: M PLALAB 10:59
PROVIDERS: ATTEND Nurse Practitioner Family
DX: Z11.3 Encounter for screening for infections with a predominantly sexual mode of transmission (principal)

== ENCOUNTER 2022-09-26 11:45 | Outpatient (RCR) | payer OTHER | END 2022-09-27 | LOC: M PT 11:45 | PROVIDERS: ATTEND Nurse Practitioner Family | DX: L40.4 Guttate psoriasis (principal) ==

== ENCOUNTER 2022-09-30 11:42 | Outpatient (RCR) | payer OTHER | END 2022-10-28 | LOC: M PT 11:42 | PROVIDERS: ATTEND Nurse Practitioner Family | DX: L40.4 Guttate psoriasis (principal) ==

== ENCOUNTER 2022-11-02 13:05 | Outpatient (CLI) | payer OTHER ==
[~2022-11-02 13:05] MED LIST changes: +ALBUTEROL SULFATE 2.5MG/0.5ML INH NEB SOLN INH PRN; +EPINEPHrine INJ 1 MG/ML 1ML AMP IM PRN; +diphenhydrAMINE 50MG/ML VIAL IV PRN; +methylPREDNISolone 125MG 2ML VIAL IV PRN
[2022-11-02 13:25] VITALS: BP 120/69
[2022-11-02] MEDS ORDERED: ACETAMINOPHEN TAB 650MG DOSE (2X325MG) PO ONE (13:30)
[2022-11-02] MEDS ORDERED: FERRIC CARBOXYMALTOSE INJ 750 MG in NS 250 ML (>50kg) IV ONE ×3 (13:30)
[2022-11-02] MEDS ORDERED: NS 1,000 ML IV SCH (13:30)
[2022-11-02 15:15] VITALS: BP 135/68
== END 2022-11-02 15:15 | disposition home or self-care (01) ==
LOC: M INFU 13:05
PROVIDERS: ATTEND Internal Medicine Cardiovascular Disease
DX: D64.9 Anemia, unspecified (principal); Z88.1 Allergy status to other antibiotic agents
CPT/HCPCS: 96365; J1439

== ENCOUNTER → 2022-11-24 | Outpatient (REF) | payer OTHER ==
[~2022-11-24] MED LIST changes: -ALBUTEROL SULFATE 2.5MG/0.5ML INH NEB SOLN INH PRN; -EPINEPHrine INJ 1 MG/ML 1ML AMP IM PRN; -diphenhydrAMINE 50MG/ML VIAL IV PRN; -methylPREDNISolone 125MG 2ML VIAL IV PRN
[2022-11-24 13:47] LABS: BASO # 0.1 10^3/uL (0.0-0.2); BASO % 2.1 % (0.0-1.0); EOS # 0.2 10^3/uL (0.0-0.5); EOS % 6.9 % (0.0-3.0); HEMOGLOBIN 11.8 g/dl (12.0-15.5); LYMPH # 0.9 10^3/uL (1.5-5.0); LYMPH % 28.1 % (24.0-44.0); MEAN CORPUSCULAR HGB CONC 29.5 g/dl (32.0-36.5); MEAN CORPUSCULAR VOLUME 84.7 fl (80.0-96.0); MONO # 0.3 10^3/uL (0.0-0.8); MONO % 9.6 % (2.0-8.0); NEUTROPHILS # 1.8 10^3/uL (1.5-8.5); PLATELET COUNT, AUTOMATED 260 10^3/uL (150-450); RED BLOOD COUNT 4.72 10^6/uL (4.00-5.40); WHITE BLOOD COUNT 3.4 10^3/uL (4.0-10.0)
[2022-11-24 14:23] LABS: ALBUMIN 3.6 G/DL (3.2-5.2); ALKALINE PHOSPHATASE 43 U/L (46-116); ALT/SGPT 16 U/L (7.0-40); AST/SGOT 18 U/L (<34); BILIRUBIN,TOTAL 0.5 MG/DL (0.3-1.2); BLOOD UREA NITROGEN 11 MG/DL (9-23); CALCIUM LEVEL 8.6 MG/DL (8.5-10.1); CARBON DIOXIDE LEVEL 29 MMOL/L (20-31); CHLORIDE LEVEL 110 MMOL/L (98-107); CREATININE FOR GFR 0.68 MG/DL (0.55-1.30); GLOMERULAR FILTRATION RATE > 60.0 (>60); GLUCOSE, FASTING 78 MG/DL (60-100); POTASSIUM SERUM 4.7 MMOL/L (3.5-5.1); SODIUM LEVEL 142 MMOL/L (136-145); TOTAL PROTEIN 6.1 G/DL (5.7-8.2)
== END ==
LOC: M SFHCADAM 10:45
PROVIDERS: ATTEND Nurse Practitioner Family
DX: L40.4 Guttate psoriasis (principal)

== ENCOUNTER → 2022-11-24 | Outpatient (REF) | payer OTHER | LOC: M SFHCDERM 18:04 | PROVIDERS: ATTEND Nurse Practitioner Family | DX: B00.1 Herpesviral vesicular dermatitis (principal) ==

== ENCOUNTER 2023-01-01 20:07 | Emergency (ER) | payer OTHER ==
[~2023-01-01] VITALS: Ht 170.2 cm; Wt 82.4 kg
[2023-01-01 20:56] LABS: BASO % 0.5 % (0.0-1.0); EOS % 0.2 % (0.0-3.0); HEMATOCRIT 38.1 % (36.0-47.0); HEMOGLOBIN 12.2 g/dl (12.0-15.5); LYMPH # 0.7 10^3/uL (1.5-5.0); LYMPH % 12.7 % (24.0-44.0); MEAN CORPUSCULAR HEMOGLOBIN 27.5 pg (27.0-33.0); MONO # 0.9 10^3/uL (0.0-0.8); MONO % 15.8 % (2.0-8.0); NEUTROPHILS # 3.9 10^3/uL (1.5-8.5); NEUTROPHILS % 70.4 % (36.0-66.0); PLATELET COUNT, AUTOMATED 162 10^3/uL (150-450); RED BLOOD COUNT 4.43 10^6/uL (4.00-5.40); WHITE BLOOD COUNT 5.5 10^3/uL (4.0-10.0)
[2023-01-01] MEDS ORDERED: NS 1,000 ML IV ONE (21:00)
[2023-01-01 21:19] LABS: LIPASE 27 U/L (12-53)
[2023-01-01 21:21] LABS: ALBUMIN 3.2 G/DL (3.2-5.2); ALKALINE PHOSPHATASE 89 U/L (46-116); ALT/SGPT 35 U/L (7.0-40); AST/SGOT 34 U/L (<34); BILIRUBIN,DIRECT < 0.1 MG/DL (<0.4); BILIRUBIN,TOTAL 0.2 MG/DL (0.3-1.2); TOTAL PROTEIN 6.1 G/DL (5.7-8.2)
[2023-01-01] MEDS ORDERED: KETOROLAC 30 MG/ML 1ML VIAL IV ONE (22:00)
[2023-01-01] MEDS ORDERED: ONDANSETRON 4MG 2ML VIAL IV ONE (22:00)
[2023-01-01] MEDS ORDERED: ISOVUE-370 76% 100ML VIAL As Ordered ONE (22:43)
[2023-01-02] MEDS ORDERED: cefTRIAXone SOD 1 GM in D5W MINI-BAG PLUS 50 ML IV ONE (01:40)
[2023-01-02] MEDS ORDERED: CIPR500T39 PO (01:43)
[2023-01-02] MEDS ORDERED: MORPHINE 4 MG/ML 1ML VIAL IV ONE (01:45)
[2023-01-02 01:57] VITALS: BP 124/62
== END 2023-01-02 02:03 | disposition home or self-care (01) ==
LOC: M ED 20:07
DX: N10 Acute pyelonephritis (principal); Z98.84 Bariatric surgery status; Z88.1 Allergy status to other antibiotic agents; Z79.810 Long term (current) use of selective estrogen receptor modulators (SERMs); Z79.899 Other long term (current) drug therapy
CPT/HCPCS: 74177; 76705; 80047; 80076; 81001; 83690; 85025; 87086; 96374; 96375; 99284; J0696; J1885; J2405; Q9967

== ENCOUNTER → 2023-11-10 | Outpatient (REF) | payer OTHER ==
[~2023-11-10] MED LIST changes: +CIPR500T39 PO
== END ==
LOC: M SFHCDERM 15:22
PROVIDERS: ATTEND Nurse Practitioner Family
DX: L40.0 Psoriasis vulgaris (principal)

== ENCOUNTER → 2023-11-23 | Outpatient (REF) | payer OTHER | LOC: M SFHCDERM 14:45 | PROVIDERS: ATTEND Nurse Practitioner Family | DX: L40.0 Psoriasis vulgaris (principal) ==